=== PATIENT | female | born 1965 | race Caucasian/White ===

== ENCOUNTER 2020-08-19 08:40 | Emergency (ER) | payer OTHER, SELFPAY ==
--- NOTE | ~2020-08-19 | US_ITS ---
EXAMINATION: US abdomen limited DATE: 08/19/2020 10:34 INDICATION: Right upper quadrant abdominal pain. TECHNIQUE: Multiple grayscale and Doppler ultrasound images of the abdomen were obtained. COMPARISON: CT abdomen and pelvis 07/08/2010 FINDINGS: The visualized portions of the head and body of the pancreas are normal. There is diffuse h epatic steatosis. No liver surface nodularity. There is normal flow in main portal vein. The gallblad shawn is normal in size. No gallstones or gallbladder wall thickening. There was no sonographic Rogers sign. The common duct is normal and measures 3 mm. IMPRESSION: 1. Diffuse hepatic steatosis. Reviewed, dictated and finalized at location A. [facility] [employer]
[2020-08-19 08:45] VITALS: BP 169/90; PULSE 82; RESP 14; O2SAT 96
[2020-08-19 08:58] LABS: Basophils Absolute Auto 0.1 K/mm3 (0.0-0.1); Basophils Percent Auto 0.6 % (0.2-1.2); Eosinophils Absolute Auto 0.1 K/mm3 (0-0.3); Eosinophils Percent Auto 0.8 % (0-4.4); Hemoglobin 14.5 g/dL (12.0-15.0); Immature Granulocyte Absolute 0.04 K/mm3 (0.00-0.031); Immature Granulocyte Percent A 0.4 % (0-0.5); Lymphocytes Absolute Auto 2.09 K/mm3 (0.9-3.2); Mean Corpuscular HGB Conc 34.5 g/dl (32-36); Mean Corpuscular Hemoglobin 30.1 pg (26-34); Mean Corpuscular Volume 87.1 fl (80-100); Mean Platelet Volume 9.8 fl (7.4-10.4); Monocytes Absolute Auto 0.9 K/mm3 (0.1-0.6); Monocytes Percent Auto 8.3 % (2.6-8.5); Neutrophils Absolute Auto 7.8 K/mm3 (1.3-6.7); Neutrophils Percent Auto 70.9 % (45.5-73.1); Platelet Count Result 257 k/mm3 (150-375); Red Blood Count 4.82 M/mm3 (4.2-5.4); Red Cell Distribution Width 13.1 % (11.5-14.5)
[2020-08-19 08:59] LABS: Add Urine Microscopic? YES; Appearance Urine Cloudy (Clear); Bacteria Urine Trace /hpf; Bilirubin Urine Negative (Negative); Blood Urine Negative (Negative); Color Urine Yellow (Yellow); Glucose Urine UA Negative (Negative); Ketones Urine Negative (Negative); Leukocyte Esterase Ur Negative LEU/UL (Negative); Mucus Urine Rare /lpf; Nitrate Urine Negative (Negative); Protein Urine Negative (Negative); RBC Urine 0-2 /hpf (0-2); Specific Grav Ur 1.012 (1.001-1.035); Squamous Epithelial Cell Urine Many /hpf (Few); Urobilinogen Urine Negative mg/dL (<2.0); WBC Urine 0-3 /hpf
[2020-08-19 09:10] LABS: Alanine Aminotransferase 69 U/L (4-35); Albumin Level 4.7 g/dL (3.5-5.1); Alkaline Phosphatase 65 U/L (38-126); Anion Gap 8 mmol/L (8-16); Aspartate Amino Transferase 45 U/L (14-36); Bilirubin,Total 0.7 mg/dL (0.2-1.3); Blood Urea Nitrogen 8 mg/dL (7-17); Calcium 10.2 mg/dL (8.4-10.2); Carbon Dioxide 33 mmol/L (22-30); Chloride 96 mmol/L (98-107); Estimated CRCL calculation 96 ml/min; Estimated Glomerular Filt Rate > 60; Glucose 146 mg/dL (65-105); Lipase 93 U/L (23-300); Potassium 3.5 mmol/L (3.4-5.0); Sodium 137 mmol/L (137-145)
--- NOTE | 2020-08-19 11:46 | ED.ABDPAIN ---
HPI - Abdominal Pain General Chief Complaint: Abdominal Pain Stated Complaint: Right Flank Pain Time Seen by Provider: 08/19/20 08:45 Source: patient Mode of arrival: ambulatory Limitations: no limitations History of Present Illness HPI narrative: 54-year-old with a history of hypertension, diabetes here with complaints of right upper quadrant pain since last night. Patient also states that she vomited this morning. Patient also mentions that she has been having recurrent upper abdominal pain for past 1 week and is scheduled for CT scan next week however the pain was intense so she decided to come to the ER. She denies any fever or chills. Denies any constipation or diarrhea. No previous history of gallstones or gallbladder problems. MD elicited complaint: abdominal pain Pertinent past history: none Onset (ago): day(s) (1) Location: RUQ Severity: moderate Quality: aching Radiation: RUQ Migration to: no migration Exacerbating factors: nothing Relieving factors: nothing Associated symptoms: denies other symptoms Related Data Patient : No Allergies Allergy/AdvReac Type Severity Reaction Status Date / Time lisinopril Allergy Swelling Verified 08/19/20 08:49 of Lip/Tongue/Throat Review of Systems Review of Systems: All systems reviewed & are unremarkable except as noted in HPI and below Constitutional: Constitutional: Reports no additional constitutional complaints Eyes: Eyes: Reports no additional eye complaints ENT: Reports system reviewed and no additional complaints, except as documented Cardiovascular: Cardiovascular: Reports no additional cardiovascular complaints Respiratory: Respiratory: Reports no additional respiratory complaints Gastrointestinal: Gastrointestinal: Reports as per HPI Genitourinary: Genitourinary: Reports no additional female genitourinary complaints Musculoskeletal: Musculoskeletal: Reports no additional musculoskeletal complaints Neurologic: Reports system reviewed and no additional complaints, except as documented Exam Narrative: Exam Narrative: GENERAL: Well-appearing, well-nourished, and in no acute distress. HEAD: Normocephalic, atraumatic. EYES: PERRLA and EOMI. NECK: Supple. CHEST: Clear to auscultation. No respiratory distress. HEART: Regular rate and rhythm. No murmur heard. Normal peripheral pulses. ABDOMEN: Soft, mild tenderness in the RUQ , nondistended, normal active bowel sounds.No CVA tenderness EXTREMITIES: Normal range of motion. No edema. SKIN: Warm, dry, no rash. NEURO: No focal deficits. Alert and oriented x3. PSYCH: Normal mood and affect. Course Course Emergency Course: Patient had no significant pain or nausea vomiting at this point I discussed labs and ultrasound findings. I had recommended her to take Zofran as needed for nausea fat-free diet. Also recommended her to follow-up with her primary doctor regarding her fatty liver. Vital Signs Vital signs: Vital Signs Pulse Rate 82 08/19/20 08:45 Respiratory Rate 14 08/19/20 08:45 Blood Pressure 169/90 H 08/19/20 08:45 Pulse Oximetry 96 08/19/20 08:45 Pulse Rate 82 08/19/20 08:45 Respiratory Rate 14 08/19/20 08:45 Blood Pressure 169/90 H 08/19/20 08:45 Pulse Oximetry 96 08/19/20 08:45 MDM - Abdominal Pain MDM Narrative Medical decision making narrative: Given history of right upper quadrant pain and nausea below CBC comp panel and right upper quadrant ultrasound. Patient declined any pain medication at this time. Lab Data Result diagrams: 08/19/20 08:52 08/19/20 08:52 Labs: Lab Results 08/19/20 08/19/20 08/19/20 Range/Units 08:50 08:52 08:52 WBC 11.0 H (4.5-10.0) K/mm3 RBC 4.82 (4.2-5.4) M/mm3 Hgb 14.5 (12.0-15.0) g/dL Hct 42.0 (37.0-47.0) % MCV 87.1 (80-100) fl MCH 30.1 (26-34) pg MCHC 34.5 (32-36) g/dl RDW 13.1 (11.5-14.5) % Plt Count 257 (150-375) k/mm3 MPV 9.8
[2020-08-19 11:58] VITALS: BP 158/88; PULSE 70; RESP 20; TEMP 36.4; O2SAT 99
== END 2020-08-19 12:00 | disposition home or self-care (01) ==
PROVIDERS: Emergency Provider Family Medicine
DX: R10.11 Right upper quadrant pain (principal); K76.0 Fatty (change of) liver, not elsewhere classified
CPT/HCPCS: 36415; 76705; 80053; 81001; 81025; 83690; 85025; 99284

== ENCOUNTER 2020-10-30 11:30 | Emergency (ER) | payer OTHER, SELFPAY ==
--- NOTE | ~2020-10-30 | XR_ITS ---
EXAMINATION: [id number] DATE: 10/30/2020 12:06 INDICATION: Right-sided rib pain post trauma 4 days prior with palpable pop TECHNIQUE: A frontal inspiratory view of the chest and 3 views of the right ribs were obtained. COMPARISON: None FINDINGS: No rib fractures identified. No pneumothorax. No focal infiltrates, pleural effusion or pulmonary khalida ma. Cardiomediastinal silhouette is normal. Plate and screw fixation for anterior spinal fusion at t he cervicothoracic junction. Small calcific density projecting over the soft tissues near the middle facet of the right greater tuberosity consistent with right infraspinatus calcific tendinitis. IMPRESSION: 1. No rib fracture or acute cardiopulmonary disease. Reviewed, dictated and finalized at location A.
[2020-10-30 11:33] VITALS: BP 174/89; PULSE 72; RESP 16; TEMP 36.2; O2SAT 96
--- NOTE | 2020-10-30 11:40 | PC.NURSE ---
Arrives ambulatory steady gait from triage, was cleaning jacuzzi last night, leaned forward and felt rib pop , points to R anterior chest under the breast, +pain on inspiration. No obvious deformities or bruising, mild tenderness on palpation. No resp distress
[2020-10-30] MEDS: KETOROLAC (*BKC) 60 MG/2 ML VIAL IM (12:15)
--- NOTE | 2020-10-30 12:26 | ED.CHESTPAIN ---
HPI - Chest Pain General Chief Complaint: Chest Pain Stated Complaint: right rib pop Time Seen by Provider: 10/30/20 11:55 Source: patient and RN notes reviewed Mode of arrival: ambulatory Limitations: no limitations History of Present Illness HPI narrative: This is a 54 year old female who presents for evaluation of right rib pain . She states on Friday she was cleaning out her jacuzzi and she felt a pop to right anterior lower ribs. This pop occurred at time she was reaching to clean the tub. She has not been taking anything for her pain. She has pain with movement and laying down. She denies fever, chills, sob. Related Data Allergies Allergy/AdvReac Type Severity Reaction Status Date / Time lisinopril Allergy Swelling Verified 10/30/20 11:43 of Lip/Tongue/Throat Review of Systems Review of Systems: All systems reviewed & are unremarkable except as noted in HPI and below Constitutional: Constitutional: Denies chills, Denies fever(s) and Denies weakness Respiratory: Respiratory: Denies cough and Denies dyspnea Gastrointestinal: Gastrointestinal: Denies abdominal pain, Denies nausea and Denies vomiting PMFSH Past Medical History Medical History (Updated 10/30/20 @ 13:50 by Cassy Becerra MD) Diabetes mellitus Hyperlipidemia Hypertension Surgical History Surgical History (Updated 10/30/20 @ 13:46 by Cassy Becerra MD) H/O oophorectomy Hx of appendectomy Social History Social History (Updated 10/30/20 @ 13:46 by Cassy Becerra MD) Smoking status: Former smoker Exam Const: General: no acute distress and alert Orientation/consciousness: patient oriented x3 Eyes: EOM: EOMs intact bilaterally Chest: Chest palpation & inspection: tenderness rib (right anterior rib, 8,9th rib) Resp: Effort & Inspection: normal respiratory effort and no retractions Auscultation: clear to auscultation bilaterally Cardio: Rate: regular rate Rhythm: regular rhythm Heart sounds: no murmurs GI: GI Palp: Yes Soft to palpation, No Tenderness to palpation present (GI) and No Guarding due to palpation present (GI) Auscultation: normal bowel sounds Skin: General skin exam: normal color Rashes: no rashes Neuro: General: patient oriented x3, moves all extremities and CN's II-XI intact bilaterally Psych: Mental Status: mental status grossly normal Affect: normal affect Course Reevaluation(s) Reevaluation #1: She states her pain is much better after toradol medication. I discussed xray did not show displaced rib fracture. I discussed that she could still have fracture but the treatment would be same. She states she understands. Date: 10/30/20 Time: 13:48 Vital Signs Vital signs: Vital Signs Temperature 97.2 F L 10/30/20 11:33 Pulse Rate 72 10/30/20 11:33 Respiratory Rate 16 10/30/20 11:33 Blood Pressure 174/89 H 10/30/20 11:33 Pulse Oximetry 96 10/30/20 11:33 Temperature 97.2 F L 10/30/20 11:33 Pulse Rate 67 10/30/20 13:18 Respiratory Rate 17 10/30/20 13:18 Blood Pressure 136/86 10/30/20 13:18 Pulse Oximetry 95 10/30/20 13:18 MDM - Chest Pain Imaging Data Radiologist's impression: ITS Impressions Ribs w/Chest X-Ray 10/30/20 12:15 IMPRESSION: 1. No rib fracture or acute cardiopulmonary disease. Discharge Plan Discharge Clinical Impression: Rib pain on right side Patient Disposition: Home, Self-Care Condition: Stable Instructions: Antibiotic Form, Rib Fracture (ED), Rib Contusion (ED) Additional Instructions: Today you were evaluated for rib pain. You may a rib fracture and treatment is the same. PAin management is the treatment. Return if you develop fever, dizziness, weakness, shortness of breath. Prescriptions: New naproxen [Naprosyn] 500 mg tablet 500 mg PO BID PRN (Reason: pain) Qty: 20 RF: 0 hydrocodone-acetaminophen 5-325 mg tablet 1 tablet PO Q6H PRN (Reason: pain) Qty: 7 RF: 0
[2020-10-30 13:18] VITALS: BP 136/86; PULSE 67; RESP 17; O2SAT 95
== END 2020-10-30 14:15 | disposition home or self-care (01) ==
PROVIDERS: Emergency Provider General Practice
DX: R07.81 Pleurodynia (principal); E11.9 Type 2 diabetes mellitus without complications; E78.5 Hyperlipidemia, unspecified; I10 Essential (primary) hypertension; Z87.891 Personal history of nicotine dependence
CPT/HCPCS: 71101; 96372; 99283; J1885

== ENCOUNTER 2022-04-06 21:41 | Emergency (ER) | payer OTHER, SELFPAY ==
--- NOTE | ~2022-04-06 | CT_ITS ---
EXAMINATION: CT brain wo con DATE: 04/06/2022 23:24 INDICATION: Head injury. Status post fall. Posterior bleeding. TECHNIQUE: Computed tomography (CT) of the head was performed without intravenous contrast. The dose- length product was 605.33 mGy-cm. Automated exposure control and iterative reconstruction technique w ere employed. COMPARISON: None FINDINGS: There is a chronic left lacunar infarction of the caudate nucleus. Normal brain parenchymal volume. No acute intracranial hemorrhage, infarction, mass or mass effect. No ventriculomegaly or mi dline shift. Basilar cisterns are patent. There is mild mucosal thickening of the ethmoid air cells. No depressed skull fractures. IMPRESSION: 1. No acute intracranial abnormality. 2: Chronic left lacunar infarction. Reviewed, dictated and finalized at location A.
--- NOTE | ~2022-04-06 | CT_ITS ---
EXAMINATION: CT cervical spine wo con DATE: 04/06/2022 23:24 INDICATION: Neck pain TECHNIQUE: Computed tomography (CT) of the cervical spine was performed without intravenous contrast. The dose-length product was 362 mGy-cm. Automated exposure control and iterative reconstruction tech Pascal Met[employer]que were employed. COMPARISON: None FINDINGS: There is reversal of cervical lordosis. There is anterior cervical fusion at C6-7. There is advanced degenerative disc disease and spondylosis at C3-4 through C7-T1. There is degenerative ante rolisthesis at C2-3. No acute fracture, subluxation or dislocation. Odontoid process is normal. Lung apices are normal. Craniovertebral junction is normal. IMPRESSION: 1. No acute fracture. 2: Moderate-severe cervical spondylosis. Reviewed, dictated and finalized at location A.
[2022-04-06 21:42] VITALS: BP 149/94; PULSE 72; RESP 16; TEMP 36.6; O2SAT 100
--- NOTE | 2022-04-06 23:30 | ED.GENADULT ---
HPI - General Adult General Chief complaint: Head Injury Stated complaint: fall, head injury Time Seen by Provider: 04/06/22 21:52 History of Present Illness HPI narrative: Patient 56-year-old female who presents the emergency department with chief complaint of head injury. Patient reports she was at home fell backwards struck her head and has a small laceration on the back of her head. Patient reports takes an aspirin every day and also reports that she has been drinking does not really remember if she passed out whenever she hit the ground. The patient reports he is up-to-date on her tetanus status Related Data Allergies Allergy/AdvReac Type Severity Reaction Status Date / Time lisinopril Allergy Swelling Verified 04/06/22 21:44 of Lip/Tongue/Throat Review of Systems Review of Systems: A 10 system review of systems was completed on the patient and is negative except for what is stated in the HPI. Nursing and ancillary documentation was reviewed. [facility] Past Medical History Medical History Diabetes mellitus Hyperlipidemia Hypertension Surgical History Surgical History H/O oophorectomy Hx of appendectomy Social History Social History Smoking status: Former smoker Exam Narrative: GENERAL: Well-appearing, well-nourished, and in no acute distress. HEAD: Normocephalic, small laceration in the occipital region of the scalp. EYES: PERRLA and EOMI. ENT: Nares clear, no rhinorrhea or epistaxis. Mucous membranes moist. NECK: Supple. CHEST: Clear to auscultation. No respiratory distress. HEART: Regular rate and rhythm. No murmur heard. Normal peripheral pulses. ABDOMEN: Soft, nontender, nondistended, normal active bowel sounds. EXTREMITIES: Normal range of motion. No edema. SKIN: Warm, dry, no rash. NEURO: No focal deficits. Alert and oriented x3. PSYCH: Normal mood and affect. Course Vital Signs Vital signs: Vital Signs Temperature 36.6 C 04/06/22 21:42 Pulse Rate 72 04/06/22 21:42 Respiratory Rate 16 04/06/22 21:42 Blood Pressure 149/94 H 04/06/22 21:42 Pulse Oximetry 100 04/06/22 21:42 Temperature 36.6 C 04/06/22 21:42 Pulse Rate 72 04/06/22 21:42 Respiratory Rate 16 04/06/22 21:42 Blood Pressure 149/94 H 04/06/22 21:42 Pulse Oximetry 100 04/06/22 21:42 Procedures Laceration Laceration 1: Date: 04/06/22 Time: 23:55 Site: scalp Size (cm): 1.5 Description: linear Depth: simple, single layer Local Anesthetic: none Pre-repair: wound explored, irrigated and irrigated extensively ====== Skin Level ====== Skin layer closed with: beth Number of sutures: 1 ====== Subcutaneous Layer ====== ====== Muscle Layer ====== ====== Tendon Layer ====== Medical Decision Making Vital Signs Vital Signs: Vital Signs Temperature 36.6 C 04/06/22 21:42 Pulse Rate 72 04/06/22 21:42 Respiratory Rate 16 04/06/22 21:42 Blood Pressure 149/94 H 04/06/22 21:42 Pulse Oximetry 100 04/06/22 21:42 Temperature 36.6 C 04/06/22 21:42 Pulse Rate 72 04/06/22 21:42 Respiratory Rate 16 04/06/22 21:42 Blood Pressure 149/94 H 04/06/22 21:42 Pulse Oximetry 100 04/06/22 21:42 Discharge Plan Discharge Clinical Impression: Closed head injury, Laceration of scalp Patient Disposition: Home, Self-Care Condition: Stable Instructions: Antibiotic Form, Head Injury (ED), Staple Care (ED), Laceration (ED) Additional Instructions: You have 1 staple in your scalp that should be removed in 7 to 10 days Prescriptions: No Action ondansetron HCl [Zofran] 4 mg tablet 4 mg PO Q8H PRN (Reason: nausea and vomiting) Qty: 14 0RF dicyclomine 10 mg capsule 10 mg
== END 2022-04-07 00:15 | disposition home or self-care (01) ==
PROVIDERS: Emergency Provider Emergency Medicine
DX: S01.01XA Laceration without foreign body of scalp, initial encounter (principal); E11.9 Type 2 diabetes mellitus without complications; E78.5 Hyperlipidemia, unspecified; I10 Essential (primary) hypertension; Z87.891 Personal history of nicotine dependence
CPT/HCPCS: 12001; 70450; 72125; 99284

== ENCOUNTER 2025-01-10 21:21 | Emergency (ER) | payer OTHER, SELFPAY ==
--- NOTE | ~2025-01-10 | XR_ITS ---
HISTORY: fall COMPARISON: None TECHNIQUE: 2 views of the left hip along with an AP view of the pelvis FINDINGS: No acute fracture or dislocation is identified. Superior lateral sclerosis of the bilateral femoral acetabular joint spaces are present (left greater than right) consistent with osteoarthritis. Multiple phleboliths within the pelvis. Normal mineralization. IMPRESSION: Degenerative disease without acute fracture or dislocation Reviewed, dictated and finalized at location A.
--- NOTE | ~2025-01-10 | XR_ITS ---
HISTORY: fall COMPARISON: None TECHNIQUE: 3 views of the left ribs were performed along with a PA and lateral view of the chest FINDINGS: The cardiomediastinal silhouette is unremarkable. The lungs are clear. Fixation hardware is identified within the lower cervical spine. No acute displaced fracture is appreciated. Bone mineralization is age-appropriate. IMPRESSION: No acute displaced fracture. The lungs are clear Reviewed, dictated and finalized at location A.
--- NOTE | ~2025-01-10 | CT_ITS ---
History: Fall PROCEDURE: CT head without contrast. COMPARISON: 04/06/2022 TECHNIQUE: Axial imaging of the head performed from the skull base to the vertex without IV contrast. Sagittal a nd coronal reformations obtained. DLP: 605 mGy-cm FINDINGS: The ventricles are normal in size, shape and position. There is no mass, mass effect or midline shift. There is no abnormal extra-axial fluid collection or intracranial hemorrhage. Visualized paranasal sinuses are clear. The mastoid air cells are well aerated. No acute displaced fractures within the overlying cranium. Impression: No acute intracranial hemorrhage or suspicious mass effect. Reviewed, dictated and finalized at location A. Impression: No acute intracranial hemorrhage or suspicious mass effect.
--- OUTSIDE RECORDS SUMMARY | 2025-01-10 21:25 | XMS_ITS | Clinical Summary ---
Author Organization [facility] Address [address] [place] [address] Care Team Providers Care Photo Mask Processor Name Role Phone [address] Primary Care Prov ider Source Comments [facility],non-owned Affiliates and Associated Physician Practices is amultiple site organization consisting of ambulatory clinics and hospital sitesin [place], [place], [place]. This disclosure is being madepursuant to the Care Everywhere program and may not contain all information available regarding this patient. Last updated 18.[facility] Allergies Active Allergy Reactions Criticality Noted Date Comments Lisinopril Swelling 08/06/2016 Medications * Be aware that medications may not be up to date on this document. Alwaysverify current medications with the patient. No known medications Social History Tobacco Use Types Packs/Day Years Used Date Smoking Tobacco: Never Assessed Comments No Sex and Gender Information Value Date Recorded Sex Assigned at Not on file Legal Sex Female 12:01 PM [facility] Gender Identity Not on file Sexual Orientation Not on file Last Filed Vital Signs Vital Sign Reading Time Taken Comments Blood Pressure 114/72 08/06/2016 2:01 PM [facility] Pulse - - Temperature - - Respiratory Rate - - Oxygen Saturation - - Inhaled Oxygen Concentration - - Weight 84.1 kg (185 lb 6.5 oz) 08/06/2016 2:01 P M [facility] Height 169 cm (5' 6.54) 08/06/2016 2:01 PM [facility] Body Mass Index 29.45 08/06/2016 2:01 PM [facility] Plan of Treatment Health Maintenance Due Date Last Done Comments COLOGUARD (AGES 45-75) - COL ON CA SCREENING 1964 COLON MONITORING 1964 COLONOSCOPY - COLON CA SCREENING 1964 CT COLONOGRAPHY - COLON CA SCREENING 1964 Colorectal Cancer Screening 1964 FIT - COLON CA SCREENING 1964 FLEX SIG - COLON CA SCREENING 1964 LIPID TESTING 1964 MAMMOGRAM 1964 HIV SCREENING 12/30/1979 HEPATITIS C SCREENING 12/25/1982 DTAP/TDAP/TD VACCINES (1 - Tdap) 12/30/1983 PNEUMOCOCCAL VACCINE 50+ (1 of 1 - PCV) 2014 ZOSTER VACCINE (1 of 2) 2014 COVID-19 VACCINE (1 - 2023-2 5 season) 2024 DEPRESSION SCREENING 06/09/2024 INFLUENZA VACCINE (#1) 2025 Respiratory Syncytial Virus (RSV) Vaccine Pt: or over 60 yrs (1 - 1-dose 75+ series) 12/30/2039 HEPATITIS B VACCINE Aged Out No longe r eligible based on patient's age to complete this topic HIB VACCINE Aged Out No longer eligi ble based on patient's age to complete this topic HPV VACCINE Aged Out No longer eligi ble based on patient's age to complete this topic MENINGOCOCCAL (Group B) VACC INE SHARED DECISION-MAKING Aged Out No longer eligibl e based on patient's age to complete this topic MENINGOCOCCAL GROUPS A/C/Y/W VACCINE Aged Out No longer eligible b ased on patient's age to complete this topic Insurance Care Teams Photo Mask Processor Relationship Specialty Start Date End Date Clinicpc, [facility] [address] [facility], [place] [address] PCP - General Family Medicine 08/06/16
--- OUTSIDE RECORDS SUMMARY | 2025-01-10 21:26 | XMS_ITS | Continuity of Care Document ---
Author Organization [facility] Address [address] [place] [address] Phone Care Team Providers Care Ultrasonic Solderer Name Role Phone Jeremie Olivia PT Unavailable Unavailable Procedures Procedure Date Progress Note Therapeutic Activities Neuromuscular Re-Ed Therapeutic Exercise Manual Therapy Therapeutic Activities Neuromuscular Re-Ed Manual Therapy Therapeutic Exercise Therapeutic Activities Neuromuscular Re-Ed Therapeutic Exercise Manual Therapy Therapeutic Activities Neuromuscular Re-Ed Therapeutic Exercise Manual Therapy Therapeutic Activities Therapeutic Exercise Neuromuscular Re-Ed Manual Therapy Therapeutic Activities Neuromuscular Re-Ed Therapeutic Exercise Manual Therapy Therapeutic Activities Neuromuscular Re-Ed Manual Therapy Therapeutic Exercise Therapeutic Activities Therapeutic Exercise Neuromuscular Re-Ed Manual Therapy PT Evaluation Moderate Complexity Therapeutic Activities Neuromuscular Re-Ed Therapeutic Exercise Hot or Cold Pack Progress Note Therapeutic Exercise Neuromuscular Re-Ed Manual Therapy Therapeutic Exercise Neuromuscular Re-Ed Manual Therapy Therapeutic Exercise Neuromuscular Re-Ed Manual Therapy Therapeutic Exercise Neuromuscular Re-Ed Manual Therapy Therapeutic Exercise Neuromuscular Re-Ed Manual Therapy Therapeutic Exercise Neuromuscular Re-Ed Manual Therapy Therapeutic Exercise Neuromuscular Re-Ed Manual Therapy Hot or Cold Pack Therapeutic Exercise Neuromuscular Re-Ed Manual Therapy Hot or Cold Pack PT Evaluation Low Complexity Therapeutic Exercise Manual Therapy PT RE-EVALUATION THERAPEUTIC EXERCISES MANUAL THERAPY MECHANICAL TRACTION THERAPEUTIC EXERCISES MANUAL THERAPY MECHANICAL TRACTION THERAPEUTIC EXERCISES MANUAL THERAPY MECHANICAL TRACTION THERAPEUTIC EXERCISES MANUAL THERAPY MECHANICAL TRACTION THERAPEUTIC EXERCISES NEUROMUSCULAR RE-ED MANUAL THERAPY HOT/COLD PACK MECHANICAL TRACTION ELECTRIC STIMULATION UNA THERAPEUTIC EXERCISES NEUROMUSCULAR RE-ED MANUAL THERAPY HOT/COLD PACK MECHANICAL TRACTION ELECTRIC STIMULATION UNATT THERAPEUTIC EXERCISES MANUAL THERAPY HOT/COLD PACK MECHANICAL TRACTION ELECTRIC STIMULATION UNA PT EVALUATION MANUAL THERAPY Advance Directives Directive Yes / No Effective Date File Name No Information Encounters Encounter Description Practice Location Reason(s) For Visit Diagnoses Date Provider Providers Copied on Encounter [facility], [address] [facility] [place], [place], [place], [id number], tel:[phone] [place] No Information Gorska Jeremie. [facility] [place], [address], . tel:[phone] [facility], [address], [place], [place], [id number], tel:[phone] [place] No Information Gorska Jeremie. [facility] [place], [address], . tel:[phone] Referring Provider: [address], [place], [address]. tel:[phone] [facility], [address], [place], [address], tel:[phone] [place] No Information Gorska Jeremie. [facility] [place], [address], . tel:[phone] Referring Provider: [address], [place], [address]. tel:[phone] [facility], [address], [place], [address], tel:[phone] [place] No Information Gorska Jeremie. [facility] [place], [address], . tel:[phone] Referring Provider: [address], [place], [address]. tel:[phone] [facility], [address], [place], [address], tel:[phone] [place] No Information Gorska Jeremie. [address] [place], [address], [place]. tel:[phone] Referring Provider: [address] [place] [address], [place], [address]. tel:[phone] [facility], [address], [place], [place], [address], [place] tel:[phone] [place] No Information Gorska Jeremie. [facility] [place], [address], [place]. tel:[phone] Referring Provider: [address] [address], [place], [address]. tel:[phone] [facility], [address], [place], [address], [place] tel:[phone] [place] No Information Celestino Cosme. . Referring Provider: Marg[address] [address], [place], [address]. tel:[phone] [facility], [address], [place], [address], [place] tel:[phone] [place] No Information Tomas Hoyt . Referring Provider: [address], [place], [address]. tel:[phone] [facility], [address], [place], [address], [place] tel:[phone] [place] No Information Gorcornela Jeremie. [facility] [place], [address], [place]. tel:[phone] Referring Provider: [address], [place], [address]. tel:[phone] [facility], [address], [place], [address], [place] tel:[phone] [place] No Information Ne Chao. [address] [place], [address], [place]. tel:[phone] Referring Provider: Sunny Pantoja, [address] [place] [address], [place], [address]. tel:[phone] [facility], [address], [place], [address], [place] tel:[phone] [place] Lateral epicondylitis, left elbowPain in left elbow Glenwood Yenny. . Referring Provider: Mychal Muñoz, [address] [place] [address] [address], [place], [address]. tel:[phone] [facility], [address], [id number], [place] tel:[phone] [place] Lateral epicondylitis, left elbowPain in left elbow [place] Yenny. . Referring Provider: Mychal Muñoz, [address] [place] [address] [address], [place], [address]. tel:[phone] [facility], [address] [facility] [address], [place], [address], [place] tel:[phone] [place] Lateral epicondylitis, left elbowPain in left elbow Celestino Cosme. . Referring Provider: Mychal Muñoz, [address] [facility] [address], [place], [address]. tel:[phone] [facility], [address] [facility] [address], [id number], [place] tel:[phone] [place] Lateral epicondylitis, left elbowPain in left elbow Gary Yenny. . Referring Provider: Mychal Muñoz, [address] [address] [address], [place], [address]. tel:[phone] [facility], [address], [place], [address], [place] tel:[phone] [place] Lateral epicondylitis, left elbowPain in left elbow [place] Yenny. . Referring Provider: Mychal Muñoz, [address] [place] [address] [address], [place], [address]. tel:[phone] [facility], [address], [place], [address], [place] tel:[phone] [place] Lateral epicondylitis, left elbowPain in left elbow [place] Yenny. . Referring Provider: Mychal Muñoz, [address] [place] [address] [address], [place], [address]. tel:[phone] [facility], [address], [id number], tel:[phone] [place] No Information Gary Yenny. . Referring Provider: Mychal Muñoz, [address] [place] [address] [address], [place], [address]. tel:[phone] [facility], [address], [place], [place], [address], tel:[phone] [place] No Information Gary Yenny. . Referring Provider: Mychal Muñoz, [address] [place] [address] 22 [address], [place], [address]. tel:[phone] [facility], [address], [place], [address], [place] tel:[phone] [place] Lateral epicondylitis, left elbowPain in left elbow Gary Yenny. . Referring Provider: Mychal Muñoz, [address] [place] [address] [address], [place], [address]. tel:[phone] [facility], [address], [place], [address], tel:[phone] [place] No Information Moose Bunn. [facility] [place], [address], . tel:[phone] Referring Provider: Ishan Rodriges, [address] [address], [place], [address]. tel:[phone] [facility], [address], [place], [address], tel:[phone] [place] No Information Moose Bunn. [facility] [place], [address], . tel:[phone] Referring Provider: Ishan Rodriges, [address] [place] [address], [place], [address]. tel:[phone] [facility], [address] [place] [address], [id number], tel:[phone] [place] No Information Moose Bunn. [facility] [place], [address], . tel:[phone] Referring Provider: Ishan Rodriges, [address] [address], [place], [address]. tel:[phone] [facility], [address], [place], [address], tel:[phone] [place] No Information Moose Bunn. [facility] [place], [address], . tel:[phone] Referring Provider: Ishan Rodriges, [address] [address], [place], [address]. tel:[phone] [facility], [address], [place], [address], tel:[phone] [place] No Information Moose Bunn. [facility] [place], [facility], . tel:[phone] Referring Provider: Ishan Rodriges, [address], [facility]. tel:[phone] [facility], [address] [place] [address], [id number], tel:[phone] [place] No Information Moose Bunn. [address] [place], [place], [facility], . tel:[phone] Referring Provider: Ishan Rodriges, [address], [facility]. tel:[phone] [facility], [address] [place] [address], [id number], tel:[phone] [place] No Information Jairon Villanueva. . Referring Provider: Ishan Rodriges, [address], [facility]. tel:[phone] [facility] [address] [place] [address], [id number], tel:[phone] [place] Cervical StrainSpinal stenosis in cervical region Moose Bunn. [facility] [place], [facility], . tel:[phone] Referring Provider: Ishan Rodriges, [address], [facility]. tel:[phone] Family History Family Member Type Diagnosis Age At Onset No Information Payers Payer name Insurance type Covered libertarian ID Authorwen betancourt(s) [facility] [id number] Social History Type Description Quantity Date Captured Comments Sex Female Smoking Status No Information Chief Complaint And Reason For Visit No Information Reason For Referral Reason For Referral No Information History Of Present Illness Encounter Date Complaint History Of Prese nt Illness No Information Functional Status Date Functional Assessmen t No Information Instructions Date Instruction Additional Infor mation No Information Assessments Type Assessment Date No Information Patient Care Teams Name Effective Dates (start - stop) Status Members No Information
--- OUTSIDE RECORDS SUMMARY | 2025-01-10 21:26 | XMS_ITS | Encounter Summary ---
Author Organization [facility] Address [address] [place] [address] Care Team Providers Care Cissp Name Role Phone Jones Villagomez MD Primary Care Provider [phone] Encounter Details Date Type Department Care Team (Late st Contact Info) Description 03/08/2020 Prep for Procedure [facility] Pre-Admission Testing [address] [place], [place] [id number] Robin Valderrama MD [address] [place], [place] [address] Social History Tobacco Use Types Packs/Day Years Used Date Smoking Tobacco: Former Smokeless Tobacco: Never Comments:quit 2011 Alcohol Use Standard Drinks/Week Comments Yes 0 (1 standard drink = 0.6 oz pur e alcohol) on occassion PHQ-2 Answer Date Recorded PHQ-2 Score 0 2019 Comments No Sex and Gender Information Value Date Recorded Sex Assigned at Not on file Legal Sex Female 7:14 PM CDT Gender Identity Female 06/29/2024 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 No / Unsure 03/01/2020 2:11 PM CDT documented as of this encounter Plan of Treatment Not on file documented as of this encounter Results * PRE-SURGICAL/PRE-PROCEDURE CORONAVIRUS (COVID 19) (03/14/2020 8:38 AM CDT) CORONAVIRUS SARS COV 2 PCR (RESP) NOT DETECTED NOT DETECTED 03/16/2020 9:50 AM CDT [facility] Comment: A Not Detected (negative) test result for this test means that SARS- CoV-2 RNA was not present in the specimen above the limit of detection. A negative result does not rule out the possibility of COVID-19 and should not be used as the sole basis for treatment or patient management decisions. If COVID-19 is still suspected, based on exposure history together with other clinical findings, re-testing should be considered in consultation with public health authorities. Laboratory test results should always be considered in the context of clinical observations and epidemiological data in making a final diagnosis and patient management decisions. Please review the Fact Sheets and FDA authorized labeling available for health care providers and patients using the following websites: https://www.[place].[employer]/home/Covid-19/HCP/[facility]/fact- sheet.html https://www.[place].[employer]/home/Covid-19/Patients/ [facility]/fact-sheet.html This test has been authorized by the FDA under an Emergency Use Authorization (EUA) for use by authorized laboratories. Due to the current public health emergency, [facility] is receiving a high volume of samples from a wide variety of swabs and media for COVID-19 testing. In order to serve patients during this public health crisis, samples from appropriate clinical sources are being tested. Negative test results derived from specimens received in non-commercially manufactured viral collection and transport media, or in media and sample collection kits not yet authorized by FDA for COVID-19 testing should be cautiously evaluated and the patient potentially subjected to extra precautions such as additional clinical monitoring, including collection of an additional specimen. Methodology: Nucleic Acid Amplification Test (NAAT) includes RT-PCR or TMA Additional information about COVID-19 can be found at the [facility] website: www.[employer]/Covid19. Test performed at [facility] [address] [place] [address] Director: TIARA BARBOSA DO,MPH FIRST TEST YES 03/14/2020 11:24 AM CDT [facility] EMPLOYED IN HEALTHCARE NO 03/14/2020 11:24 AM CDT [facility] SYMPTOMATIC DEFINED BY CDC NO 03/14/2020 11:24 AM CDT [facility] DATE OF SYMPTOM ONSET UNKNOWN 03/14/2020 12:32 PM CDT [facility] HOSPITALIZATION STATUS NO 03/14/2020 11:24 AM CDT [facility] PATIENT IN ICU NO 03/14/2020 11:24 AM CDT [facility] RESIDENT OF [facility] NO 03/14/2020 11:24 AM CDT [facility] NOT 03/14/2020 11:24 AM CDT [facility] PATIENT'S RACE WHITE OR 03/14/2020 11:24 AM CDT [facility] ETHNICITY NONHISPANIC 03/14/2020 11:24 AM CDT [facility] SOURCE (QST) NASOPHARYNGEAL SWAB 03/14/2020 11:24 AM CDT [facility] NASOPHARYNGEAL SWAB / Unknown 03/14/2020 8:38 AM CDT us Robin Valderrama MD MICROBIOLOGY - GENERAL ORDERABL ES Final Result [facility] [address] [place] [address], [facility] [address] [place] [address], documented in this encounter Visit Diagnoses Diagnosis Preop examination- Primary Preoperative examination, unspecified documented in this encounter Additional Health Concerns Infection Onset Date Last Indicated Resolved Time COVID-19 Rule Out 03/14/2020 03/14/2020 03/16/2020 9:51 AM CDT documented as of this encounter Care Teams Cissp Relationship Specialty Start Date End Date Jones Villagomez MD [address] [facility] [address] [place] [address] PCP - General FAMILY PRACTICE 04/14/19 documented as of this encounter
--- OUTSIDE RECORDS SUMMARY | 2025-01-10 21:26 | XMS_ITS | Clinical Summary ---
Author Organization [facility] Address [address] [place] [address] Care Team Providers Care Parking Line Painter Name Role Phone Jones Villagomez MD Primary Care Provider [phone] Allergies Active Allergy Reactions Criticality Noted Date Comments Lisinopril Swelling 04/14/2019 Lips and facial swelling Medications propranolol LA 80 MG 24 hr capsule Take 60 mg by mouth 2 (two) times a day. Active hydrochlorothia zide 25 MG tablet Take 1 tablet (25 mg total) by mouth every morning. Active citalopram 20 MG tablet Take 1 tablet (20 mg total) by mouth daily. Active metFORMIN 1000 MG tablet Take 1 tablet (1,000 mg total) by mouth 2 (two) times daily with meals. Active fluticasone propionate 50 MCG/ACT nasal spray 1 spray by Each Nostril route daily. Active cetirizine 10 MG tablet Take 1 tablet (10 mg total) by mouth daily. Active pantoprazole EC 40 MG tablet Take 1 tablet (40 mg total) by mouth daily. Active fish oil 1000 MG Cap capsule 09/15/2018 Acti ve vitamin D3, cholecalciferol , 1000 UNIT Tab tablet 1 tablet (25 mcg total) nightly. 11/30/2019 Active losartan (COZAAR) 50 MG tablet 09/29/2023 Active atorvastatin (LIPITOR) 80 MG tablet 09/30/2023 Active Active Problems No known active problems Immunizations Immunization Administration Dates Next Due [employer] ([employer]) COVID-19 AD26 VACCINE 0.5 ML IM SUSP 09/17/2020 Family History Medical History Relation Comments Diabetes Father Cancer Mother Hypertension Mother Diabetes Sister Hypertension Sister Relation Status Comments Daughter Alive Father Mother ovarian and delicia st Sister Social History Tobacco Use Types Packs/Day Years Used Date Smoking Tobacco: Former Cigarettes 1.5 10 1 06/09/2001 - 04/09/2012 Passive Smoke Exposure: Past Smokeless Tobacco: Never Tobacco Cessation:Counseling Given: No Comments:Quit 2011 Alcohol Use Standard Drinks/Week Comments Yes 3.3 (1 standard drin k = 0.6 oz pure alcohol) on occassion, couple glasses a week PHQ-2 Answer Date Recorded Patient Health Questionnaire-2 Score 0 06/30/2024 Comments No Sex and Gender Information Value Date Recorded Sex Assigned at Not on file Legal Sex Female 7:14 PM CDT Gender Identity Female 06/29/2024 7:44 AM CLERICAL OFFICE Sexual Orientation Not on file Last Filed Vital Signs Vital Sign Reading Time Taken Comments Blood Pressure 134/85 06/30/2024 9:01 AM CLERICAL OFFICE Pulse 72 06/30/2024 9:01 AM CLERICAL OFFICE Temperature 36.9 C (98.4 F) 06/30/2024 9:01 AM CLERICAL OFFICE Respiratory Rate 18 05/05/2023 8:01 AM CLERICAL OFFICE Oxygen Saturation 97% 10/20/2023 3:32 PM CDT Inhaled Oxygen Concentration - - Weight 78.8 kg (173 lb 12.8 oz) 06/30/2024 9:01 AM CLERICAL OFFICE Height 167.6 cm (5' 6) 07/09/2023 3:16 PM CLERICAL OFFICE Body Mass Index 28.05 07/09/2023 3:16 PM CLERICAL OFFICE Plan of Treatment Health Maintenance Due Date Last Done Comments Annual Physical 12/30/1967 Hepatitis C 1982 Cervical Cancer Screening Pa p with HPV Testing (Age 30 to 64) Every 5 Years 1994 Mammogram Screening 2004 Cervical Cancer Screening Pa p Smear (Age 30 to 64) Every 3 Years 01/10/2011 01/11/2008 Cervical Cancer Screening wi th HPV 01/10/2011 Pneumococcal Vaccine: 50+ Years (2 of 2 - PCV) 03/08/2016 03/08/2015 DTaP, Tdap and Td Vaccines ( 2 - Td or Tdap) 06/12/2022 06/12/2012, 11/17/2005, 11/27/1995 COVID-19 Vaccine (2 - 2023-2 5 season) 2024 09/17/2020 Colorectal Cancer Screening Colonoscopy (10 Years) 04/16/2029 04/16/2019, 04/16/2019 RSV Immunization or 60+ Years (1 - 1-dose 75+ series) 12/30/2039 Zoster Vaccines Completed 08/21/2020, 05/18/2020 PHQ-2 (Physician [place]) Completed 06/30/2024 Meningococcal B Vaccine Aged Out No l onger eligible based on patient's age to complete this topic Meningococcal Vaccine Aged Out No mariana singh eligible based on patient's age to complete this topic RSV Immunizations Under 20 Months Aged Out No longer eligible b ased on patient's age to complete this topic Medical Devices Implanted Type Area Nail Polish Brush Machine Feeder Device Identifier Shelf Expiration Date Model / Serial / Lot 4 Hole Locking Distal Fibula Plate, Right Implanted:Qty: 1 on 03/28/2023 by Addy Vargas MD at [facility] Plate Right: Ankle [employer] [id number] / / [id number] 2.7mm Locking Screw Implanted:Qty: 1 on 03/28/2023 by Addy Vargas MD at [facility] Screw Right: Ankle [employer] AR-8827CL- 12 / / 2.7mm Locking Screw Implanted:Qty: 1 on 03/28/2023 by Addy Vargas MD at [facility] Screw Right: Ankle [employer] [id number]-10 / / Screw Bone 3.5mm 14mm Low Profile - [id number] Implanted:Qty: 1 on 03/28/2023 by Addy Vargas MD at [facility] Screw Right: Ankle [employer] [id number]-8835-14 / / Screw Bone 3.5mm 16mm Low Profile - [id number] Implanted:Qty: 1 on 03/28/2023 by Addy Vargas MD at [facility] Screw Right: Ankle [employer] [id number]-8835-16 / / Screw Arthrex Cortical 3.5 X 18 Mm - [id number] Implanted:Qty: 1 on 03/28/2023 by Addy Vargas MD at [facility] Screw Right: Ankle [employer] [id number] AR-8835-18 / / 4mm Cannulated Screw, Long Thread Implanted:Qty: 1 on 03/28/2023 by Addy Vargas MD at [facility] Screw Right: Ankle [employer] [id number] AR-8840CL- 40 / / 2.7mm Locking Screw Implanted:Qty: 1 on 03/28/2023 by Addy Vargas MD at [facility] Right: Ankle [employer] AR-8827CL- 14 / / Procedures Procedure Name Priority Date/Time Associated Diagnosis Comments COLONOSCOPY Routine 04/16/2019 8:00 AM CLERICAL OFFICE from Last 3 Months or Most Recently Relevant to Health Maintenance Insurance [facility] [place] [id number] [facility] Care Teams Parking Line Painter Relationship Specialty Start Date End Date Jones Villagomez MD [address] [facility] [address] [place] [address] PCP - General FAMILY PRACTICE 04/14/19
--- OUTSIDE RECORDS SUMMARY | 2025-01-10 21:27 | XMS_ITS | Continuity of Care Document ---
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 It does not include entries that were removed or entered in error. Problem Status Onset Date Problem Type Date of Resolution Comments Source Skin lesion Active 025 Diagnosis 6130C-A f-C-375 [facility] Type 2 diabetes mellitus without complication Active 016 Condition 6130C-A f-C-375 [facility] Type 2 diabetes mellitus without complications Active 016 Condition DoD Abnormal uterine bleeding Active Condition 6130C-A f-C-375 [facility] Acquired right hallux valgus Active Condition 6130C-A f-C-375 [facility] Allergic rhinitis Active Condition 6130 C-A f-C-375 [facility] Anxiety disorder1 Active Condition Ou tside Source Comment: No SI/HI. Pt. notes great improvement in symptoms on current med./dose. 6130C-A f-C-375 [facility] Bacterial vaginosis Active Condition 61 30C-A f-C-375 [facility] Benign essential hypertension Active Condition 6130C-A f-C-375 [facility] Carpal tunnel syndrome2 Active Condition Outside Source Comment: Somewhat inconsistent exam. Patient to wear splints at all times - even sleeping. Remove splints to shower and BID ROM exercises. Patient also given letter for 4 weeks of profile and ergonomic assessment of her working environment. She is to follow-up in the next few weeks for annual physical. If she still complains of this then likely needs NCS (Neurology consult) before to assess PNS before orthopedic surgery referral. 6130C-A f-C-375 [facility] Cigarette smoker3 Active Condition Ou tside Source Comment: Discussed with pt need to quit smoking. She wants to quit. Doesn 't want to take any medication, has already weaned herself down to 1/2 ppd. Is going on TDYT for 1 month, plans on quitting during that time.\r\nPt to f/u in 1 month, will discuss how it is goi 6130C-A f-C-375 [facility] Combined systolic and diastolic dysfunction Active Condition 6130C-A f-C-375 [facility] Cyst of left ovary Active Condition 613 0C-A -C-375 [facility] Cystitis Active Condition 6130C-A -C-375 [facility]- [facility] Diabetes mellitus Active Condition 6130 C-A -C-375 [facility] Disorder of menstruation Active Condition 6130C-A -C-375 [facility] Dysmenorrhea Active Condition 6130C-A -C-375 [facility] Esophageal reflux finding Active Condition 6130C-A f-C-375 [facility] Esophagitis Active Condition 6130C-A -C-375 [facility] Essential hypertension4 Active Condition Outside Source Comment: Will monitor home BP for the next month-3 and will bring in cuff at next visit. 6130C-A -C-375 [facility] External hemorrhoids Active Condition 6130C-A f-C-375 [facility]- [facility] Fatigue Active Condition 6130C-A -C-375 [facility] Folliculitis Active Condition 6130C-A f-C-375 [facility] Hyperlipidemia5 Active Condition Outs rohini Source Comment: Pt not interested in starting medications yet, and would like to try TLC. Informed that she will most-likely need medications d/t family history, but will try aggressive TLC for 3 months. Given an exercise rx for 30min walking daily 5-6 day/week. Also counseled on diet and will go to nutrition. Pt is to eat fish 2x/wk and to decrease carbs and fat. 6130C-A f-C-375 [facility] Lateral epicondylitis Active Condition 6130C-A f-C-375 [facility] Metabolic syndrome X Active Condition 6130C-A f-C-375 [facility] Migraine Active Condition 6130C-A f-C-375 [facility] Nicotine dependence6 Active Condition Outside Source Comment: \ndiscussed cessation options, failed wellbutrin, \nStressed importance of tobacco cessation\Michael pike in [place], referred to [facility] 6130C-A -C-375 [facility] Perianal abscess7 Active Condition Ou tside Source Comment: pt has skin irritation due to tape, wound with good granulation tissue, no drainage. Deferred repeat packing today and will leave open to give skin time to heal from tape. Fu tomorrow to see if repeat packing needed (quite possibly will not need).\r\nseen 6130C-A f-C-375 [facility] Sinus headache Active Condition 6130C-A -C-375 [facility] Somatic dysfunction of thoracic region8 Active Condition Outside Source Comment: pain dec from 10 to 010 30C-A -C-375 [facility] Somatic dysfunction of upper limb9 Active Condition Outside [facility] e Comment: Lesions with only very minimal improvement with counterstrain and stills technique. \r\nDr Richie came in, saw pt and provided some relief with deep needle and electrical stim (see her note for more details).\r\nPt is to f/u in accupuncture clinic for further tx. 6130C-A f-C-375 [facility] Temporomandibular zdfeb-avjl-mxclilth ion lntmpqmi92 Active Condition Outside [facility] e Comment: Improving. Patient to see dentist next week. Given improvement of symptoms, likely in resolution. 6130C-A f-C-375 [facility] Tobacco user11 Active Condition Outsi de Source Comment: Patient reporting only 1/2 PPD. Patient want Chantex but doesn 't want to pay for it. Patient was referred to [facility]. 6130C-A f-C-375 [facility] LATERAL EPICONDYLITIS (TENNIS ELBOW) LEFT Active Condition DoD MENORRHAGIA PERIMENOPAUSAL Active Condition DoD HEMORRHOIDS EXTERNAL Active Condition DoD sinus pain Active Condition DoD menses abnormal Active Condition DoD FATIGUE Active Condition DoD STYE (HORDEOLUM EXTERNUM) Inactive Condition DoD ESSENTIAL HYPERTENSION BENIGN Active Condition DoD DIABETES MELLITUS UNDER CONTROL Active Condition DoD ESOPHAGITIS CHRONIC REFLUX Active Condition DoD Preventive Medicine New Patient Evaluation Adult 40-64 Inactive Condition DoD ROUTINE GYNECOLOGICAL EXAM Inactive Condition DoD Other Physical Therapy Active Condition DoD BREAST LUMP OR MASS LEFT Inactive Condition DoD UPPER RESPIRATORY INFECTION ACUTE Inactive Condition DoD foot pain (soft tissue) Active Condition DoD ANGIOEDEMA Inactive Condition DoD ALLERGIC REACTION Inactive Condition DoD joint pain, localized in the elbow Inactive Condition DoD Administrative Evaluation Services Inactive Condition DoD BACK STRAIN LEFT Inactive Condition DoD OVARIAN CYST LEFT Active Condition DoD URINARY TRACT INFECTION Active Condition DoD visit for: single system exam gynecological Inactive Condition DoD Test Negative Inactive Condition DoD DYSFUNCTIONAL UTERINE BLEEDING Active Condition DoD CONDITIONS INFLUENCING HEALTH STATUS Active Condition DoD MIGRAINE HEADACHE Active Condition DoD GLUCOSE INTOLERANCE Active Condition Do D OVARIAN CYST Active Condition DoD CYSTITIS ACUTE HEMORRHAGIC Inactive Condition DoD DYSMETABOLIC SYNDROME X Active Condition DoD HYPERGLYCEMIA Active Condition DoD ACQUIRED DEFORMITY OF TOE - HALLUX VALGUS RIGHT Active Condition DoD Laboratory Studies Inactive Condition Do D GASTROENTERITIS Active Condition - Pt with sx of viral gastroentertis.- Discussed sx treatment with Tylenol, Phenergan, and Immodium.- Discussed need for good PO intake.- Pt given rx for Phenergan 12.5mg 1-2 tabs po q4-6 hrs prn nausea, #30, RF0- Pt to f/u in sx not improved over next several days or sooner for worsening sx or signs of dehydration or inability to tolerate PO fluid intake.- Case discussed with Dr. Stauffer. [facility] Intervention And Counseling On Cessation Of Tobacco Use Active Condition Patient was inf ormed of the dangers of smoking (COPD, cancer (lungs, bladder, throat, mouth) and the effect on her exercise tolerance. She was encouraged to quit as soon as possible. We also discussed her alcohol use and its potential effect on her trying to lose weight. [facility] NORMAL ROUTINE HISTORY AND PHYSICAL ADULT (18-65) Inactive Condition Patient with no rmal examination. Patient not due for mammogram, breast exam and pelvic examination. Does not wish to have it performed because it is under a year since her last exam (December 13). She will reschedule in late December 2007. In the interim, she reported that she would try an lose weight - she refuse a nutritional medicine consult (as she has read all the books) and will look into weight watchers. DoD TEMPOROMANDIBULAR JOINT-PAIN DYSFUNCTION SYNDROME Active Condition Improving. Anne Marie ent to see dentist next week. Given improvement of symptoms, likely in resolution. DoD SINUSITIS Inactive Condition bactrim as pt gets GI issues with amox. Cont zyrtec. ok to use afrin for 3 d. BP up today, pt will repeat at home and follow up DoD BACTERIAL VAGINOSIS Active Condition Do D NICOTINE DEPENDENCE Active Condition discussed cessation options, failed wellbutrin, Stressed importance of tobacco cessationInterested in [place], referred to [facility] DoD visit for: screening exam malignant neoplasm breast Active Condition DoD Patient Counseling: Active Condition Patient informed that I could not provide her an excuse to not perform in the PT test at this time as there is no indication that she should be excused. Patient understood this. I reviewed her lab work and discussed with her the need to lose weight and control her diet (caloric intake). She refused a nutritional medicine consult and reported that she will get into shape at the gym that is located at the [employer] [facility] she works at. Patient was told that we will recheck her lipid and chemistry at her next visit in December for her physical to see if her exercise routine is doing the trick. The patient was in agreement with this plan. DoD NONALLOPATHIC LESIONS THORACIC Active Condition pain dec fr om 4/10 to 0/10 DoD NONALLOPATHIC LESIONS UPPER EXTREMITIES Active Condition Lesions with on ly very minimal improvement with counterstrain and stills technique. Dr Stovall came in, saw pt and provided some relief with deep needle and electrical stim (see her note for more details).Pt is to f/u in accupuncture clinic for further tx. DoD NICOTINE DEPENDENCE - CONTINUOUS Active Condition Will try Wellbu sue for smoking cessation. Pt counseled regarding use of this medicine (directions, importance of quit date), as well as possible interactions with pt's Celexa. Pt to f/u in 1-2 months or sooner prn. Pt voiced understanding and agreemen DoD TRAPEZOID MUSCLE STRAIN Inactive Condition Time did not al low for OMT today - will refer to OMT clinic for further eval/tx. Pt advised to continue regular gentle stretching of neck and upper back; ibuprofen prn. DoD HYPERTENSION (SYSTEMIC) Active Condition DoD visit for: issue repeat prescription for medication Inactive Condition DoD SINUSITIS ACUTE Inactive Condition Acut e on chronic sinusitis. Will treat with Levaquin and refer to ENT per pt request for further eval/tx. Increased rest and fluids recommended. Pt to follow-up with [facility] prn. DoD visit for: administrative purpose Inactive Condition meds refill for [place] [employer] [facility] CHRONIC DIARRHEA OF UNKNOWN ORIGIN Inactive Condition Continue f/u with Dr. Layne. Question of whether infectious causes evaluated at this time. Pt. to f/u after eval with Dr. Layne completed. Pt. on PPI through Dr. Layne. DoD ANXIETY DISORDER NOS Active Condition No SI/HI. Pt. n otes great improvement in symptoms on current med./dose. DoD smoking cigarettes Active Condition D iscussed with pt need to quit smoking. She wants to quit. Doesn't want to take any medication, has already weaned herself down to 1/2 ppd. Is going on TDYT for 1 month, plans on quitting during that time.Pt to f/u in 1 month, will discuss how it is goi DoD ALLERGIC RHINITIS Active Condition DoD abdominal pain in the left upper belly (LUQ) Inactive Condition DoD abdominal pain in the right lower belly (RLQ) Inactive Condition DoD abdominal pain Active Condition 39 y/ o female with symptoms of IBS also had two abdominal surgeries; would like to have c-scope done to r/o IBD. pt started on Bentyl 11/26. DoD visit for: laboratory Inactive Condition DoD HYPERLIPIDEMIA Active Condition Pt no t interested in starting medications yet, and would like to try TLC. Informed that she will most-likely need medications d/t family history, but will try aggressive TLC for 3 months. Given an exercise rx for 30min walking daily 5-6 day/week. Also counseled on diet and will go to nutrition. Pt is to eat fish 2x/wk and to decrease carbs and fat. DoD reported family history of heart disease Active Condition DoD irregular length of menstrual periods Active Condition f/u after 3 cycles of provera DoD DYSMENORRHEA Active Condition DoD visit for: screening exam for malignant neoplasm cervix Inactive Condition DoD ROUTINE GYNECOLOGICAL EXAM WITH CERVICAL PAP SMEAR Inactive Condition Normal CBE, giv en sign FH of breast cancer, discussed need for close surviellenceNormal pelvic, will send results, if neg, f/u in 1yr DoD visit for: issue repeat prescription Inactive Condition DoD Blood Pressure Isolated Elevated Inactive Condition repeat nl DoD MENORRHAGIA Active Condition DoD METRORRHAGIA Active Condition U/S santosh ws no fiborids, no endometrial thickening, so is a functional bleed since having ovary removed. Because pt is a smoker and over 35, risk of clotting with estrogen is too high.Will give progesterone for days 1-12 of month, then d/c for rest of mon DoD CARPAL TUNNEL SYNDROME Active Condition Somewhat inconsistent exam. Patient to wear splints at all times - even sleeping. Remove splints to shower and BID ROM exercises. Patient also given letter for 4 weeks of profile and ergonomic assessment of her working environment. She is to follow-up in the next few weeks for annual physical. If she still complains of this then likely needs NCS (Neurology consult) before to assess PNS before orthopedic surgery referral. DoD ESOPHAGEAL REFLUX Active Condition DoD Combined Systolic And Diastolic Elevation Active Condition DoD IMPAIRED FASTING GLUCOSE Inactive Condition Will repeat lab vs in 3 months and diet as above. DoD tobacco use Active Condition Patient reporting only 1/2 PPD. Patient want Chantex but doesn't want to pay for it. Patient was referred to [facility]. DoD FOLLICULITIS Active Condition DoD Dressing Change Inactive Condition DoD PERIANAL ABSCESS Active Condition pt has skin irritation due to tape, wound with good granulation tissue, no drainage. Deferred repeat packing today and will leave open to give skin time to heal from tape. Fu tomorrow to see if repeat packing needed (quite possibly will not need).seen DoD SKIN ABSCESS Active Condition DoD ESSENTIAL HYPERTENSION Active Condition Will monitor [facility] BP for the next month-3 and will bring in cuff at next visit. DoD Medications Combined list of outpatient medications from Department of Defense and Veterans Affairs facilities.Medications provided include 1) outpatient medications from the last 15 months, and 2) patient-reported medications. Medication Details Route Status Patient Instructions Prescription Expires Prescription Number Last Dispense Date Ordering Provider Order Date Order Qty Source AFLURIA QUAD 2020-21 (3YR UP) (influenza virus vaccine quadrivalen t 2020-21 (36 mos up)/PF), 60MCG/ AFLURIA QUAD 2020-21 (3YR UP) (influen za virus vaccine quadriva lent 2020-21 (36 mos up)/PF), 60MCG/ Start Date: 04/06/20 Stop Date: 02/26/23 Status: Keenan drake Repeat number: 1 Discont inued 02/26/20232022 No Facilit y Access amLODIPine 5 mg oral tablet 1 tab(s), Oral, Daily, # 90 tab(s), 3 total refill(s ), Lindsey david, Pharmacy : [facility] Oral (given by mouth) Discont inued 07/18/2023 3 2023 90.0 6130C-A f-C-375 Th [facility] amLODIPine 5 mg oral tablet amLODIPi ne 5 mg oral tablet Start Date: 04/03/21 Stop Date: 02/26/23 Status: Disconti vidal Repeat number: 1 Discont inued 02/26/20232022 No Facilit y Access amLODIPine 5 mg tablet See Instruct ions, # 90 EA, 1 total refill(s ), Acute Discont inued 02/26/2023 3 2022 90.0 Ambulat ory Pharmac y aspirin 81 mg oral delayed release tablet 1 tab(s), Oral, Daily, X 90 days, # 90 tab(s), 3 total refill(s ), Acute, Pharmacy : [facility] Oral (given by mouth) Discont inued 05/27/2023 3 2022 90.0 6130C-A f-C-375 [facility] aspirin 81 mg oral delayed release tablet aspirin 81 mg oral delayed release tablet Start Date: 08/07/20 Stop Date: 02/26/23 Status: Disconti vidal Repeat number: 1 Discont inued 02/26/20232022 No Facilit y Access aspirin 81 mg oral delayed release tablet 1 tab(s), Oral, Daily, # 90 tab(s), 2 total refill(s ), [facility], Pharmacy : [facility] Oral (given by mouth) Discont inued 05/28/2024 4 2023 90.0 6130CA f-C-375 Th [facility] aspirin EC 81 mg tablet See Instruct ions, # 90 EA, 1 total refill(s ), Acute Discont inued 02/26/2023 3 2022 90.0 Ambulat ory Pharmac y atorvastati n 40 mg oral tablet 1 tab(s), Oral, Daily, X 90 days, # 90 tab(s), 3 total refill(s ), Acute, Pharmacy : [facility] Oral (given by mouth) Discont inued 05/27/2023 3 2022 90.0 6130C-A f-C-375 Th [facility] atorvastati n 40 mg oral tablet atorvast atin 40 mg oral tablet Start Date: 08/07/20 Stop Date: 02/26/23 Status: Keenan drake Repeat number: 1 Discont inued 02/26/20232022 No Facilit y Access atorvastati n 40 mg oral tablet 1 tab(s), Oral, Daily, for choleste rol, # 90 tab(s), 3 total refill(s ), Maintena tne, Pharmacy : [facility] Oral (given by mouth) Discont inued 09/30/2023 3 2023 90.0 6130C-A f-C-375 Th [facility] atorvastati n 40 mg tablet See Instruct ions, # 90 EA, 1 total refill(s ), Acute Discont inued 02/26/2023 3 2022 90.0 Ambulat ory Pharmac y atorvastati n 80 mg oral tablet 1 tab(s), Oral, Daily, for choleste rol, # 90 tab(s), 3 total refill(s ), Maintena tne, Pharmacy : [facility] Oral (given by mouth) Discont inued 08/16/2023 4 2023 90.0 [id number] [facility] [facility] celeXA (BRAND) 20 MG ORALTAB May cause drowsine ss.Take or use exactly as directed .Obtain advice for OTCs. 02/22/2024 [id number] 3 [address] [place] [address] ([facility]) CETIRIZINE (U/D) 10 MG ORAL TAB May cause drowsine ss.Obtai n advice for OTCs. 02/22/2024 [id number] 3 [address] [place] [address] ([facility]) cetirizine 10 mg oral tablet 1 tab(s), Oral, Daily, X 90 days, # 90 tab(s), 3 total refill(s ), Acute, 01/16/24 5:21:10 PM CDT, Pharmacy : [facility] Oral (given by mouth) Discont inued 01/16/2024 4 2023 90.0 6130C-A -C-375 Th [facility] cetirizine 10 mg oral tablet 1 tab(s), Oral, Daily, X 90 days, # 90 tab(s), 3 total refill(s ), Acute, 01/10/25 5:21:00 PM CDT, Pharmacy : [facility] Oral (given by mouth) Complet ed 01/10/2025 5 2024 90.0 6130C-A -C-375 Th [facility] cetirizine 10 mg oral tablet cetirizi ne 10 mg oral tablet Start Date: 04/03/21 Stop Date: 02/26/23 Status: Disconti nued Repeat number: 1 Discont inued 02/26/20232022 No Facilit y Access cetirizine 10 mg tablet See Instruct ions, # 90 EA, 1 total refill(s ), Acute Discont inued 02/26/2023 3 2022 90.0 Ambulat ory Pharmac y cholecalcif susan 25 mcg (1000 intl units) oral tablet 90 tab(s), 0 Refill(s ), 0 total refill(s ), Soft Stop Ordered 2023 6130C-A -C-375 Th [facility] cholecalcif susan 25 mcg (1000 intl units) oral tablet TAKE ONE TABLET BY MOUTH EVERY DAY, # 90 EA, 3 total refill(s ), Acute Discont inued 02/26/2023 2 2022 90.0 Ambulat ory Pharmac y cholecalcif susan 25 mcg (1000 intl units) oral tablet cholecal ciferol 25 mcg (1000 intl units) oral tablet Start Date: 04/03/21 Stop Date: 02/26/23 Status: Disconti nued Repeat number: 1 Discont inued 02/26/20232022 No Facilit y Access citalopram 20 mg oral tablet 1 tab(s), Oral, Daily, # 90 tab(s), 3 total refill(s ), [facility], Pharmacy : [facility] Oral (given by mouth) Discont inued 01/16/2024 4 2023 90.0 6130C-A f-C-375 Th [facility] citalopram 20 mg oral tablet 1.5 tab(s), Oral, Daily, Total of 30mg once daily., # 135 tab(s), 3 total refill(s ), [facility], Pharmacy : [facility] Oral (given by mouth) Ordered 5 2023 135.0 6130C-A f-C-375 Th [facility] citalopram 20 mg tablet See dose instruct ions in comments , # 90 EA, 1 total refill(s ), Acute Discont inued 02/26/2023 3 2022 90.0 Ambulat ory Pharmac y clindamycin 1% topical gel clindamy gigi 1% topical gel Start Date: 01/29/20 Stop Date: 02/26/23 Status: Disconti nustephani Repeat number: 1 Discont inued 02/26/20232022 No Facilit y Access cyclobenzap rine 5 mg oral tablet cycloben zaprine 5 mg oral tablet Start Date: 10/31/20 Stop Date: 02/26/23 Status: Disconti nustephani Repeat number: 1 Discont inued 02/26/20232022 No Facilit y Access diclofenac 1% topical gel USE DOSING CARD TO APPLY 2 TO 4 GRAMS TO AFFECTED AREAS FOUR TIMES A DAY DIRECTED , # 100 g, 1 total refill(s ), Acute Discont inued 02/26/2023 3 2022 100.0 Ambulat ory Pharmac y dicyclomine 10 mg oral capsule dicyclom ine 10 mg oral capsule Start Date: 08/20/20 Stop Date: 02/26/23 Status: Disconti vidal Repeat number: 1 Discont inued 02/26/20232022 No Facilit y Access Flonase 50 mcg/inh nasal spray 100 mcg, Nostril- Both, Daily, # 16 g, 5 total refill(s ), Maintena nce, Pharmacy : [facility] Nostri l-Both (into the nose) Discont inued 09/13/2023 4 2023 16.0 6130C-A f-C-375 Th [facility] Flonase Allergy Relief 50 mcg/inh nasal spray 2 spray(s) , Nostril- Both, Daily, # 3 EA, 3 total refill(s ), Maintena nce, Pharmacy : [facility] Nostri l-Both (into the nose) Discont inued 05/28/2024 4 2023 3.0 6130C-A f-C-375 Th [facility] Flonase Allergy Relief 50 mcg/inh nasal spray 2 spray(s) , Nostril- Both, Daily, # 3 EA, 3 total refill(s ), Maintena nce, Pharmacy : [facility] Nostri l-Both (into the nose) Ordered 5 2023 3.0 6130C-A f-C-375 Th [facility] fluticasone 50 mcg/inh nasal spray 100 mcg, Nostril- Both, Daily, # 16 g, 11 total refill(s ), Maintena nce, Pharmacy : [facility] Nostri l-Both (into the nose) Cancele d 09/30/20232023 16.0 6130C-A f-C-375 Th [facility] fluticasone 50 mcg/inh nasal spray 50 mcg, Nostril- Both, Daily, # 16 g, 3 total refill(s ), Maintena nce, Pharmacy : [facility] Nostri l-Both (into the nose) Discont inued 05/27/2023 3 2022 16.0 6130C-A f-C-375 Th [facility] fluticasone 50 mcg/inh nasal spray fluticas one 50 mcg/inh nasal spray Start Date: 11/07/20 Stop Date: 02/26/23 Status: Disconti nued Repeat number: 1 Discont inued 02/26/20232022 No Facilit y Access fluticasone 50 mcg/inh nasal spray [16g] See dose instruct ions in comments , # 48 g, 1 total refill(s ), Acute Complet ed 01/14/2023 3 2022 48.0 Ambulat ory Pharmac y Hydrochloro thiazide (Oretic) Tablet 25 mg Oral Take orange juice or banana.T [place]es[place] with food/mil k.Avoid exposure to sun.Take or use exactly as directed . 05/26/2024 [id number] 3 2023 90 [employer] [place] ([facility]) hydroCHLORO thiazide 25 mg oral tablet 1 tab(s), Oral, Daily, X 90 days, # 90 tab(s), 3 total refill(s ), Acute, Pharmacy : [facility] Oral (given by mouth) Discont inued 05/27/2023 3 2022 90.0 6130C-A f-C-375 Th [facility] hydroCHLORO thiazide 25 mg oral tablet 1 tab(s), Oral, Daily, for blood pressure , # 90 tab(s), 3 total refill(s ), [facility] [facility], Pharmacy : [facility] Oral (given by mouth) Ordered 5 2023 90.0 6130C-A f-C-375 Th [facility] hydroCHLORO thiazide 25 mg oral tablet 1 tab(s), Oral, Daily, for blood pressure , # 90 tab(s), 3 total refill(s ), [facility], Pharmacy : [facility] Oral (given by mouth) Discont inued 05/28/2024 4 2023 90.0 6130C-A f-C-375 Th [facility]- [facility] hydroCHLORO thiazide 25 mg tablet See Instruct ions, # 90 EA, 2 total refill(s ), Acute Discont inued 02/26/2023 3 2022 90.0 Ambulat ory Pharmac y HYDROCODONE -ACETAMINOP HEN (HYDROCODON E/ACETAMINO PHEN), 5MG-325MG, TABLET, ORAL, MALLINCKROD T PH, 50 HYDROCOD ONE-ACET AMINOPHE N (HYDROCO DONE/OPAL TAMINOPH EN), 5MG-325M G, TABLET, ORAL, MALLINCK RODT PH, 50 Start Date: 10/31/20 Stop Date: 02/26/23 Status: Disconti vidal Repeat number: 1 Discont inued 02/26/20232022 No Facilit y Access Lipitor 80 mg oral tablet 1 tab(s), Oral, Daily, for choleste rol, # 90 tab(s), 3 total refill(s ), [facility], Pharmacy : [facility] Oral (given by mouth) Discont inued 05/28/2024 4 2023 90.0 6130C-A f-C-375 Th [facility] Lipitor 80 mg oral tablet 1 tab(s), Oral, Daily, for choleste rol, # 90 tab(s), 3 total refill(s ), [facility], Pharmacy : [facility] Oral (given by mouth) Ordered 5 2023 90.0 6130C-A f-C-375 Th [facility] lisinopril Oral, Daily, 0 total refill(s ), [facility] Oral (given by mouth) Discont inued 01/16/20242023 0055C-3 [facility] losartan 50 mg oral tablet 1 tab(s), Oral, Daily, for blood pressure , # 90 tab(s), 3 total refill(s ), [facility], Pharmacy : [facility] Oral (given by mouth) Ordered 5 2023 90.0 6130C-A f-C-375 Th [facility]- [facility] losartan 50 mg oral tablet 1 tab(s), Oral, Daily, for blood pressure , # 90 tab(s), 3 total refill(s ), [facility] Oral (given by mouth) Discont inued 05/28/2024 4 2023 90.0 6130C-A f-C-375 Th [facility]- [facility] metFORMIN 1000 mg oral tablet 1 tab(s), Oral, BID, for diabetes , # 180 tab(s), 3 total refill(s ), [facility] due for DM follow up in March 2023, Pharmacy : [facility] Oral (given by mouth) Discont inued 05/27/2023 3 2022 180.0 6130C-A -C-375 [facility] metFORMIN 1000 mg oral tablet 1 tab(s), Oral, BID, for diabetes , # 180 tab(s), 1 total refill(s ), [facility] due for DM follow up in March 2023, Pharmacy : [facility] Oral (given by mouth) Discont inued 02/26/2023 3 2022 180.0 6130C-A -C-375 Th [facility] metFORMIN 1000 mg oral tablet 1 tab(s), Oral, BID, for diabetes , # 180 tab(s), 3 total refill(s ), Maintena nce, Pharmacy : [facility] Oral (given by mouth) Ordered 5 2023 180.0 61C-A -C-375 Th [facility] metFORMIN 1000 mg oral tablet 1 tab(s), Oral, BID, for diabetes , # 180 tab(s), 3 total refill(s ), Maintena nce, Pharmacy : [facility] Oral (given by mouth) Discont inued 05/28/2024 4 2023 180.0 6130C-A -C-375 Th [facility] Metformin Hydrochlori de Tablet Extended Release 1,000 mg Oral Do not drink alcohol. Take with food/mil k.Take or use exactly as directed .Obtain advice for OTCs.Mary Beth ck with your doctor before becoming . 05/26/2024 [id number] 3 2023 180 [facility] [place] ([facility]) naproxen 500 mg oral tablet naproxen 500 mg oral tablet Start Date: 10/31/20 Stop Date: 02/26/23 Status: Disconti vidal Repeat number: 1 Discont inued 02/26/20232022 No Facilit y Access ondansetron 4 mg oral tablet ondanset asha 4 mg oral tablet Start Date: 08/20/20 Stop Date: 02/26/23 Status: Radhai vidal Repeat number: 1 Discont inued 02/26/20232022 No Facilit y Access pantoprazol e 20 mg oral delayed release tablet 1 tab(s), Oral, Daily, # 90 tab(s), 3 total refill(s ), [facility], Pharmacy : [facility] Oral (given by mouth) Discont inued 01/16/2024 4 2023 90.0 6130C-A f-C-375 Th [facility] pantoprazol e 20 mg oral delayed release tablet 1 tab(s), Oral, Daily, # 90 tab(s), 3 total refill(s ), [facility], Pharmacy : [facility] Oral (given by mouth) Ordered 01/10/2025 5 2023 90.0 6130C-A f-C-375 Th [facility] pantoprazol e 20 mg oral delayed release tablet pantopra zole 20 mg oral delayed release tablet Start Date: 04/03/21 Stop Date: 02/26/23 Status: Keenan drake Repeat number: 1 Discont inued 02/26/20232022 No Facilit y Access pantoprazol e EC 20 mg tablet See Instruct ions, # 90 EA, 1 total refill(s ), Acute Discont inued 02/26/2023 3 2022 90.0 Ambulat ory Pharmac y PROPRANOLOL 80 MG ORAL TAB Be careful if taking OTCs.Tim e or use exactly as directed .May cause drowsine ss/dizzi ness. 02/22/2024 [id number] 3 2023 180 [employer] ([facility]) propranolol 80 mg oral tablet 1 tab(s), Oral, BID, X 90 days, # 180 tab(s), 3 total refill(s ), Acute, Pharmacy : [facility] Oral (given by mouth) Discont inued 01/16/2024 4 2023 180.0 6130C-A f-C-375 Th [facility] propranolol 80 mg oral tablet 1 tab(s), Oral, BID, X 90 days, # 180 tab(s), 3 total refill(s ), Acute, Pharmacy : [facility] Oral (given by mouth) Complet ed 01/10/2025 4 2024 180.0 6130C-A f-C-375 Th [facility] propranolol 80 mg oral tablet proprano lol 80 mg oral tablet Start Date: 01/30/21 Stop Date: 02/26/23 Status: Disconti nustephani Repeat number: 1 Discont inued 02/26/20232022 No Facilit y Access propranoloL 80 mg tablet See Instruct ions, # 180 EA, 1 total refill(s ), Acute Discont inued 02/26/2023 3 2022 180.0 Ambulat ory Pharmac y Allergies, Adverse Reactions, Alerts Combined list of allergies from Department of Defense and Veterans Affairs facilities. It does not include entries that were removed or entered in error. Substance Category Reaction Severity Reaction type Status Date Reported Comments Source LISINOPRIL Drug allergy (disorder) Swelling of oral cavity structure active 4 [facility] lisinopril Propensity to adverse reactions to substance Swelling of oral cavity structure Active 4 Unknown Organizati on Immunizations Combined list of available immunizations from the Department of Defense and Veterans Affairs facilities. 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 Status Comments Source influenza, injectable, quadrivalent- pf 2020 [id number] [employer] complet ed influenza , injectabl e, quadrival ent-pf 03/29/21 Given Ambulat ory Pharmac y influenza, injectable, quadrivalent- pf 2020 zzLef t Arm [id number] 150 Gl[employer]oSmithKli ne complet ed influenza , injectabl e, quadrival ent-pf 03/29/21 Given Ambulat ory Pharmac y Influenza, injectable, quadrivalent, preservative free 1 2020 Unknown, Provider [id number] [facility] ([facility]) complet ed Influenza , injectabl e, quadrival ent, preservat dipti free DoD SARS-CoV-2 (COVID-19) Ad26 vaccine, rec 2020 complet ed SARS-CoV- 2 (COVID-19 ) Ad26 vaccine, rec 09/17/20 Given Ambulat ory Pharmac y SARS-CoV-2 (COVID-19) Ad26 vaccine, rec 2020 complet ed SARS-CoV- 2 (COVID-19 ) Ad26 vaccine, rec 09/17/20 Given Ambulat ory Pharmac y SARS-COV-2 (COVID-19) vaccine, vector non-replicati ng, recombinant spike protein-Ad26, preservative free, 0.5 mL 1 2020 Unknown, Provider 212 [employer] (LAYO) complet ed SARS-COV- 2 (COVID-19 ) vaccine, vector non-repli cating, recombina nt spike protein-A d26, preservat dipti free, 0.5 mL DoD zoster vaccine, inactivated 2020 zzLef t Arm [id number] GlaxoSmithKli ne complet ed zoster vaccine, inactivat ed 08/21/20 Given Ambulat ory Pharmac y zoster vaccine recombinant 1 2020 Unknown, Provider [id number] [facility] ([facility]) complet ed zoster vaccine recombina nt DoD zoster vaccine, inactivated 2019 [id number] 187 [employer] complet ed zoster vaccine, inactivat ed 05/18/20 Given Ambulat ory Pharmac y zoster vaccine, inactivated 2019 zzRig ht Arm [id number] 187 Gl[employer]oSmithK[employer] ne complet ed zoster vaccine, inactivat ed 05/18/20 Given Ambulat ory Pharmac y zoster vaccine recombinant 1 2019 Unknown, Provider [id number] 187 [facility] ([facility]) complet ed zoster vaccine recombina nt DoD influenza virus vaccine, unspecified 2019 [id number] 88 [employer] complet ed influenza virus vaccine, unspecifi ed 03/31/20 Given Ambulat ory Pharmac y influenza virus vaccine, unspecified 2019 [id number] 88 [employer] complet ed influenza virus vaccine, unspecifi ed 03/31/20 Given Ambulat ory Pharmac y influenza, injectable, quadrivalent- pf 2019 DORINA 150 complet ed Result Comment: Route: Unknown Manufactu rer: OT (SEQ) 6130C-A f-C-375 Th [facility] influenza, injectable, quadrivalent, preservative free 2019 ALUL, () Not Given influenza , injectabl e, quadrival ent, preservat dipti free DoD influenza virus vaccine, unspecified formulation 1 2019 Unknown, Provider [id number] 88 [employer] (SEQ) complet ed influenza virus vaccine, unspecifi ed formulati on DoD influenza, injectable, quadrivalent- pf 2018 [id number] 150 [employer] complet ed influenza , injectabl e, quadrival ent-pf 04/11/19 Given Ambulat ory Pharmac y influenza, injectable, quadrivalent- pf 2018 zzLef t Arm [id number] 150 [employer] complet ed influenza , injectabl e, quadrival ent-pf 04/11/19 Given Ambulat ory Pharmac y Influenza, injectable, quadrivalent, preservative free 22 2018 Unknown, Provider [id number] 518 150 [employer] (SEQ) complet ed Influenza , injectabl e, quadrival ent, preservat dipti free DoD influenza, injectable, quadrivalent 2017 [id number] 158 Gl[employer]oSmithK[employer] ne complet ed influenza , injectabl e, quadrival ent 04/12/18 Given Ambulat ory Pharmac y influenza, injectable, quadrivalent 2017 zzLef t Arm [id number] 158 GlaxoSmithK[employer] ne complet ed influenza , injectabl e, quadrival ent 04/12/18 Given Ambulat ory Pharmac y influenza, injectable, quadrivalent, contains preservative 1 2017 Unknown, Provider [id number] 158 [employer] (SKB) complet ed influenza , injectabl e, quadrival ent, contains preservat dipti DoD Influenza, inj, MDCK, quadrivalent- pf 2016 [id number] 171 [employer] complet ed Influenza , inj, MDCK, quadrival ent-pf 04/13/17 Given Ambulat ory Pharmac y Influenza, inj, MDCK, quadrivalent- pf 2016 zzRig ht Arm [id number] 171 [employer] complet ed Influenza , inj, MDCK, quadrival ent-pf 04/13/17 Given Ambulat ory Pharmac y Influenza, injectable, Madin Lizzette Canine Kidney, preservative free, quadrivalent 20 2016 Unknown, Provider [id number] 171 [employer] (SEQ) complet ed Influenza , injectabl e, Madin [employer] Canine Kidney, preservat dipti free, quadrival ent DoD influenza, injectable, quadrivalent- pf 2015 [id number] 150 [employer] comple t ed influenza , injectabl e, quadrival ent-pf 03/09/16 Given Ambulat ory Pharmac y influenza, injectable, quadrivalent- pf 2015 zzLef t Arm [id number] 150 [employer] complet ed influenza , injectabl e, quadrival ent-pf 03/09/16 Given Ambulat ory Pharmac y Influenza, injectable, quadrivalent, preservative free 19 2015 Unknown, Provider [id number] 150 (IDB) complet ed Influenza , injectabl e, quadrival ent, preservat dipti free DoD influenza, seasonal, injectable-pf 2014 [id number] 140 [employer] complet ed influenza , seasonal, injectabl e-pf 03/08/15 Given Ambulat ory Pharmac y pneumococcal polysaccharid e, 23 valent 2014 [id number] 33 Merck & Company Inc complet ed pneumococ bev polysacch aride, 23 valent 03/08/15 Given Ambulat ory Pharmac y influenza, seasonal, injectable-pf 2014 zzLef t Arm [id number] 140 [employer] complet ed influenza , seasonal, injectabl e-pf 03/08/15 Given Ambulat ory Pharmac y pneumococcal polysaccharid e, 23 valent 2014 zzLef t Arm [id number] 33 Merck & Company Inc complet ed pneumococ bev polysacch aride, 23 valent 03/08/15 Given Ambulat ory Pharmac y pneumococcal polysaccharid e vaccine, 23 valent 1 2014 Unknown, Provider [id number] Merck (MSD) complet ed pneumococ bev polysacch aride vaccine, 23 valent DoD Influenza, seasonal, injectable, preservative free 18 2014 Unknown, Provider [id number] [facility] [employer] (CSL) complet ed Influenza , seasonal, injectabl e, preservat dipti free DoD hepatitis B adult vaccine 2014 [id number] 43 GlaxoSmithKli ne complet ed hepatitis B adult vaccine 06/19/14 Given Ambulat ory Pharmac y hepatitis B adult vaccine 2014 zMeghann t Arm [id number] 43 GlaxoSmithKli ne complet ed hepatitis B adult vaccine 06/19/14 Given Ambulat ory Pharmac y hepatitis B vaccine, adult dosage 3 2014 Unknown, Provider [id number] 43 [employer] (SKB) complet ed hepatitis B vaccine, adult dosage DoD influenza, live, intranasal,qu adrivalent 2013 [id number] 149 Medimmune Inc comple t ed influenza , live, intranasa l,quadriv alent 04/09/14 Given Ambulat ory Pharmac y influenza, live, intranasal,qu adrivalent 2013 [id number] 149 [employer] Inc comple t ed influenza , live, intranasa l,quadriv alent 04/09/14 Given Ambulat ory Pharmac y influenza, live, intranasal, quadrivalent 17 2013 Unknown, Provider [id number] 149 MedImmune, Inc. (MED) complet ed influenza , live, intranasa l, quadrival ent DoD hepatitis B adult vaccine 2013 [id number] 43 Merck & Company Inc complet ed hepatitis B adult vaccine 01/08/14 Given Ambulat ory Pharmac y hepatitis B adult vaccine 2013 Meliza castaneda Arm [id number] 43 Merck & Company Inc complet ed hepatitis B adult vaccine 01/08/14 Given Ambulat ory Pharmac y hepatitis B vaccine, adult dosage 2 2013 Unknown, Provider [id number] 43 Merck (MSD) complet ed hepatitis B vaccine, adult dosage DoD hepatitis B adult vaccine 2013 [id number] 43 GlaxoSmithKli ne complet ed hepatitis B adult vaccine 10/09/13 Given Ambulat ory Pharmac y hepatitis B adult vaccine 2013 Michael t Arm [id number] 43 GlaxoSmithKli ne complet ed hepatitis B adult vaccine 10/09/13 Given Ambulat ory Pharmac y hepatitis B vaccine, adult dosage 1 2013 Unknown, Provider [id number] [place] ([facility]) complet ed hepatitis B vaccine, adult dosage DoD influenza, live, intranasal,qu adrivalent 2012 [id number] 149 Medimmune Inc comple t ed influenza , live, intranasa l,quadriv alent 04/09/13 Given Ambulat ory Pharmac y influenza, live, intranasal,qu adrivalent 2012 [id number] 149 Med[employer] Inc comple t ed influenza , live, intranasa l,quadriv alent 04/09/13 Given Ambulat ory Pharmac y influenza, live, intranasal, quadrivalent 16 2012 Unknown, Provider [id number] 149 [employer] (MED) complet ed influenza , live, intranasa l, quadrival ent DoD tetanus, diphtheria, acellular pertu is 2012 [id number] 115 GlaxoSmithKli ne complet ed tetanus, diphtheri a, acellular pertussis 06/12/12 Given Ambulat ory Pharmac y tetanus, diphtheria, acellular pertu is 2012 zzLef t Arm [id number] 115 [facility] complet ed tetanus, diphtheri a, acellular pertussis 06/12/12 Given Ambulat ory Pharmac y tetanus toxoid, reduced diphtheria toxoid, and acellular pertu is vaccine, adsorbed 1 2012 Unknown, Provider [id number] 115 [facility] ([facility]) complet ed tetanus toxoid, reduced diphtheri a toxoid, and acellular pertussis vaccine, adsorbed DoD influenza, seasonal, injectable 2011 [id number] 141 Novartis Pharmaceutica ls complet ed influenza , seasonal, injectabl e 05/24/12 Given Ambulat ory Pharmac y influenza, seasonal, injectable 2011 [id number] 141 Nov[employer]is Pharm[employer] ls complet ed influenza , seasonal, injectabl e 05/24/12 Given Ambulat ory Pharmac y Influenza, seasonal, injectable 1 2011 Unknown, Provider [id number] 141 Novartis Pharmaceutica l Michelle. (NOV) complet ed Influenza , seasonal, injectabl e DoD influenza virus vaccine, live 2010 [id number] 111 Medimmune Inc comple t ed influenza virus vaccine, live 03/10/11 Given Ambulat ory Pharmac y influenza virus vaccine, live, attenuated, for intranasal use 14 2010 Unknown, Provider [id number] 111 MedImmune, Inc. (MED) complet ed influenza virus vaccine, live, attenuate d, for intranasa l use DoD influenza virus vaccine, live 2009 [id number] 111 Med[employer] Inc comple t ed influenza virus vaccine, live 04/14/10 Given Ambulat ory Pharmac y influenza virus vaccine, live 2009 [id number] 111 [employer] Inc comple t ed influenza virus vaccine, live 04/14/10 Given Ambulat ory Pharmac y influenza virus vaccine, live, attenuated, for intranasal use 1 2009 Unknown, Provider [id number] 111 MedImmune, Inc. (MED) complet ed influenza virus vaccine, live, attenuate d, for intranasa l use DoD Novel influenza-H1N 1-09, injectable 2009 [id number] 1 127 Novartis Pharmaceutica ls complet ed Novel influenza -U4A0-10, injectabl e 07/16/09 Given Ambulat ory Pharmac y Novel influenza-H1N 1-09, injectable 2009 zzLef t Arm [id number] 1 127 Novartis Pharmaceut[employer] ls complet ed Novel influenza -Q0W5-50, injectabl e 07/16/09 Given Ambulat ory Pharmac y Novel influenza-H1N 1-09, injectable 1 2009 Unknown, Provider [id number] 1 127 Novartis Pharmaceutica l Michelle. (NOV) complet ed Novel influenza -X1H4-54, injectabl e DoD influenza virus vaccine, live 2008 [id number] 111 Medimmune Inc complet ed influenza virus vaccine, live 04/17/09 Given Ambulat ory Pharmac y influenza virus vaccine, live 2008 [id number] 111 Med[employer] Inc complet ed influenza virus vaccine, live 04/17/09 Given Ambulat ory Pharmac y influenza virus vaccine, live, attenuated, for intranasal use 1 2008 Unknown, Provider [id number] 111 MedImmune, Inc. (MED) complet ed influenza virus vaccine, live, attenuate d, for intranasa l use DoD typhoid Vi capsular polysaccharid e vac 2008 [id number] 101 sanofi pasteur complet ed typhoid Vi capsular polysacch aride vac 07/17/08 Given Ambulat ory Pharmac y typhoid Vi capsular polysaccharid e vac 2008 [id number] 101 sanofi pasteur complet ed typhoid Vi capsular polysacch aride vac 07/17/08 Given Ambulat ory Pharmac y typhoid Vi capsular polysaccharid e vaccine 1 2008 [id number] 101 Sanofi Pasteur ([facility]) complet ed typhoid Vi capsular polysacch aride vaccine DoD influenza virus vaccine, live 2007 [id number] 111 [employer] [facility] t ed influenza virus vaccine, live 03/06/08 Given Ambulat ory Pharmac y influenza virus vaccine, live 2007 [id number] 111 [employer] [facility] [employer] [facility] t ed influenza virus vaccine, live 03/06/08 Given Ambulat ory Pharmac y influenza virus vaccine, live, attenuated, for intranasal use 1 2007 [id number] 111 [employer] ([facility]) complet ed influenza virus vaccine, live, attenuate d, for intranasa l use DoD influenza virus vaccine, live 2006 [id number] 111 [employer] [facility] t ed influenza virus vaccine, live 04/12/07 Given Ambulat ory Pharmac y influenza virus vaccine, live 2006 [id number] 111 [employer] [facility] t ed influenza virus vaccine, live 04/12/07 Given Ambulat ory Pharmac y influenza virus vaccine, live, attenuated, for intranasal use 1 2006 [id number] 111 [employer] ([facility]) complet ed influenza virus vaccine, live, attenuate d, for intranasa l use DoD typhoid vaccine, inactivated 2006 B6910-0 101 sanofi pasteur complet ed typhoid vaccine, inactivat ed 07/12/06 Given Ambulat ory Pharmac y typhoid vaccine, inactivated 2006 E9173-3 101 sanofi pasteur complet ed typhoid vaccine, inactivat ed 07/12/06 Given Ambulat ory Pharmac y typhoid vaccine, parenteral, other than acetone-kille d, dried 1 2006 W3043-0 41 Sanofi Pasteur ([facility]) complet ed typhoid vaccine, parentera l, other than acetone-k illed, dried DoD influenza virus vaccine,split 2005 [id number] 15 sanofi pasteur complet ed influenza virus vaccine,s plit 06/04/06 Given Ambulat ory Pharmac y influenza virus vaccine,split 2005 [id number] 15 sanofi pasteur complet ed influenza virus vaccine,s plit 06/04/06 Given Ambulat ory Pharmac y influenza virus vaccine, split virus (incl. purified surface antigen)-reti red CODE 1 2005 [id number] 15 Sanofi Pasteur ([facility]) complet ed influenza virus vaccine, split virus (incl. purified surface antigen)- retired CODE DoD varicella virus vaccine 0 2005 21 () Not Given varicella virus vaccine DoD tetanus-dipht h toxoids (Td) adult/adol 2005 [id number] 09 sanofi pasteur complet ed tetanus-d iphth toxoids (Td) adult/ado l 11/17/05 Given Ambulat ory Pharmac y tetanus-dipht h toxoids (Td) adult/adol 2005 [id number] 09 sanofi pasteur complet ed tetanus-d iphth toxoids (Td) adult/ado l 11/17/05 Given Ambulat ory Pharmac y tetanus and diphtheria toxoids, adsorbed, preservative free, for adult use (2 Lf of tetanus toxoid and 2 Lf of diphtheria toxoid) 1 2005 [id number] 09 Sanofi Pasteur (PMC) complet ed tetanus and diphtheri a toxoids, adsorbed, preservat dipti free, for adult use (2 Lf of tetanus toxoid and 2 Lf of diphtheri a toxoid) DoD influenza virus vaccine,split 2004 [id number] 15 sanofi pasteur complet ed influenza virus vaccine,s plit 04/27/05 Given Ambulat ory Pharmac y influenza virus vaccine,split 2004 [id number] 15 sanofi pasteur complet ed influenza virus vaccine,s plit 04/27/05 Given Ambulat ory Pharmac y influenza virus vaccine, split virus (incl. purified surface antigen)-reti red CODE 1 2004 [id number] 15 Sanofi Pasteur ([facility]MC) complet ed influenza virus vaccine, split virus (incl. purified surface antigen)- retired CODE DoD typhoid vaccine, inactivated 2004 [id number] 101 sanofi pasteur complet ed typhoid vaccine, inactivat ed 08/04/04 Given Ambulat ory Pharmac y typhoid vaccine, inactivated 2004 [id number] 101 sanofi pasteur complet ed typhoid vaccine, inactivat ed 08/04/04 Given Ambulat ory Pharmac y typhoid vaccine, parenteral, other than acetone-kille d, dried 0 2004 [id number] 41 Sanofi Pasteur (PMC) complet ed typhoid vaccine, parentera l, other than acetone-k illed, dried DoD influenza virus vaccine, live 2004 [id number] 111 [employer] comple t ed influenza virus vaccine, live 06/16/04 Given Ambulat ory Pharmac y influenza virus vaccine, live 2004 [id number] 111 [employer] comple t ed influenza virus vaccine, live 06/16/04 Given Ambulat ory Pharmac y influenza virus vaccine, live, attenuated, for intranasal use 0 2004 [id number] 111 [employer]. (MED) complet ed influenza virus vaccine, live, attenuate d, for intranasa l use DoD influenza virus vaccine, whole virus 2002 [id number] 16 Novartis Pharmaceutica ls complet ed influenza virus vaccine, whole virus 04/02/03 Given Ambulat ory Pharmac y influenza virus vaccine, whole virus 2002 [id number] 16 Novartis Pharmaceut[employer] ls complet ed influenza virus vaccine, whole virus 04/02/03 Given Ambulat ory Pharmac y influenza virus vaccine, whole virus 0 2002 [id number] 16 [employer] (PWJ) complet ed influenza virus vaccine, whole virus DoD typhoid vaccine, inactivated 2002 [id number] 101 sanofi pasteur complet ed typhoid vaccine, inactivat ed 07/10/02 Given Ambulat ory Pharmac y typhoid vaccine, inactivated 2002 [id number] 101 sanofi pasteur complet ed typhoid vaccine, inactivat ed 07/10/02 Given Ambulat ory Pharmac y typhoid vaccine, parenteral, other than acetone-kille d, dried 0 2002 [id number] 41 Sanofi Pasteur (PMC) complet ed typhoid vaccine, parentera l, other than acetone-k illed, dried DoD tuberculin purified protein derivative 2001 [id number] 96 sanofi pasteur complet ed tuberculi n purified protein derivativ e 05/22/02 Given Ambulat ory Pharmac y tuberculin purified protein derivative 2001 zzLef t Arm [id number] 96 sanofi pasteur complet ed Patient Tolerance : Negative Ambulat ory Pharmac y tuberculin skin test; purified protein derivative solution, intradermal 1 2001 Unknown, Provider [id number] 96 San[employer]i Pasteur (PMC) complet ed tuberculi n skin test; purified protein derivativ e solution, intraderm al DoD influenza virus vaccine, whole virus 2001 [id number] 16 sanofi pasteur complet ed influenza virus vaccine, whole virus 03/26/02 Given Ambulat ory Pharmac y influenza virus vaccine, whole virus 2001 [id number] 16 sanofi pasteur complet ed influenza virus vaccine, whole virus 03/26/02 Given Ambulat ory Pharmac y influenza virus vaccine, whole virus 0 2001 [id number] 16 [employer] Paste[employer] (PMC) complet ed influenza virus vaccine, whole virus DoD influenza virus vaccine, whole virus 2000 [id number] 16 sanofi pasteur complet ed influenza virus vaccine, whole virus 05/12/01 Given Ambulat ory Pharmac y influenza virus vaccine, whole virus 2000 [id number] 16 sanofi pasteur complet ed influenza virus vaccine, whole virus 05/12/01 Given Ambulat ory Pharmac y influenza virus vaccine, whole virus 0 2000 [id number] 16 [employer] Pasteur (PMC) complet ed influenza virus vaccine, whole virus DoD tuberculin purified protein derivative 2000 [id number] 96 sanofi pasteur complet ed tuberculi n purified protein derivativ e 04/11/01 Given Ambulat ory Pharmac y tuberculin purified protein derivative 2000 zzLef t Arm [id number] 96 sanofi pasteur complet ed Patient Tolerance : Negative Ambulat ory Pharmac y tuberculin skin test; purified protein derivative solution, intradermal 1 2000 Unknown, Provider [id number] 96 Sanofi Pasteur ([facility]MC) complet ed tuberculi n skin test; purified protein derivativ e solution, intraderm al DoD tuberculin purified protein derivative 1999 [id number] 96 [facility] complet ed tuberculi n purified protein derivativ e 05/08/00 Given Ambulat ory Pharmac y influenza virus vaccine, whole virus 1999 [id number] 16 AMVONET complet ed influenza virus vaccine, whole virus 05/08/00 Given Ambulat ory Pharmac y tuberculin purified protein derivative 1999 zzLef t Arm [id number] 96 [facility] complet ed Patient Tolerance : Negative Ambulat ory Pharmac y influenza virus vaccine, whole virus 1999 [id number] 16 [facility] complet ed influenza virus vaccine, whole virus 05/08/00 Given Ambulat ory Pharmac y influenza virus vaccine, whole virus 0 1999 [id number] [facility] virus vaccine, whole virus DoD tuberculin skin test; purified protein derivative solution, intradermal 1 1999 Unknown, Provider [id number] 96 [facility] ([facility]) complet ed tuberculi n skin test; purified protein derivativ e solution, intraderm al DoD typhoid, parenteral, AKD 1999 [id number] 53 [facility] complet ed typhoid, parentera l, AKD 07/21/99 Given Ambulat ory Pharmac y influenza virus vaccine, whole virus 1999 [id number] 16 [facility] complet ed influenza virus vaccine, whole virus 07/21/99 Given Ambulat ory Pharmac y typhoid, parenteral, AKD 1999 [id number] 53 [facility] complet ed typhoid, parentera l, AKD 07/21/99 Given Ambulat ory Pharmac y influenza virus vaccine, whole virus 1999 [id number] 16 [facility] complet ed influenza virus vaccine, whole virus 07/21/99 Given Ambulat ory Pharmac y influenza virus vaccine, whole virus 0 1999 [id number] 16 [facility] ([facility]) complet ed influenza virus vaccine, whole virus DoD typhoid vaccine, parenteral, acetone-kille d, dried ([place]. ) 3 1999 [id number] [facility] typhoid vaccine, parentera l, acetone-k illed, dried ([place] ) DoD influenza virus vaccine, whole virus 1997 16 complet ed influenza virus vaccine, whole virus 03/25/98 Given Ambulat ory Pharmac y influenza virus vaccine, whole virus 1997 16 complet ed influenza virus vaccine, whole virus 03/25/98 Given Ambulat ory Pharmac y influenza virus vaccine, whole virus 0 1997 16 () complet ed influenza virus vaccine, whole virus DoD tuberculin purified protein derivative 1996 CON 96 [facility] complet ed tuberculi n purified protein derivativ e 05/14/97 Given Ambulat ory Pharmac y hepatitis A adult vaccine 1996 52 complet ed hepatitis A adult vaccine 08/21/96 Given Ambulat ory Pharmac y hepatitis A adult vaccine 1996 52 complet ed hepatitis A adult vaccine 08/21/96 Given Ambulat ory Pharmac y hepatitis A vaccine, adult dosage 2 1996 52 () complet ed hepatitis A vaccine, adult dosage DoD tetanus-dipht h toxoids (Td) adult/adol 1995 09 complet ed tetanus-d iphth toxoids (Td) adult/ado l 11/27/95 Given Ambulat ory Pharmac y tetanus-dipht h toxoids (Td) adult/adol 1995 09 complet ed tetanus-d iphth toxoids (Td) adult/ado l 11/27/95 Given Ambulat ory Pharmac y tetanus and diphtheria toxoids, adsorbed, preservative free, for adult use (2 Lf of tetanus toxoid and 2 Lf of diphtheria toxoid) 0 1995 09 () complet ed tetanus and diphtheri a toxoids, adsorbed, preservat dipti free, for adult use (2 Lf of tetanus toxoid and 2 Lf of diphtheri a toxoid) DoD yellow fever vaccine 1995 37 complet ed yellow fever vaccine 07/19/95 Given Ambulat ory Pharmac y typhoid, parenteral, AKD 1995 53 complet ed typhoid, parentera l, AKD 07/19/95 Given Ambulat ory Pharmac y typhoid, parenteral, AKD 1995 53 complet ed typhoid, parentera l, AKD 07/19/95 Given Ambulat ory Pharmac y yellow fever vaccine 1995 37 complet ed yellow fever vaccine 07/19/95 Given Ambulat ory Pharmac y yellow fever vaccine 0 1995 37 () complet ed yellow fever vaccine DoD typhoid vaccine, parenteral, acetone-kille d, dried ([place]. ) 1 1995 53 () complet ed typhoid vaccine, parentera l, acetone-k illed, dried ([place]. ) DoD poliovirus vaccine, live, oral 1986 02 complet ed polioviru s vaccine, live, oral 05/08/87 Given Ambulat ory Pharmac y poliovirus vaccine, live, oral 1986 02 complet ed polioviru s vaccine, live, oral 05/08/87 Given Ambulat ory Pharmac y trivalent poliovirus vaccine, live, oral 0 1986 02 () complet ed trivalent polioviru s vaccine, live, oral DoD measles virus vaccine 1969 05 complet ed measles virus vaccine 07/11/69 Given Ambulat ory Pharmac y measles/mumps /rubella virus vaccine 1969 03 complet ed measles/m umps/rube lla virus vaccine 07/11/69 Given Ambulat ory Pharmac y measles/mumps /rubella virus vaccine 1969 03 complet ed measles/m umps/rube lla virus vaccine 07/11/69 Given Ambulat ory Pharmac y measles virus vaccine 1969 05 complet ed measles virus vaccine 07/11/69 Given Ambulat ory Pharmac y measles, mumps and rubella virus vaccine 0 1969 03 () complet ed measles, mumps and rubella virus vaccine DoD measles virus vaccine 0 1969 05 () complet ed measles virus vaccine DoD Results Combined list of recent chemistry, hematology and other laboratory results from [employer] and [facility], ranging from 15 months to all on record, depending upon the facility. Order Name Results Value Reference Range Date Interpretation Specimen Comments Source AP Specimen s AP Surgical Pathology Patient: Elizabeth Mcdonnell Specimen #: [id number] Patholog ist: Lilly Rowe MD, [facility], [facility], Accessio n: 5 [facility] DEPARTME NT OF PATHOLOG Y [address] [facility] [address] [facility] 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 Comments The findings in this biopsy are non-diag nostic of a dermal based lesion. If clinical concern persists , rebiopsy or excision biopsy should be pursued. Elect ronicall y Signed formerly [facility]/07/05 Lilly Rowe MD, [place], [employer], Microsco pic Descript ion Multiple addition al levels were reviewed . Clinical Diagnosi s and History 58y/o F nonmelon otic 2mm x1mm non erythema tous painful skin lesion Pre-Oper ative Diagnosi s Dermatof ibroma v hyperker atotic skin Post-Ope rative Diagnosi s Dermatof ibroma Gross Descript ion Received in formalin labeled with the correct patient' s name and secondar y identifi ers designat ed left lateral ankle skin lesion is a shave measurin g 0.6 x 0.5 x 0.1 cm bisected cassette A1, a shave 0.5 x 0.4 x 0.1 cm bisected cassette A2 and a shave 0.3 x 0.2 x 0.1 cm intact cassette A3. ET 3. Blocks submitte d in 10% neutral- buffered formalin for paraffin -embedde d sections . Cold ischemic time : N/A. Total fixation time: N/A. [facility] CPT Codes: A; 74784 06/24 [id number] Medgrp[facility]Sc wilma Chemistr y Hemoglobin A1c 6.1 % 4.0 - 5.6 06/24 H Interpretiv e Data: Normal: 4.0 - 5.6% Increased Risk: 5.7 - 6.4% Diabetic Range: 6.5% For patients without diabetes, the normal range for the hemoglobin A1c test is between 4% and 5.6%. Hemoglobin A1c levels between 5.7% and 6.4% indicate increased risk of diabetes, and levels of 6.5% or higher indicate diabetes. Because studies have repeatedly shown that out-of-cont rol diabetes results in complicatio ns from the disease, the goal for people with diabetes is a hemoglobin A1c less than 7%. The higher the hemoglobin A1c, the higher the risks of developing complicatio ns related to diabetes. If confirmatio n is needed, consider recalling the patient and ordering Hemoglobin Electrophor esis. [facility] wil[facility] Chemistr y eAvg Glucose 128 mg/dL 06/24 [facility] Hematolo gy Lymphocyte % Auto 23.0 % 20.0 - 40.0 02/04 N [facility] Hematolo gy Eos Absolute 0.1 x10^3/mc L 0.0 - 0.7103 02/04 N [facility] Hematolo gy Baso Absolute 0.0 x10^3/mc L 0.0 - 0.1103 02/04 N [facility] Hematolo gy Basophil % Auto 0.4 % 0.0 - 2.5 02/04 N [facility] Hematolo gy Eosinophil % Auto 2 % 0 - 5 02/04 N [facility] Hematolo gy Neutrophil % Auto 62.4 % 46.0 - 77.0 02/04 N [facility] Hematolo gy Monocyte % Auto 12 % 1 - 12 02/04 N [facility] Hematolo gy Neutro Absolute 3.1 x10^3/mc L 2.0 - 7.0103 02/04 N [facility] Hematolo gy Lymph Absolute 1.1 x10^3/mc L 1.2 - 4.0103 02/04 L [facility] Hematolo gy [place] Absolute 0.6 x10^3/mc L 0.2 - 0.8103 02/04 N [facility] Hematolo gy RBC 4.2 x10^6/mc L 3.6 - 5.0106 02/04 N [facility] Hematolo gy RDW 12.8 % 11.0 - 14.9 02/04 N [facility] Hematolo gy Platelets 242.0 x10^3/mc L 150.0 - 450.0103 02/04 N [facility] Hematolo gy MCH 31 pg 28 - 33 02/04 N [facility] Hematolo gy Hematocrit 39 % 34 - 46 02/04 N [facility] Hematolo gy Hemoglobin 13.1 g/dL 11.0 - 15.0 02/04 N [facility] Hematolo gy WBC 4.9 x10^3/mc L 4.0 - 11.0103 02/04 N [facility] Hematolo gy Differenti al? Auto (02/05/24 1:49 PM) 02/04 N [facility] Hematolo gy MCHC 33.9 g/dL 33.0 - 36.5 02/04 N [facility] Hematolo gy MPV 9.4 fL 7.4 - 10.4 02/04 N [facility] Hematolo gy MCV 92 fL 80 - 97 02/04 N [facility] wil[facility] Chemistr y Triglyceri queta 150 mg/dL 7 - 149 02/04 H Interpretiv e Data: AGES 0-9: Desirable: < 75 mg/dL Borderline High: 75-99 mg/dL High: >/= 100 mg/dL AGES 10-19: Desirable: < 90 mg/dL Borderline High: 90-129 mg/dL High: >/= 130 mg/dL ADULTS: Desirable: < 150 mg/dL Borderline High: 150-199 mg/dL High: >/= 240 mg/dL Very High: >/= 500 mg/dL [facility] wil[facility] Chemistr y HDL Cholestero l 57 mg/dL 40 - 59 02/04 N Interpretiv e Data: HDL (HIGH DENSITY LIPOPROTEIN ): ADULTS: Low: < 40 mg/dL High: >/= 60 mg/dL AGES 0 -19: Low: < 40 mg/dL Borderline Low: 40 - 45 mg/dL Acceptable: > 45 mg/dL [facility] Chemistr y LDL 80 mg/dL 100 - 130 02/04 L Interpretiv e Data: AGES 0-19: Desirable: < 110 mg/dL Borderline High: 110-129 mg/dL High: >/= 130 mg/dL ADULTS: Desirable: <100 mg/dL Near/above optimal: 100-130 mg/dL Borderline High: 131-159 mg/dL High: 160-189 mg/dL Very High: 190 mg/dL [facility] wil[facility] Chemistr y LDL/HDL 1 02/04 [facility] Chemistr y Chol/HDL 3 mg/dL 02/04 [facility] Chemistr y Cholestero l Total 161 mg/dL 02/04 N Interpretiv e Data: According to the [place] [employer] : AGES 0-19: Desirable: < 170 mg/dL Borderline High: 170-199 mg/dL High Blood Cholesterol : >/= 200 mg/dL ADULTS: Desirable < 200 mg/dL Borderline High: 200-239 mg/dL High Blood Cholesterol : >/= 240 mg/dL MEDGRP-Sc wilma AP Specimen s AP 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 [address] Cytology Gynecolo gic Report Patient: Elizabeth Mcdonnell Specimen #: [id number] [facility] ID:: [id number] [place] [facility] #: [id number] Taken: 12/16/2023 15:56 /Age: 7 5 (Age: 57) Received : 4 11:02 Physicia n(s:): NICHOL TIMMONS Reported : 4 Specimen (s) Received Taken Rec Thin Prep - Cervical w/o reflex HPV 12/16/2023 15:56 4 11:02 Final Diagnosi s Thin Prep - Cervical w/o reflex HPV: Satisfac tory for evaluati on; no endocerv ical componen t present. Negative for intraepi thelial lesion or malignan cy. Shift in vaginal bora consiste nt with bacteria l vaginosi s. This Pap test was evaluate d with the assistan ce of the Thin Prep Imaging System. Elect ronicall y Signed by SAMSON RANDLE * Clinical Diagnosi s and History routine screen Prior History Signed Out Specimen # Interpre tation 05/24/20 20 [id number] Negative for Intraepi thlial Lesion or Malignan cy 12/19/19 17 [id number] NEGATIVE 03/18/20 12 [id number] NEGATIVE 09/21/19 11 [id number] NEGATIVE 03/09/20 09 [id number] NEGATIVE CPT Codes: A; 53281 The Pap test is a screenin g test for precurso rs of squamous cell carcinom a with an irreduci ble false negative rate of around 5%. It is not designed to detect glandula r lesions. A negative test does not ensure that no disease is present. 12/15 [id number]-[id number] th [facility] wilma AP Specimen s HPV Genotype 16 Negative 15 (12/16/23 3:56 PM) 12/15 N Interpretiv e Data: HPV GENOTYPE 16 Negative: NEGATIVE for HPV DNA genotype 16 DNA. HPV GENOTYPE 16 Positive: POSITIVE for HPV genotype 16 DNA. The robles HPV Test is a qualitative in vitro test for the detection Human Papillomavi alex in clinician-c ollected cervical and vaginal specimens. It detects the following high-risk HPV types 16, 18, 31, 33, 35, 39, 45, 51, 52, 56, 58, 66, and 68. Note: The modificatio n to specimen source of vaginal was developed and its performance characteris tics determined by [facility], Molecular Diagnostics [facility]. Vaginal source has not been cleared or approved by the U. S. Food and Drug Administrat ion. This modified vaginal specimen HPV test is for clinical purposes. This laboratory is certified under the Clinical Laboratory Improvement Amendments of 1988 (CLIA-88) as qualified to perform high complexity clinical laboratory testing. Clinician collected PreservCyt ThinPrep vaginal specimen are an approved additional specimen source, based on an internal laboratory validation. Limitations : A negative result does NOT preclude the presence of HPV infection because results depend on adequate specimen collection, absence of inhibitors and sufficient DNA to be detected. Correlation with cytologic findings is recommended as applicable. Questions about process or methodology contact Molecular Department at or [phone]. Unknown Organizat ion AP Specimen s HPV Genotype 18 Negative 13 (12/16/23 3:56 PM) 12/15 N Interpretiv e Data: HPV GENOTYPE 18 Negative: NEGATIVE for HPV genotype 18 DNA. HPV GENOTYPE 18 Positive: POSITIVE for HPV genotype 18 DNA. The robles HPV Test is a qualitative in vitro test for the detection Human Papillomavi alex in clinician-c ollected cervical and vaginal specimens. It detects the following high-risk HPV types 16, 18, 31, 33, 35, 39, 45, 51, 52, 56, 58, 66, and 68. Note: The modificatio n to specimen source of vaginal was developed and its performance characteris tics determined by [facility], [facility]. Vaginal source has not been cleared or approved by the U. S. Food and Drug Administrat [facility] This modified vaginal specimen HPV test is for clinical purposes. This laboratory is certified under the Clinical Laboratory Improvement Amendments of 1988 (CLIA-88) as qualified to perform high complexity clinical laboratory testing. Clinician collected PreservCyt ThinPrep vaginal specimen are an approved additional specimen source, based on an internal laboratory validation. Limitations : A negative result does NOT preclude the presence of HPV infection because results depend on adequate specimen collection, absence of inhibitors and sufficient DNA to be detected. Correlation with cytologic findings is recommended as applicable. Questions about process or methodology contact Molecular Department at or [phone]. Unknown Organizat ion AP Specimen s HPV Typing High Risk Negative 14 (12/16/23 3:56 PM) 12/15 N Interpretiv e Data: HPV Typing High Risk Negative: NEGATIVE for concurrentl y detecting the rest of the 12 high risk types HPV DNA (31,33,35,3 9,45,51,52, 56,58,59,66 and 68) without differentia tion. HPV Typing High Risk Positive: POSITIVE for concurrentl y detecting the rest of the 12 high risk types HPV DNA (31,33,35,3 9,45,51,52, 56,58,59,66 and 68) without differentia tion. The robles HPV Test is a qualitative in vitro test for the detection Human Papillomavi alex in clinician-c ollected cervical and vaginal specimens. It detects the following high-risk HPV types 16, 18, 31, 33, 35, 39, 45, 51, 52, 56, 58, 66, and 68. Note: The modificatio n to specimen source of vaginal was developed and its performance characteris tics determined by [facility], Molecular Diagnostics Lab. Vaginal source has not been cleared or approved by the U. S. Food and Drug Administrat [employer] [employer] This modified vaginal specimen HPV test is for clinical purposes. This laboratory is certified under the Clinical Laboratory Improvement Amendments of 1988 (CLIA-88) as qualified to perform high complexity clinical laboratory testing. Clinician collected PreservCyt ThinPrep vaginal specimen are an approved additional specimen source, based on an internal laboratory validation. Limitations : A negative result does NOT preclude the presence of HPV infection because results depend on adequate specimen collection, absence of inhibitors and sufficient DNA to be detected. Correlation with cytologic findings is recommended as applicable. Questions about process or methodology contact Molecular Department at [phone]. Unknown Organizat ion Hematolo gy Differenti al? Auto (08/29/23 8:38 AM) 08/28 N [id number] [facility] Hematolo gy MCH 30 pg 28 - 33 08/28 N [id number] [facility] Hematolo gy MCV 88 fL 80 - 97 08/28 N [id number] [facility] Hematolo gy MCHC 34.0 g/dL 33.0 - 36.5 08/28 N [id number] [facility] Hematolo gy MPV 9.6 fL 7.4 - 10.4 08/28 N [id number] [facility] Hematolo gy Platelets 220.0 x10^3/mc L 150.0 - 450.0103 08/28 N [facility] Hematolo gy RBC 4.4 x10^6/mc L 3.6 - 5.0106 08/28 N [facility] Hematolo gy Hematocrit 38 % 34 - 46 08/28 N [facility] Hematolo gy RDW 13.3 % 11.0 - 14.9 08/28 N [facility] Hematolo gy WBC 3.7 x10^3/mc L 4.0 - 11.0103 08/28 L [facility] Hematolo gy Hemoglobin 13.1 g/dL 11.0 - 15.0 08/28 N [facility]Sc wilma Chemistr y Vitamin D 25 OH 33.5 ng/mL 30.0 - 100.0 08/28 N Interpretiv e Data: Classificat ion of Vitamin D Status: Deficient: <20 ng/mL Insufficien t: 20-29 ng/mL Sufficient: 30-100 ng/mL Possible Toxicity: >100 ng/mL This assay is for the quantitativ e determinati on of total 25 (OH) vitamin D. It is intended as an aid in the determinati on of vitamin D sufficiency . Results should always be interpreted in conjunction with the patient's medical history, clinical presentatio n, and other findings. Testing performed by [email or web address] ce. [id number] FSAM EPILAB Chemistr y ALT 40 U/L 5 - 55 08/28 N [facility] wil[facility] Chemistr y AST 28 U/L 5 - 34 08/28 N [facility] wil[facility] Chemistr y Bilirubin Direct 0.2 mg/dL 0.1 - 0.5 08/28 N [facility] wilma Chemistr y Bilirubin Total 0.7 mg/dL 0.2 - 1.2 08/28 N [facility] wilma Chemistr y Protein Total 7.0 g/dL 6.4 - 8.3 08/28 N [facility]Sc wilma Chemistr y Albumin 4.00 g/dL 3.50 - 5.20 08/28 N [facility]Sc wilma Chemistr y Alk Phos 65 U/L 40 - 150 08/28 N [facility] Hematolo gy Monocyte % Auto 12 % 1 - 12 08/28 N [facility] Hematolo gy Neutrophil % Auto 45.5 % 46.0 - 77.0 08/28 L [facility] Hematolo gy Baso Absolute 0.0 x10^3/mc L 0.0 - 0.1103 08/28 N [facility] Hematolo gy Neutro Absolute 1.7 x10^3/mc L 2.0 - 7.0103 08/28 L [facility] Hematolo gy Basophil % Auto 0.3 % 0.0 - 2.5 08/28 N [facility] Hematolo gy Eos Absolute 0.2 x10^3/mc L 0.0 - 0.7103 08/28 N [facility] wil[facility] Hematolo gy Eosinophil % Auto 4 % 0 - 5 08/28 N [facility] Hematolo gy Lymph Absolute 1.4 x10^3/mc L 1.2 - 4.0103 08/28 N [facility]Sc wilma Hematolo gy [place] Absolute 0.4 x10^3/mc L 0.2 - 0.8103 08/28 N [facility] wilma Hematolo gy Lymphocyte % Auto 38.3 % 20.0 - 40.0 08/28 N [facility]Sc wilma Chemistr y eGFR CKD EPI 100 mL/min/1 .73_m2 07/18 Interpretiv e Data: Estimated Glomerular Filtration Rate (eGFR) calculated using the 2020 Chronic Kidney Disease-Epi demiology (CKD-EPI) Collaborati on creatinine equation; units of measure are mL/min/1.73 m2. Results are only valid for adults (>=18 years) whose serum creatinine is in steady state. eGFR calculation s are not valid for patients with acute kidney injury and for patients on dialysis. Creatinine- based estimates of kidney function may also be inaccurate in patients with reduced creatinine generation due to decreased muscle mass (e.g., malnutritio n, severe hypoalbumin emia, sarcopenia, chronic neuromuscul ar disease, amputations , severe heart failure or liver disease) and in patients with increased creatinine generation due to increased muscle mass (e.g., muscle builders, anabolic steroids) or increased dietary intake. CKD is diagnosed based on abnormaliti es of kidney structure or function, present for >3 months, with implication s for health and disease. CKD is classified and staged based on cause, eGFR and albuminuria (quantified as urine albumin to creatinine ratio). An eGFR >60 mL/min/1.73 m2 in the absence of increased urine albumin excretion or structural abnormaliti es does not CKD. eGFR provides only an estimate of measured GFR within +/- 30% for most patients. As mentioned, nutritional status and muscle mass, among many factors, may lead to inaccuracy in the estimate. Consider ordering the creatinine- cystatin C panel if better accuracy is needed for clinical decision-ervin chavez. eGFR (mL/min/1.7 3 m2) CKD stage Interpretat ion Normal 60-89 Mild decrease 45-59 Mild to moderate decrease 30-44 Moderate to severe decrease 15-29 Severe decrease <15 Kidney failure [facility] Chemistr y Ur Creat 84 mg/dL 07/18 [facility] wil[facility] Chemistr y Ur Microalb/U r Creat Ratio 23 mg/gCr 07/18 N [facility]Sc wilma Chemistr y Ur Microalbum in 19 mg/L 07/18 N Interpretiv e Data: To minimize intra-indiv idual variation, analysis of three random urine samples collected over the course of a week has also been recommended . [facility]Sc wil[facility] Chemistr y Cholestero l Total 193 mg/dL 07/18 N Interpretiv e Data: According to the [place] [employer] : AGES 0-19: Desirable: < 170 mg/dL Borderline High: 170-199 mg/dL High Blood Cholesterol : >/= 200 mg/dL ADULTS: Desirable < 200 mg/dL Borderline High: 200-239 mg/dL High Blood Cholesterol : >/= 240 mg/dL [facility]Sc wilma Chemistr y Triglyceri queta 123 mg/dL 7 - 149 07/18 N Interpretiv e Data: AGES 0-9: Desirable: < 75 mg/dL Borderline High: 75-99 mg/dL High: >/= 100 mg/dL AGES 10-19: Desirable: < 90 mg/dL Borderline High: 90-129 mg/dL High: >/= 130 mg/dL ADULTS: Desirable: < 150 mg/dL Borderline High: 150-199 mg/dL High: >/= 240 mg/dL Very High: >/= 500 mg/dL [facility] LDL/HDL 2 07/18 [facility] LDL 100 mg/dL 100 - 130 07/18 N Interpretiv e Data: AGES 0-19: Desirable: < 110 mg/dL Borderline High: 110-129 mg/dL High: >/= 130 mg/dL ADULTS: Desirable: <100 mg/dL Near/above optimal: 100-130 mg/dL Borderline High: 131-159 mg/dL High: 160-189 mg/dL Very High: 190 mg/dL [facility] HDL Cholestero l 66 mg/dL 40 - 59 07/18 H Interpretiv e Data: HDL (HIGH DENSITY LIPOPROTEIN ): ADULTS: Low: < 40 mg/dL High: >/= 60 mg/dL AGES 0 -19: Low: < 40 mg/dL Borderline Low: 40 - 45 mg/dL Acceptable: > 45 mg/dL [facility] Chol/HDL 3 mg/dL 07/18 [facility] Sodium 141 mmol/L 136 - 145 07/18 N [facility] y Potassium Lvl 3.6 mmol/L 3.5 - 5.1 07/18 N [facility] Glucose Lvl 126 mg/dL 74 - 99 07/18 H [facility] CO2 28 mmol/L 22 - 29 07/18 N [facility] y Chloride 98 mmol/L 98 - 107 07/18 N [facility] Chem[facility] y Calcium 10.5 mg/dL 8.4 - 10.2 07/18 H [facility] y BUN/Creat Ratio 13 mg/dL 12 - 20 07/18 N [facility] Chem[facility] y Creatinine Level 0.70 mg/dL 0.57 - 1.11 07/18 N [facility] AGAP 15.00 0.00 - 15.00 07/18 N [facility] y BUN 9 mg/dL 7 - 20 07/18 N [facility] y Hemoglobin A1c 6.3 % 4.0 - 5.6 07/18 H Interpretiv e Data: Normal: 4.0 - 5.6% Increased Risk: 5.7 - 6.4% Diabetic Range: 6.5% For patients without diabetes, the normal range for the hemoglobin A1c test is between 4% and 5.6%. Hemoglobin A1c levels between 5.7% and 6.4% indicate increased risk of diabetes, and levels of 6.5% or higher indicate diabetes. Because studies have repeatedly shown that out-of-cont rol diabetes results in complicatio ns from the disease, the goal for people with diabetes is a hemoglobin A1c less than 7%. The higher the hemoglobin A1c, the higher the risks of developing complicatio ns related to diabetes. If confirmatio n is needed, consider recalling the patient and ordering Hemoglobin Electrophor esis. [facility] y eAvg Glucose 134 mg/dL 07/18 [facility] Vital Signs Combined list of inpatient and outpatient Vital Signs from Department of Defense and Veterans Affairs, ranging from 12 months to all on record, depending upon the facility. Vital Sign Value Date Comments Source Blood Pressure Manual Automatic 06/24/2024 19:52:00 9428R-Xh-U-375Th [facility] BP Site Left arm 06/24/2024 19:52:00 6130C -Af-C-375Th [facility] Mean Arterial Pressure, Calc 101 mm[Hg] 06/24/2024 19:52:00 5104J-Fl-J-3 75Th [facility] Peripheral Pulse Rate 77 bpm 06/24/2024 19:52:00 7377C-En-V-375Th [facility] Respiratory Rate 14 br/min 06/24/2024 19:52:00 0405O-Fy-Q-375Th [facility] Systolic Blood Pressure 140 mm[Hg] 06/24/2024 19:52:00 9553U-Zj-G-375Th [facility] Diastolic Blood Pressure 81 mm[Hg] 06/24/2024 19:52:00 5106K-Ty-B-375Th [facility] Systolic Blood Pressure 131 mm[Hg] 05/28/2024 21:22:00 0611P-Nc-P-375Th [facility] Diastolic Blood Pressure 82 mm[Hg] 05/28/2024 21:22:00 8391K-Vw-B-375Th [facility] Mean Arterial Pressure, Calc 98 mm[Hg] 05/28/2024 21:22:00 8473L-Sy-W-3 75Th [facility] Blood Pressure Manual Automatic 05/28/2024 21:22:00 8638D-Fn-A-375Th [facility] Peripheral Pulse Rate 84 bpm 05/28/2024 21:22:00 9309U-Ni-K-375Th [facility] Peripheral Pulse Rate 83 bpm 01/16/2024 20:34:00 4869Y-Hi-Z-375Th [facility] Systolic Blood Pressure 135 mm[Hg] 01/16/2024 20:34:00 2318M-Kk-F-375Th [facility] Diastolic Blood Pressure 79 mm[Hg] 01/16/2024 20:34:00 2213P-Rl-I-375Th [facility] Mean Arterial Pressure, Calc 98 mm[Hg] 01/16/2024 20:34:00 3039E-Eh-Z-3 75Th [facility] Respiratory Rate 16 br/min 01/16/2024 20:34:00 2639W-Zo-U-375Th [facility] BP Site Left arm 01/16/2024 20:34:00 6130C -Af-C-375Th [facility] Blood Pressure Manual Automatic 01/16/2024 20:34:00 6650Y-Wr-W-375Th [facility] Mean Arterial Pressure, Calc 90 mm[Hg] 12/16/2023 19:09:00 0055C-375th [facility] Systolic Blood Pressure 113 mm[Hg] 12/16/2023 19:09:00 0055C-375th [facility] Diastolic Blood Pressure 78 mm[Hg] 12/16/2023 19:09:00 0055C-375th [facility] Systolic Blood Pressure 132 mm[Hg] 07/18/2023 15:41:00 2460Q-Td-D-375Th [facility] Diastolic Blood Pressure 85 mm[Hg] 07/18/2023 15:41:00 2591T-Jt-C-375Th [facility] Blood Pressure Manual Automatic 07/18/2023 15:41:00 5449Z-Qs-T-375Th [facility] BP Site Left arm 07/18/2023 15:41:00 6130C -Af-C-375Th [facility] Temperature Oral 37.0 Betsy 07/18/2023 15:41:00 7730A-Gl-K-375Th [facility] Mean Arterial Pressure, Calc 101 mm[Hg] 07/18/2023 15:41:00 4419R-Rs-J-3 75Th [facility] Respiratory Rate 14 br/min 07/18/2023 15:41:00 5246P-Jw-N-375Th [facility] Peripheral Pulse Rate 78 bpm 07/18/2023 15:41:00 6244S-Kk-E-375Th [facility] Respiratory Rate 16 br/min 02/26/2023 14:07:00 0066R-Mj-R-375Th [facility] Blood Pressure Manual Automatic 02/26/2023 14:07:00 6816O-Gi-K-375Th [facility] BP Site Left arm 02/26/2023 14:07:00 6130C -Af-C-375Th [facility] Systolic Blood Pressure 124 mm[Hg] 02/26/2023 14:07:00 7275T-Af-U-375Th [facility] Diastolic Blood Pressure 78 mm[Hg] 02/26/2023 14:07:00 9415D-Gx-H-375Th [facility] Mean Arterial Pressure, Calc 93 mm[Hg] 02/26/2023 14:07:00 3166D-Wl-B-3 75Th [facility] Peripheral Pulse Rate 79 bpm 02/26/2023 14:07:00 3642Q-Gu-L-375Th [facility] Blood Pressure Manual Automatic 07/31/2023 14:08:00 5919T-Wk-V-375Th [facility] Systolic Blood Pressure 113 mm[Hg] 07/31/2023 14:08:00 4242D-Jf-C-375Th [facility] Diastolic Blood Pressure 72 mm[Hg] 07/31/2023 14:08:00 9024A-Js-Q-375Th [facility] Mean Arterial Pressure, Calc 86 mm[Hg] 07/31/2023 14:08:00 3176K-Iv-E-3 75Th [facility] Peripheral Pulse Rate 81 bpm 07/31/2023 14:08:00 8787T-Np-D-375Th [facility] Respiratory Rate 16 br/min 07/31/2023 14:08:00 1529Q-Ue-V-375Th [facility] BP Site Left arm 07/31/2023 14:08:00 6130C -Af-C-375Th [facility] Systolic Blood Pressure 99 mm[Hg] 12/16/2023 19:00:00 0055C-375th [facility] Diastolic Blood Pressure 67 mm[Hg] 12/16/2023 19:00:00 0055C-375th [facility] Blood Pressure Manual Automatic 12/16/2023 19:00:00 0055C-375th [facility] Temperature Oral 36.9 Betsy 12/16/2023 19:00:00 0055C-375th [facility] BP Site Right arm 12/16/2023 19:00:00 0055C -375th [facility] Respiratory Rate 14 br/min 12/16/2023 19:00:00 0055C-375th [facility] Mean Arterial Pressure, Calc 78 mm[Hg] 12/16/2023 19:00:00 0055C-375th [facility] Peripheral Pulse Rate 77 bpm 12/16/2023 19:00:00 0055C-375th [facility] Encounters Combined list of: 1) Encounters from Department of Veterans Affairs facilities going backup to the last 18 months, not all VA inpatient encounters are included; 2) Encounters from the Department of Defense facilities going backup to 280 months. Location Location Details Encounter Type Encounter Number Reason For Visit Attending Provider ADM Date DC Date Status Disposition Source [address] [place] [address] [place] [facility]Sco tt [facility] FAMRES Tm Blue) OUTPATIENT [id number] Cough/c ongesti on GOODEMOTE, ZAIRE L 09/26 Released w/o Limitations [address] [place] [address] [place] [facility]S [place] [facility] Tm Blue) [address] [place] [address] [place] [facility]Sco tt [facility] FAMRES Tm Blue) OUTPATIENT [id number] f/u bp meds WENDIE FOREMAN 12/03 Released w/o Limitations [address] [place] [address] [place] [facility]S cott [facility] Tm Blue) [address] [place] [address] [place] [facility]Sco tt [facility] FAMRES Tm Blue) OUTPATIENT [id number] Welts on buttock area JOSE TERRELL 12/11 Released w/o Limitations [address] [place] [address] [place] [facility]S cott [facility] Tm Blue) [address] [place] [address] [place] [facility]Sco tt [facility] FAMRES Tm Blue) OUTPATIENT [id number] TOBIAS Baeza 12/12 Released w/o Limitations [address] [place] [address] [place] [facility]S cott [facility] Tm Blue) [address] [place] [address] [place] [facility]Sco tt [facility] FAMRES Tm Blue) OUTPATIENT [id number] SARAH Alejandra 12/13 Released w/o Limitations [address] [place] [address] [place] [facility]S cott [facility] Tm Blue) [address] [place] [address] [employer] ([facility])(Sco tt [facility] FAMRES Tm Blue) OUTPATIENT [id number] BANG MOON 12/14 Released w/o Limitations [address] [place] [address] [employer] ([facility])(S cott [facility] FAM[facility] Tm Blue) [address] [place] [address] [employer] ([facility])(Sco tt [facility] FAMRES Tm Blue) OUTPATIENT [id number] WALLACE Whitehead 12/17 Released w/o Limitations [address] [place] [address] [employer] ([facility])(S cott [facility] FAM[facility] Tm Blue) [address] [place] [address] [employer] ([facility])(Sco tt [facility] FAMRES Tm Blue) OUTPATIENT [id number] LINCOLN Dubon 12/19 Released w/o Limitations [address] [place] [address] [employer] ([facility])(S cott [facility] FAM[facility] Tm Blue) [address] [place] [address] [employer] ([facility])(Sco tt [facility] FAMRES Tm Blue) OUTPATIENT [id number] JOSLYN Segal 12/20 Released w/o Limitations [address] [place] [address] [employer] ([facility])(S cott [facility] FAM[facility] Tm Blue) [address] [place] [address] [employer] ([facility])(Sco tt [facility] FAMRES Tm Blue[facility] OUTPATIENT [id number] pt wants b/p cked out she had increas e in [facility] GALILEO STAUFFER 01/15 Released w/o Limitations [address] [place] [address] [employer] ([facility])([facility] FAMRES Tm Blue) [address] [place] [address] [employer] [facility])([facility] fabiano Practice Non-GME FHI2) TELE CONSULT [id number] Rx renewal LIBERTAD CORBIN 02/[address] [place] [address] [employer] [facility])(F amily Practic e Non-GME FHI2) [address] [place] [address] [employer] ([facility])([facility] fabiano Practice Non-GME FHI2) OUTPATIENT [id number] STOMACH CRAMPS PLUS 2WEEKS MIKE PALMA 03/21 Released w/o Limitations [address] [place] [address] [employer] ([facility])(F amily Practic e Non-GME FHI2) [address] [place] [address] [employer] ([facility])(Fam fabiano Practice Non-GME FHI2) TELE CONSULT [id number] Rx Renewed Rabepra zole 20MG Complet shaheen Zion CORBIN LIBERTAD L 05/[address] [place] [address])(F amily Practic e Non-GME FHI2) [address] [place] [address])([facility] Non-GME FHI2) OUTPATIENT [id number] evaluat ion for carpal tunnel MIKE PALMA 05/27 Released w/o Limitations [address] [place] [address])(F amily Practic e Non-GME FHI2) [address] [place] [address])(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) OUTPATIENT [id number] Menorrh agia DENISE VALENTINE R 07/03 Released w/o Limitations [address] [place] [address])(G ynecolo gy) [address] [place] [address])([facility] Practice Non-GME FHI2) TELE CONSULT [id number] 1227-me d refill- LIBERTAD Calvo 07/[address] [place] [address])(F amily Practic e Non-GME FHI2) [address] [place] [address])(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) OUTPATIENT [id number] annual pap DENISE VALENTINE 08/07 Released w/o Limitations [address] [place] [address])(G ynecolo gy) [address] [place] [address])([facility] Practice Non-GME FHI2) TELE CONSULT [id number] 1020-me d refill- not JOSE Kirkland 08/[address] [place] [address])(F amily Practic e Non-GME FHI2) [address] [place] [address])([facility] Practice Non-GME FHI2) OUTPATIENT [id number] HTN MAYELIN Gates L 08/20 Released w/o Limitations [address] [place], [place] [address]B [facility])(F amily Practic e Non-GME FHI2) [address] [place], [place] [address]B [facility])(Sco tt [facility] Fam Res Tm Green) OUTPATIENT [id number] stomach issues CRUZITO MALCOLM 09/26 Released w/o Limitations [address] [place] [address] [place] ([facility])(S cott [facility] Fam Res Tm Green) [address] [place] [address] [place] ([facility])(Sco tt [facility] Fam Res Tm Green) OUTPATIENT [id number] F/U Stomach problem s YUN CERON 11/28 Released w/o Limitations [address] [place] [address] [place] ([facility])(S cott [facility] Fam Res Tm Green) [address] [place] [address] [place] ([facility])(Sco tt [facility] Fam Res Tm Green) TELE CONSULT [id number] Refill LARRY MAJANO 12/[address] [place] [address] [place] ([facility])(S cott [facility] Fam Res Tm Green) [address] [place] [address] [place] ([facility])([employer] troentero log[employer] Sharing) OUTPATIENT [id number] abdomin al pain PIETER SILVERIO 12/18 Released w/o Limitations [address] [place] [address] [place] ([facility])(G astroen terolog y Resourc e Sharing ) [address] [place] [address] [place])(Sco tt [facility] Fam Res Tm Green) TELE CONSULT [id number] Refill LARRY MAJANO 12/[address] [place] [address] [place] ([facility])(S cott [facility] Fam Res Tm Green) [address] [place] [address] [place] ([facility])([facility]co tt [facility] Fam Res Tm Green) TELE CONSULT [id number] Refills CROW GONZALEZ 03/[address] [place] [address] [place] ([facility])(S cott [facility] Fam Res Tm Green) [address] [place] [address] [place] ([facility])(Sco tt [facility] Fam Res Tm Green) OUTPATIENT [id number] sinus CRUZITO MALCOLM 04/08 Released w/o Limitations [address] [place] [address] [place] ([facility])(S cott [facility] Fam Res Tm Green) [address] [place] [address] [place] ([facility])(Sco tt [facility] FAMRES Tm Blue) OUTPATIENT [id number] post deploy, needs new med refill WALLACE GONZALEZ 05/22 Released w/o Limitations [address] [place] [address] [place] ([facility])(S cott [facility] FAMRES Tm Blue) [address] [place] [address] [place] ([facility])(Sco tt [facility] Fam Res Tm Green) OUTPATIENT [id number] R/O SINUS INFECTI ON FEDERICO GOETZ 07/25 Released w/o Limitations [address] [place] [address] [place] ([facility])(S cott [facility] Fam Res Tm Green) [address] [place] [address] [place] MCKEONB ([facility])([facility]co tt [facility] Fam Res Tm Green) OUTPATIENT [id number] fol blood pressur e FEDERICO GOETZ 09/22 Released w/o Limitations [address] [place] [address] [place]KEON[place] ([facility])(S cott [facility] Fam Res Tm Green) [address] [place] [address] [place] [facility]KEON[facility] ([facility])(Fam fabiano Practice Procedure s) OUTPATIENT [id number] TRAPEZO ID MUSCLE STRAIN- Initial OMT CRUZITO MALCOLM 10/16 Released w/o Limitations [address] [place] [address] [place] ([facility])(F amily Practic e Procedu res) [address] [place] [address] [place]KEON[place] ([facility])(Sco tt [facility] Fam Res Tm Green) TELE CONSULT [id number] pt questio n TOBIAS STOVALL 11/[address] [place] [address] [place] ([facility])(S cott [facility] Fam Res Tm Green) [address] [place] [address] [place]KEON[place] ([facility])(Fam fabiano Practice Procedure s) OUTPATIENT [id number] NONALLO PATHIC LESIONS UPPER EXTREMI TIES TOBIAS STOVALL 11/20 Released w/o Limitations [address] [place] [address] [place] ([facility])(F amily Practic e Procedu res) [address] [place] [address] [place] ([facility])(Sco tt [facility] Fam Res Tm Green) TELE CONSULT [id number] med refill FEDERICO GOETZ 11/[address] [place] [address] [place] ([facility])(S cott [facility] Fam Res Tm Green) [address] [place] [address] [employer] ([facility])(Sco tt [facility] Fam Res Tm Green) OUTPATIENT [id number] well woman exam LARRY MAJANO 12/17 Released w/o Limitations [address] [place] [address] [employer] ([facility])(S cott [facility] Fam Res Tm Green) [address] [place] [address] [employer] ([facility])(Sco tt [facility] Fam Res Tm Green) TELE CONSULT [id number] pap results LINCOLN FORD 01/[address] [place] [address] [place] ([facility])(S cott OF Fam Res Tm Green) [address] [place] [address] [place] LINDAChristel ([facility])(Sco tt [facility] Fam Res Tm Green) TELE CONSULT [id number] BRANDEN Brush 01/[address] [place] [address] [place] LINDAChristel ([facility])(S cott OF Fam Res Tm Green) [address] [place] [address] [place] ([facility])(Fam fabiano Practice Procedure s) OUTPATIENT [id number] Acup f/u TOBIAS STOVALL 01/28 Released w/o Limitations [address] [place] [address] [place] LINDAChristel ([facility])(F amily Practic e Procedu res) [address] [place] [address] [place] LINDAChristel ([facility])(Sco tt [facility] Fam Res Tm Green) OUTPATIENT [id number] fol labs lipid etc MIKE VALENCIA 02/16 Released w/o Limitations [address] [place] [address] [place] LINDAChristel ([facility])(S cott [facility] Fam Res Tm Green) [address] [place] [address] [place] [facility] fabiano Practice Procedure s) OUTPATIENT [id number] Acup f/u-lef t shoulde r TOBIAS Boyer 02/18 Released w/o Limitations [address] [place] [address] [place] LINDAChristel ([facility])(F amily Practic e Procedu res) [address] [place] [address] [place] ([facility])(Sco tt [facility] Fam Res Tm Green) TELE CONSULT [id number] [facility] MIKE Ramirez 06/[address] [place] [address] [place] ([facility])(S cott [facility] Fam Res Tm Green) [address] [place] [address] [place] ([facility])(Sco tt [facility] Fam Res Tm Green) OUTPATIENT [id number] Eval for Sinus Problem MIKE VALENCIA 06/15 Released w/o Limitations [address] [place] [address] [place] ([facility])(S cott [facility] [place] [place] [address] [place] [address] [place])(Sco tt [facility] [place]) TELE CONSULT [phone] [facility] MIKE Ramirez 07/[address] [place] [address] [place]S cott OF [facility] [place] [place] [address] [place] [address] [place])(Sco tt [facility] [place]) OUTPATIENT [id number] [address] [place] [address] FOR [employer] AND [employer] SARAH SALAZAR 08/23 Released w/o Limitations [address] [place] [address] [place] [facility] [place] [place]) [address] [place] [address] [place])(Sco tt [facility] [place]) OUTPATIENT [id number] [phone] Annual physica l w/labwo rk SARAH SALAZAR 09/27 Released w/o Limitations [address] [place] [address] [place]S cott [facility] [place] [place] [address] [place] [address] [place])(Sco tt [facility] [place]) OUTPATIENT [id number] [phone] fever 99.4, diarrhe a, vomitin g, stomach /back cramps TIMOTHY BEJARANO 11/04 Released w/o Limitations [address] [place] [address] [place])(S cott [facility] [place] [place] [address] [place] [address] [place])(Sco tt [facility] [place]) TELE CONSULT [id number] Med Refill MIKE VALENCIA 11/[address] [place] [address] [place] [facility]S cott [facility] Fam Res Tm [place]) [address] [place] [address] [place] ([facility])(Sco tt [facility] Fam Res [employer]m [place]) OUTPATIENT [id number] [phone] WOMENS ODALYS S W/PAP SRAVANI DOWNEY 01/10 Released w/o Limitations [address] [place] [address] [place] ([facility])(S cott [facility] Fam Res [place]m [place]) [address] [place] [address] [place] ([facility])(Sco tt [facility] Fam Res [place]m [place]) OUTPATIENT [id number] [phone] SINUS INFECTI ON EDY VARGAS Consuelo 02/17 Released w/o Limitations [address] [place] [address] [place] ([facility])(S cott [facility] Fam Res [place]m [place]) [address] [place] [address] [place] [facility]Sco tt [facility] Fam Res Tm [place]) TELE CONSULT [id number] Medicat ion [facility]ill - [facility] RAYMOND Topete 05/[address] [place] [address] [place] ([facility]S cott [facility] Fam Res [place]m [place]) [address] [place] [address] [place] ([facility])(Sco tt [facility] Fam Res [place] [place]) OUTPATIENT [id number] [phone] follow up carpal tunnel blood work RAYMOND FLORES 06/06 Released w/o Limitations [address] [place] [address] [place] ([facility])(S cott [facility] Fam Res [place]m [place]) [address] [place] [address] [place] ([facility])(Sco tt [facility] FAMRES Tm Blue) TELE CONSULT [id number] med keriill RAYMOND FLORES 08/[address] [place] [address] [place] [facility]S cott [facility] FAMRES Tm Blue) [address] [place] [address] [place] [facility])(Sco tt [facility] Fam Res [place] [place]) OUTPATIENT [id number] jaw pain/pe rsonal issue TIMOTHY BEJARANO 09/27 Released w/o Limitations [address] [place] [address] [place] ([facility])(S cott [facility] Fam Res [place]) [address] [place] [address] [place] [facility])(Sco tt [facility] Fam Res Tm [place]) TELE CONSULT [id number] TIMOTHY Perez 10/[address] [place] [address] [place] ([facility])(S cott [facility] Fam Res [employer] [place]) [address] [place] [address] [place] [facility])(Sco tt [facility] Fam Res Tm [place]) TELE CONSULT [id number] TIMOTHY Perez 10/[address] [place] [address] [place] [facility])(S cott [facility] Fam Res [place]m [place]) [address] [place] [address] [place] [facility])(Sco tt [facility] Fam Res Tm [place]) TELE CONSULT [id number] Lab results SARAH SALAZAR 11/[address] [place] [address] [place] [facility])(S cott [facility] Fam Res [place]m [place]) [address] [place] [address] [employer] [facility])([facility]co tt [facility] Fam Res [place]m [place]) OUTPATIENT [id number] follow up on labs [phone] SRAVANI DOWNEY 11/15 Released w/o Limitations [address] [place] [address] [employer] ([facility]S cott [facility] Fam Res [place]) [address] [place] [address] [employer] [facility])(Sco tt [facility] FAMRES Tm Blue) TELE CONSULT [id number] medicat ion concern RAYMOND FLORES 11/[address] [place] [address] [employer] [facility])(S cott OF FAMRES Tm Blue) [address] [place] [address] [place] [facility])(Sco tt [facility] FAMRES Tm Blue) TELE CONSULT [id number] labs results SRAVANI DOWNEY Saniya 12/[address] [place] [address] [place] [facility])(S cott OF FAM[employer] Tm Blue) [address] [place] [address] [place] [facility])(Sco tt [facility] FAMRES Tm Blue) TELE CONSULT [id number] med refill RAYMOND FLORES 01/[address] [place] [address] [place] [facility])(S cott OF FAMRES Tm Blue) [address] [place] [address] [place] [facility])(Sco tt [facility] Fam Res [place]m [place]) OUTPATIENT [id number] MAURO MCFARLAND 03/06 Released w/o Limitations [address] [place] [address] [place] [facility])(S cott OF Fam Res [employer]m [place]) [address] [place] [address] [place] [facility])(Sco tt [facility] Fam Res Tm [place]) TELE CONSULT [id number] referra RAYMOND Singer 04/[address] [place] [address] [place] [facility])(S cott OF Fam Res [employer]m [place]) [address] [place] [address] [place] [facility])(Sco tt [facility] FAMRES Tm Blue) TELE CONSULT [id number] Medicat ion refill - PCM CAR Padilla 06/[address] [place] [address] [place] [facility])(S cott [facility] FAMRES Tm Blue) [address] [place] [address] [place] [facility])(Sco tt [facility] Fam Res [place]m [place]) OUTPATIENT [id number] PROBLEM S WITH CYCLE [phone] RAYMOND FLORES 06/19 Released w/o Limitations [address] [place] [address] [place] [facility])(S cott OF Fam [employer] [place]) [address] [place] [address] [place] [facility])(Sco tt [facility] Fam Res Tm [place]) TELE CONSULT [id number] med refRAYMOND Henry 07/[address] [place] [address] [place] [facility])(S cott OF Fam Res [place]m [place]) [address] [place] [address] [employer] [facility])(Sco tt [facility] FAMRES Tm Blue) TELE CONSULT [id number] US results RAYMOND FLORES 07/[address] [place] [address] [place] [facility])(S cott OF FAMRES Tm Blue) [facility] [place] ([facility])(Sco tt [facility] Fam Res Tm [place]) TELE CONSULT [id number] referal inquiry ROBBY LIGHT 07/25 [facility] [place] ([facility])(S cott OF Fam [employer] [place]) [facility] [place] ([facility])(Sco tt [facility] Fam Res Tm [place]) TELE CONSULT [id number] medicat ion update RAYMOND FLORES 07/27 [facility] [place] ([facility])(S cott OF Fam [employer] [place]) [facility] [place] ([facility])(Sco tt [facility] Fam Res [place]m [place]) TELE CONSULT [id number] med refill RAYMOND FLORES 08/08 [facility] [place] ([facility])(S cott OF Fam [employer] [place]) [facility] [place] [facility]Sco tt [facility] Fam Res [place]m [place]) OUTPATIENT [id number] per provide r..emb RAYMOND FLORES 08/22 Released w/o Limitations [facility] [place] ([facility])(S cott [facility] Fam Res [place] [place]) [facility] [place] [facility])(Sco tt [facility] Fam Res [place]m [place]) TELE CONSULT [id number] med change RAYMOND FLORES 08/24 [facility] [place] ([facility])(S cott OF Fam [employer] [place] [place]) [facility] [place] ([facility])(Sco tt [facility] Fam Res [place]m [place]) TELE CONSULT [id number] med refill RAYMOND FLORES 09/18 [facility] [place] ([facility]S cott OF Fam [employer] [place] [place]) [facility] [place] [facility])(Sco tt [facility] Fam Res [place]m [place]) TELE CONSULT [id number] med refRAYMOND Henry 10/24 [facility] [place] [facility])(S cott [facility] Fam Res [facility]m [facility]) [facility] [place] [facility])(Sco tt [facility] Fam Res [place]m [place]) OUTPATIENT [id number] f/u blood pressur e [phone] RAYMOND FLORES 11/24 Released w/o Limitations [facility] [place] ([facility]S cott OF Fam [employer] [place] ([facility])(Sco tt [facility] Fam Res [place]m [place]) TELE CONSULT [id number] Flu T-Con - RAYMOND Crump 12/19 [facility] [place] ([facility]S cott OF Fam [employer] [place] [place]) [facility] [place] ([facility])(Sco tt OF Fam Res [place]m [place]) TELE CONSULT [id number] f/u labs / michelle cad/tnp RAYMOND FLORES 01/[address] [place] [address] [place] ([facility])(S cott OF Fam Res [employer] [place] [place] ([facility])(Sco tt [facility] FAMRES Tm Blue) OUTPATIENT [id number] lab results (walk in) RAYMOND FLORES 01/26 Released w/o Limitations [facility] [place]am [place] ([facility])(S cott OF FAMRES Tm Blue[facility] [place]am [place] ([facility])(Sco tt [facility] Fam Res [place]m [place]) TELE CONSULT [id number] referra RAYMOND Singer 03/01 [facility] [place]am [place] ([facility])(S cott OF Fam Res [employer] [place] [place]am [place] ([facility])(Sco tt [facility] Fam Res Tm [place]) TELE CONSULT [id number] med RAYMOND Pepe 03/15 [facility] [place] ([facility])(S cott OF Fam Res [employer]m [place]) [facility] [place] ([facility])(Sco tt [facility] FAMRES Tm Blue) TELE CONSULT [id number] med refRAYMOND Henry 04/24 [facility] [place] [facility])(S cott [facility] FAMRES Tm Blue[facility] [place] [facility])(Sco tt [facility] Fam Res Tm [place]) TELE CONSULT [id number] T con for F/U appt Dr Flores phone [phone] or [phone] ROBBY LIGHT 05/16 Referred for Appointment [facility] [place] ([facility])(S cott OF Fam Res [place] [place]) [facility] [place]am [place] ([facility])(Sco tt [facility] Fam Res Tm [place]) OUTPATIENT [id number] F/U ultra sound [phone] RAYMOND FLORES 07/04 Released w/o Limitations [address] [place] [address] [place] ([facility])(S cott [facility] Fam Res [place]m Green) [address] [place] [address] [place] ([facility])(Sco tt [facility] Fam Res Tm [place]) TELE CONSULT [id number] med refill CORONA DAMIAN Antunez 07/[address] [place] [address] [place] ([facility])(S cott [facility] Fam Res [place]m [place]) [address] [place] [address] [place] [facility])(Emre e Managemen t) OUTPATIENT [id number] [facility]-Hosp ital Admissi on Notific ation WEEKSEZEQUIEL 07/19 Released w/o Limitations [address] [place] [address] [place] ([facility])(C ase Managem ent) [address] [place] [address] [place] ([facility])(Sco tt [facility] FAMRES Tm Blue) TELE CONSULT [id number] med refill - PCM: DAMIAN Roca 07/[address] [place] [address] [place] ([facility])(S cott [facility] Tm Blue) [address] [place] [address] [place] ([facility])(Milanese 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) OUTPATIENT [id number] DENISE VALENTINE 08/03 Released w/o Limitations [address] [place] [address] [place] ([facility])(G ynecolo gy) [address] [place] [address] [place] ([facility])(Sco tt [facility] FAMRES Tm Blue) TELE CONSULT [id number] med refills RAYMOND FLORES 08/[address] [place] [address] [place] ([facility])(S cott [facility] Tm Blue) [address] [place] [address] [place] ([facility])(Milanese 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) TELE CONSULT [id number] results DENISE VALENTINE 08/[address] [place] [address] [place] ([facility])(G ynecolo gy) [address] [place] [address] [place] ([facility])(Sco tt [facility] Fam Res Tm Green) TELE CONSULT [id number] Questio ns on diet/Ko nold/tl t RAYMOND FLORES 09/[address] [place] [address] [place] ([facility])(S cott [facility] Fam Res [place]m [place]) [address] [place] [address] [place] ([facility])(Milanese 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) OUTPATIENT [id number] EMB-r/s from [facility]- [phone], st@ [phone]. DENISE VALENTINE 09/13 Released w/o Limitations [facility] Bam [place] [facility])(G ynecolo gy) [address] [place] [address] [place] [facility])(Sco tt [facility] Fam Res Tm Green) TELE CONSULT [id number] Update referra varun Urena Marsvandana - [phone] [id number] - [facility] RAYMOND FLORES 09/[address] [place] [address] [place] [facility])(S cott [facility] Fam Res Tm Green) [address] [place] [address] [place] [facility])(Milanese [employer]itting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) TELE CONSULT [id number] results DENISE VALENTINE 09/[address] [place] [address] [place] [facility])(G ynecolo gy) [address] [place] [address] [place] [facility])(Sco tt [facility] Fam Res Tm Green) TELE CONSULT [id number] F/U resched pat Flores cad ISAIAH Cannon 10/[address] [place] [address] Bam [facility])(S cott [facility] Fam Res Tm Green) [address] [place] [address] [place] [facility])(Milanese 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) OUTPATIENT [id number] Well woman exam DENISE VALENTINE 10/02 Released w/o Limitations [address] [place] [address] [place] [facility])(G ynecolo gy) [address] [place] [address] [place] [facility])(Sco tt [facility] Fam Res Tm Green) OUTPATIENT [id number] f/u carpal tunnel and eval for profile RAYMOND FLORES 10/12 Released w/o Limitations [address] [place] [address] [place] [facility])(S cott [facility] Fam Res Tm Green) [address] [place] [address] [place] [facility])(Milanese [employer]itting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) TELE CONSULT [id number] results DENISE VALENTINE 10/[address] [place] [address] [place] [facility])(G ynecolo gy) [address] [place] [address] [employer] [facility])(Sco tt [facility] Fam Res Tm Green) TELE CONSULT [id number] U.C. f/u - Chloe - [phone] [address] [place] [address] DAMIAN CORONA 12/[address] [place] [address] [employer] [facility])(S cott [facility] Fam Res Tm Green) [address] [place] [address] [place] ([facility])(Sco tt [facility] FAMRES Tm Blue) TELE CONSULT [id number] DAMIAN Partida 12/[address] [place] [address] [place] [facility])(S cott [facility] FAMRES Tm Blue) [address] [place] [address] [place] [facility])(Sco tt [facility] Fam Res Tm Green) TELE CONSULT [id number] rx refill 3 [facility] - CAD [facility] ISAIAH ROWE 01/[address] [place] [address] [place] [facility])(S cott [facility] Fam Res Tm Green) [address] [place] [address] [place]am [place] [facility])(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) TELE CONSULT [id number] when to DENISE Aaron 01/[address] [place] [address] [place] [facility])(O b/Milanese Knitting Machine Operator) [address] [place] [address] [place] [facility])(Milanese Knitting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) TELE CONSULT [id number] Discuss u/s results FREDDY ASIF 02/[address] [place] [address] [place] [facility])(G ynecolo gy) [address] [place] [address] Bam [place] [facility])([facility] Pharm [facility]) OUTPATIENT [id number] smoking cessati on BETTIE MOISE S 03/04 Released w/o Limitations [address] [place] [address] [place] [facility]I [facility]) [address] [place] [address] [place]am [place] [facility])(Sco tt [facility] FAMRES Tm Blue) TELE CONSULT [id number] FYI: labs re-orde DAMIAN Engle 03/[address] [place] [address] [place] [facility])(S [facility] FAMRES Tm Blue) [address] [place] [address] [place] [facility])([facility] Pharm [facility]) OUTPATIENT [id number] Smoking Cessati on BETTIE MOISE S 03/27 Released w/o Limitations [address] [place] [address] [place]) [address] [place] [address] B[place] [facility])(Sco tt [facility] Fam Res Tm Green) OUTPATIENT [id number] f/u blood work... [id number] DAMIAN CORONA 04/05 Released w/o Limitations [address] [place] [address] Bam [facility] Fam Res Tm Green) [address] [place] [address] [place] ([facility])(Sco tt [facility] Fam Res Tm Green) TELE CONSULT [id number] Meds refills /Corona/ fxs DAMIAN CORONA 04/[address] [place] [address] [place] ([facility])([facility] Fam Res Tm Green) [address] [place] [address] [place] ([facility])([facility] Pharm D Clinic) OUTPATIENT [id number] Smoking Cessati on BETTIE MOISE S 04/25 Released w/o Limitations [address] [place] [address] [place] [facility])([facility]) [address] [place] [address] [place] [facility])([facility] Pharm [facility] OUTPATIENT [id number] Smoking cessati on BETTIE MOISE S 05/23 Released w/o Limitations [address] [place] [address] [place] ([facility])([facility]) [address] [place] [address] [place] [facility]Sco tt [facility] Fam Res Tm Green) TELE CONSULT [id number] med renewal /Corona/ [phone] 9/mnm DAMIAN CORONA 05/[address] [place] [address] [place] ([facility])([facility] Fam Res Tm [facility]) [address] [place] [address] [place] [facility])(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) TELE CONSULT [id number] Needs ultraso und order reorder YOSHI Gonzalez Varun 06/[address] [place] [address] [place] ([facility])(G ynecolo gy) [address] [place] [address] [place] ([facility])(Sco tt [facility] Fam Res Tm Green) OUTPATIENT [id number] sinus infecti on [id number] DAMIAN CORONA 06/14 Released w/o Limitations [address] [place] [address] Group [place] ([facility])([facility]) [address] [place] [address] [place] ([facility])([facility]) OUTPATIENT [id number] Smoking Cessati on BETTIE MOISE S 06/17 Released w/o Limitations [address] [place] [address] [place] ([facility])([facility]) [address] [place] [address] [place] [facility])(Sco tt [facility] Fam Res [employer]m [place]) TELE CONSULT [id number] Notes Entered by: DEREJE RAY 16 Jul 2011 1428 ------- ------- ------- - DAMIAN CORONA 07/[address] [place] [address] Bam [facility])(S cott [facility] Fam Res Tm Green) [address] [place] [address] Bam [facility])(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) TELE CONSULT [id number] Notes Entered by: FREDDY LOCKWOOD 30 Jul 2011 1746 ------- ------- ------- ------- -- Discuss u/s results YOSHI KEENE 07/[address] [place] [address] Bam [facility])(Claudia gustafson gy) [address] [place] [address] Abm [facility])(Sco tt [facility] Fam Res Tm Green) TELE CONSULT [id number] Notes Entered by: NIGEL MENDOZA 22 Aug 2011 0820 ------- ------- ------- ------- -- Med elizabeth /chloe/ [phone] till 1630/mn DAMIAN Gomez 08/[address] [place] [address] Bam [facility])(S cott [facility] Fam Res Tm Green) [address] [place] [address] Bam [facility])(Sco tt [facility] Fam Res Tm Green) OUTPATIENT [id number] face swollen [id number] AMADOU PEDERSON 09/02 Released w/o Limitations [address] [place] [address] Bam [facility])(S cott [facility] Fam Res Tm Green) [address] [place] [address] Bam [facility])(Sco tt [facility] Fam Res Tm Green) TELE CONSULT [id number] Notes Entered by: ZANE CRAWFORD 06 Sep 2011 0719 ------- ------- ------- ------- -- Blood pressur e Issue-G ibbs/22 [id number]/ AMADOU Burgess 09/[address] [place] [address] Bam [facility]S cott [facility] Fam Res Tm Green) [address] [place] [address] Bam [facility])(All ergy Resource Sharing) OUTPATIENT [id number] ALLERGI C REACTIO RAYMOND LEON 09/09 Released w/o Limitations [address] [place] [address] [place] ([facility])(A llergy [facility] e Sharing ) [address] [place] [address] [place] [facility])(Sco tt [facility] Fam Res Tm Green) TELE CONSULT [id number] Notes Entered by: DEREJE RAY 13 Sep 2011 1308 ------- ------- ------- ------- -- Blood pressur e - Corona - [phone] - CROW Goode 09/12 Referred for Appointment [address] [place] [address] Group [place] [facility])(S cott [facility] Fam Res [facility]m Green) [address] [place] [address] [place] [facility])(Sco tt [facility] Fam Res Tm Green) TELE CONSULT [id number] Notes Entered by: LACY DUTTA 01 Oct 2011 0900 ------- ------- ------- ------- -- BERLIN TOMLINSON 09/[address] [place] [address] [place] [facility])([facility]) [address] [place] [address] [place] [facility])(All ergy) TELE CONSULT [id number] Notes Entered by: Saniya MORTON 02 Oct 2011 1126 ------- ------- ------- ------- -- Lab results RAYMOND MORTON 10/[address] [place] [address] [place] ([facility])(A llergy) [address] [place] [address] Bam [facility])(Sco tt [facility] Fam Res Tm Green) OUTPATIENT [id number] f/u for blood pressur e meds [id number] DAMIAN CORONA 10/16 Released w/o Limitations [address] [place] [address] [place] [facility])(S cott [facility] Fam Res [facility]m Green) [address] [place] [address] [place] [facility])(Sco tt [facility] Fam Res Tm Green) TELE CONSULT [id number] Notes Entered by: PREMA ARELLANO 07 Nov 2011 0803 ------- ------- ------- ------- -- Med refill - Chloe - [phone] /[facility] [phone] - [facility] DAMIAN CORONA 11/[address] [place] [address] Bam [facility])(S cott OF Fam Res [employer]m [employer]) [address] [place] [address])(Sco tt [facility] Fam Res Tm Green) TELE CONSULT [id number] Notes Entered by: LACY DUTTA 12 Nov 2011 1003 ------- ------- ------- ------- -- Med refill CROW Benjamin 11/11 Referred for Appointment [address] [place] [address] Bam [facility])(S cott [facility] Fam Res [employer]m [place]) [address] [place] [address])(Sco tt [facility] Fam Res Tm Green) TELE CONSULT [id number] Notes Entered by: ZANE CRAWFORD 26 Nov 2011 1036 ------- ------- ------- ------- -- Medicat ion issue-Claudia cobianbs// DAMIAN Cabrera 11/[address] [place] [address])(S cott [facility] Fam Res Tm Green) [address] [place] [address])(Sco tt [facility] FAMRES Tm Blue) TELE CONSULT [id number] Notes Entered by: Consuelo DOTSON 02 Dec 2011 0803 ------- ------- ------- ------- -- Med refill Chloe/consuelo ad/cls [phone] DAMIAN CORONA 12/[address] [place] [address] Bam [facility])(S cott [facility] FAMRES Tm Blue) [address] [place] [address] Bam [facility])(Sco tt [facility] Fam Res Tm Green) TELE CONSULT [id number] Med Refill- Chloe/ /ANDERSON Dash 12/[address] [place] [address])(S cott [facility] Fam Res Tm Green) [address] [place] [address])(Sco tt [facility] Fam Res Tm Green) OUTPATIENT [id number] stuffy/ runny nose, headach e, cough [phone] 0 IRINA WHITNEY 01/07 Released w/o Limitations [address] [place] [address] Bam LINDAChristel ([facility])(S cott [facility] Fam Res Tm Green) [address] [place] [address] Bam LINDAChristel ([facility])([facility]co tt [facility] Fam Res Tm Green) TELE CONSULT [id number] Notes Entered by: Hortensia DOTSON 04 Feb 2012 08 ------- ------- ------- ------- -- Med refill HCTZ 25mg daily metform in 500mg twice daily Norvasc 5 mg daily DAMIAN CORONA 02/[address] [place] [address] [place] [facility])(S cott [facility] Fam Res Tm Green) [address] [place] [address] Bam LINDAChristel [facility])(Sco tt [facility] Fam Res Tm Green) OUTPATIENT [id number] Pain and lumps in breast area [phone] NENA NDIAYE 02/13 Released w/o Limitations [address] [place] [address] Bam LINDAChristel [facility])(S cott [facility] Fam Res Tm Green) [address] [place] [address] Bam LINDAChristel [facility])(Phy sical Therapy) OUTPATIENT [id number] bunione YECENIA Santiago 02/27 Released w/o Limitations [address] [place] [address] Bam LINDAChristel ([facility])(P hysical Therapy ) [address] [place] [address] Bam LINDAChristel [facility])(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) OUTPATIENT [id number] Well Woman Exam W#[phone] SATISH SCHNEIDER 03/10 Released w/o Limitations [address] [place] [address] Bam LINDAB ([facility])(G ynecolo gy) [address] [place] [address] Bam LINDAB [facility])([facility]co tt [facility] Fam Res Tm Green) OUTPATIENT [id number] F/U Cholest susan, Labs and Med Review W#[phone] ERIN PAUL 03/17 Released w/o Limitations [address] [place] [address] Bam LINDAB [facility])(S cott [facility] Fam Res Tm Green) [address] [place] [address] Bam LINDAB [facility])([facility]co tt [facility] Fam Res Tm Green) TELE CONSULT [id number] Notes Entered by: PREMA ARELLANO 05 May [id number] ------- ------- ------- ------- -- Med refill - Chloe - [phone] ANA YEBOAH 05/[address] [place] [address] [place] [facility])(S cott [facility] Fam Res Tm Green) [address] [place] [address] [place] [facility])(Sco tt [facility] Fam Res Tm Green) OUTPATIENT [id number] f/u LUTHER CEBALLOS Abigail 08/06 Released w/o Limitations [address] [place] [address] [place] [facility])(S cott [facility] Fam Res Tm Green) [address] [place] [address] [place] [facility])([facility]co tt [facility] Fam Res Tm Green) TELE CONSULT [id number] Notes Entered by: Consuelo DOTSON 10 Nov 2012 0712 ------- ------- ------- ------- -- 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 l/Chloe /[phone] til 4:30 ANA YEBOAH 11/[address] [place] [address] [place] [facility])(S cott [facility] Fam Res Tm Green) [address] [place] [address] Bam [facility])(Sco tt [facility] Fam Res Tm Green) OUTPATIENT [id number] issues w/ menses [phone] IRINA WHITNEY 11/12 Released w/o Limitations [address] [place] [address] [place] [facility])(S cott [facility] Fam Res Tm Green) [address] [place] [address] [place] [facility])([facility]co tt [facility] Fam Res Tm Green) TELE CONSULT [id number] Notes Entered by: NIGEL MENDOZA 23 Nov 2012 1000 ------- ------- ------- ------- -- Ref renewal -appt [phone] till 1530 ANA YEBOAH 11/[address] [place] [address] [place] [facility])(S cott [facility] Fam Res Tm Green) [address] [place] [address] [place] [facility])([facility]co tt [facility] Fam Res Tm Green) TELE CONSULT [id number] Notes Entered by: Hortensia DOTSON 27 Nov 2012 0921 ------- ------- ------- ------- -- Med refill [facility] ANDERSON DUFFY 11/[address] [place] [address] [place] [facility])(S cott [facility] Fam Res Tm Green) [address] [place] [address] [place] [facility])(Sco tt [facility] Fam Res Tm Green) TELE CONSULT [id number] Notes Entered by: PREMA ARELLANO 16 Dec 2012 1155 ------- ------- ------- ------- -- Lab request - [facility] [id number] ES GUZMAN 12/[address] [place] [address] [place] [facility])(S cott [facility] Fam Res Tm Green) [address] [place] [address] [place] [facility])(Sco tt [facility] Fam Res Tm Green) TELE CONSULT [id number] Notes Entered by: MARGIE LANZA RET 25 Dec 2012 1421 ------- ------- ------- ------- -- US results IRINA WHITNEY 12/[address] [place] [address] [place] [facility])(S cott [facility] Fam Res Tm Green) [address] [place] [address] [place]am [place] [facility])(Sco tt [facility] FAMRES Tm Blue) TELE CONSULT [id number] Notes Entered by: CARLEE CEBALLOS 15 Jan 2013 1745 ------- ------- ------- ------- -- Lab review LUTHER CEBALLOS 01/[address] [place] [address] Bam [facility])(S cott [facility] FAMRES Tm Blue) [address] [place] [address] Bam [facility])(Sco tt [facility] Fam Res Tm Green) OUTPATIENT [id number] f/u for labwork [phone] LUTHER CEBALLOS 01/22 Released w/o Limitations [address] [place] [address] Bam [facility])(S cott [facility] Fam Res Tm Green) [address] [place] [address] Bam [facility])(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) OUTPATIENT [id number] well woman exam [phone] PALLAVI PEDERSON 03/05 Released w/o Limitations [address] [place] [address] Bam [facility])(Claudia gonzalez) [address] [place] [address] [place]am [facility])(Sco tt [facility] Fam Res Tm Green) TELE CONSULT [id number] Notes Entered by: LACY DUTTA 17 May 2013 1341 ------- ------- ------- ------- -- Med refill Corona ANA YEBOAH 05/[address] [place] [address] Bam LINDAChristel [facility])(S cott [facility] Fam Res Tm Green) [address] [place] [address] Bam LINDAChristel [facility])(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) TELE CONSULT [id number] Notes Entered by: LACY DUTTA 17 May 2013 1345 ------- ------- ------- ------- -- Med renewal 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 [id number] MELLISSA JOYCE 05/[address] [place] [address] Bam LINDAChristel ([facility])(G ynecolo gy) [address] [place] [address] Bam LINDAChristel [facility])(S[facility] tt [facility] Tm Blue) TELE CONSULT [id number] Notes Entered by: CARLEE CEBALLOS 26 May 2013 1824 ------- ------- ------- ------- -- labs LUTHER CEBALLOS 05/[address] [place] [address] Bam LINDAChristel [facility] FAMRES Tm Blue) [address] [place] [address] Bam LINDAChristel [facility])(Sco tt [facility] Fam Res Tm Red) TELE CONSULT [id number] Notes Entered by: ALEXANDER ROMERO 18 Aug 2013 0840 ------- ------- ------- ------- -- Med refill/ corona/Thony 18.530. [phone] DAMIAN CORONA 08/[address] [place] [address] Bam LINDAChristel [facility])(S cott [facility] Fam Res Tm Red) [address] [place] [address] Bam LINDAChristel [facility])(Sco tt [facility] Fam Res Tm Red) TELE CONSULT [id number] Notes Entered by: ALEXANDER ROMERO 02 Sep 2013 0851 ------- ------- ------- ------- -- Sx/mens trual cycle concern /corona/ * OBINNAANAHY BLEDSOEA G 09/[address] [place] [address])([facility] Fam Res Tm Red) [address] [place] [address])([facility] Fam Res Tm Red) OUTPATIENT [id number] irregul ar/heav y menses WHITNEYIRINA HEREDIA Hortensia 09/03 Released w/o Limitations [address] [place] [address] Bam [facility])([facility] Fam Res Tm Red) [address] [place] [address])([facility] Fam Res Tm Red) TELE CONSULT [id number] Notes Entered by: Consuelo DOTSON 04 Oct 2013 1559 ------- ------- ------- ------- -- Med refill/ Corona/ [phone] SENSINTAFF ANDERSON DUFFY 10/[address] [place] [address])([facility] Fam Res Tm Red) [address] [place] [address])([facility] Fam Res Tm Red) TELE CONSULT [id number] Notes Entered by: FATMATA PALMER 17 Dec 2013 1046 ------- ------- ------- ------- -- Med refill - zyrtec d 12hr ASIM PALMER 12/[address] [place] [address])([facility] Fam Res Tm Red) [address] [place] [address])([facility] F[facility]m Red) TELE CONSULT [id number] Notes Entered by: ARMIN BYRNE 08 Feb 2014 1140 ------- ------- ------- ------- -- RX Refill/ Corona/ 30.9518 DAMIAN CORONA 02/[address] [place] [address])([facility] Fam Res Tm Red) [address] [place] [address])([facility] Fam Res Tm Red) TELE CONSULT [id number] Notes Entered by: NIGEL MENDOZA 16 Feb 2014 0903 ------- ------- ------- ------- -- Med renewal /Chloe/ DAMIAN CORONA 02/[address] [place] [address] Bam B ([facility])(S cott [facility] Fam Res Tm Red) [address] [place] [address] Bam B [facility])(Sco tt [facility] Fam Res Tm Red) OUTPATIENT [id number] f/u for labs [id number] DAMIAN CORONA 03/02 Released w/o Limitations [address] [place] [address] [employer] ([facility])(S cott [facility] Fam Res Tm Red) [address] [place] [address] Bam B [facility])(Sco tt [facility] FAMRES Tm Blue) TELE CONSULT [id number] Notes Entered by: LARRY MELVIN 08 Mar 2014 0846 ------- ------- ------- ------- -- Network Results - SURGERY - 09/27/13 DAMIAN CORONA 03/[address] [place] [address] Bam B [facility])(S cott [facility] FAMRES Tm Blue) [address] [place], [place] [address]B [facility])(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) OUTPATIENT [id number] well woman exam JOSE MARSHALL 03/24 Released w/o Limitations [address] [place] [address] [employer] ([facility])(G ynecolo gy) [address] [place] [address] Bam B [facility])(Sco tt [facility] Fam Res Tm Red) TELE CONSULT [id number] Notes Entered by: Hortensia DOTSON 31 Mar 2014 0722 ------- ------- ------- ------- -- Med refill Chloe DAMIAN CORONA 03/[address] [place] [address] [employer] [facility]S cott [facility] Fam Res Tm Red) [address] [place] [address] [employer] [facility])(Sco tt [facility] Fam Res Tm Red) TELE CONSULT [id number] Notes Entered by: MARIUSZ KEYS 26 May 2014 0751 ------- ------- ------- ------- -- Medicat ion refill/ Chloe/6 [phone] DAMIAN CORONA 05/[address] [place] [address] Bam [facility])([facility] Fam Res Tm Red) [address] [place] [address] Bam [facility])([facility] Fam Res Tm Red) TELE CONSULT [id number] Notes Entered by: Zahira AGUIRRE 26 May 2014 1204 ------- ------- ------- ------- -- Med renewal DAMIAN Richardson 05/[address] [place] [address] Bam [facility])([facility] Fam Res Tm Red) [address] [place] [address] Bam LINDAB [facility])([facility] Fam Res Tm Red) TELE CONSULT [id number] Notes Entered by: Zahira AGUIRRE 20 Jun 2014 1154 ------- ------- ------- ------- -- Med renewal DAMIAN CORONA 06/[address] [place] [address] Bam MCKEONChristel [facility] Fam Res Tm Red) [address] [place] [address] Bam LINDAB [facility])([facility] Fam Res Tm Red) TELE CONSULT [id number] Notes Entered by: DEREJE RAY 22 Jun 2014 0903 ------- ------- ------- ------- -- Sx: Sore throat, cough, congest ion - Chloe - [phone] ANA YEBOAH 06/[address] [place] [address] Bam [facility]KEONB [facility] Res Tm Red) [address] [place] [address] [employer] [facility]) OUTPATIENT [id number] sore throat/ stuffy head/co ugh/con gestion /headac BRADEN Thomas 06/22 Released w/o Limitations [address] [place] [address] [employer] [facility]m Gold) [address] [place] [address] [employer] [facility]) TELE CONSULT [id number] Notes Entered by: ALEXANDER ROMERO 10 Aug 2014 1209 ------- ------- ------- ------- -- Med refill/ chloe/6 [phone] DAMIAN CORONA 08/10 [facility] [employer] ([facility] [place] Fam Res Tm Red) [address] [place] [address] [employer] ([facility])(Sco tt [facility] Fam Res Tm Red) OUTPATIENT [id number] f/u on labs - [phone] DAMIAN CORONA 09/13 Released w/o Limitations [address] [place] [address] [employer] ([facility])(S [facility] Fam Res Tm Red) [address] [place] [address] [employer] ([facility])(Sco tt [facility] Fam Res Tm Red) TELE CONSULT [id number] Notes Entered by: MARIUSZ KEYS 21 Sep 2014 1023 ------- ------- ------- ------- -- Ultraso und referra l update/ Chloe/ [phone] DAMIAN CORONA 09/[address] [place] [address] Group [employer] ([facility] Fam Res Tm Red) [address] [place] [address] Group Bam [place] [facility]Sco tt OF Fam Res Tm Green) TELE CONSULT [id number] Notes Entered by: RICHY SANCHEZ 21 Sep 2014 1554 ------- ------- ------- ------- -- Network results Optomet ry 5 DAMIAN CORONA 09/[address] [place] [address] Group [employer] ([facility])(S cott [facility] Fam Res Tm Green) [address] [place] [address] Group [employer] ([facility])(Sco tt BF Fam Res Tm Red) OUTPATIENT [id number] pain in both wrists DAMIAN CORONA 11/11 Released w/o Limitations [address] [place] [address] Group [employer] ([facility])(S cott [facility] Fam Res Tm Red) [address] [place] [address] [employer] ([facility])(Sco [facility] Fam Res Tm Red) TELE CONSULT [id number] Notes Entered by: Zahira AGUIRRE 02 Jan 2015 0805 ------- ------- ------- ------- -- Medicat ion renewal DAMIAN CORONA 01/[address] [place] [address] Bam [facility])(S [facility] Fam Res Tm Red) [address] [place] [address])(Sco tt [facility] Fam Res Tm Red) TELE CONSULT [id number] Notes Entered by: Zahira AGUIRRE 20 Jan 2015 1546 ------- ------- ------- ------- -- Medicat ion Renewal DAMIAN CORONA 01/[address] [place] [address] Bam [facility])([facility] Fam Res Tm Red) [address] [place] [address])(Sco tt [facility] FAMRES Tm Blue) TELE CONSULT [id number] Notes Entered by: Varun CORONA 15 Feb 2015 1006 ------- ------- ------- ------- -- C DAIMAN Astorga 02/[address] [place] [address])([facility] FAMRES Tm Blue) [address] [place] [address])(Sco tt [facility] Fam Res Tm Red) OUTPATIENT [id number] Abdomin al pain x 2 weeks [id number] DAMIAN CORONA 03/07 Released w/o Limitations [address] [place] [address] Bam [facility])(S [facility] Fam Res Tm Red) [address] [place] [address] Bam [facility])(Sco tt [facility] FAMRES Tm Blue) TELE CONSULT [id number] Notes Entered by: CLARICE GUTIERREZ 07 Mar 2015 0940 ------- ------- ------- ------- -- Medicat ion Renewal DAMIAN CORONA 03/[address] [place] [address] Bam [facility])(S [facility] FAMRES Tm Blue) [address] [place] [address])(Sco tt [facility] Fam Res Tm Red) TELE CONSULT [id number] Notes Entered by: IVELISSE KINSEY 13 Mar 2015 1013 ------- ------- ------- ------- -- Lab Request /Chloe/ [phone] OBINNA ANA G 03/[address] [place] [address] Bam B [facility] Fam Res Tm Red) [address] [place] [address])(Sco tt [facility] Fam Res Tm Red) TELE CONSULT [id number] Notes Entered by: Consuelo DOTSON 30 Mar 2015 0935 ------- ------- ------- ------- -- Med renewal /Chloe/ [phone] RUBY MARSHALL 03/[address] [place] [address] Bam B [facility])(S [facility] Fam Res Tm Red) [address] [place] [address])(Sco tt [facility] FAMRES Tm Blue) TELE CONSULT [id number] Notes Entered by: Varun CORONA 04 Apr 2015 1158 ------- ------- ------- ------- -- gi DAMIAN CORONA 04/[address] [place] [address] Bam [facility])(S [facility] FAMRES Tm Blue) [address] [place] [address])(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) OUTPATIENT [id number] Annual WWE [id number] JOSE VALENZUELA 04/07 Released w/o Limitations [address] [place] [address] Bam [facility])(G yrobbycolo gy) [address] [place] [address] Bam B [facility])(Min or Procedure Clinic) OUTPATIENT [id number] 3RD FLOOR SAFB PRER OP SCREENI NG PRIOR TO COLONOS COPY YESY GREEN 04/11 Released w/o Limitations [address] [place] [address] Bam B [facility])(M inor Procedu re Clinic) [address] [place] [address] Bam [facility])(Sco tt [facility] Fam Res Tm Red) TELE CONSULT [id number] Notes Entered by: CLARICE GUTIERREZ 09 May 2015 0747 ------- ------- ------- ------- -- Medicat ion refills CHLOE DAMIAN Antunez 05/[address] [place] [address] Group Bam MO [facility])(S [facility] Fam Res Tm Red) [address] [place] [address] Bam MO [facility])(Sco tt [facility] Fam Res Tm Green) TELE CONSULT [id number] Notes Entered by: JEANIE BERNARD 28 Jun 2015 1544 ------- ------- ------- ------- -- Medicat ion renewal ANA YEBOAH 06/[address] [place] [address] [facility]S cott [facility] Fam Res Tm Green) [address] [place] [address] Bam [facility])(Sco tt [facility] Fam Res Tm Green) TELE CONSULT [id number] Notes Entered by: JEANIE BERNARD 04 Jul 2015 0934 ------- ------- ------- ------- -- Medicat ion renewal DAMIAN CORONA 07/[address] [place] [address] Bam [facility])(S cott [facility] Fam Res Tm Green) [address] [place] [address] Bam [facility])(Sco tt [facility] Fam Res Tm Red) TELE CONSULT [id number] Notes Entered by: Consuelo DOTSON 14 Jul 2015 1328 ------- ------- ------- ------- -- Med renewal /Chloe/ [phone] ANA YEBOAH 07/[address] [place] [address] Bam [place] [facility] Fam Res Tm Red) [address] [place] [address] Bam [facility])(Sco tt [facility] Fam Res Tm Green) TELE CONSULT [id number] Notes Entered by: JEANIE BERNARD 03 Aug 2015 1622 ------- ------- ------- ------- -- Medicat ion renewal ANA YEBOAH 08/[address] [place] [address] Bam [facility]S cott [facility] Fam Res Tm Green) [address] [place] [address] [facility]am [facility])(Sco tt [facility] Fam Res Tm Red) TELE CONSULT [id number] Notes Entered by: Consuelo DOTSON 25 Aug 2015 0933 ------- ------- ------- ------- -- Sx left foot pain/Gi bbs/[phone] ANA YEBOAH 08/[address] [place] [address] [employer] ([facility] Fam Res Tm Red) [address] [place] [address] Bam [place] [facility])([facility]co tt [facility] Fam Res Tm Red) OUTPATIENT [id number] left foot pain x5 days [phone] DAMIAN CORONA 08/24 Released w/o Limitations [address] [place] [address] [employer] ([facility])(S cott [facility] Fam Res Tm Red) [address] [place] [address] Bam [place] ([facility])(Sco tt [facility] Fam Res Tm Green) TELE CONSULT [id number] Notes Entered by: JEANIE BERNARD 31 Aug 2015 0722 ------- ------- ------- ------- -- Medicat ion renewal DAMIAN CORONA 08/[address] [place] [address] [employer] ([facility])(S cott [facility] Fam Res Tm Green) [address] [place] [address] Bam [place] ([facility])(Sco tt [facility] Fam Res Tm Green) TELE CONSULT [id number] Notes Entered by: RICHY SANCHEZ 13 Sep 2015 1527 ------- ------- ------- ------- -- Network Results - Optomet ry 6 DAMIAN CORONA 09/[address] [place] [address] [employer] ([facility])(S cott [facility] Fam Res Tm Green) [address] [place] [address] [employer]am [employer] ([facility])(Sco tt [facility] FAMRES Tm Blue) TELE CONSULT [id number] Notes Entered by: Varun CORONA 19 Sep 2015 0744 ------- ------- ------- ------- -- Ankle pain DAMIAN CORONA 09/[address] [place] [address] [place]am [place] ([facility])(S cott [facility] FAMRES Tm Blue) [address] [place] [address] Bam MCKEONChristel [facility])([facility]co tt [facility] FAMRES Tm Blue) TELE CONSULT [id number] Notes Entered by: Varun CORONA 08 Oct 2015 1310 ------- ------- ------- ------- -- Phys therapy DAMIAN CORONA 10/[address] [place] [address] Bam Christel [facility])(S cott [facility] FAMRES Tm Blue) [address] [place] [address])(Med ication Refill Clinic) TELE CONSULT [id number] Notes Entered by: Zahira ROJAS 16 Oct 2015 0744 ------- ------- ------- ------- -- Med renewal , 2 pills left / Chloe / LA ARANGO 10/[address] [place] [address])(M edicati on Refill Clinic) [address] [place] [address])(Sco tt [facility] Fam Res Tm Green) TELE CONSULT [id number] Notes Entered by: RICHY SANCHEZ 17 Nov 2015 1340 ------- ------- ------- ------- -- Network results Physica l Therapy 6 DAMIAN ESPOSITO 11/[address] [place] [address] Bam LINDAChristel [facility])(S cott [facility] Fam Res Tm Green) [address] [place] [address] Bam [facility])(Sco tt [facility] Fam Res Tm Red) OUTPATIENT [id number] f/u for labs [id number] HUA ZENG 12/06 Released w/o Limitations [address] [place] [address] Bam [facility])(S cott [facility] Fam Res Tm Red) [address] [place] [address] Bam [facility])(Sco tt [facility] Fam Res Tm Red) TELE CONSULT [id number] Notes Entered by: SHARON VALENZUELA 14 Dec 2015 0751 ------- ------- ------- ------- -- Meds Not at Pharmac y - Appt 07 December / Status of Referra araseli /Chloe/ [phone] - sgj ZENGHUA 12/13 [facility] Bam [facility])(S [facility] Fam Res Tm Red) [address] [place] [address] Bam [facility])(Sco tt [facility] Fam Res Tm Red) TELE CONSULT [id number] Notes Entered by: CARLEE CHAVEZ 18 Jan 2016 0746 ------- ------- ------- ------- -- [facility]- Med Refill EM GARCIA 01/[address] [place] [address] Bam [facility])([facility] Fam Res Tm Red) [address] [place] [address] Bam [facility])(Sco tt [facility] Fam Res Tm Red) TELE CONSULT [id number] Notes Entered by: YADIEL BAE 30 Jan 2016 1443 ------- ------- ------- ------- -- Network Results -PODIAT ANDREAS 01/26/16 EM BUENO 01/[address] [place] [address] Bam [facility])([facility] Fam Res Tm Red) [address] [place] [address])(Sco tt [facility] Fam Res Tm Red) TELE CONSULT [id number] Notes Entered by: RODDY RUSSO 06 Mar 2016 1130 ------- ------- ------- ------- -- Med refill request ANA Paris 03/[address] [place] [address] Bam [facility])([facility] Fam Res Tm Red) [address] [place] [address] Bam [facility])(Sco tt [facility] Fam Res Tm Red) TELE CONSULT [id number] Notes Entered by: RODDY RUSSO 21 Mar 2016 1423 ------- ------- ------- ------- -- Med refill EM GARCIA 03/[address] [place] [address] Bam [facility])([facility] Fam Res Tm Red) [address] [place] [address])(Sco tt [facility] Fam Res Tm Green) TELE CONSULT [id number] Notes Entered by: JEANIE BERNARD 03 Apr 2016 0838 ------- ------- ------- ------- -- Medicat ion renewal ANA YEBOAH 04/[address] [place] [address])(S [facility] Fam Res Tm Green) [address] [place] [address])(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) OUTPATIENT [id number] annual wwe REBA LEON 04/11 Released w/o Limitations [address] [place] [address] Bam B [facility])(G ynecolo gy) [address] [place] [address] Bam B [facility])(Sco tt [facility] Fam Res Tm Red) TELE CONSULT [id number] Notes Entered by: RODDY RUSSO 30 Apr 2016 1306 ------- ------- ------- ------- -- Med refill EM GARCIA 04/[address] [place] [address])([facility] Fam Res Tm Red) [address] [place] [address])(Sco tt [facility] Fam Res Tm Red) OUTPATIENT [id number] Sinus Headach e x 2 days [phone] 8 ASIM PALMER 05/08 Released w/o Limitations [address] [place], [place] [address]B [facility])([facility] Fam Res Tm Red) [address] [place] [address])(Med ication Refill Clinic) TELE CONSULT [id number] Notes Entered by: DEREJE RAY 17 May 2016 1452 ------- ------- ------- ------- -- Rx renewal - Pricilla - - [facility] GARRICK SILVA 05/[address] [place] [address])(Tulio campos on Refill Clinic) [address] [place], [place] [address]B [facility])(Sco tt [facility] Fam Res Tm Red) TELE CONSULT [id number] Notes Entered by: Christel HAIDER 13 Jun 2016 1406 ------- ------- ------- ------- -- RX renewal (Pricilla) BALTAREGGIE MANTILLA Claudia 06/13 Other Not Elsewhere Classified [address] [place] [address] Bam [facility])(S [facility] Fam Res Tm Red) [address] [place] [address] Bam [facility])(Sco tt [facility] Fam Res Tm Red) TELE CONSULT [id number] Notes Entered by: DOMINICK YOON 19 Jun 2016 0813 ------- ------- ------- ------- -- Medicat ion refill for GlycoLa x EM GARCIA 06/[address] [place] [address])(S [facility] Fam Res Tm Red) [address] [place] [address])(Sco tt [facility] Fam Res Tm Red) TELE CONSULT [id number] Notes Entered by: DOMINICK YOON 01 Jul 2016 1558 ------- ------- ------- ------- -- Medicat ion refill EM GARCIA 07/[address] [place] [address] Bam [facility])(S [facility] Fam Res Tm Red) [address] [place] [address] Bam [facility])(Vto tt Disease Managemen t) TELE CONSULT [id number] Notes Entered by: REBECA AYERS 03 Jul 2016 1328 ------- ------- ------- ------- -- PCM MAYELIN Lee 07/[address] [place] [address] Bam [facility])(S eddie Disease Managem ent) [address] [place] [address])(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) TELE CONSULT [id number] Notes Entered by: SKYLAR FAJARDO 04 Jul 2016 1253 ------- ------- ------- ------- -- result REBA LEON 07/[address] [place] [address] Bam [facility])(Claudia gonzalez) [address] [place] [address] Bam [facility])(Sco tt [facility] Fam Res Tm Red) OUTPATIENT [id number] f/u: DM/lab review/ med refill [phone] EM GARCIA 07/12 Released w/o Limitations [address] [place] [address] Bam MO [facility])(S cott [facility] Fam Res Tm Red) [address] [place] [address] Bam [facility])(Sco tt [facility] Fam Res Tm Red) TELE CONSULT [id number] Notes Entered by: Lakhwinder GARCIA 22 Jul 2016 1109 ------- ------- ------- ------- -- XRAY results ANA YEBOAH 07/[address] [place] [address] Bam Christel [facility])(S [facility] Fam Res Tm Red) [address] [place] [address] Bam [facility])(Sco tt [facility] FAMRES Tm Blue) TELE CONSULT [id number] Notes Entered by: Coco MERLOS 07 Aug 2016 1412 ------- ------- ------- ------- -- Network Results MEDICAL GENETIC S 08/06/19 17 DB EM GARCIA 08/[address] [place] [address] Bam [facility])(S [facility] FAMRES Tm Blue) [address] [place] [address] Bam [facility])([facility] Fam Res Tm Green) TELE CONSULT [id number] Notes Entered by: JEANIE BERNARD 13 Aug 2016 0955 ------- ------- ------- ------- -- BRADEN Reyna 08/[address] [place] [address] Group Bam [facility])(S [facility] Fam Res Tm Green) [address] [place] [address] Bam Christel [facility])([facility] Fam Res Tm Red) OUTPATIENT [id number] f/u shoulde r x-rays / EM GARCIA 08/16 Released w/o Limitations [address] [place] [address] Bam LINDAChristel [facility])(S [facility] Fam Res Tm Red) [address] [place] [address] Bam [facility])(Sco tt [facility] Fam Res Tm Red) TELE CONSULT [id number] Notes Entered by: RODDY RUSSO 29 Aug 2016 1058 ------- ------- ------- ------- -- Lab results ANA YEBOAH 08/[address] [place] [address])(S [facility] Fam Res Tm Red) [address] [place] [address])(Sco tt [facility] Fam Res Tm Red) TELE CONSULT [id number] Notes Entered by: RODDY RUSSO 29 Aug 2016 1113 ------- ------- ------- ------- -- Medicat ion refill YESY GREEN 08/[address] [place] [address])([facility] Fam Res Tm Red) [address] [place] [address])(Sco tt [facility] FAMRES Tm Blue) TELE CONSULT [id number] Notes Entered by: oCco MERLOS 02 Sep 2016 0959 ------- ------- ------- ------- -- Network Results - Optomet ry 08/28/16 DB EM GARCIA 09/[address] [place] [address])([facility] FAMRES Tm Blue) [address] [place] [address])(Sco tt [facility] FAMRES Tm Blue) TELE CONSULT [id number] Notes Entered by: MIKE ALATORRE 02 Sep 2016 1421 ------- ------- ------- ------- -- Network results Physica l Therapy 017 RUBY GRANT 09/[address] [place] [address])([facility] FAMRES Tm Blue) [address] [place] [address])(Sco tt [facility] Fam Res Tm Green) TELE CONSULT [id number] Notes Entered by: JEANIE BERNARD 04 Sep 2016 1414 ------- ------- ------- ------- -- Med Renewal EM GARCIA 09/[address] [place] [address] Bam [place] [facility])(S cott [facility] Fam Res Tm Green) [address] [place] [address] Bam [place] [facility])(Sco tt [facility] Fam Res Tm Red) TELE CONSULT [id number] Notes Entered by: RODDY RUSSO 10 Sep 2016 1242 ------- ------- ------- ------- -- Med ANA Steel 09/[address] [place] [address] Bam [place])(S cott [facility] Fam Res Tm Red) [address] [place] [address] Bam [facility])(Sco tt [facility] Fam Res Tm Red) OUTPATIENT [id number] right foot EM GARCIA 09/26 Released w/o Limitations [address] [place] [address] Bam [place] [facility])(S cott [facility] Fam Res Tm Red) [address] [place] [address] Bam [facility])(Sco tt [facility] Fam Res Tm Green) TELE CONSULT [id number] Notes Entered by: JEANIE BERNARD 02 Oct 2016 0847 ------- ------- ------- ------- -- EM Winters 10/[address] [place] [address] Bam [facility])(S [facility] Fam Res Tm Green) [address] [place] [address] Bam [place] [facility])(Sco tt [facility] FAMRES Tm Blue) TELE CONSULT [id number] Notes Entered by: MIKE ALATORRE 08 Oct 2016 1244 ------- ------- ------- ------- -- Network results Physica l Therapy 017 EM GALLARDO 10/[address] [place] [address] Bam [facility])(S [facility] FAMRES Tm Blue) [address] [place] [address] Bam [facility])(Sco tt [facility] Fam Res Tm Red) OUTPATIENT [id number] EKG prior surgery [facility] ed on 27 November [id number] ASIM PALMER 10/16 Released w/o Limitations [address] [place] [address] Bam [facility])(S cott [facility] Fam Res Tm Red) [address] [place] [address] Bam [facility])(Vto tt [facility] FAMRES Tm Blue) TELE CONSULT [id number] Notes Entered by: Lakhwinder GARCIA 21 Oct 2016 1317 ------- ------- ------- ------- -- Results ANA YEBOAH 10/[address] [place] [address])([facility] FAMRES Tm Blue) [address] [place] [address])(Vto tt [facility] Fam Res Tm Red) TELE CONSULT [id number] Notes Entered by: MARIO OWUSU 22 Oct 2016 1208 ------- ------- ------- ------- -- Rad results /Pricilla/ /c ANA Hanson 10/[address] [place] [address])([facility] Fam Res Tm Red) [address] [place] [address])([facility] FAMRES Tm Blue) TELE CONSULT [id number] Notes Entered by: MARK COLUNGA 22 Nov 2016 1323 ------- ------- ------- ------- -- Network Results - Pierre gonzalez 7 EM CRUZ 11/[address] [place] [address])([facility] FAMRES Tm Blue) [address] [place] [address])([employer]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) OUTPATIENT [id number] post antonio romeo g RAYMOND WANG 12/11 Released w/o Limitations [address] [place] [address])(G sj gy) [address] [place] [address])(Milanese 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) TELE CONSULT [id number] Notes Entered by: CALIN RICHARDSON LT 20 Dec 2016 1202 ------- ------- ------- ------- -- Pap result ANNETTA SANTANA T 12/[address] [place] [address])(G ynecolo gy) [address] [place] [address])(Milanese 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) TELE CONSULT [id number] Notes Entered by: KEARA WANG 27 Dec 2016 1549 ------- ------- ------- ------- -- Test results RAYMOND WANG 12/[address] [place] [address])(G ynecolo gy) [address] [place] [address])(Sco tt [facility] Fam Res Tm Green) TELE CONSULT [id number] Notes Entered by: SHAN SANDHU 31 Dec 2016 0740 ------- ------- ------- ------- -- ANA López 12/[address] [place] [address])(S cott [facility] Fam Res Tm Green) [address] [place] [address])(Sco tt [facility] Fam Res Tm Green) TELE CONSULT [id number] Notes Entered by: ASHLEY BISHOP 08 Jan 2017 0758 ------- ------- ------- ------- -- Rx renewal EM GARCIA 01/[address] [place] [address])(S cott [facility] Fam Res [employer]m [place]) [address] [place] [address])(Sco tt [facility] Fam Res Tm Green) TELE CONSULT [id number] Notes Entered by: IVELISSE KINSEY 08 Jan 2017 0926 ------- ------- ------- ------- -- Danica Jara (appt Jan)/Kortney romero/[phone] DONITA WINN 01/[address] [place] [address])(S cott [facility] Fam Res [employer]m [place]) [address] [place] [address])(Sco tt [facility] Fam Res Tm [employer]) TELE CONSULT [id number] Notes Entered by: SIMONE ALONSO 21 Jan 2017 0844 ------- ------- ------- ------- -- ANA Boyle 01/[address] [place] [address] B[facility])(S cott [facility] Fam Res Tm Green) [address] [place] [address])(Sco tt [facility] Fam Res Tm Green) OUTPATIENT [id number] f/u: DM/lab review/ med refill EM GARCIA 01/24 Released w/o Limitations [address] [place] [address] Bam [facility])(S cott [facility] Fam Res Tm Green) [address] [place] [address] Bam [facility])(Sco tt [facility] Fam Res Tm Green) TELE CONSULT [id number] Notes Entered by: SHAN SANDHU 28 Jan 2017 0937 ------- ------- ------- ------- -- ANA López 01/[address] [place] [address] B[facility])(S cott [facility] Fam Res Tm [place]) [address] [place] [address])(Sco tt [facility] Fam Res Tm [employer]) TELE CONSULT [id number] Notes Entered by: JOSE LEYVA RD, RA 25 Feb 2017 0846 ------- ------- ------- ------- -- Micare- Med refGARRICK Aguilar 02/[address] [place] [address] Bam [facility])(S cott [facility] Fam Res Tm Green) [address] [place] [address] Bam [facility])(Sco tt [facility] Fam Res Tm Green) OUTPATIENT [id number] right eye redness / ABAD RAMIREZ 02/28 Released w/o Limitations [address] [place] [address] Bam [facility])(S cott [facility] Fam Res Tm [place]) [address] [place] [address] Bam [facility])([facility]co tt [facility] Fam Res Tm Green) TELE CONSULT [id number] Notes Entered by: ASHLEY BISHOP 12 Mar 2017 0741 ------- ------- ------- ------- -- Referra EM Luna 03/[address] [place] [address])(S cott OF Fam Res Tm Green) [address] [place] [address])(Sco tt OF Fam Res [employer]) TELE CONSULT [id number] Notes Entered by: ASHLEY BISHOP 26 Mar 2017 1125 ------- ------- ------- ------- -- Referra l ANA Monahan 03/[address] [place] [address])(S cott OF Fam Res Tm [place]) [address] [place] [address])(Sco tt OF Fam Res Tm Green) TELE CONSULT [id number] Notes Entered by: ASHLEY BISHOP 01 Apr 2017 0737 ------- ------- ------- ------- -- Rx refANA Choudhary 04/[address] [place] [address] B[facility])(S cott OF Fam Res [employer] [place]) [address] [place] [address])(Sco tt OF Fam Res Tm Green) OUTPATIENT [id number] f/u per Dr Garcia: EM Augustine 04/01 Released w/o Limitations [address] [place] [address])(S cott [facility] Fam Res Tm Green) [address] [place] [address])(Sco tt [facility] FAMRES Tm Blue) TELE CONSULT [id number] Notes Entered by: RODDY RUSSO 26 May 2017 1643 ------- ------- ------- ------- -- Med refANA Choudhary 05/[address] [place] [address])(S cott OF FAMRES Tm Blue) [address] [place] [address])(Sco tt OF Fam Res Tm Green) TELE CONSULT [id number] Notes Entered by: SHAN SANDHU 10 Jun 2017 1621 ------- ------- ------- ------- -- REGGIE Galaviz 06/10 Other Not Elsewhere Classified [facility])(S cott [facility] Fam Res Tm Green) [address] [place] [address] Bam [facility])(Sco tt [facility] Fam Res Tm Green) TELE CONSULT [id number] Notes Entered by: SHAN SANDHU 22 Jul 2017 1640 ------- ------- ------- ------- -- ANA López 07/[address] [place] [address])([facility] Fam Res Tm Green) [address] [place] [address])(Sco tt [facility] Fam Res Tm Green) TELE CONSULT [id number] Notes Entered by: DEAN SAEZ D 05 Aug 2017 0839 ------- ------- ------- ------- -- Rx Renewal /Pricilla/ CRISTHIAN RODRIGUEZ 08/05 Referred for Appointment [address] [place] [address])([facility] Transifex Res Tm Green) [address] [place] [address])(Med ication Refill Clinic) TELE CONSULT [id number] Notes Entered by: IVELISSE KINSEY 26 Aug 2017 0942 ------- ------- ------- ------- -- Med renewal /Pricilla/ EM GARCIA 08/[address] [place] [address] Bam [facility])(Tulio campos on Refill [facility]) [address] [place] [address] B[facility])([facility] Electronique Blue) TELE CONSULT [id number] Notes Entered by: ASHLEY SARAVIA 26 Aug 2017 1345 ------- ------- ------- ------- -- Network Results - Dermato logy 08/19/17 EM GARCIA 08/[address] [place] [address] Group [place] ([facility]S cott [facility] FAMRES Tm Blue) [address] [place] [address] Group [facility]am [facility] ([facility])(Sco tt [facility] Fam Res Tm Green) OUTPATIENT [id number] f/u [phone] EM GARCIA 09/15 Released w/o Limitations [address] [place] [address] Bam [facility])(S cott [facility] Fam Res Tm Green) [address] [place] [address] [facility])(Sco tt [facility] Fam Res Tm Green) OUTPATIENT [id number] EKG for surgery , will bring order ZULEMA ZAMBRANO 11/04 Released w/o Limitations [address] [place] [address] Group Bam [facility])(S [facility] Fam Res Tm Green) [address] [place] [address] Bam [facility])(Old clinic) OUTPATIENT [id number] Notes Entered by: ALICE MCCLENDON 08 Nov 2017 0834 ------- ------- ------- ------- -- PT RODDY LIVE 11/08 Released w/o Limitations [address] [place] [address] Group [place]am [place] [facility])(O ldclini c) [address] [place] [address] Bam [place] [facility])(Sco tt [facility] Fam Res Tm Green) TELE CONSULT [id number] Notes Entered by: SHARON VALENZUELA 16 Dec 2017 0903 ------- ------- ------- ------- -- Med Renewal / Pricilal / - ANA Leyva 12/16 Referred for Appointment [address] [place] [address] Group [facility]am [facility])(S cott [facility] Fam Res Tm Green) [address] [place] [address] Bam [facility])(Sco tt [facility] Fam Res Tm Green) TELE CONSULT [id number] Notes Entered by: IVELISSE KINSEY 05 Jan 2018 0951 ------- ------- ------- ------- -- Med Renewal /Pricilla/ MELINDA MORENO 01/[address] [place] [address] [facility]am [place] [facility])(S cott [facility] Fam Res Tm Green) [address] [place] [address] Bam [place] [facility])(Old clinic) OUTPATIENT [id number] PHAQ MINDY Puckett 01/10 Released w/o Limitations [address] [place] [address] [place] ([facility])(O ldclini c) [address] [place] [address] Bam [place] [facility])(Sco tt [facility] Fam Res Tm Green) TELE CONSULT [id number] Notes Entered by: SHARON VALENZUELA 23 Jan 2018 0905 ------- ------- ------- ------- -- Med Renewal / Pricilla / - sgCROW Barry 01/[address] [place] [address] Bam [place] [facility])(S cott [facility] Fam Res Tm Green) [address] [place] [address] [facility]am [place] [facility])(Sco tt [facility] Fam Res Tm Green) TELE CONSULT [id number] Notes Entered by: MARIO OWUSU 10 Feb 2018 1013 ------- ------- ------- ------- -- Med Renewal /Pricilal/ /c KATHLEEN Garber 02/[address] [place] [address] [facility] [facility])(S cott [facility] Fam Res Tm Green) [address] [place] [address] Bam [place] [facility])(Sco tt [facility] Fam Res Tm Green) OUTPATIENT [id number] A1C f/u / MELECIO HARP 03/10 Released w/o Limitations [address] [place] [address] Bam [place] [facility])(S cott [facility] Fam Res Tm Green) [address] [place] [address] [facility] [facility])(Sco tt [facility] Fam Res Tm Green) OUTPATIENT [id number] cough, nasal drainag e, sore throat GERTRUDIS MICHELLE 04/24 Released w/o Limitations [address] [place] [address] Bam [place] [facility])(S cott [facility] Fam Res Tm Green) [address] [place] [address] [facility] [facility])(Sco tt [facility] Fam Res Tm Green) TELE CONSULT [id number] Notes Entered by: SHARON VALENZUELA 29 Apr 2018 0946 ------- ------- ------- ------- -- Med Renewal / Pricilla / - sgj ANA YEBOAH 04/29 Referred for Appointment [address] [place] [address] Bam [place] [facility])(S cott [facility] Res Tm Green) [address] [place] [address] Bam [facility])(Sco tt [facility] Res Green) TELE CONSULT [id number] Notes Entered by: SHARON VALENZUELA 18 May 2018 0920 ------- ------- ------- ------- -- Referra l [facility] / Pricilla / - sgj ANA YEBOAH 05/18 Referred for Appointment [address] [place] [address] Bam [facility])(S cott [facility] Res Tm Green) [address] [place] [address] Bam [facility])(Sco tt [facility] Res Tm Green) OUTPATIENT [id number] R Upper Eyelid and corner red, flaky, swollen ,itchy ABAD RAMIREZ 05/20 Released w/o Limitations [address] [place] [address] Bam [place] [facility])(S cott [facility] Fam Res Tm Green) [address] [place] [address] Bam [place] [facility])(Sco tt [facility] Res Green) TELE CONSULT [id number] Notes Entered by: PREMA ARELLANO 04 Aug 2018 0905 ------- ------- ------- ------- -- Med Refill - Pricilla - [phone] KATHLEEN Denise 08/[address] [place] [address] [facility]S [facility] Res Tm Green) [address] [place] [address] Bam B [facility])(Milanese 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) OUTPATIENT [id number] DENISE VALENTINE 09/11 Released w/o Limitations [address] [place] [address] Bam [facility])(Claudia gonzalez) [address] [place] [address] Bam [facility])(Sco tt [facility] Fam Res Tm Green) TELE CONSULT [id number] Notes Entered by: MARIO OWUSU 14 Sep 2018 1233 ------- ------- ------- ------- -- Med Renewal s/Pricilla // clm ANA YEBOAH 09/14 Referred for Appointment [address] [place] [address])(S cott [facility] Res Tm Green) [address] [place] [address] Bam [facility])(Sco tt [facility] Res Green) TELE CONSULT [id number] Notes Entered by: SHARON VALENZUELA 07 Dec 2018 0902 ------- ------- ------- ------- -- Med Renewal / Pricilla / [phone] - [facility] RICARDO MCKEON 12/[address] [place] [address])(S cott [facility] Res Tm Green) [address] [place] [address])(Sco tt [facility] Res Green) OUTPATIENT [id number] 3 HTN f/u/ref ill on meds EM GARCIA 12/28 Released w/o Limitations [address] [place] [address])(S cott [facility] Fam Res Tm Green) [address] [place] [address])(Sco tt [facility] Res Green) TELE CONSULT [id number] Notes Entered by: SHARON VALENZUELA 31 Dec 2018 1114 ------- ------- ------- ------- -- Questio ns on Med Dose Increas e / Possibl y Written Wrong /Pricilla/ [phone] ANA Balderrama 12/31 Referred for Appointment [address] [place] [address])(S cott [facility] Fam Res Tm Green) [address] [place] [address])(Sco tt [facility] Res Green) TELE CONSULT [id number] Notes Entered by: NIGEL MENDOZA 04 Jan 2019 1023 ------- ------- ------- ------- -- Med elizabeth /pricilla/ ANA Preciado 01/04 Medication Refill Forwarded [address] [place] [address])(S [facility] Fam Res Tm Green) [address] [place] [address])(126 th [facility]) OUTPATIENT [id number] Notes Entered by: SHAHANA PRASAD II 09 Jan 2019 0841 ------- ------- ------- ------- -- MINDY GTZ 01/09 Released w/o Limitations [address] [place] [address])(1 [facility]) [address] [place] [address])(Sco tt [facility] Res Tm Green) TELE CONSULT [id number] Notes Entered by: SHARON VALENZUELA 13 Jan 2019 1348 ------- ------- ------- ------- -- Referra varun Wesley / Pricilla / - sgj ANA YEBOAH 01/13 Immediate Referral [address] [place] [address])(S [facility] Fam Res Tm Green) [address] [place] [address])(Sco tt [facility] Fam Res Tm Green) TELE CONSULT [id number] Notes Entered by: HEATHER GAITAN 16 Feb 2019 0929 ------- ------- ------- ------- -- Colonos copy Resched pat/ Pricilla/ - RICARDO Wise 02/[address] [place] [address])(S [facility] Fam Res Tm Green) [address] [place] [address])(Sco tt [facility] Fam Res Tm Green) TELE CONSULT [id number] Notes Entered by: BELINDA CUEVAS 08 Mar 2019 1037 ------- ------- ------- ------- -- med refill/ pricilla/[phone] eld ANA YEBOAH 03/[address] [place] [address] Bam [facility])(S cott OF Fam Res Tm Green) [address] [place] [address] Bam [facility])(Sco tt OF Fam Res Tm Green) TELE CONSULT [id number] Notes Entered by: YADIEL BAE 26 Mar 2019 1214 ------- ------- ------- ------- -- Network Results OPTOMET RY 03/09/19 SDG EM GARCIA 03/[address] [place] [address] Bam [facility])(S cott [facility] Fam Res Tm Green) [address] [place] [address] Bam [facility])(Sco tt [facility] Fam Res Tm Green) OUTPATIENT [id number] f/u: EM VELAZQUEZ 03/30 Released w/o Limitations [address] [place] [address] [facility]S cott OF Fam Res Tm Green) [address] [place] [address] Bam [place] [facility])(Sco tt [facility] Fam Res Tm Green) TELE CONSULT [id number] Notes Entered by: SHARON VALENZUELA 06 Apr 2019 1022 ------- ------- ------- ------- -- Med Renewal / Pricilla / - sgj ANA YEBOAH 04/06 Medication Refill Forwarded [address] [place] [address] [facility])(S cott OF Fam Res Tm Green) [address] [place] [address] Bam [place] [facility])(Sco tt [facility] Fam Res Tm Green) TELE CONSULT [id number] Notes Entered by: MICA WALDRON 12 Apr 2019 0901 ------- ------- ------- ------- -- Medicat ion refill /Pricilla/ EM GARCIA 04/[address] [place] [address] Bam [facility])(S cott [facility] Fam Res Tm Green) [address] [place] [address] Bam [facility])(Sco tt [facility] Res Tm Green) TELE CONSULT [id number] Notes Entered by: DESMOND PADGETT 15 Apr 2019 0859 ------- ------- ------- ------- -- Network results Physica l Therapy 019 EM COE 04/[address] [place] [address] Bam [facility])(S cott [facility] Res Tm Green) [address] [place] [address])(Sco tt [facility] Res Tm Green) TELE CONSULT [id number] Notes Entered by: ELLY IVERSON 16 Apr 2019 1418 ------- ------- ------- ------- -- Colonos copy results HELGA IVERSON 04/[address] [place] [address] Bam Christel [facility])(S [facility] Res Green) [address] [place] [address])( Primary Care Clinic) TELE CONSULT [id number] Notes Entered by: TORIN RUANO 14 Jun 2019 1154 ------- ------- ------- ------- -- Update JONATHAN RUANO 06/14 Other Not Elsewhere Classified [address] [place] [address] Bam Christel [facility])(07 04 Primary Care Clinic) [address] [place] [address] Bam [facility])(Sco tt [facility] Res Green) OUTPATIENT [id number] 1 R- arm rash, pt refused acute appt, request ed Friday appt,[phone] GERTRUDIS MICHELLE 06/18 Released w/o Limitations [address] [place] [address])(S [facility] Res Tm Green) [address] [place] [address])(126 Primary Care [facility]) OUTPATIENT [id number] FITNESS REVIEW HELGA ROBLES 06/19 Released with Work/Duty Limitations [address] [place] [address] Bam [facility])(07 04 Primary Care [facility]) [address] [place] [address])(Sco tt [facility] Fam Res Tm Green) TELE CONSULT [id number] Notes En[address]: ST MICHELLE ALBERTS 25 Jun 2019 0823 ------- ------- ------- ------- -- Network results Shivaa l Therapy (DISCHA RGE) 020 EM MONTEZ 06/[address] [place] [address] Bam [place] [facility])(S cott [facility] Fam Res Tm Green) [address] [place] [address] Bam Christel [facility])(Sco tt [facility] Fam Res Tm Green) TELE CONSULT [id number] Notes Entered by: MICA WALDRON 12 Jul 2019 0906 ------- ------- ------- ------- -- Medicat ion Refill /Pricilla/ ANA YEBOAH 07/12 Medication Refill Forwarded [address] [place] [address] Bam Christel [facility])(S cott [facility] Fam Res Tm Green) [address] [place] [address] Bam Christel [facility])(Sco tt [facility] Fam Res Tm Green) TELE CONSULT [id number] Notes Entered by: BELINDA CUEVAS 17 Aug 2019 0850 ------- ------- ------- ------- -- special ist f/u appt/kortney romero/[phone] ANA Newman 08/16 Referred for Appointment [address] [place] [address] [facility]am [place] [facility])(S cott [facility] Fam Res Tm Green) [address] [place] [address] Bam [place] [facility])([facility]co tt [facility] Fam Res Tm Green) TELE CONSULT [id number] Notes Entered by: Lakhwinder GARCIA 26 Aug 2019 1109 ------- ------- ------- ------- -- Medicat ions EM GARCIA 08/[address] [place] [address] [facility] [facility])(S cott [facility] Fam Res Tm Green) [address] [place] [address] Bam [facility])(Sco tt [facility] Fam Res Tm Green) TELE CONSULT [id number] Notes Entered by: MARGIE PATTEN RET 30 Aug 2019 0928 ------- ------- ------- ------- -- RX Renewal /Pricilla/ *p EM Chua 08/[address] [place] [address] Bam LINDAChristel [facility])(S cott [facility] Fam Res Tm Green) [address] [place] [address] Bam [facility])(Sco tt [facility] Fam Res Tm Green) TELE CONSULT [id number] Notes Entered by: MICA WALDRON 02 Sep 2019 1436 ------- ------- ------- ------- -- Phone call Request / Pricilla/ ANA YEBOAH 09/01 Released to Self Care [address] [place] [address] [facility] [facility])(S cott [facility] Fam Res Tm Green) [address] [place] [address] Bam Christel [facility])([facility]co tt [facility] Fam Res Tm Green) TELE CONSULT [id number] Notes Entered by: BELINDA CUEVAS 30 Nov 2019 0920 ------- ------- ------- ------- -- med refills /pricilla/ [phone] ANA Newman 11/29 Referred for Appointment [address] [place] [address] Bam LINDAChristel [facility] [facility]) [address] [place] [address] Bam Christel [facility]Sco tt [facility] FAMRES Tm Blue) OUTPATIENT [id number] Garcia: f/u DM/med refill NYASIA GOLDSTEIN 12/02 Released w/o Limitations [address] [place] [address] Bam [place] [facility])(S cott [facility] FAMRES Tm Blue) [address] [place] [address] Bam [place] [facility])(Sco tt [facility] Fam Res Tm Green) OUTPATIENT [id number] 1 body rash,[phone] in person SIRIA MARIA 01/05 Released w/o Limitations [address] [place] [address] Bam [place] [facility]) [address] [place] [address] Bam [place] [facility]) TELE CONSULT [id number] Notes Entered by: RODDY LIVE 08 Jan 2020 1529 ------- ------- ------- ------- -- PHAQ Review RODDY LIVE 01/[address] [place] [address] Bam [place] [facility]07 [facility]) [address] [place] [address] Bam [facility])([address] [place] [address]) TELE CONSULT [id number] Notes Entered by: RODDY LIVE 09 Jan 2020 0711 ------- ------- ------- ------- -- PHAQ Review RODDY LIVE 01/[address] [place] [address] Bam [facility])(07 04[facility]) [address] [place] [address] Bam [facility])(Sco tt [facility] Res Green) TELE CONSULT [id number] Notes Entered by: BELINDA CUEVAS 27 Jan 2020 0927 ------- ------- ------- ------- -- SX-rash on arm and inner thighs (sympto ms still persist )/schel by/[phone] ANA Beltre 01/26 Referred for Appointment [address] [place] [address] Bam [place] [facility] Res [facility]m [facility]) [address] [place] [address] Bam [place] [facility])(Sco tt [facility] Res Green) OUTPATIENT [id number] IN PERSON: theresa arm and inner thighs not better FRANCINE VENCES 01/26 Released w/o Limitations [address] [place] [address] Bam [place] [facility]S [facility]) [address] [place] [address] Bam [place] [facility])(Sco tt [facility] Res Green) TELE CONSULT [id number] Notes Entered by: MICA WALDRON 04 Feb 2020 1218 ------- ------- ------- ------- -- SX/ Body Rash/ Schelby / FRANCINE VENCES Dionte 02/03 Referred for Appointment [address] [place] [address] Bam [facility])(S [facility]) [address] [place] [address] Bam [facility])(Sco tt [facility] Green) TELE CONSULT [id number] 2 Notes Entered by: HEATHER GAITAN 15 Feb 2020 1031 ------- ------- ------- ------- -- Med Renewal Request / Izzy / - REGGIE Crowley 02/14 Medication Refill Forwarded [address] [place] [address] Bam [facility])([facility]) [address] [place] [address])(Sco tt [facility] Green) TELE CONSULT [id number] Notes Entered by: SHARON VALENZUELA 18 Feb 2020 0814 ------- ------- ------- ------- -- Med Not Ordered - T-Con of Feb / Izzy / - sgSALINA Palencia 02/17 Medication Refill Forwarded [address] [place] [address] Bam [facility])([facility]) [address] [place] [address] Bam [facility])([facility] th [facility]) OUTPATIENT [id number] Follow up MINDY SHIN 02/17 Released w/o Limitations [address] [place] [address] Bam [facility])(1 [facility]) [address] [place] [address] Bam [facility])(126 [facility]) TELE CONSULT [id number] 2 Notes Entered by: TORIN RUANO 09 Mar 2020 1850 ------- ------- ------- ------- -- JONATHAN HURD 03/09 Other Not Elsewhere Classified [address] [place] [address] Bam [facility])(1 [facility]) [address] [place] [address] Bam [facility])(Sco tt [facility] F[facility] Res Tm Green) TELE CONSULT [id number] 7 Notes Entered by: MEY CORREIA 15 Mar 2020 1530 ------- ------- ------- ------- -- Rx Renewal /Schelchristel y/ ANA YEBOAH 03/15 Released to Self Care [address] [place] [address] Bam [facility])([facility] Res [facility]m [facility]) [address] [place] [address] Bam [facility])(Sco tt [facility] Res Green) TELE CONSULT [id number] 7 Notes Entered by: HEATHER GAITAN 24 Mar 2020 1218 ------- ------- ------- ------- -- STAT 154 0-Optom etry Referra l Renewal Req/ Izzy / - SALINA Vu 03/24 Released to Self Care [address] [place] [address] Bam [facility])([facility] Transifex Res Tm Green) [address] [place] [address] Bam [facility])(Sco tt [facility] Res Tm Green) TELE CONSULT [id number] 1 Notes Entered by: BELINDA CUEVAS 12 May 2020 1119 ------- ------- ------- ------- -- referra l request /chelsea [phone] REGGIE Acevedo 05/12 Other Not Elsewhere Classified [address] [place] [address] Group Bam [facility])([facility]) [address] [place] [address] Bam [facility])(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) OUTPATIENT [id number] [facility] [id number] XIOMY JARA 05/17 Released w/o Limitations [address] [place] [address] Bam [facility])(Claudia gonzalez) [address] [place] [address] Bam B [facility])(Sco tt [facility] Res Tm Green) TELE CONSULT [id number] 7 Notes Entered by: NUSRAT QIU 18 May 2020 1316 ------- ------- ------- ------- -- Pt due for DM follow up ALFREDEMERYALISSA 05/18 Referred for Appointment [address] [place] [address])(S [facility]) [address] [place] [address])(Sco tt [facility] Green) TELE CONSULT [id number] 6 Notes Entered by: MICA WALDRON 19 May 2020 0855 ------- ------- ------- ------- -- SX Multi/ Fever/ Phone call Request / Izzy / YULIYA ELIAZAR Tulio 05/19 Other Not Elsewhere Classified [address] [place] [address])(S [facility] [place]) [address] [place] [address])(Carrion demic Virus) OUTPATIENT [id number] COVID testing , has sNYASIA Chen 05/22 Released w/o Limitations [address] [place] [address])(P andemic Virus) [address] [place] [address])(Sco tt [facility] Green) OUTPATIENT [id number] 1 Virtual Appt - medicat ions / lab results - [id number] SIRIA MARIA 05/22 Released w/o Limitations [address] [place] [address])(S [facility]m [place]) [address] [place] [address])(Carrion demic Virus) TELE CONSULT [id number] Notes Entered by: ETHAN ROSADO 25 May 2020 1714 ------- ------- ------- ------- -- COVID Test Results JONATHAN GUTIERREZ 05/25 Released to Self Care [address] [place] [address])(P andemic Virus) [address] [place] [address])(Sco tt [facility] Green) OUTPATIENT [id number] 7 Virtual -3 + med renewal s-618.5 [phone] FRANCINE VENCES 06/28 Released w/o Limitations [address] [place] [address])(S cott [facility] Fam Res Tm Green) [address] [place] [address] Bam [place] [facility])(Sco tt [facility] Fam Res Tm Green) TELE CONSULT [id number] 2 Notes Entered by: MICA WALDRON 03 Aug 2020 0734 ------- ------- ------- ------- -- RX Refill/ Izzy / [phone] ANA YEBOAH 08/03 Referred for Appointment [address] [place] [address] Bam [place] [facility])(S cott [facility] Fam Res Tm Green) [address] [place] [address] Bam [facility])(Sco tt [facility] Fam Res Tm Green) OUTPATIENT [id number] 9 IN PERSON: f/u HTN, lab reviwe, med refill [phone] NUSRAT QIU 08/04 Released w/o Limitations [address] [place] [address] Bam [place] [facility]) [address] [place] [address] Bam [place] [facility]) OUTPATIENT [id number] Notes Entered by: Hortensia BARRERA 21 Aug 2020 1025 ------- ------- ------- ------- -- potenti LINCOLN Keenan 08/21 Released w/o Limitations [address] [place] [address] Bam [place] ([facility]1 [facility]) [address] [place] [address] Bam CHEPE [facility])(Sco tt [facility] FAMRES Tm Blue) TELE CONSULT [id number] Notes Entered by: NUSRAT QIU 22 Aug 2020 0734 ------- ------- ------- ------- -- Imaging results NUSRAT QIU 08/[address] [place] [address] Bam [place] [facility])(S cott [facility] FAMRES Tm Blue) [address] [place] [address] Bam LINDAChristel [facility])(Sco tt [facility] Fam Res Tm Green) TELE CONSULT [id number] 5 Notes Entered by: IVELISSE KINSEY 28 Aug 2020 1235 ------- ------- ------- ------- -- Rad Beth Discrep aruna/Anthony chandra/6 [phone] NUSRAT QIU 08/[address] [place] [address] Bam [facility])(S cott [facility] Transifex Res Tm Green) [address] [place] [address] Bam [facility])(Sco tt [facility] Green) TELE CONSULT [id number] 6 Notes Entered by: NUSRAT QIU 18 Sep 2020 1113 ------- ------- ------- ------- -- MRI Follow up NUSRAT QIU 09/[address] [place] [address] Bam [facility])([facility] Transifex Res [employer] Green) [address] [place] [address] Bam [facility])(Vto tt [facility] Green) TELE CONSULT [id number] 7 Notes Entered by: BELINDA CUEVAS 02 Oct 2020 1325 ------- ------- ------- ------- -- med refill/ izzy /[phone] ALISSA Montana 10/02 Medication Refill Forwarded [address] [place] [address] Bam [facility])([facility] [employer] Green) [address] [place] [address] Bam [facility])([facility]) OUTPATIENT [id number] Notes Entered by: Hortensia BARRERA 02 Oct 2020 1331 ------- ------- ------- ------- -- LINCOLN Johnson 10/02 Released w/o Limitations [address] [place] [address] Bam [facility])(1 th [facility]) [address] [place] [address])(126 [facility]) OUTPATIENT [id number] 7 Notes Entered by: Hortensia BARRERA 04 Oct 2020 1005 ------- ------- ------- ------- -- left LINCOLN VALDES 10/04 Released w/o Limitations [address] [place] [address] Bam [place] ([facility])(1 26[facility]) [address] [place] [address] Bam [facility])(Sco tt [facility] Fam Res Tm Green) TELE CONSULT [id number] 7 Notes Entered by: Gilbert MOORE 30 Oct 2020 142 ------- ------- ------- ------- -- Network results Optomet ry 021, 021 HELGA KILLIAN 10/[address] [place] [address] Bam [place] [facility]S cott OF Fam Res Tm Green) [address] [place] [address] Bam [facility])(Sco tt [facility] Fam Res Tm Green) TELE CONSULT [id number] 7 Notes Entered by: MARGIE PATTEN RET 13 Nov 2020 0903 ------- ------- ------- ------- -- RX Elizabeth /Chelsea y/ *ELIAZAR Morris 11/13 Referred for Appointment [address] [place] [address] Bam [place] [facility])(S cott OF Fam Res Tm Green) [address] [place] [address] Bam [facility])(Sco tt [facility] Fam Res Tm Green) TELE CONSULT [id number] 0 Notes Entered by: Gilbert MOORE 05 Dec 2020 0852 ------- ------- ------- ------- -- Network results Physica l Therapy 021 HELGA STROUD 12/[address] [place] [address] Bam [place] [facility]S cott [facility] Fam Res Tm Green) [address] [place] [address] Bam MCKEONB [facility])(Sco tt [facility] Fam Res Tm Green) OUTPATIENT [id number] F2F - F/U Medicat ion NUSRAT QIU 12/15 Released w/o Limitations [address] [place] [address] Bam [facility])(S cott OF Fam Res Tm Green) [address] [place] [address] Bam [facility])(Sco tt [facility] FAMRES Tm Blue) TELE CONSULT [id number] 5 Notes Entered by: NUSRAT QIU 18 Dec 2020 1000 ------- ------- ------- ------- -- Need to obtain colonos copy results from NUSRAT Joseph 12/[address] [place] [address] Bam [place] [facility])(S cott OF FAMRES Tm Blue) [address] [place] [address] Bam Christel [facility])(Sco tt [facility] Fam Res Tm Green) TELE CONSULT [id number] 0 Notes Entered by: DEREJE RAY 29 Jan 2021 0904 ------- ------- ------- ------- -- Rx renewal - Izzy - - [facility] ANA YEBOAH 01/29 Medication Refill Forwarded [address] [place] [address] Bam [place] [facility])(S cott [facility] Fam Res Tm Green) [address] [place] [address] Bam [facility])(Sco tt [facility] Fam Res Tm Green) TELE CONSULT [id number] 9 Notes Entered by: MAGRIE PATTEN RET 20 Mar 2021 1524 ------- ------- ------- ------- -- Appt 4 Nov Optomet andreas bourne/618. 530.951 8*prc ANA YEBOAH 03/20 Immediate Referral [address] [place] [address] Bam [place] [facility])(S cott [facility] Fam Res Tm Green) [address] [place] [address] Bam MO [facility])(Sco tt [facility] FAMRES Tm Blue) TELE CONSULT [id number] 8 Notes Entered by: SALINA NÚÑEZ 29 Mar 2021 1423 ------- ------- ------- ------- -- Lab orders / SALINA Mckeon 03/29 Released to Self Care [address] [place] [address] Bam MO [facility])(S cott [facility] FAMRES Tm Blue) [address] [place] [address] Bam [facility])(Sco tt [facility] FAMRES Tm Blue) TELE CONSULT [id number] 9 Notes Entered by: NUSRAT QIU 02 Apr 2021 0906 ------- ------- ------- ------- -- lab follow up NUSRAT QIU 04/[address] [place] [address] Bam MO [facility])(S cott [facility] FAMRES Tm Blue) [address] [place] [address] Bam MO [facility])(Sco tt OF Fam Res Tm Green) OUTPATIENT [id number] 5 F2F - F/U indiges tion - medicat ion not working [phone] NUSRAT QIU 04/02 Released w/o Limitations [address] [place] [address] Bam MO [facility])(S cott OF Fam Res Tm Green) [address] [place] [address] Bam [facility])(Sco tt [facility] Fam Res Tm Green) TELE CONSULT [id number] 5 Notes Entered by: NUSRAT QIU 06 Apr 2021 1347 ------- ------- ------- ------- -- radiolo gy follow up NUSRAT QIU 04/[address] [place] [address] Bam [place] [facility])(S cott OF Fam Res Tm Green) [address] [place] [address] Bam [place] [facility])(Sco tt OF Fam Res Tm Green) TELE CONSULT [id number] Notes Entered by: DESMOND PADGETT 07 Jun 2021 1224 ------- ------- ------- ------- -- Network results Optomet ry 021- 021 HELGA DUMONT 06/[address] [place] [address] Bam MO [facility])(S cott [facility] Fam Res Tm Green) [address] [place] [address] Bam MO [facility])(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) OUTPATIENT [id number] Annual exam [phone] XIOMY JARA 07/17 Released w/o Limitations [address] [place] [address] Bam [place] ([facility])(G ynecolo gy) [address] [place] [address] Bam [place] ([facility])(Sco tt OF FAMRES Tm Blue) TELE CONSULT [id number] 0 Notes Entered by: HEATHER GAITAN A 16 Aug 2021 1310 ------- ------- ------- ------- -- Med Renewal Request / Izzy / NUSRAT QIU 08/[address] [place] [address] Bam [place] [facility])(S cott [facility] FAMRES Tm Blue) [address] [place] [address] Bam B [facility])(Sco tt [facility] Fam Res Tm Green) OUTPATIENT [id number] F2F Rash On Abdomen , Bilater al Arms, ASHKAN COPELAND 10/02 Released w/o Limitations [address] [place] [address] Bam MO [facility])(S cott [facility] Fam Res Tm Green) [address] [place] [address] Bam LINDAB [facility])(Sco tt [facility] Fam Res Tm Green) OUTPATIENT [id number] HC - F/U Skin Issues [phone] GONSALO AGUILAR 11/22 Released w/o Limitations [address] [place] [address] Bam LINDAB [facility])(S cott [facility] Fam Res Tm Green) [address] [place] [address] Bam LINDAB [facility])(Sco tt [facility] Fam Res Tm Green) TELE CONSULT [id number] 6 Notes Entered by: Tulio DOWNS 21 Dec 2021 1438 ------- ------- ------- ------- -- A1C Lab Order Lipid Panel/S dejan/ [phone] ANA YEBOAH 12/21 Released to Self Care [address] [place] [address] Bam [facility])(S cott [facility] Fam Res Tm Green) [address] [place] [address] Bam [facility])(Sco tt [facility] FAMRES Tm Blue) TELE CONSULT [id number] 7 Notes Entered by: NUSRAT QIU 02 Jan 2022 0833 ------- ------- ------- ------- -- Labs ordered , please schedul e pt for annual well MARVIN JAEGER 01/02 Other Not Elsewhere Classified [address] [place] [address] Bam [place] [facility])(S cott [facility] FAMRES Tm Blue) [address] [place] [address] Bam MO [facility])([facility]co tt [facility] Fam Res Tm Green) TELE CONSULT [id number] Notes Entered by: HEATHER GAITAN 14 Jan 2022 1212 ------- ------- ------- ------- -- Med Bridge Request / Izzy / NUSRAT QIU 01/[address] [place] [address] Bam MO [facility])(S cott [facility] Fam Res Tm Green) [address] [place] [address] Bam LINDAB [facility])(Sco tt [facility] FAMRES Tm Blue) OUTPATIENT [id number] Annual Well/La b review RAFAT RODRIGUEZ 03/12 Released w/o Limitations [address] [place] [address] Bam CHEPE ([facility])(S cott [facility] FAMRES Tm Blue) [address] [place] [address] Bam MO [facility])(Sco tt [facility] FAMRES Tm Blue) OUTPATIENT [id number] Notes Entered by: Julian GREENE 12 Apr 2022 1313 ------- ------- ------- ------- -- WALK IN/ STAPLE REMOVAL RAYMOND RODRIGUEZ 04/12 Released w/o Limitations [address] [place] [address] Bam MCKE[facility] ([facility])(S cott [facility] FAMRES Tm Blue) [address] [place] [address] [facility]am [facility])(Sco tt [facility] Fam Res Tm Green) TELE CONSULT [id number] Notes Entered by: FELICITA THAO 08 May 2022 1506 ------- ------- ------- ------- -- Referra varun Jara /Chelsea [place]/ ANA YEBOAH 05/08 Released to Self Care [address] [place] [address] Bam LINDAB ([facility])(S cott [facility] Fam Res Tm Green) [address] [place] [address] Bam LINDAB [facility])(Sco tt [facility] Fam Res Tm Green) TELE CONSULT [id number] 5 Notes Entered by: Gilbert MOORE 11 Jun 2022 1353 ------- ------- ------- ------- -- Network results Dermato logy 022 YEISON CASTROA Dionte 06/11 Released to Self Care [address] [place] [address] Bam [facility])(S cott [facility] Fam Res Tm Green) [address] [place] [address] Bam [facility])(Sco tt [facility] Fam Res Tm Green) OUTPATIENT [id number] F2F - indiges tion [phone] JASPER LAWS 07/23 Released w/o Limitations [address] [place] [address] Bam [facility])(S cott [facility] Fam Res Tm Green) [address] [place] [address])(Sco tt [facility] Fam Res Tm Green) OUTPATIENT [id number] 7 F2F - Possibl e [place] [employer] - FABIANA CRUZ 08/30 Released w/o Limitations [address] [place] [address] Bam [facility])(S cott [facility] Fam Res Tm Green) [address] [place] [address] Bam [facility])(Sco tt [facility] FAMRES Tm Blue) TELE CONSULT [id number] 5 Notes Entered by: NUSRAT QIU 10 Sep 2022 1145 ------- ------- ------- ------- -- mammogr am follow up NUSRAT QIU 09/[address] [place] [address] Bam [facility])(S cott [facility] [facility] Tm Blue) [address] [place] [address])(Sco tt [facility] Fam Res Tm Green) TELE CONSULT [id number] 1 Notes Entered by: TOBIAS FUNES 17 Sep 2022 1251 ------- ------- ------- ------- -- Network results Gastroe nterolo gy 023 HLW JASPER LAWS 09/17 Released to Self Care [address] [place] [address] [facility] [facility])(S cott [facility] Fam Res Tm Green) [address] [place] [address] [employer] ([facility])(Sco tt [facility] Fam Res Tm Green) TELE CONSULT [id number] Notes Entered by: YADIEL LOBO 17 Oct 2022 1008 ------- ------- ------- ------- -- Medicat ion Inquiry / Izzy / ANA YEBOAH 10/17 Released to Self Care [address] [place] [address] [place] ([facility])(S cott [facility] Res Tm Green) 0055A-375 th MEDGRP-Sc wilma Outpatient [id number] DARREL N 06/24 Discharge Disposition: Home or Self Care 5A-3 75th MEDGRP- Bam 6130C-Af- C-375Th Medgrp-Sc wilma Between Visit [id number] 07/02 Discharge Disposition: Home or Self Care 6130C-A f-C-375 Th Medgrp- Bam 6130C-Af- C-375Th Medgrp-Sc wilma Between Visit [id number] Disorde r of the skin and subcuta neous tissue, unspeci fied 07/09 Discharge Disposition: Home or Self Care 6130C-A f-C-375 Th Medgrp- Bam 0055A-375 th MEDGRP-Sc wilma Outpatient [id number] DAVONUJA N 12/01 Discharge Disposition: Home or Self Care 5A-3 75th MEDGRP- [place] 6130C-Af- C-375Th Medgrp-Sc wilma Between Visit [id number] 12/14 Discharge Disposition: Home or Self Care 6130C-A f-C-375 Th Medgrp- Bam Procedures Combined list of: 1) Procedures from Department of Veterans Affairs facilities going back up to thelast 18 months, not all VA non-surgical procedures are included; 2) All procedures from the Department of Defense facilities. Procedure Procedure Type Code Date Perfomer Comments Sourc e Endometrial sampling (biopsy) with or without endocervical sampling (biopsy), without cervical dilation, any method (separate procedure) Endometrial sampling (biopsy) with or without endocervical sampling (biopsy), without cervical dilation, any method (separate procedure) [id number] 6130C-A f -C-375Th Medgrp-S cott Incision and drainage of absce (eg, carbuncle, suppurative hidradenitis, cutaneous or subcutaneous absce , cyst, furuncle, or paronychia); simple or single Incision and drainage of abscess (eg, carbuncle, suppurative hidradenitis, cutaneous or subcutaneous abscess, cyst, furuncle, or paronychia); simple or single 60350 6130C-Af -C-375Th Medgrp-S cott Other Other (qualifier value) [id number] right ankle surgery 0055C-37 5th MEDGRP-S cott Med Management By Pharmacist Initial 15 Min Estab Patient Med Management By Pharmacist Initial 15 Min Estab Patient [id number] BETTIE MOISE Medication Management By Pharmacist Each Additional 15 Min Medication Management By Pharmacist Each Additional 15 Min [id number] [id number] SUMA BETTIE S [facility] Med Management By Pharmacist Initial 15 Min Estab Patient Med Management By Pharmacist Initial 15 Min Estab Patient [id number] BETTIE MOISE [facility] Non-Physician Phone Call To Patient/Provider Brief (5-10min) Non-Physician Phone Call To Patient/Provider Brief (5-10min) [id number] 011 DAMIAN CORONA [facility] Medication Management By Pharmacist Each Additional 15 Min Medication Management By Pharmacist Each Additional 15 Min [id number] BETTIE MOISE [facility] Med Management By Pharmacist Initial 15 Min Estab Patient Med Management By Pharmacist Initial 15 Min Estab Patient [id number] BETTIE MOISE [facility] Non-Physician Phone Call To Patient/Provider Brief (5-10min) Non-Physician Phone Call To Patient/Provider Brief (5-10min) [id number] 011 MIKE MEDEL [facility] Smoking ce ation cla es, non-physician provider, per se ion 011 BETTIE MOISE [facility] Medication Management By Pharmacist Each Additional 15 Min Medication Management By Pharmacist Each Additional 15 Min [id number] 011 BETTIE MOISE Med Management By Pharmacist Initial 15 Min New Patient Med Management By Pharmacist Initial 15 Min New Patient [id number] BETTIE MOISE Non-Physician Phone Call To Patient/Provider Brief (5-10min) Non-Physician Phone Call To Patient/Provider Brief (5-10min) 55179 011 DAMIAN CORONA [facility] Non-Physician Phone Call To Patient/Provider Brief (5-10min) Non-Physician Phone Call To Patient/Provider Brief (5-10min) [id number] 011 DAMIAN CORONA [facility] Intervention And Counseling On Ce ation Of Tobacco Use Intervention And Counseling On Cessation Of Tobacco Use 4000F 011 RAYMOND FLORES [facility] Non-Physician Phone Call To Patient/Provider Brief (5-10min) Non-Physician Phone Call To Patient/Provider Brief (5-10min) 57634 011 ISAIAH ROWE [facility] Non-Physician Phone Call To Patient/Provider Brief (5-10min) Non-Physician Phone Call To Patient/Provider Brief (5-10min) [id number] 011 ROBBY LIGHT Endometrial Biopsy By Suction Endometrial Biopsy By Suction [id number] 011 EDNISE VALENTINE [facility] Screening papanicolaou smear; obtaining, preparing and conveyance of cervical or vaginal smear to laboratory 011 DENISE VALENTINE Urine HCG, Test Urine HCG, Test 28715 011 DENISE VALENTINE [facility] Intervention And Counseling On Ce ation Of Tobacco Use Intervention And Counseling On Cessation Of Tobacco Use 4000 011 RAYMOND FLORES [facility] Non-Physician Phone Call To Patient/Provider Brief (5-10min) Non-Physician Phone Call To Patient/Provider Brief (5-10min) 48869 010 ROBBY LIGHT [facility] Non-Physician Phone Call To Patient/Provider Brief (5-10min) Non-Physician Phone Call To Patient/Provider Brief (5-10min) 33742 010 ROBBY LIGHT [facility] Non-Physician Phone Call To Patient/Provider Brief (5-10min) Non-Physician Phone Call To Patient/Provider Brief (5-10min) 22074 010 RAYMOND FLORES [facility] Non-Physician Phone Call To Patient/Provider Brief (5-10min) Non-Physician Phone Call To Patient/Provider Brief (5-10min) 40187 010 ROBBY LIGHT Non-Physician Phone Call To Patient/Provider Brief (5-10min) Non-Physician Phone Call To Patient/Provider Brief (5-10min) 07547 009 ROBBY LIGHT Cervical Pap Smear Cervical Pap Smear 14244 09/08 008 SRAVANI DOWNEY Acupunct One Or More Hector W/ Stimulation Initial 15 Min Acupunct One Or More Hector W/ Stimulation Initial 15 Min 60712 007 TOBIAS STOVALL piezo x 2 to area DoD Acupunct One Or More Hector W/O Stimulation Initial 15 Min Acupunct One Or More Hector W/O Stimulation Initial 15 Min 20573 007 TOBIAS STOVALL w/ e-stim for yumiko chain at 80 hz [facility] Acupunct One Or More Hector W/ Stimulation Initial 15 Min Acupunct One Or More Hector W/ Stimulation Initial 15 Min 98890 007 TOBIAS STOVALL Acupunct One Or More Hector W/O Stimulation Initial 15 Min Acupunct One Or More Hector W/O Stimulation Initial 15 Min 30623 007 TOBIAS STOVALL Osteopathic Manip Treatment (OMT) 1-2 Body Regions Involved Osteopathic Manip Treatment (OMT) 1-2 Body Regions Involved 28726 007 TOBIAS STOVALL Screening papanicolaou smear; obtaining, preparing and conveyance of cervical or vaginal smear to laboratory 007 LARRY MAJANO Acupunct One Or More Hector W/ Stimulation Initial 15 Min Acupunct One Or More Hector W/ Stimulation Initial 15 Min 46936 007 TOBIAS STOVALL Acupunct One Or More Hector W/O Stimulation Initial 15 Min Acupunct One Or More Hector W/O Stimulation Initial 15 Min 29280 007 TOBIAS STOVALL Osteopathic Manip Treatment (OMT) 1-2 Body Regions Involved Osteopathic Manip Treatment (OMT) 1-2 Body Regions Involved 07170 007 TOBIAS STOVALL Osteopathic Manip Treatment (OMT) 1-2 Body Regions Involved Osteopathic Manip Treatment (OMT) 1-2 Body Regions Involved 89258 007 FEDERICO GOETZ [facility] Intervention And Counseling On Ce ation Of Tobacco Use Intervention And Counseling On Cessation Of Tobacco Use 4000F 006 CRUZITO MALCOLM [facility] Screening papanicolaou smear; obtaining, preparing and conveyance of cervical or vaginal smear to laboratory 006 DENISE VALENTINE [facility] Splint, prefabricated, wrist or ankle 005 MIKE PALMA [facility] Simple Closure Of Wound Dehiscence With Packing Simple Closure Of Wound Dehiscence With Packing 62964 005 WALLACE GONZALEZ [facility] Incision And Drainage Of Skin Absce Incision And Drainage Of Skin Abscess 54464 005 TOBIAS STOVALL [facility] Incision And Drainage Of Skin Absce Incision And Drainage Of Skin Abscess 36929 005 JOSE TERRELL [facility] Disease management program, follow-up/harjinder e ment 018 MELECOI HARP [facility] Disease management program, follow-up/harjinder e ment 018 MAYELIN AYERS [facility] Non-Physician Phone Call To Patient/Provider Brief (5-10min) Non-Physician Phone Call To Patient/Provider Brief (5-10min) 14768 018 MELINDA MORENO [facility] Non-Physician Phone Call To Patient/Provider Brief (5-10min) Non-Physician Phone Call To Patient/Provider Brief (5-10min) 08497 018 ANA YEBOAH [facility] Electrocardiogram Electrocardiogram 97966 11/05 018 ZULEMA ALLISON [facility] Disease management program, follow-up/harjinder e ment 018 EM GARCIA [facility] Non-Physician Phone Call To Patient/Provider Brief (5-10min) Non-Physician Phone Call To Patient/Provider Brief (5-10min) 36696 018 ANA YEBOAH [facility] Internet Med Svc Qual Nonphys Healthcare Prof Estab Patient Internet Med Svc Qual Nonphys Healthcare Prof Estab Patient [id number] 018 CRISTHIAN RODRIGUEZ [facility] Non-Physician Phone Call To Patient/Provider Brief (5-10min) Non-Physician Phone Call To Patient/Provider Brief (5-10min) 31561 017 ANA YEBOAH Non-Physician Phone Call To Patient/Provider Brief (5-10min) Non-Physician Phone Call To Patient/Provider Brief (5-10min) 01542 017 ANA YEBOAH Non-Physician Phone Call To Patient/Provider Brief (5-10min) Non-Physician Phone Call To Patient/Provider Brief (5-10min) 05722 017 ANA YEBOAH Non-Physician Phone Call To Patient/Provider Brief (5-10min) Non-Physician Phone Call To Patient/Provider Brief (5-10min) 28324 017 EM GARCIA Disease management program, follow-up/harjinder e ment 017 EM GARCIA Non-Physician Phone Call To Patient/Provider Brief (5-10min) Non-Physician Phone Call To Patient/Provider Brief (5-10min) 09195 017 ANA YEBOAH Non-Physician Phone Call To Patient/Provider Brief (5-10min) Non-Physician Phone Call To Patient/Provider Brief (5-10min) [id number] 017 DONITA WINN [facility] Non-Physician Phone Call To Patient/Provider Brief (5-10min) Non-Physician Phone Call To Patient/Provider Brief (5-10min) 84726 017 ANA YEBOAH Non-Physician Phone Call To Patient/Provider Brief (5-10min) Non-Physician Phone Call To Patient/Provider Brief (5-10min) 03435 017 ANA YEBOAH Screening papanicolaou smear; obtaining, preparing and conveyance of cervical or vaginal smear to laboratory 017 RAYMOND WANG [facility] Non-Physician Phone Call To Patient/Provider Brief (5-10min) Non-Physician Phone Call To Patient/Provider Brief (5-10min) 18849 017 ANA YEBOAH Disease management program, follow-up/harjinder e ment 017 EM GARCIA [facility] Non-Physician Phone Call To Patient/Provider Brief (5-10min) Non-Physician Phone Call To Patient/Provider Brief (5-10min) 39215 017 ANA YEBOAH Non-Physician Phone Call To Patient/Provider Brief (5-10min) Non-Physician Phone Call To Patient/Provider Brief (5-10min) 58848 017 ANA YEBOAH Disease management program, follow-up/harjinder e ment 017 EM GARCIA [facility] Telephone calls by a registered nurse to a disease management program member for monitoring purposes; per month 017 MAYELIN AYERS [facility] Non-Physician Phone Call To Patient/Provider Brief (5-10min) Non-Physician Phone Call To Patient/Provider Brief (5-10min) 50135 017 MAYELIN AYERS Non-Physician Phone Call To Patient/Provider Brief (5-10min) Non-Physician Phone Call To Patient/Provider Brief (5-10min) 42167 017 ANA YEBOAH Non-Physician Phone Call To Patient/Provider Brief (5-10min) Non-Physician Phone Call To Patient/Provider Brief (5-10min) 47954 017 ANA YEBOAH [facility] Internet Med Svc Qual Nonphys Healthcare Prof Estab Patient Internet Med Svc Qual Nonphys Healthcare Prof Estab Patient [phone] REGGIE GIFOFRD [facility] Non-Physician Phone Call To Patient/Provider Brief (5-10min) Non-Physician Phone Call To Patient/Provider Brief (5-10min) 81322 016 ANA YEBOAH [facility] Non-Physician Phone Call To Patient/Provider Brief (5-10min) Non-Physician Phone Call To Patient/Provider Brief (5-10min) [id number] 016 ANA YEBOAH [facility] Non-Physician Phone Call To Patient/Provider Brief (5-10min) Non-Physician Phone Call To Patient/Provider Brief (5-10min) [id number] 016 ANA YEBOAH [facility] Non-Physician Phone Call To Patient/Provider Brief (5-10min) Non-Physician Phone Call To Patient/Provider Brief (5-10min) [id number] 016 ANA YEBOAH [facility] Disease management program, follow-up/harjinder e ment 016 HUA ZENG [facility] Non-Physician Phone Call To Patient/Provider Brief (5-10min) Non-Physician Phone Call To Patient/Provider Brief (5-10min) 22810 016 RUBY MARSHALL [facility] Disease management program, follow-up/harjinder e ment 016 DAMIAN CORONA [facility] Non-Physician Phone Call To Patient/Provider Brief (5-10min) Non-Physician Phone Call To Patient/Provider Brief (5-10min) 57456 016 ANA YEBOAH [facility] Disease management program, follow-up/harjinder e ment 016 MAYELIN AYERS [facility] Non-Physician Phone Call To Patient/Provider Brief (5-10min) Non-Physician Phone Call To Patient/Provider Brief (5-10min) 23285 016 ANA YEBOAH [facility] Non-Physician Phone Call To Patient/Provider Brief (5-10min) Non-Physician Phone Call To Patient/Provider Brief (5-10min) 11241 016 ANA YEBOAH [facility] Non-Physician Phone Call To Patient/Provider Brief (5-10min) Non-Physician Phone Call To Patient/Provider Brief (5-10min) 55925 016 ANA YEBOAH [facility] Non-Physician Phone Call To Patient/Provider Brief (5-10min) Non-Physician Phone Call To Patient/Provider Brief (5-10min) 43049 016 DAMIAN CORONA [facility] Non-Physician Phone Call To Patient/Provider Brief (5-10min) Non-Physician Phone Call To Patient/Provider Brief (5-10min) 36211 015 DAMIAN CORONA [facility] Non-Physician Phone Call To Patient/Provider Brief (5-10min) Non-Physician Phone Call To Patient/Provider Brief (5-10min) 30409 015 ANA YEBOAH [facility] Non-Physician Phone Call To Patient/Provider Brief (5-10min) Non-Physician Phone Call To Patient/Provider Brief (5-10min) 29746 015 ANA YEBOAH Non-Physician Phone Call To Patient/Provider Brief (5-10min) Non-Physician Phone Call To Patient/Provider Brief (5-10min) 57915 015 DAMIAN CORONA [facility] Disease management program, follow-up/harjinder e ment 015 DAMIAN CORONA [facility] Non-Physician Phone Call To Patient/Provider Brief (5-10min) Non-Physician Phone Call To Patient/Provider Brief (5-10min) 26849 015 ANA YEBOAH Non-Physician Phone Call To Patient/Provider Brief (5-10min) Non-Physician Phone Call To Patient/Provider Brief (5-10min) 56147 015 ANA YEBOAH [facility] Disease management program, follow-up/harjinder e ment 015 DAMIAN CORONA [facility] Non-Physician Phone Call To Patient/Provider Brief (5-10min) Non-Physician Phone Call To Patient/Provider Brief (5-10min) 02181 015 DAMIAN CORONA [facility] Disease management program, follow-up/harjinder e ment 015 DAMIAN CORONA [facility] Non-Physician Phone Call To Patient/Provider Brief (5-10min) Non-Physician Phone Call To Patient/Provider Brief (5-10min) 41741 015 DAMIAN CORONA [facility] Non-Physician Phone Call To Patient/Provider Brief (5-10min) Non-Physician Phone Call To Patient/Provider Brief (5-10min) 74280 015 ANA YEBOAH Non-Physician Phone Call To Patient/Provider Brief (5-10min) Non-Physician Phone Call To Patient/Provider Brief (5-10min) 19018 015 ANA YEBOAH Non-Physician Phone Call To Patient/Provider Brief (5-10min) Non-Physician Phone Call To Patient/Provider Brief (5-10min) 22338 014 DAMIAN CORONA [facility] Non-Physician Phone Call To Patient/Provider Brief (5-10min) Non-Physician Phone Call To Patient/Provider Brief (5-10min) 81489 014 ANA YEBOAH [facility] Cervical or vaginal cancer screening; pelvic and clinical breast examination 014 JOSE MARSHALL [facility] Non-Physician Phone Call To Patient/Provider Brief (5-10min) Non-Physician Phone Call To Patient/Provider Brief (5-10min) 56032 014 ANA YEBOAH [facility] Non-Physician Phone Call To Patient/Provider Brief (5-10min) Non-Physician Phone Call To Patient/Provider Brief (5-10min) 49370 014 ANA YEBOAH [facility] Non-Physician Phone Call To Patient/Provider Brief (5-10min) Non-Physician Phone Call To Patient/Provider Brief (5-10min) 56310 014 ANA YEBOAH [facility] Non-Physician Phone Call To Patient/Provider Brief (5-10min) Non-Physician Phone Call To Patient/Provider Brief (5-10min) 69286 014 ANA YEBOAH [facility] Non-Physician Phone Call To Patient/Provider Brief (5-10min) Non-Physician Phone Call To Patient/Provider Brief (5-10min) 30674 014 ANA YEBOAH Cervical or vaginal cancer screening; pelvic and clinical breast examination 013 PALLAVI PEDERSON [facility] Non-Physician Phone Call To Patient/Provider Brief (5-10min) Non-Physician Phone Call To Patient/Provider Brief (5-10min) 15733 013 ANA YEBOAH [facility] Non-Physician Phone Call To Patient/Provider Brief (5-10min) Non-Physician Phone Call To Patient/Provider Brief (5-10min) 25412 013 ANA YEBOAH [facility] Non-Physician Phone Call To Patient/Provider Brief (5-10min) Non-Physician Phone Call To Patient/Provider Brief (5-10min) [id number] 12 DAMIAN CORONA [facility] Screening papanicolaou smear; obtaining, preparing and conveyance of cervical or vaginal smear to laboratory SATISH SCHNEIDER [facility] Physical Therapy Gait Training Physical Therapy Gait Training 83526 YECENIA LOPEZ [facility] Cane, includes canes of all materials, adjustable or fixed, with tip YECENIA LOPEZ [facility] Non-Physician Phone Call To Patient/Provider Brief (5-10min) Non-Physician Phone Call To Patient/Provider Brief (5-10min) 95117 DAMIAN CORONA [facility] Non-Physician Phone Call To Patient/Provider Brief (5-10min) Non-Physician Phone Call To Patient/Provider Brief (5-10min) 80533 DAMIAN CORONA [facility] Non-Physician Phone Call To Patient/Provider Brief (5-10min) Non-Physician Phone Call To Patient/Provider Brief (5-10min) 52365 DAMIAN CORONA [facility] Non-Physician Phone Call To Patient/Provider Brief (5-10min) Non-Physician Phone Call To Patient/Provider Brief (5-10min) 53792 DAMIAN CORONA [facility] Medication Management By Pharmacist Each Additional 15 Min Medication Management By Pharmacist Each Additional 15 Min [id number] BETTIE MOISE [facility] Med Management By Pharmacist Initial 15 Min Estab Patient Med Management By Pharmacist Initial 15 Min Estab Patient [id number] [phone] BETTIE MOISE [facility] Non-Physician Phone Call To Patient/Provider Brief (5-10min) Non-Physician Phone Call To Patient/Provider Brief (5-10min) 04124 011 FREDDY ASIF [facility] Non-Physician Phone Call To Patient/Provider Brief (5-10min) Non-Physician Phone Call To Patient/Provider Brief (5-10min) 12452 011 DAMIAN CORONA [facility] Medication Management By Pharmacist Each Additional 15 Min Medication Management By Pharmacist Each Additional 15 Min [phone] BETTIE MOISE [facility] Non-Physician Phone Call To Patient/Provider Brief (5-10min) Non-Physician Phone Call To Patient/Provider Brief (5-10min) 23605 ANA YEBOAH [facility] Screening papanicolaou smear; obtaining, preparing and conveyance of cervical or vaginal smear to laboratory XIOMY JARA DoD Waiver services; not otherwise specified (NOS) SIRIA MARIA [facility] Social History Combined list of available smoking, tobacco, and other social history from Department of Defense and Veterans Affairs facilities. Social History Type Response Date Comment Sourc e Sex Representation Female (finding) 04/09/2021 Unknown Organization Tobacco Cigarette use: Never-cigarette user. Other Tobacco use: Never-other tobacco user (not cigarettes). Ambulatory Pharmacy Sexual Orientation Ambula tory Pharmacy Gender identity Ambulator y Pharmacy This section is an empty social history section. DoD Assessment and Plan Combined list of future care activities from Department of Defense and Veterans Affairs facilities (e.g., assessment and plan notes, appointments, orders, and referrals). Additional future care activities may be listed in the Plan of Care section. Result Assessment and Plan Date Source Assessment and Plan Extracted from:Title : [facility] Shave Biopsy Author: SALINA CORRIGAN MD Date: 06/24/24 Skin lesion [age]y/o F with 1x2mm nonmelanotic slightly raised circumscribed skin l esion. See procedure note for further detail Plan: - Sent for Path - will call with results if remarkable. suspect dermatofibroma - f/u prn Ordered: AP Surgical Pathology Orders: Hemoglobin A1c Capt Nura (), FAVIAN, Internal Sales Engineer PGY-[address] [place] [address] Operations [facility] [place], [place] Addendum by POLLO NEVAREZ MD on June 24, 2024 16:06:52 SUGAR REFINERY SUPERVISOR This encounter was directly supervised. I was present during naranjo components of the procedure. I have reviewed the note and concur with the findings, assessment, and plan. Follow up as listed. All labs/imaging/consults to be followed by the ordering provider. //SIGNED// Lt Chad BERMEO, PACHECO, , SFS Adjunct Preceptor, [place] [facility] [phone] Extracted from:Title: [facility]- well adult/ R ankle Author: SALINA CORRIGAN MD Date: 05/28/24 1. W ell adult P reventative Medicine / HCM visit with no emergent concerns. ----- VACCINES: - Advised annual flu vaccine - Advised Tdap if age > 1 9 and not received Tdap; booster q10 yr; Tdap booster with each - Advised COVID-19 vaccine ----- - Cervical Cancer Screening: D UE - Breast C ancer Screening: UTD - L guy Cancer Screening: DUE [_] Age 50-80 a nd 20 pack-yr smoking hx p er USPSTF - C olon Cancer Screening: U TD ----- BONE DENSITY: N /A ----- METABOLIC: - L ipid screening: U TD - D M screening: DUE ----- DIET: -Mediterranean: Discussed that the Mediterranean diet consists of a diet high in fruits, vegetables, whole grains, etc. Mediterranean diet has been associated with decreased incidence of stroke and CVD. Handout was provided on the Mediterranean diet for patient to review at home. ----- SUBSTANCE USE: - T obacco use: D enies - Alcohol use: Denies - Illicit drug use: Denies ----- FOLLOW UP: - Annually Ordered: Hemoglobin A1c 2. A nkle pain P ost R ankle O RIF 03/31. Saw Ortho [facility]. New swelling, otherwise unremarkable PE - Refer to Ortho for follow up since referral Ordered: Referral Request 2.0 - [facility] Orders: fluticasone nasal(Flonase Allergy Relief 50 mcg/inh nasal spray), 2 spray(s), Nostril-Both, Daily, # 3 EA, 3 total refill(s), Maintenance, 2 spray(s) Nostril-Both Daily, Pharmacy: [facility] [Not filled] hydroCHLOROthiazide(hydroCHLOROt hiazide 25 mg oral tablet), 1 tab(s), Oral, Daily, for blood pressure, # 90 tab(s), 3 total refill(s), Maintenance, 1 tab(s) Oral Daily,Instr:for blood pressure, Pharmacy: [facility] [Federal Rx: #90 last filled 05/28/24] atorvastatin(Lipitor 80 mg oral tablet), 1 tab(s), Oral, Daily, for cholesterol, # 90 tab(s), 3 total refill(s), Maintenance, 1 tab(s) Oral Daily,Instr:for cholesterol, Pharmacy: [facility] [Not filled] losartan(losartan 50 mg oral tablet), 1 tab(s), Oral, Daily, for blood pressure, # 90 tab(s), 3 total refill(s), Maintenance, 1 tab(s) Oral Daily,Instr:for blood pressure, Pharmacy: [facility] [Federal Rx: #90 last filled 05/28/24] metFORMIN(metFORMIN 1000 mg oral tablet), 1 tab(s), Oral, BID, for diabetes, # 180 tab(s), 3 total refill(s), Maintenance, 1 tab(s) Oral BID,Instr:for diabetes, Pharmacy: [facility] [Federal Rx: #180 last filled 05/28/24] Refer to Ortho [facility] Sam. Capt Nura (), [facility] Internal Sales Engineer PGY-[address] [place] [address] Family Medicine Residency Clinic [place], [place] Addendum by BRENNAN VILLALOBOS MD on May 31, 2024 13:26:53 SUGAR REFINERY SUPERVISOR I was present and available in the family medicine clinic to discuss the patient's care during the time of the appointment. I agree with the resident's assessment and plan as documented. Brennan Villalobos MD, Faculty, [facility], [facility], Attending Physician Extracted from:Title: FM - Hamstring tendinopathy Author: RAYMOND PAT DO Date: 01/16/24 1. S train of hamstring tendon Physical exam consistent with tendinopathy of the proximal right hamstring at the ischial tuberosity - Refer for physical therapy. Ordered: Referral Request 2.0 - [facility]D 2. A nxiety Patient going through divorce and is from . Requesting increase in Citalopram. Will increase to 30mg and recommend follow-up in 6 weeks. Pt is already seeing a counselor. Total Depression Screen Score: 4 (01/16/24) HARVEY-7 GAD7 Nervousness: Several days GAD7 Unable to Control Worry: Several days GAD7 Worrying Too Much: Several days GAD7 Trouble Relaxing: Not at all GAD7 Restlessness: Nearly every day GAD7 Irritable: Not at all GAD7 Fear: Not at all GAD7 Problem Severity: Not at all GAD7 Score: 6 Score 3. G ERD - Gastro-esophageal reflux disease refilled panoprazole 4. S easonal allergy refilled zyrtec Orders: cetirizine(cetirizine 10 mg oral tablet), 1 tab(s), Oral, Daily, X 90 days, # 90 tab(s), 3 total refill(s), Acute, 01/10/2025, 1 tab(s) Oral Daily,x90 days, Pharmacy: [facility] [Not filled] citalopram(citalopram 20 mg oral tablet), 1.5 tab(s), Oral, Daily, Total of 30mg once daily., # 135 tab(s), 3 total refill(s), Maintenance, 1.5 tab(s) Oral Daily,Instr:Total of 30mg once daily., Pharmacy: [facility] [Not filled] pantoprazole(pantoprazole 20 mg oral delayed release tablet), 1 tab(s), Oral, Daily, # 90 tab(s), 3 total refill(s), Maintenance, 1 tab(s) Oral Daily,x90 days, Pharmacy: [facility] [Not filled] propranolol(propranolol 80 mg oral tablet), 1 tab(s), Oral, BID, X 90 days, # 180 tab(s), 3 total refill(s), Acute, 1 tab(s) Oral BID,x90 days, Pharmacy: [facility] [Not filled] Capt Hao Arevalo), [place], Internal Sales Engineer, PGY-2 [employer], [facility] Addendum by SKIP NOLASCO MD on January 19, 2024 10:37:25 CDT On the day of encounter, I was available for discussion with the resident physician. Case was discussed with me in the Teach Room. I agree with the assessment and plan of care as documented above with any exceptions/additions noted below if necessary. All labs/rads/consults to be followed by the ordering provider. DO Bear Dudley [employer], Family Medicine Physician Extracted from:Title: Office Clinic Note Author: NICHOL TIMMONS MD Date: 12/16/23 1. G ynecologic examination normal -cervical cancer screening: performed today; pt. w/ h/o cryotherapy in 1980s, denies abnormal pap smears since that time -mammogram up to date: 10/2023, BIRADS 1 -colonoscopy up to date: 09/2023, recommendation for 10 year follow up -DEXA scan: 08/2023 w/ osteopenia; discussed Ca and Vit D supplementation and weight bearing exercise; followed by PCM, f/u scan recommended in 2 years Ordered: AP Cytology 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 HPV High Risk (16/18/Other) 2. F amily history of cancer -mother with ovarian cancer, cousin with breast cancer and positive gene testing (possibly BRCA2?); pt. has submitted DNA testing and is awaiting results; encouraged pt. to call with any abnormal results as may need risk reducing surgery 3. E xternal hemorrhoids -desires gen surg referral for excision Ordered: Referral Request 2.0 - DoD Extracted from:Title: FM-virt lab f/u Author: LINCOLN HERNÁNDEZ MD Date: 09/13/23 1. L eukopenia See relevant documentation t itled Results review dated 09 Aug 2023 f or tagged labs and further interpretation - Of note, patient endorses being on PPI and citalopram for more than 5 years so clinical impression less likely that leukopenia is being driven by medications (no refills requested at this visit) - Proceed with plans to obtain CBC which is timed to be drawn with active order for lipid panel in January 2024 - If leukopenia persists, then refer to hematology Ordered: CBC w/ Diff 2. GERD Chronic, controlled - Patient endorses already receiving EGD with Dr. Sanders within the recent p ast and was told she had gastritis - No EGD follow-up scheduled however patient e ndorses having c olonoscopy with Dr. Sanders on 13 Sep 2023 - Continue PPI and surveillance with GI specialist 3. Osteopenia - Continue plan per strength training and DEXA in 2025, patient verbalized understanding and agreeable with plan - she endorses standing up from her desk more during the work day. Director Data also advised patient on field trainer and/or home exercise program options. 4. Hepatic steatosis - Continue plan as per relevant documentation, patient verbalized understanding and endorses s he is pursuing Weight Watchers I spoke with patient over phone during this virtual appointment and spent 21 minutes reviewing chart and placing orders for this encounter. Capt Lincoln Hernández MD Resident, PGY-2 [facility], [facility] Family and Community Medicine Program [place], [place] Addendum by MERT BECERRA MD on September 15, 2023 11:25:23 CDT On the date of this encounter, I was immediately available to assist the resident in the care of this patient and have reviewed and agree with the residents findings and plan of care. Lt Col Mert Becerra MD Family Medicine Physician [facility] YANNI Martinez Extracted from:Title: FM-virt DEXA f/u Author: LINCOLN HERNÁNDEZ MD Date: 08/15/23 1. O steopenia Chronic, u ncontrolled - See relevant TCON for imaging report - No FRAX score on report - Approach with vitamin D o ptimization a nd strength training - Advised patient on plan i n addition to repeating bone scan in 2 years Ordered: Vitamin D 25 Hydroxy Level 2. F atty liver Chronic, uncontrolled - On atorvastatin 40 mg daily - Check LFTs and CBC for fib-4 stratification - If elevated LFTs and c irrhosis excluded via fib-4, follow-up w/ patient to obtain a bdominal ultrasound and advised on diet/lifestyle modification - Up-to-date on lipid panel screening, see relevant documentation, well controlled, continue atorvastatin 40 mg daily Ordered: CBC w/ Diff Hepatic Function Panel 3. A llergic rhinitis Chronic, controlled - Refill Flonase Ordered: fluticasone nasal(fluticasone 50 mcg/inh nasal spray), 100 mcg, Nostril-Both, Daily, # 16 g, 11 total refill(s), Maintenance, 100 mcg Nostril-Both Daily, Pharmacy: [facility] [Not filled] Note: Discontinued aspirin d ue to GI bleed risk as patient e ndorsing taking aspirin a s primary prevention without h istory of stroke or CO. Patient verbalized understanding and amenable to plan. I examined patient in-person / spoke with patient over phone and spent 30 minutes reviewing chart and placing orders for this encounter. Capt Lincoln Hernández MD Resident, PGY-2 [facility], [facility] Family and Community Medicine Program YANNI Martinez Addendum by TOBIAS FINE MD on September 05, 2023 17:18:35 CDT I was present and available in the family medicine clinic during the patient's appointment.? The case was discussed with me and I agree with the assessment and plan as documented. ? HLF Extracted from:Title: FM - BP and LE Edema Author: RANDALL DURAND DO Date: 07/31/23 1. E ssential hypertension Acute. Controlled. Medication: HCTZ 25mg, losartan 50mg. Goal <140/90 per JNC8 - LE edema has improved per patient while maintaining BP control - counseled patient on continued monitoring of lower extremity edema; if not resolved in the next couple of weeks; return to clinic for further evaluation of potential CKD or HF as potential etiologies - continue current BP regimen Return precautions provided Randall Durand DO Internal Sales Engineer PGY-3 [place] Addendum by HOME PARR MD on July 31, 2023 10:39:07 SUGAR REFINERY SUPERVISOR I certify that I was immediately available to review and discuss this patient. T he resident discussed the diagnosis and treatment plan for this patient with me [id number]. I agree with these written findings and plan. Capt Home Parr DO, CAM Sports/Family Medicine Faculty Physician [address] [place] [address], [facility] [place], [place] Extracted from:Title: Fam Med - HTN/LE Swelling Author: ASHKAN COPELAND MD Date: 07/18/23 1. H ypertension Chronic, well controlled. Patient is experiencing bilateral, symmetrical lower extremity swelling. Non pitting. Present for 2-3 months, suspect sequelae of amlodipine. Patient with lisinopril allergy (angioedema) low risk of cross reaction with losartan. Plan to stop amlodipine and start losartan for BP control. Follow up in 2 weeks. Orders: aspirin(aspirin 81 mg oral delayed release tablet), 1 tab(s), Oral, Daily, # 90 tab(s), 2 total refill(s), Maintenance, Pharmacy: [facility] [Federal Rx: #30 last filled 06/24/23] fluticasone nasal(Flonase 50 mcg/inh nasal spray), 100 mcg, Nostril-Both, Daily, # 16 g, 5 total refill(s), Maintenance, Pharmacy: [facility] [Federal Rx: #16 last filled 06/24/23] losartan(losartan 50 mg oral tablet), 1 tab(s), Oral, Daily, for blood pressure, # 90 tab(s), 3 total refill(s), Maintenance, 1 tab(s) Oral Daily,Instr:for blood pressure, Pharmacy: [facility] [Not filled] Referral Request 2.0 Referral Request 2.0 Ashkan Copeland MD PGY-3 [facility] [employer] Addendum by NUSRAT QIU MD on July 18, 2023 14:57:46 SUGAR REFINERY SUPERVISOR I certify that I was present for case discussion in the Family Medicine preceptor room at the time of this encounter. I have reviewed the note and agree with the findings, assessment, and plan except as I have documented below. Follow up as listed. All labs/imaging/consults to be followed by the ordering provider. Nusrat Qiu MD, [facility], [place], Staff Physician Extracted from:Title: FM-virt med refill Author: LINCOLN HERNÁNDEZ MD Date: 05/27/23 1. H TN - Hypertension Due for yearly labs - ordered Med reconciliation performed Refilled HCTZ Continue amlodipine and propanolol (explored propanolol - patient says on for HTN however when off propanolol her heart rate goes demond high) Encouraged in-person visit Ordered: Basic Metabolic Panel Microalbumin Panel, Urine 2. H LD - Hyperlipidemia Due for yearly labs - ordered Atorvastatin refilled Ordered: atorvastatin(atorvastatin 40 mg oral tablet), 1 tab(s), Oral, Daily, for cholesterol, # 90 tab(s), 3 total refill(s), Maintenance, 1 tab(s) Oral Daily,Instr:for cholesterol, Pharmacy: [facility] [Not filled] Lipid Panel 3. D iabetes mellitus Due for yearly labs - ordered Metformin refilled Ordered: metFORMIN(metFORMIN 1000 mg oral tablet), 1 tab(s), Oral, BID, for diabetes, # 180 tab(s), 3 total refill(s), Maintenance, 1 tab(s) Oral BID,Instr:for diabetes, Pharmacy: [facility] [Not filled] Hemoglobin A1c 4. S easonal allergic rhinitis Flonase refilled Ordered: fluticasone nasal(Flonase 50 mcg/inh nasal spray), 100 mcg, Nostril-Both, Daily, # 16 g, 5 total refill(s), Maintenance, 100 mcg Nostril-Both Daily, Pharmacy: [facility] [Not filled] 5. A nkle fracture Improving On aspirin for clot risk reduction per ortho (no Hx stroke or CO) Pt endorses ortho appt 28 May 2023 Recommend in-person visit when ankle boot off at upcoming orthopedist appt Consider DEXA scan discussion i f presents for annual physical Ordered: aspirin(aspirin 81 mg oral delayed release tablet), 1 tab(s), Oral, Daily, # 30 tab(s), 2 total refill(s), Maintenance, 1 tab(s) Oral Daily, Pharmacy: [facility] [Not filled] Orders: hydroCHLOROthiazide(hydroCHLOROt hiazide 25 mg oral tablet), 1 tab(s), Oral, Daily, for blood pressure, # 90 tab(s), 3 total refill(s), Maintenance, 1 tab(s) Oral Daily,Instr:for blood pressure, Pharmacy: [facility] [Not filled] CAPT LINCOLN HERNÁNDEZ MD [facility], [facility], PGY-2 Addendum by BRENNAN VILLALOBOS MD on May 29, 2023 07:22:08 SUGAR REFINERY SUPERVISOR I was present and available in the family medicine clinic to discuss the patient's care during the time of the appointment. I agree with the resident's assessment and plan as documented. Brennan Villalobos MD, Faculty, [facility], [facility], Attending Physician Extracted from:Title: FM R ankle fracture Author: SONNY VEGA MD Date: 03/25/23 1. C losed fracture of right ankle Encouraged RICE Sending to orthopedics. Will send note encouraging teleworking. Continue ibuprofen and hydrocodone for pain. Follow up after orthopedics. Orders: Referral Request 2.0 Sonny Vega MD Internal Sales Engineer, PGY-3 [place] Addendum by JASE RIVERA MD on March 25, 2023 11:08:37 CDT .att Extracted from:Title: FamMed - Annual, Med Refill, Skin Lesion (L Foot) Author: SETH BARTON DO Date: 02/26/23 1. E ncounter for general adult medical examination without abnormal findings Preventative Medicine / [facility] visit with no emergent concerns. ----- VACCINES: - Advised annual flu vaccine - Advised varicella vaccine (age > 1 3) and without evidence of immunity - Advised varicella zoster vaccine (age 50) - Advised pneumococcal vaccine (age 65 or 19-64 if have r isk factors: smoking, DM, immunocompromised) - Advised Tdap if age > 1 9 and not received Tdap; booster q10 yr; Tdap booster with each - Advised COVID-19 vaccine ----- - Cervical Cancer Screening: U TD [_] Given age 21-29, if results normal will repeat in 3 years; also screened with endocervical GC/CT [X] Given age 30-65, co-tested with high risk HPV typing; if results normal will repeat with co-testing HPV in 5 years >> NORMAL MAY 18, 2020 due in 5 yrs [_] Given age >65, or h/o hysterectomy, Pap not offered - Breast C ancer Screening: U TD [_] Age 40-49; initiate screening based on risk factors and shared decision making [X] Age 50-75; initiate screening and repeat q1-2 yrs per USPSTF >> recent mammogram 6 mo ago, patient has MRI recently, would like BRCA gene testing due to family history, referral [_] Age >75; DC screening unless life expectancy >10yrs then screening based on shared decision making - L guy Cancer Screening: N /A [_] Age 50-80 a nd 20 pack-yr smoking hx p er USPSTF - C olon Cancer Screening: D UE [X] Age > 4 5 per USPSTF >> SCHEDULED FOR APR ----- BONE DENSITY: N /A [_] Age < 65 with risk factors for osteoporosis (prior fracture, steroid use, tobacco/etoh?use, RA, liver disease) [_] Age > 6 5 ----- SEXUAL HEALTH: [_] GC/CT screen all sexually active females < 25 or >25 with risk factors (prior hx, new/multiple partners, etc.) [_] HIV (age 1 3-75; recommendation for one-time screening) [_] G iven high risk sexual behavior (multiple partners, h/o STI in past year), will screen for HIV, GC/CT, and syphilis - Discussed safe sexual practices [_] Hepatitis B (age > 1 8;recommendation for one-time s creening) [_] H epatitis C (age 1 8-79; recommendation for one-time s creening) ----- : N /A [_] If plans for , pt knows to take folic acid (400-800 mcg/day), avoid tob/EtOH/illicit drugs ----- METABOLIC: - L ipid screening: U TD [_] One time screening, non-fasting (age 17-21) [X] H igh risk (HTN, smoking, DM, FHx) but normal screen before age 21: initiate screening at age 25 (men) and 35 (women): repeat q5yrs if below treatment threshold [_] N ormal screen before age 21 and no risk factors: initiate screening age 35 (men) and 45 (women); repeat q5yrs if below treatment threshold [_] D C screening at age 65 if have had multiple screenings with acceptable measures - D M screening: U TD [_] ADA recommendation for annual screening in adults with BMI > 25 with one or more?risk factor for T2DM ( HTN, HLD, h/o CVD, h/o PCOS, FMHx) o r age 35-70 with BMI >25 ----- DIET: -Mediterranean: Discussed that the Mediterranean diet consists of a diet high in fruits, vegetables, whole grains, etc. Mediterranean diet has been associated with decreased incidence of stroke and CVD. Handout was provided on the Mediterranean diet for patient to review at home. ----- SUBSTANCE USE: - T obacco use: D enies - Alcohol use: Denies - Illicit drug use: Denies ----- OTHER: - Discussed wearing safety belts, helmets (if motorcycle rider), sunscreen, smoke detectors in home ----- FOLLOW UP: - Annually Ordered: Basic Metabolic Panel CBC w/ Diff Hemoglobin A1c Lipid Panel Microalbumin Panel, Urine 2. S kin lesion Flesh colored macule ~4mm, m ildly tender to palpation DDx: Verruca v ulgaris vs A ctinic keratosis vs dermatofibroma -cryotherapy performed in clinic today -pt to f/u in 4 wks if no resolution Orders: amLODIPine(amLODIPine 5 mg oral tablet), 1 tab(s), Oral, Daily, # 90 tab(s), 3 total refill(s), Maintenance, 1 tab(s) Oral Daily,x90 days, Pharmacy: [facility] [Not filled] aspirin(aspirin 81 mg oral delayed release tablet), 1 tab(s), Oral, Daily, X 90 days, # 90 tab(s), 3 total refill(s), Acute, 1 tab(s) Oral Daily,x90 days, Pharmacy: [facility] [Not filled] atorvastatin(atorvastatin 40 mg oral tablet), 1 tab(s), Oral, Daily, X 90 days, # 90 tab(s), 3 total refill(s), Acute, 1 tab(s) Oral Daily,x90 days, Pharmacy: [facility] [Not filled] cetirizine(cetirizine 10 mg oral tablet), 1 tab(s), Oral, Daily, X 90 days, # 90 tab(s), 3 total refill(s), Acute, 02/21/2024, 1 tab(s) Oral Daily,x90 days, Pharmacy: [facility] [Not filled] citalopram(citalopram 20 mg oral tablet), 1 tab(s), Oral, Daily, # 90 tab(s), 3 total refill(s), Maintenance, 1 tab(s) Oral Daily,x90 days, Pharmacy: [facility] [Not filled] fluticasone nasal(fluticasone 50 mcg/inh nasal spray), 50 mcg, Nostril-Both, Daily, # 16 g, 3 total refill(s), Maintenance, 50 mcg Nostril-Both Daily,x90 days, Pharmacy: [facility] [Not filled] hydroCHLOROthiazide(hydroCHLOROt hiazide 25 mg oral tablet), 1 tab(s), Oral, Daily, X 90 days, # 90 tab(s), 3 total refill(s), Acute, 1 tab(s) Oral Daily,x90 days, Pharmacy: [facility] [Not filled] metFORMIN(metFORMIN 1000 mg oral tablet), 1 tab(s), Oral, BID, for diabetes, # 180 tab(s), 3 total refill(s), Maintenance, Bridge medication pt due for DM follow up in March 2023, 1 tab(s) Oral BID,Instr:for diabetes, Pharmacy: [facility] [Not filled] pantoprazole(pantoprazole 20 mg oral delayed release tablet), 1 tab(s), Oral, Daily, # 90 tab(s), 3 total refill(s), Maintenance, 1 tab(s) Oral Daily,x90 days, Pharmacy: [facility] [Not filled] propranolol(propranolol 80 mg oral tablet), 1 tab(s), Oral, BID, X 90 days, # 180 tab(s), 3 total refill(s), Acute, 1 tab(s) Oral BID,x90 days, Pharmacy: [facility] [Not filled] SETH BARTON DO Internal Sales Engineer, PGY-3 [place] Addendum by JOSÉ MANUEL GAMBINO DO on February 26, 2023 16:00:25 CDT I certify that I was present for case discussion in the Family Medicine preceptor room at the time of this encounter. I have reviewed the note and agree with the findings, assessment, and plan except as I have documented below. Follow up as listed. All labs/imaging/consults to be followed by the ordering provider. Capt Francis, [facility], Staff Physician 01/11/2025 [id number] Assessment and Plan Extracted from:Title : [facility]- Shave Biopsy Author: SALINA CORRIGAN MD Date: 06/24/24 Skin lesion [age]y/o F with 1x2mm nonmelanotic slightly raised circumscribed skin l esion. See procedure note for further detail Plan: - Sent for Path - will call with results if remarkable. suspect dermatofibroma - f/u prn Ordered: AP Surgical Pathology Orders: Hemoglobin A1c Capt Nura (), [facility], Internal Sales Engineer PGY-2 [facility] [place], [place] Addendum by POLLO NEVAREZ MD on June 24, 2024 16:06:52 SUGAR REFINERY SUPERVISOR This encounter was directly supervised. I was present during naranjo components of the procedure. I have reviewed the note and concur with the findings, assessment, and plan. Follow up as listed. All labs/imaging/consults to be followed by the ordering provider. //SIGNED// POLLO NEVAREZ Lt [employer], [place], , SFS Adjunct Preceptor, [place] [facility] [phone] Extracted from:Title: [facility]- well adult/ R ankle Author: SALINA CORRIGAN MD Date: 05/28/24 1. W ell adult P reventative Medicine / HCM visit with no emergent concerns. ----- VACCINES: - Advised annual flu vaccine - Advised Tdap if age > 1 9 and not received Tdap; booster q10 yr; Tdap booster with each - Advised COVID-19 vaccine ----- - Cervical Cancer Screening: D UE - Breast C ancer Screening: UTD - L guy Cancer Screening: DUE [_] Age 50-80 a nd 20 pack-yr smoking hx p er USPSTF - C olon Cancer Screening: U TD ----- BONE DENSITY: N /A ----- METABOLIC: - L ipid screening: U TD - D M screening: DUE ----- DIET: -Mediterranean: Discussed that the Mediterranean diet consists of a diet high in fruits, vegetables, whole grains, etc. Mediterranean diet has been associated with decreased incidence of stroke and CVD. Handout was provided on the Mediterranean diet for patient to review at home. ----- SUBSTANCE USE: - T obacco use: D enies - Alcohol use: Denies - Illicit drug use: Denies ----- FOLLOW UP: - Annually Ordered: Hemoglobin A1c 2. A nkle pain P ost R ankle O RIF 03/31. Saw Ortho [facility]. New swelling, otherwise unremarkable PE - Refer to Ortho for follow up since referral Ordered: Referral Request 2.0 - [facility] Orders: fluticasone nasal(Flonase Allergy Relief 50 mcg/inh nasal spray), 2 spray(s), Nostril-Both, Daily, # 3 EA, 3 total refill(s), Maintenance, 2 spray(s) Nostril-Both Daily, Pharmacy: [facility] [Not filled] hydroCHLOROthiazide(hydroCHLOROt hiazide 25 mg oral tablet), 1 tab(s), Oral, Daily, for blood pressure, # 90 tab(s), 3 total refill(s), Maintenance, 1 tab(s) Oral Daily,Instr:for blood pressure, Pharmacy: [facility] [Federal Rx: #90 last filled 05/28/24] atorvastatin(Lipitor 80 mg oral tablet), 1 tab(s), Oral, Daily, for cholesterol, # 90 tab(s), 3 total refill(s), Maintenance, 1 tab(s) Oral Daily,Instr:for cholesterol, Pharmacy: [facility] [Not filled] losartan(losartan 50 mg oral tablet), 1 tab(s), Oral, Daily, for blood pressure, # 90 tab(s), 3 total refill(s), Maintenance, 1 tab(s) Oral Daily,Instr:for blood pressure, Pharmacy: [facility] [Federal Rx: #90 last filled 05/28/24] metFORMIN(metFORMIN 1000 mg oral tablet), 1 tab(s), Oral, BID, for diabetes, # 180 tab(s), 3 total refill(s), Maintenance, 1 tab(s) Oral BID,Instr:for diabetes, Pharmacy: [facility] [Federal Rx: #180 last filled 05/28/24] Refer to Kirby Vargas. Capt Nura (), [facility], Internal Sales Engineer PGY-[address] [place] [address] Family Medicine Residency Clinic [place], [place] Addendum by BRENNAN VILLALOBOS MD on May 31, 2024 13:26:53 SUGAR REFINERY SUPERVISOR I was present and available in the family medicine clinic to discuss the patient's care during the time of the appointment. I agree with the resident's assessment and plan as documented. Brennan Villalobos MD, Faculty, [facility], Attending Physician Extracted from:Title: FM - Hamstring tendinopathy Author: RAYMOND PAT DO Date: 01/16/24 1. S train of hamstring tendon Physical exam consistent with tendinopathy of the proximal right hamstring at the ischial tuberosity - Refer for physical therapy. Ordered: Referral Request 2.0 - [facility] 2. A nxiety Patient going through divorce and is from . Requesting increase in Citalopram. Will increase to 30mg and recommend follow-up in 6 weeks. Pt is already seeing a counselor. Total Depression Screen Score: 4 (01/16/24) HARVEY-7 GAD7 Nervousness: Several days GAD7 Unable to Control Worry: Several days GAD7 Worrying Too Much: Several days GAD7 Trouble Relaxing: Not at all GAD7 Restlessness: Nearly every day GAD7 Irritable: Not at all GAD7 Fear: Not at all GAD7 Problem Severity: Not at all GAD7 Score: 6 Score 3. G ERD - Gastro-esophageal reflux disease refilled panoprazole 4. S easonal allergy refilled zyrtec Orders: cetirizine(cetirizine 10 mg oral tablet), 1 tab(s), Oral, Daily, X 90 days, # 90 tab(s), 3 total refill(s), Acute, 01/10/2025, 1 tab(s) Oral Daily,x90 days, Pharmacy: [facility] [Not filled] citalopram(citalopram 20 mg oral tablet), 1.5 tab(s), Oral, Daily, Total of 30mg once daily., # 135 tab(s), 3 total refill(s), Maintenance, 1.5 tab(s) Oral Daily,Instr:Total of 30mg once daily., Pharmacy: [facility] [Not filled] pantoprazole(pantoprazole 20 mg oral delayed release tablet), 1 tab(s), Oral, Daily, # 90 tab(s), 3 total refill(s), Maintenance, 1 tab(s) Oral Daily,x90 days, Pharmacy: [facility] [Not filled] propranolol(propranolol 80 mg oral tablet), 1 tab(s), Oral, BID, X 90 days, # 180 tab(s), 3 total refill(s), Acute, 1 tab(s) Oral BID,x90 days, Pharmacy: [facility] [Not filled] Capt Irina (), FAVIAN, Internal Sales Engineer, PGY-2 [facility], [facility] Addendum by SKIP NOLASCO MD on January 19, 2024 10:37:25 CDT On the day of encounter, I was available for discussion with the resident physician. Case was discussed with me in the Teach Room. I agree with the assessment and plan of care as documented above with any exceptions/additions noted below if necessary. All labs/rads/consults to be followed by the ordering provider. DO Bear Dudley, [facility], Family Medicine Physician Extracted from:Title: Office Clinic Note Author: NICHOL TIMMONS MD Date: 12/16/23 1. G ynecologic examination normal -cervical cancer screening: performed today; pt. w/ h/o cryotherapy in 1980s, denies abnormal pap smears since that time -mammogram up to date: 10/2023, BIRADS 1 -colonoscopy up to date: 09/2023, recommendation for 10 year follow up -DEXA scan: 08/2023 w/ osteopenia; discussed Ca and Vit D supplementation and weight bearing exercise; followed by PCM, f/u scan recommended in 2 years Ordered: AP Cytology 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 HPV High Risk (16/18/Other) 2. F amily history of cancer -mother with ovarian cancer, cousin with breast cancer and positive gene testing (possibly BRCA2?); pt. has submitted DNA testing and is awaiting results; encouraged pt. to call with any abnormal results as may need risk reducing surgery 3. E xternal hemorrhoids -desires gen surg referral for excision Ordered: Referral Request 2.0 - [facility] Extracted from:Title: FM-virt lab f/u Author: LINCOLN HERNÁNDEZ MD Date: 09/13/23 1. L eukopenia See relevant documentation t itled Results review dated 09 Aug 2023 f or tagged labs and further interpretation - Of note, patient endorses being on PPI and citalopram for more than 5 years so clinical impression less likely that leukopenia is being driven by medications (no refills requested at this visit) - Proceed with plans to obtain CBC which is timed to be drawn with active order for lipid panel in January 2024 - If leukopenia persists, then refer to hematology Ordered: CBC w/ Diff 2. GERD Chronic, controlled - Patient endorses already receiving EGD with Dr. Sanders within the recent p ast and was told she had gastritis - No EGD follow-up scheduled however patient e ndorses having c olonoscopy with Dr. Sanders on 13 Sep 2023 - Continue PPI and surveillance with GI specialist 3. Osteopenia - Continue plan per strength training and DEXA in 2025, patient verbalized understanding and agreeable with plan - she endorses standing up from her desk more during the work day. Director Data also advised patient on field trainer and/or home exercise program options. 4. Hepatic steatosis - Continue plan as per relevant documentation, patient verbalized understanding and endorses s he is pursuing Weight Watchers I spoke with patient over phone during this virtual appointment and spent 21 minutes reviewing chart and placing orders for this encounter. Capt Lincoln Hernández MD Resident, PGY-2 [address], [facility] Family and Community Medicine Program [place] Addendum by MERT BECERRA MD on September 15, 2023 11:25:23 CDT On the date of this encounter, I was immediately available to assist the resident in the care of this patient and have reviewed and agree with the residents findings and plan of care. Lt Col Mert Becerra MD Family Medicine Physician [facility] YANNI Martinez Extracted from:Title: FM-virt DEXA f/u Author: LINCOLN HERNÁNDEZ MD Date: 08/15/23 1. O steopenia Chronic, u ncontrolled - See relevant TCON for imaging report - No FRAX score on report - Approach with vitamin D o ptimization a nd strength training - Advised patient on plan i n addition to repeating bone scan in 2 years Ordered: Vitamin D 25 Hydroxy Level 2. F atty liver Chronic, uncontrolled - On atorvastatin 40 mg daily - Check LFTs and CBC for fib-4 stratification - If elevated LFTs and c irrhosis excluded via fib-4, follow-up w/ patient to obtain a bdominal ultrasound and advised on diet/lifestyle modification - Up-to-date on lipid panel screening, see relevant documentation, well controlled, continue atorvastatin 40 mg daily Ordered: CBC w/ Diff Hepatic Function Panel 3. A llergic rhinitis Chronic, controlled - Refill Flonase Ordered: fluticasone nasal(fluticasone 50 mcg/inh nasal spray), 100 mcg, Nostril-Both, Daily, # 16 g, 11 total refill(s), Maintenance, 100 mcg Nostril-Both Daily, Pharmacy: [facility] [Not filled] Note: Discontinued aspirin d ue to GI bleed risk as patient e ndorsing taking aspirin a s primary prevention without h istory of stroke or CO. Patient verbalized understanding and amenable to plan. I examined patient in-person / spoke with patient over phone and spent 30 minutes reviewing chart and placing orders for this encounter. Capt Lincoln Hernández MD Resident, PGY-2 [address], [facility] Family and Counts Include [facility] Medicine Program [place] Addendum by TOBIAS FINE MD on September 05, 2023 17:18:35 CDT I was present and available in the family medicine clinic during the patient's appointment.? The case was discussed with me and I agree with the assessment and plan as documented. ? HLF Extracted from:Title: FM - BP and LE Edema Author: RANDALL DURAND DO Date: 07/31/23 1. E ssential hypertension Acute. Controlled. Medication: HCTZ 25mg, losartan 50mg. Goal <140/90 per JNC8 - LE edema has improved per patient while maintaining BP control - counseled patient on continued monitoring of lower extremity edema; if not resolved in the next couple of weeks; return to clinic for further evaluation of potential CKD or HF as potential etiologies - continue current BP regimen Return precautions provided Randall Durand DO Internal Sales Engineer PGY-3 [place] Addendum by HOME PARR MD on July 31, 2023 10:39:07 SUGAR REFINERY SUPERVISOR I certify that I was immediately available to review and discuss this patient. T he resident discussed the diagnosis and treatment plan for this patient with me [id number]. I agree with these written findings and plan. Capt Home Parr DO, [facility] Sports/Family Medicine Faculty Physician [address] [place] [address], [facility]/SGGF [facility] [place], [place] Extracted from:Title: Fam Med - HTN/LE Swelling Author: ASHKAN COPELAND MD Date: 07/18/23 1. H ypertension Chronic, well controlled. Patient is experiencing bilateral, symmetrical lower extremity swelling. Non pitting. Present for 2-3 months, suspect sequelae of amlodipine. Patient with lisinopril allergy (angioedema) low risk of cross reaction with losartan. Plan to stop amlodipine and start losartan for BP control. Follow up in 2 weeks. Orders: aspirin(aspirin 81 mg oral delayed release tablet), 1 tab(s), Oral, Daily, # 90 tab(s), 2 total refill(s), Maintenance, Pharmacy: [facility] [Federal Rx: #30 last filled 06/24/23] fluticasone nasal(Flonase 50 mcg/inh nasal spray), 100 mcg, Nostril-Both, Daily, # 16 g, 5 total refill(s), Maintenance, Pharmacy: [facility] [Federal Rx: #16 last filled 06/24/23] losartan(losartan 50 mg oral tablet), 1 tab(s), Oral, Daily, for blood pressure, # 90 tab(s), 3 total refill(s), Maintenance, 1 tab(s) Oral Daily,Instr:for blood pressure, Pharmacy: [facility] [Not filled] Referral Request 2.0 Referral Request 2.0 Ashkan Copeland MD PGY-3 [facility] [employer] Addendum by NUSRAT QIU MD on July 18, 2023 14:57:46 SUGAR REFINERY SUPERVISOR I certify that I was present for case discussion in the Family Medicine preceptor room at the time of this encounter. I have reviewed the note and agree with the findings, assessment, and plan except as I have documented below. Follow up as listed. All labs/imaging/consults to be followed by the ordering provider. Nusrat Qiu MD, [facility], [facility], Staff Physician Extracted from:Title: FM-virt med refill Author: LINCOLN HERNÁNDEZ MD Date: 05/27/23 1. H TN - Hypertension Due for yearly labs - ordered Med reconciliation performed Refilled HCTZ Continue amlodipine and propanolol (explored propanolol - patient says on for HTN however when off propanolol her heart rate goes demond high) Encouraged in-person visit Ordered: Basic Metabolic Panel Microalbumin Panel, Urine 2. H LD - Hyperlipidemia Due for yearly labs - ordered Atorvastatin refilled Ordered: atorvastatin(atorvastatin 40 mg oral tablet), 1 tab(s), Oral, Daily, for cholesterol, # 90 tab(s), 3 total refill(s), Maintenance, 1 tab(s) Oral Daily,Instr:for cholesterol, Pharmacy: [facility] [Not filled] Lipid Panel 3. D iabetes mellitus Due for yearly labs - ordered Metformin refilled Ordered: metFORMIN(metFORMIN 1000 mg oral tablet), 1 tab(s), Oral, BID, for diabetes, # 180 tab(s), 3 total refill(s), Maintenance, 1 tab(s) Oral BID,Instr:for diabetes, Pharmacy: [facility] [Not filled] Hemoglobin A1c 4. S easonal allergic rhinitis Flonase refilled Ordered: fluticasone nasal(Flonase 50 mcg/inh nasal spray), 100 mcg, Nostril-Both, Daily, # 16 g, 5 total refill(s), Maintenance, 100 mcg Nostril-Both Daily, Pharmacy: [facility] [Not filled] 5. A nkle fracture Improving On aspirin for clot risk reduction per ortho (no Hx stroke or CO) Pt endorses ortho appt 28 May 2023 Recommend in-person visit when ankle boot off at upcoming orthopedist appt Consider DEXA scan discussion i f presents for annual physical Ordered: aspirin(aspirin 81 mg oral delayed release tablet), 1 tab(s), Oral, Daily, # 30 tab(s), 2 total refill(s), Maintenance, 1 tab(s) Oral Daily, Pharmacy: [facility] [Not filled] Orders: hydroCHLOROthiazide(hydroCHLOROt hiazide 25 mg oral tablet), 1 tab(s), Oral, Daily, for blood pressure, # 90 tab(s), 3 total refill(s), Maintenance, 1 tab(s) Oral Daily,Instr:for blood pressure, Pharmacy: [facility] [Not filled] CAPT LINCOLN HERNÁNDEZ MD [facility], [address] [facility] FAMILY MEDICINE, PGY-2 Addendum by BRENNAN VILLALOBOS MD on May 29, 2023 07:22:08 SUGAR REFINERY SUPERVISOR I was present and available in the family medicine clinic to discuss the patient's care during the time of the appointment. I agree with the resident's assessment and plan as documented. Brennan Villalobos MD, Faculty, [facility], [facility], Attending Physician Extracted from:Title: FM R ankle fracture Author: SONNY VEGA MD Date: 03/25/23 1. C losed fracture of right ankle Encouraged RICE Sending to orthopedics. Will send note encouraging teleworking. Continue ibuprofen and hydrocodone for pain. Follow up after orthopedics. Orders: Referral Request 2.0 Sonny Vega MD Internal Sales Engineer, PGY-3 [place] Addendum by JASE RIVERA MD on March 25, 2023 11:08:37 CDT .att Extracted from:Title: FamMed - Annual, Med Refill, Skin Lesion (L Foot) Author: SETH BARTON DO Date: 02/26/23 1. E ncounter for general adult medical examination without abnormal findings Preventative Medicine / [facility] visit with no emergent concerns. ----- VACCINES: - Advised annual flu vaccine - Advised varicella vaccine (age > 1 3) and without evidence of immunity - Advised varicella zoster vaccine (age 50) - Advised pneumococcal vaccine (age 65 or 19-64 if have r isk factors: smoking, DM, immunocompromised) - Advised Tdap if age > 1 9 and not received Tdap; booster q10 yr; Tdap booster with each - Advised COVID-19 vaccine ----- - Cervical Cancer Screening: U TD [_] Given age 21-29, if results normal will repeat in 3 years; also screened with endocervical GC/CT [X] Given age 30-65, co-tested with high risk HPV typing; if results normal will repeat with co-testing HPV in 5 years >> NORMAL MAY 18, 2020 due in 5 yrs [_] Given age >65, or h/o hysterectomy, Pap not offered - Breast C ancer Screening: U TD [_] Age 40-49; initiate screening based on risk factors and shared decision making [X] Age 50-75; initiate screening and repeat q1-2 yrs per USPSTF >> recent mammogram 6 mo ago, patient has MRI recently, would like BRCA gene testing due to family history, referral [_] Age >75; DC screening unless life expectancy >10yrs then screening based on shared decision making - L guy Cancer Screening: N /A [_] Age 50-80 a nd 20 pack-yr smoking hx p er USPSTF - C olon Cancer Screening: D UE [X] Age > 4 5 per USPSTF >> SCHEDULED FOR NOV ----- BONE DENSITY: N /A [_] Age < 65 with risk factors for osteoporosis (prior fracture, steroid use, tobacco/etoh?use, RA, liver disease) [_] Age > 6 5 ----- SEXUAL HEALTH: [_] GC/CT screen all sexually active females < 25 or >25 with risk factors (prior hx, new/multiple partners, etc.) [_] HIV (age 1 3-75; recommendation for one-time screening) [_] G iven high risk sexual behavior (multiple partners, h/o STI in past year), will screen for HIV, GC/CT, and syphilis - Discussed safe sexual practices [_] Hepatitis B (age > 1 8;recommendation for one-time s creening) [_] H epatitis C (age 1 8-79; recommendation for one-time s creening) ----- : N /A [_] If plans for , pt knows to take folic acid (400-800 mcg/day), avoid tob/EtOH/illicit drugs ----- METABOLIC: - L ipid screening: U TD [_] One time screening, non-fasting (age 17-21) [X] H igh risk (HTN, smoking, DM, FHx) but normal screen before age 21: initiate screening at age 25 (men) and 35 (women): repeat q5yrs if below treatment threshold [_] N ormal screen before age 21 and no risk factors: initiate screening age 35 (men) and 45 (women); repeat q5yrs if below treatment threshold [_] D C screening at age 65 if have had multiple screenings with acceptable measures - D M screening: U TD [_] ADA recommendation for annual screening in adults with BMI > 25 with one or more?risk factor for T2DM ( HTN, HLD, h/o CVD, h/o PCOS, FMHx) o r age 35-70 with BMI >25 ----- DIET: -Mediterranean: Discussed that the Mediterranean diet consists of a diet high in fruits, vegetables, whole grains, etc. Mediterranean diet has been associated with decreased incidence of stroke and CVD. Handout was provided on the Mediterranean diet for patient to review at home. ----- SUBSTANCE USE: - T obacco use: D enies - Alcohol use: Denies - Illicit drug use: Denies ----- OTHER: - Discussed wearing safety belts, helmets (if motorcycle rider), sunscreen, smoke detectors in home ----- FOLLOW UP: - Annually Ordered: Basic Metabolic Panel CBC w/ Diff Hemoglobin A1c Lipid Panel Microalbumin Panel, Urine 2. S kin lesion Flesh colored macule ~4mm, m ildly tender to palpation DDx: Verruca v ulgaris vs A ctinic keratosis vs dermatofibroma -cryotherapy performed in clinic today -pt to f/u in 4 wks if no resolution Orders: amLODIPine(amLODIPine 5 mg oral tablet), 1 tab(s), Oral, Daily, # 90 tab(s), 3 total refill(s), Maintenance, 1 tab(s) Oral Daily,x90 days, Pharmacy: [facility] [Not filled] aspirin(aspirin 81 mg oral delayed release tablet), 1 tab(s), Oral, Daily, X 90 days, # 90 tab(s), 3 total refill(s), Acute, 1 tab(s) Oral Daily,x90 days, Pharmacy: [facility] [Not filled] atorvastatin(atorvastatin 40 mg oral tablet), 1 tab(s), Oral, Daily, X 90 days, # 90 tab(s), 3 total refill(s), Acute, 1 tab(s) Oral Daily,x90 days, Pharmacy: [facility] [Not filled] cetirizine(cetirizine 10 mg oral tablet), 1 tab(s), Oral, Daily, X 90 days, # 90 tab(s), 3 total refill(s), Acute, 02/21/2024, 1 tab(s) Oral Daily,x90 days, Pharmacy: [facility] [Not filled] citalopram(citalopram 20 mg oral tablet), 1 tab(s), Oral, Daily, # 90 tab(s), 3 total refill(s), Maintenance, 1 tab(s) Oral Daily,x90 days, Pharmacy: [facility] [Not filled] fluticasone nasal(fluticasone 50 mcg/inh nasal spray), 50 mcg, Nostril-Both, Daily, # 16 g, 3 total refill(s), Maintenance, 50 mcg Nostril-Both Daily,x90 days, Pharmacy: [facility] [Not filled] hydroCHLOROthiazide(hydroCHLOROt hiazide 25 mg oral tablet), 1 tab(s), Oral, Daily, X 90 days, # 90 tab(s), 3 total refill(s), Acute, 1 tab(s) Oral Daily,x90 days, Pharmacy: [facility] [Not filled] metFORMIN(metFORMIN 1000 mg oral tablet), 1 tab(s), Oral, BID, for diabetes, # 180 tab(s), 3 total refill(s), Maintenance, Bridge medication pt due for DM follow up in March 2023, 1 tab(s) Oral BID,Instr:for diabetes, Pharmacy: [facility] [Not filled] pantoprazole(pantoprazole 20 mg oral delayed release tablet), 1 tab(s), Oral, Daily, # 90 tab(s), 3 total refill(s), Maintenance, 1 tab(s) Oral Daily,x90 days, Pharmacy: [facility] [Not filled] propranolol(propranolol 80 mg oral tablet), 1 tab(s), Oral, BID, X 90 days, # 180 tab(s), 3 total refill(s), Acute, 1 tab(s) Oral BID,x90 days, Pharmacy: [facility] [Not filled] SETH BARTON DO Internal Sales Engineer, PGY-3 [employer] Addendum by JOSÉ MANUEL GAMBINO DO on February 26, 2023 16:00:25 CDT I certify that I was present for case discussion in the Family Medicine preceptor room at the time of this encounter. I have reviewed the note and agree with the findings, assessment, and plan except as I have documented below. Follow up as listed. All labs/imaging/consults to be followed by the ordering provider. Capt Francis, [facility], Staff Physician 01/11/2025 [id number] Functional Status Combined list of recent functional and cognitive assessments recorded at [employer] and [employer] (VA).VA Functional Pick[place] Measurement (FIM) Scale: 1 = Total Assistance (Subject = 0% +), 2 = Maximal Assistance (Subject = 25% +), 3 = Moderate Assistance (Subject = 50% +), 4 = Minimal Assistance (Subject = 75% +), 5 = Supervision, 6 = Modified Pickaway (Device), 7 = Complete Pickaway (Timely, Safely). Assessment Date/Time Source Assessment Type Assessment Skill Assessment Score Assessment Details No data available for this section
[2025-01-10 22:46] VITALS: BP 148/72; PULSE 82; RESP 16; TEMP 36.6; O2SAT 96
[2025-01-11 00:25] VITALS: BP 142/70; PULSE 78; RESP 14; TEMP 36.4; O2SAT 94
[2025-01-11 03:00] VITALS: BP 156/87; PULSE 79; RESP 16; O2SAT 95
--- NOTE | 2025-01-11 03:24 | ED.FALL ---
HPI - Fall General Chief Complaint: Fall Stated Complaint: fall/back pain Time Seen by Provider: 01/11/25 03:11 Source: patient Mode of arrival: ambulatory Limitations: no limitations History of Present Illness HPI Narrative: Patient presents after a fall. She is complaining left-sided back pain. Patient was trying to apply hydrogen peroxide to her toe/foot and had her foot up on the sink. It got stuck and she subsequently fell. Complaining of pain at hip and rib. Denies loss of consciousness, dizziness. She has not yet taken any medication for pain. She is complaining of a sore and achy back. Denies any shortness of breath. Not on anticoagulation. She is on 3 antihypertensive medications, hydrochlorothiazide, losartan, propranolol. Her PCP is Jasper Estrada, active duty [employer] but also works at [employer]. Related Data Home Medications ?Medication ?Instructions ?Recorded ?Confirmed ?Last Taken ?Type atorvastatin 80 mg tablet mg 01/10/25 Unknown History cetirizine 10 mg tablet mg 01/10/25 Unknown History citalopram 20 mg tablet mg 01/10/25 Unknown History hydrochlorothiazide 25 mg tablet mg 01/10/25 Unknown History losartan 50 mg tablet mg 01/10/25 Unknown History metformin 1,000 mg tablet mg 01/10/25 Unknown History pantoprazole 20 mg tablet,delayed mg PO 01/10/25 Unknown History release propranolol 80 mg tablet mg 01/10/25 Unknown History Allergies Allergy/AdvReac Type Severity Reaction Status Date / Time lisinopril Allergy Swelling Verified 01/10/25 22:45 of Lip/Tongue/Throat PMFSH Past Medical History Medical History Hyperlipidemia Diabetes mellitus Hypertension Surgical History Surgical History H/O oophorectomy Hx of appendectomy Social History Social History (Updated 01/11/25 @ 18:46 by Regina Amador MD) Smoking status: Former smoker Occupation/Education: occupation Additional occupation/education comments: Employed Exam Narrative: GENERAL: Well-appearing, well-nourished, and in no acute distress. HEAD: Normocephalic, atraumatic. EYES: Non injected, non icteric ENT: Nares clear, no rhinorrhea or epistaxis. Gross auditory acuity intact. NECK: Supple. No meningismus. CHEST: Speaking in full sentences. No respiratory distress. Non labored. HEART: Regular rate and rhythm. . ABDOMEN: Soft, nondistended. No rigidity or guarding. Not peritoneal. BACK: Mild tenderness to palpation along left lateral/posterior back but without overlying ecchymosis, subcutaneous emphysema, obvious bony deformity. EXTREMITIES: Normal range of motion. No lower extremity edema. SKIN: Warm, dry, no rash. No abrasions/lacerations/ecchymosis. NEURO: No focal deficits. Alert and oriented. Answering questions. Following commands. Normal speech without aphasia or dysarthria. PSYCH: Normal mood and affect. Course Vital Signs Vital signs: Vital Signs Temperature 97.9 F 01/10/25 22:46 Pulse Rate 82 01/10/25 22:46 Respiratory Rate 16 01/10/25 22:46 Blood Pressure 148/72 H 01/10/25 22:46 Pulse Oximetry 96 01/10/25 22:46 Oxygen Delivery Room Air 01/10/25 22:46 Temperature 97.5 F L 01/11/25 00:25 Pulse Rate 79 01/11/25 03:00 Respiratory Rate 16 01/11/25 03:00 Blood Pressure 156/87 H 01/11/25 03:00 Pulse Oximetry 95 01/11/25 03:00 Oxygen Delivery Room Air 01/10/25 22:46 MDM - Fall MDM Narrative Medical decision making narrative: Patient presents after an accidental fall. She had her foot above the sink it got stuck and she subsequently fell striking her body in the process. Complaining of pain at hip and left side/back. In the emergency department she is afebrile with vital signs that show mild hypertension. Patient given analgesic medication. Imaging negative for acute process. We discussed the importance of aggressive multimodal pain regimen strategy (prescriptions provided) to allow balance of both rest but maintaining staying active moving so as to reduce the chance of becoming more sore and achy. We also discussed the expected self-limiting time course and that some injuries can present in a delayed fashion and to follow-up with PCP verses return to the emergency department if not improving. She verifies understanding. She is requesting a work note and this is provided. Imaging Data Radiologist's impression: Impressions Head CT 01/10/25 23:28 Impression: No acute intracranial hemorrhage or suspicious mass effect. Hip/Pelvis X-Ray 01/10/25 23:35 IMPRESSION: Degenerative disease without acute fracture or dislocation Ribs w/Chest X-Ray 01/10/25 23:36 IMPRESSION: No acute displaced fracture. The lungs are clear Discharge Plan Discharge Clinical Impression: Degenerative joint disease (DJD) of hip, Fall Acute left-sided back pain Qualifiers: Back pain location: back pain in unspecified location Qualified Code(s): M54.9 - Dorsalgia, unspecified Patient Disposition: Home Condition: Stable Instructions: Antibiotic Form, Fall Prevention (ED), Hip Contusion (ED), Rib Contusion (ED) Additional Instructions: As we discussed, the goal is multimodal pain management to help you balance some rest with staying active and moving to prevent you from becoming more sore and achy. Acetaminophen/Tylenol (maximum 4000 mg per day) is safe to take with NSAIDs (ibuprofen/Motrin) for pain relief. There is also muscle relaxer and topical approach prescribed. Follow-up with primary care physician, especially if not improving in the next 5 days. Return to the emergency department with new or worsening symptoms. Patient Language: Azeri Prescriptions: New lidocaine 4 % adhesive patch,medicated 1 patch topical DAILY PRN (Reason: pain) Qty: 5 0RF ibuprofen 600 mg tablet 600 mg PO TID PRN (Reason: pain) Qty: 30 0RF acetaminophen 500 mg capsule 1,000 mg PO Q6H PRN (Reason: pain) Qty: 30 0RF methocarbamol 750 mg tablet 750 mg PO HS Qty: 7 0RF No Action atorvastatin 80 mg tablet cetirizine 10 mg tablet citalopram 20 mg tablet losartan 50 mg tablet propranolol 80 mg tablet pantoprazole 20 mg tablet,delayed release (DR/EC) PO metformin 1,000 mg tablet hydrochlorothiazide 25 mg tablet Follow-up/Referrals: [facility], [Primary Care Provider] - Stand Alone Forms: Work/School Release IP Time of Disposition: 03:35
--- OUTSIDE RECORDS SUMMARY | 2025-01-11 03:26 | XMS_ITS | Clinical Summary ---
Author Organization [facility] Address [address] [facility] [facility] [place] [address] Care Team Providers Care Underwriting Support Manager Name Role Phone [address] Primary Care Prov ider Source Comments [facility],non-owned Affiliates and Associated Physician Practices is amultiple site organization consisting of ambulatory clinics and hospital sitesin [place], [place], [place] and [place]. This disclosure is being madepursuant to the Care Everywhere program and may not contain all information available regarding this patient. Last updated 18.[facility] Allergies Active Allergy Reactions Criticality Noted Date [...] on file Legal Sex Female 12:01 PM CLINICAL ASSESSMENT MANAGER Gender Identity Not on file Sexual Orientation Not on file Last Filed Vital Signs Vital Sign Reading Time Taken Comments Blood Pressure 114/72 08/06/2016 2:01 PM CLINICAL ASSESSMENT MANAGER Pulse - - Temperature - - Respiratory Rate - - Oxygen Saturation - - Inhaled Oxygen Concentration - - Weight 84.1 kg (185 lb 6.5 oz) 08/06/2016 2:01 P M CLINICAL ASSESSMENT MANAGER Height 169 cm (5' 6.54) 08/06/2016 2:01 PM CLINICAL ASSESSMENT MANAGER Body Mass Index 29.45 08/06/2016 2:01 PM CLINICAL ASSESSMENT MANAGER Plan of Treatment Health Maintenance Due Date [...] patient's age to complete this topic [employer] Address: [id number] [place] [address] Care Teams Underwriting Support Manager Relationship Specialty Start Date End Date [facility] [address] [facility], [place] [address] PCP - General Family Medicine 08/06/16
--- OUTSIDE RECORDS SUMMARY | 2025-01-11 03:27 | XMS_ITS | Clinical Summary ---
Author Organization [facility] Address [facility] [place] [address] Care Team Providers Care Tongue And Groove Machine Operator Name Role Phone Jones Villagomez MD Primary Care Provider [phone] Allergies Active Allergy Reactions Criticality Noted Date [...] problems Immunizations Immunization Administration Dates Next Due [facility] ([employer]) COVID-19 AD26 VACCINE 0.5 ML IM SUSP [...] CDT Gender Identity Female 06/29/2024 7:44 AM BUSINESS BROKER Sexual Orientation Not on file Last Filed Vital Signs Vital Sign Reading Time Taken Comments Blood Pressure 134/85 06/30/2024 9:01 AM BUSINESS BROKER Pulse 72 06/30/2024 9:01 AM BUSINESS BROKER Temperature 36.9 C (98.4 F) 06/30/2024 9:01 AM BUSINESS BROKER Respiratory Rate 18 05/05/2023 8:01 AM BUSINESS BROKER Oxygen Saturation 97% 10/20/2023 3:32 PM CDT Inhaled Oxygen Concentration - - Weight 78.8 kg (173 lb 12.8 oz) 06/30/2024 9:01 AM BUSINESS BROKER Height 167.6 cm (5' 6) 07/09/2023 3:16 PM BUSINESS BROKER Body Mass Index 28.05 07/09/2023 3:16 PM BUSINESS BROKER Plan of Treatment Health Maintenance Due Date [...] Zoster Vaccines Completed 08/21/2020, 05/18/2020 PHQ-2 (Physician [place]) Completed 06/30/2024 Meningococcal B Vaccine Aged Out No l onger eligible based on patient's age to complete this topic Meningococcal Vaccine Aged Out No mariana singh eligible based on patient's age to complete this topic RSV Immunizations Under 20 Months Aged Out No longer eligible b ased on patient's age to complete this topic Medical Devices Implanted Type Area Diesel Technician Mechanic Device Identifier Shelf Expiration Date Model / Serial / Lot 4 Hole Locking Distal Fibula Plate, Right Implanted:Qty: 1 on 03/28/2023 by Addy Vargas MD at [facility] Plate Right: Ankle [employer] [id number] / / [id number] 2.7mm Locking Screw Implanted:Qty: 1 on 03/28/2023 by Addy Vargas MD at [facility] Screw Right: Ankle [employer] AR-8827CL- 12 / / 2.7mm Locking Screw Implanted:Qty: 1 on 03/28/2023 by Addy Vargas MD at [facility] Screw Right: Ankle [employer] 8827CL-10 / / Screw Bone 3.5mm 14mm Low Profile - [id number] Implanted:Qty: 1 on 03/28/2023 by Addy Vargas MD at [facility] Screw Right: Ankle [employer] [id number] AR-8835-14 / / Screw Bone 3.5mm 16mm Low Profile - [id number] Implanted:Qty: 1 on 03/28/2023 by Addy Vargas MD at [facility] Screw Right: Ankle [employer] [id number] AR-8835-16 / / Screw Arthrex Cortical 3.5 X 18 Mm - [id number] Implanted:Qty: 1 on 03/28/2023 by Addy Vargas MD at [facility] Screw Right: Ankle [employer] [id number] AR-8835-18 / / 4mm Cannulated Screw, Long Thread Implanted:Qty: 1 on 03/28/2023 by Addy Vargas MD at [facility] Screw Right: Ankle [employer] [id number] AR-8840CL- 40 / / 2.7mm Locking Screw Implanted:Qty: 1 on 03/28/2023 by Addy Vargas MD at [facility] Right: Ankle [employer] AR-8827CL- 14 / / Procedures Procedure Name Priority Date/Time Associated Diagnosis Comments COLONOSCOPY Routine 04/16/2019 8:00 AM BUSINESS BROKER from Last 3 Months or Most Recently Relevant to Health Maintenance Insurance [facility] [place] [id number] [facility] Care Teams Tongue And Groove Machine Operator Relationship Specialty Start Date End Date Jones Villagomez MD [address] [facility] [address] [place] [address] PCP - General FAMILY PRACTICE 04/14/19
--- OUTSIDE RECORDS SUMMARY | 2025-01-11 03:27 | XMS_ITS | Encounter Summary ---
Author Organization [facility] Address [address] [place] [address] Care Team Providers Care Security Door Installer Name Role Phone Jones Villagomez MD Primary Care Provider [phone] Encounter Details Date Type Department Care Team (Late st Contact Info) Description 03/08/2020 Prep for Procedure [facility] Pre-Admission Testing [address] [place], [place] [id number] Robin Valderrama MD [address] [place], [place] [id number] Social History Tobacco Use Types Packs/Day Years [...] CDT Gender Identity Female 06/29/2024 7:44 AM INSULATOR TESTER Sexual Orientation Not on file COVID-19 Exposure [...] DETECTED NOT DETECTED 03/16/2020 9:50 AM CDT [facility] Comment: A Not Detected (negative) test [...] providers and patients using the following websites: https://www.[employer].Cooleaf/home/Covid-19/HCP/[facility]/fact- sheet.html https://www.[employer]oleaf/home/Covid-19/Patients/ Quest[facility]D/fact-sheet.html This test has been authorized by the FDA under an Emergency Use Authorization (EUA) for use by authorized laboratories. Due to the current public health emergency, [facility] is receiving a high volume of samples [...] about COVID-19 can be found at the [facility] website: www.[employer].Cooleaf/Covid19. Test performed at [facility] [address] [place] [address] Director: TIARA BARBOSA DO,MPH FIRST TEST YES 03/14/2020 11:24 AM CDT [facility] EMPLOYED IN HEALTHCARE NO 03/14/2020 11:24 AM CDT [facility] SYMPTOMATIC DEFINED BY CDC NO 03/14/2020 11:24 AM CDT [facility] DATE OF SYMPTOM ONSET UNKNOWN 03/14/2020 12:32 PM CDT [facility] HOSPITALIZATION STATUS NO 03/14/2020 11:24 AM CDT [facility] PATIENT IN ICU NO 03/14/2020 11:24 AM CDT [facility] RESIDENT OF [facility] NO 03/14/2020 11:24 AM CDT [facility] NOT 03/14/2020 11:24 AM CDT [facility] PATIENT'S RACE WHITE OR 03/14/2020 11:24 AM CDT [facility] ETHNICITY NONHISPANIC 03/14/2020 11:24 AM CDT [facility] SOURCE (QST) NASOPHARYNGEAL SWAB 03/14/2020 11:24 AM CDT [facility] NASOPHARYNGEAL SWAB / Unknown 03/14/2020 8:38 AM CDT us Robin Valderrama MD MICROBIOLOGY - GENERAL ORDERABL ES Final Result [facility] [address] [place] [address], [facility] [address] [place] [address], documented in this encounter Visit Diagnoses Diagnosis Preop examination- Primary Preoperative examination, unspecified documented in this encounter Additional Health Concerns Infection Onset Date Last Indicated Resolved Time COVID-19 Rule Out 03/14/2020 03/14/2020 03/16/2020 9:51 AM CDT documented as of this encounter Care Teams Security Door Installer Relationship Specialty Start Date End Date Jones Villagomez MD [address] [facility] [address] [place] [address] PCP - General FAMILY PRACTICE 04/14/19 documented as of this encounter
--- OUTSIDE RECORDS SUMMARY | 2025-01-11 03:28 | XMS_ITS | Continuity of Care Document ---
Author Name [facility] Organization [facility] Care Team Providers Care Powder Worker Tnt Name Role Phone [facility] Unavailable Unavailable Problems Combined list of problems from Department of Defense and Veterans Affairs facilities. It does not include entries that were removed or entered in error. Problem Status Onset Date Problem Type Date of Resolution Comments Source Skin lesion Active 025 Diagnosis 6130C-A f-C-375 [facility] Type 2 diabetes mellitus without complications Active 016 Condition DoD Type 2 diabetes mellitus without complication Active 016 Condition 6130C-A f-C-375 [facility] LATERAL EPICONDYLITIS [...] fluid intake.- Case discussed with Dr. Stauffer. [facility] Intervention And Counseling On Cessation Of Tobacco Use Active Condition Patient was inf ormed of the dangers of smoking (COPD, cancer (lungs, bladder, throat, mouth) and the effect on her exercise tolerance. She was encouraged to quit as soon as possible. We also discussed her alcohol use and its potential effect on her trying to lose weight. [facility] NORMAL ROUTINE HISTORY AND PHYSICAL ADULT (18-65) [...] books) and will look into weight watchers. [facility] TEMPOROMANDIBULAR JOINT-PAIN DYSFUNCTION SYNDROME Active Condition Improving. [...] of tobacco cessationInterested in Chantix, referred to [facility] DoD visit for: screening exam malignant neoplasm breast Active Condition [facility] Patient Counseling: Active Condition Patient informed that [...] the gym that is located at the [employer] facility she works at. Patient was told [...] and fluids recommended. Pt to follow-up with [facility] prn. DoD visit for: administrative purpose Inactive Condition meds refill for carroll DoD CHRONIC DIARRHEA OF UNKNOWN ORIGIN Inactive Condition [...] pay for it. Patient was referred to [facility]. DoD FOLLICULITIS Active Condition DoD Dressing [...] DoD ESSENTIAL HYPERTENSION Active Condition Will monitor ho oh BP for the next month-3 and will bring in cuff at next visit. DoD Abnormal uterine bleeding Active Condition 6130C-A -C-[facility] Acquired right hallux valgus Active Condition 6130C-A -C375 [facility] Allergic rhinitis Active Condition 6130 C-A -C-375 [facility] Anxiety disorder1 Active Condition Ou tside Source Comment: No SI/HI. Pt. notes great improvement in symptoms on current med./dose. 6130C-A 375 [facility] Bacterial vaginosis Active Condition 61 30C-A C375 [facility] Benign essential hypertension Active Condition 6130C-A -C375 [facility] Carpal tunnel syndrome2 Active Condition [...] assess PNS before orthopedic surgery referral. 6130C-A -C [facility] Cigarette smoker3 Active Condition Ou tside Source Comment: Discussed with pt need to quit smoking. She wants to quit. Doesn 't want to take any medication, has already weaned herself down to 1/2 ppd. 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 6130C-A f-C-375 [facility] Cyst of left ovary Active Condition 613 0C-A -C-375 [facility] Cystitis Active Condition 6130C-A f-C-375 [facility]- [facility] Diabetes mellitus Active Condition 6130 C-A -C-375 [facility] Disorder of menstruation Active Condition 6130C-A -C-375 [facility] Dysmenorrhea Active Condition 6130C-A -C-375 [facility] Esophageal reflux finding Active Condition 6130C-A -C-375 [facility] Esophagitis Active Condition 6130C-A f-C-375 [facility] Essential hypertension4 Active Condition Outside Source Comment: Will monitor home BP for the next month-3 and will bring in cuff at next visit. 6130C-A -C-375 [facility] External hemorrhoids Active Condition 6130C-A -C-375 [facility] Fatigue Active Condition 6130C-A -C-375 [facility] Folliculitis Active Condition 6130C-A -C-375 [facility] Hyperlipidemia5 Active Condition Outs rohini Source [...] and to decrease carbs and fat. 6130C-A C-375 [facility] Lateral epicondylitis Active Condition 6130C-A -C-375 [facility] Metabolic syndrome X Active Condition 6130C-A -C-375 [facility] Migraine Active Condition 6130C-A -C-375 [facility] Nicotine dependence6 Active Condition Outside Source Comment: \ndiscussed cessation options, failed wellbutrin, \nStressed importance of tobacco cessation\Michael pike in Chantix, referred to [facility] 6130C-A -C-375 [facility] Perianal abscess7 Active Condition Ou tside Source Comment: pt has skin irritation due to tape, wound with good granulation tissue, no drainage. Deferred repeat packing today and will leave open to give skin time to heal from tape. Fu tomorrow to see if repeat packing needed (quite possibly will not need).\r\nseen 6130C-A -C-375 [facility] Sinus headache Active Condition 6130[facility]A f--[facility] Somatic dysfunction of thoracic region8 Active Condition Outside Source Comment: pain dec from 10 to [address] [place], [place] [id number] [facility] Somatic dysfunction of upper limb9 Active Condition Outside [facility] e Comment: Lesions with only very minimal improvement with counterstrain and stills technique. \r\nDr Richie came in, saw pt and provided some relief with deep needle and electrical stim (see her note for more details).\r\nPt is to f/u in accupuncture clinic for further tx. [facility]-A -C-375 [facility] Temporomandibular eyjoi-lgmj-qnpghynz ion qstodumh99 Active Condition Outside [facility] e Comment: Improving. Patient to see dentist next week. Given improvement of symptoms, likely in resolution. [address] [place] [address] [facility] Tobacco user11 Active Condition Outsi de Source Comment: Patient reporting only 1/2 PPD. Patient want Chantex but doesn 't want to pay for it. Patient was referred to [facility]. [facility]-A --375 [facility] Medications Combined list of outpatient medications from [...] 90 tab(s), 3 total refill(s ), [facility], Pharmacy : [facility] Oral (given by mouth) Discont inued 07/18/2023 3 2023 90.0 6130C-A f-C-375 [facility] amLODIPine 5 mg oral tablet amLODIPi ne [...] 3 total refill(s ), Acute, Pharmacy : [facility] Oral (given by mouth) Discont inued 05/27/2023 3 2022 90.0 6130C-A f-C-375 [facility] aspirin 81 mg oral delayed release tablet aspirin 81 mg oral delayed release tablet Start Date: 08/07/20 Stop Date: 02/26/23 Status: Disconti vidal Repeat number: 1 Discont inued 02/26/20232022 No Facilit y Access aspirin 81 mg oral delayed release tablet 1 tab(s), Oral, Daily, # 90 tab(s), 2 total refill(s ), [facility], Pharmacy : [facility] Oral (given by mouth) Discont inued 05/28/2024 4 2023 90.0 6130CA f-C-375 [facility] aspirin EC 81 mg tablet See Instruct ions, # 90 EA, 1 total refill(s ), Acute Discont inued 02/26/2023 3 2022 90.0 Ambulat ory Pharmac y atorvastati n 40 mg oral tablet 1 tab(s), Oral, Daily, X 90 days, # 90 tab(s), 3 total refill(s ), Acute, Pharmacy : [facility] Oral (given by mouth) Discont inued 05/27/2023 3 2022 90.0 6130C-A f-C-375 [facility] atorvastati n 40 mg oral tablet atorvast atin 40 mg oral tablet Start Date: 08/07/20 Stop Date: 02/26/23 Status: Keenan drake Repeat number: 1 Discont inued 02/26/20232022 No Facilit y Access atorvastati n 40 mg oral tablet 1 tab(s), Oral, Daily, for choleste rol, # 90 tab(s), 3 total refill(s ), Maintena nme, Pharmacy : [facility] Oral (given by mouth) Discont inued 09/30/2023 3 2023 90.0 6130C-A f-C-375 [facility] atorvastati n 40 mg tablet See Instruct ions, # 90 EA, 1 total refill(s ), Acute Discont inued 02/26/2023 3 2022 90.0 Ambulat ory Pharmac y atorvastati n 80 mg oral tablet 1 tab(s), Oral, Daily, for choleste rol, # 90 tab(s), 3 total refill(s ), Maintena nme, Pharmacy : [facility] Oral (given by mouth) Discont inued 08/16/2023 4 2023 90.0 0055A-3 [facility] [facility] celeXA (BRAND) 20 MG ORALTAB May cause drowsine ss.Take or use exactly as directed .Obtain advice for OTCs. 02/22/2024 [id number] 3 [address] [place] [address] ([facility] CETIRIZINE (U/D) 10 MG ORAL TAB May cause drowsine ss.Obtai n advice for OTCs. 02/22/2024 [id number] 3 [address] [place] [address] ([facility]) cetirizine 10 mg oral tablet 1 tab(s), Oral, Daily, X 90 days, # 90 tab(s), 3 total refill(s ), Acute, 01/16/24 5:21:10 PM CDT, Pharmacy : [facility] Oral (given by mouth) Discont inued 01/16/2024 4 2023 90.0 6130C-A -C-375 [facility] cetirizine 10 mg oral tablet 1 tab(s), Oral, Daily, X 90 days, # 90 tab(s), 3 total refill(s ), Acute, 01/10/25 5:21:00 PM CDT, Pharmacy : [facility] Oral (given by mouth) Complet ed 01/10/2025 5 2024 90.0 6130C-A -C-375 [facility] cetirizine 10 mg oral tablet cetirizi [...] Soft Stop Ordered 2023 6130C-A -C-375 [facility] cholecalcif susan 25 mcg (1000 intl [...] # 90 tab(s), 3 total refill(s ), [facility], Pharmacy : [facility] Oral (given by mouth) Discont inued 01/16/2024 4 2023 90.0 6130C-A f-C-375 [facility] citalopram 20 mg oral tablet 1.5 tab(s), Oral, Daily, Total of 30mg once daily., # 135 tab(s), 3 total refill(s ), [facility], Pharmacy : [facility] Oral (given by mouth) Ordered 5 2023 135.0 6130C-A f-C-375 [facility] citalopram 20 mg tablet See dose instruct [...] total refill(s ), Maintena nce, Pharmacy : [facility] Nostri l-Both (into the nose) Discont inued 09/13/2023 4 2023 16.0 6130C-A f-C-375 [facility] Flonase Allergy Relief 50 mcg/inh nasal spray 2 spray(s) , Nostril- Both, Daily, # 3 EA, 3 total refill(s ), Maintena nce, Pharmacy : [facility] Nostri l-Both (into the nose) Discont inued 05/28/2024 4 2023 3.0 6130C-A f-C-375 [facility] Flonase Allergy Relief 50 mcg/inh nasal spray 2 spray(s) , Nostril- Both, Daily, # 3 EA, 3 total refill(s ), Maintena nce, Pharmacy : [facility] Nostri l-Both (into the nose) Ordered 5 2023 3.0 6130C-A f-C-375 [facility] fluticasone 50 mcg/inh nasal spray 100 mcg, Nostril- Both, Daily, # 16 g, 11 total refill(s ), Maintena nce, Pharmacy : [facility] Nostri l-Both (into the nose) Cancele d 09/30/20232023 16.0 6130C-A f-C-375 [facility] fluticasone 50 mcg/inh nasal spray 50 mcg, Nostril- Both, Daily, # 16 g, 3 total refill(s ), Maintena nce, Pharmacy : [facility] Nostri l-Both (into the nose) Discont [...] or use exactly as directed . 05/26/2024 [id number] 3 2023 90 [employer] [place] ([facility]) hydroCHLORO thiazide 25 mg oral tablet 1 tab(s), Oral, Daily, X 90 days, # 90 tab(s), 3 total refill(s ), Acute, Pharmacy : [facility] Oral (given by mouth) Discont inued 05/27/2023 3 2022 90.0 6130C-A f-C-375 [facility] hydroCHLORO thiazide 25 mg oral tablet 1 tab(s), Oral, Daily, for blood pressure , # 90 tab(s), 3 total refill(s ), [facility], Pharmacy : [facility] Oral (given by mouth) Ordered 5 2023 90.0 6130C-A f-C-375 [facility] hydroCHLORO thiazide 25 mg oral tablet 1 tab(s), Oral, Daily, for blood pressure , # 90 tab(s), 3 total refill(s ), [facility], Pharmacy : [facility] Oral (given by mouth) Discont inued [...] # 90 tab(s), 3 total refill(s ), [facility], Pharmacy : [facility] Oral (given by mouth) Discont inued 05/28/2024 4 2023 90.0 6130C-A f-C-375 [facility] Lipitor 80 mg oral tablet 1 tab(s), Oral, Daily, for choleste rol, # 90 tab(s), 3 total refill(s ), [facility], Pharmacy : [facility] Oral (given by mouth) Ordered 5 2023 90.0 6130C-A f-C-375 [facility] lisinopril Oral, Daily, 0 total refill(s ), [facility] Oral (given by mouth) Discont inued 01/16/20242023 0055C-3 [facility] losartan 50 mg oral tablet 1 tab(s), Oral, Daily, for blood pressure , # 90 tab(s), 3 total refill(s ), [facility], Pharmacy : [facility] Oral (given by mouth) Ordered 5 2023 90.0 6130C-A f-C-375 [facility] losartan 50 mg oral tablet 1 tab(s), Oral, Daily, for blood pressure , # 90 tab(s), 3 total refill(s ), [facility] Oral (given by mouth) Discont inued 05/28/2024 4 2023 90.0 6130C-A f-C-375 [facility] metFORMIN 1000 mg oral tablet 1 tab(s), Oral, BID, for diabetes , # 180 tab(s), 3 total refill(s ), Maintena nce, [facility] due for DM follow up in March 2023, Pharmacy : [facility] Oral (given by mouth) Discont inued 05/27/2023 3 2022 180.0 6130C-A -C-375 [facility] metFORMIN 1000 mg oral tablet 1 tab(s), Oral, BID, for diabetes , # 180 tab(s), 1 total refill(s ), [facility] due for DM follow up in March 2023, Pharmacy : [facility] Oral (given by mouth) Discont inued 02/26/2023 3 2022 180.0 6130C-A -C-375 [facility] metFORMIN 1000 mg oral tablet 1 tab(s), Oral, BID, for diabetes , # 180 tab(s), 3 total refill(s ), Maintena nce, Pharmacy : [facility] Oral (given by mouth) Ordered 5 2023 180.0 61C-A -C-375 [facility] metFORMIN 1000 mg oral tablet 1 tab(s), Oral, BID, for diabetes , # 180 tab(s), 3 total refill(s ), Maintena nce, Pharmacy : [facility] Oral (given by mouth) Discont inued 05/28/2024 4 2023 180.0 6130C-A -C-375 [facility] Metformin Hydrochlori de Tablet Extended Release 1,000 mg Oral Do not drink alcohol. Take with food/mil k.Take or use exactly as directed .Obtain advice for OTCs.Mary Beth ck with your doctor before becoming . 05/26/2024 [id number] 3 2023 180 [facility] [place] naproxen 500 mg oral [...] # 90 tab(s), 3 total refill(s ), [facility], Pharmacy : [facility] Oral (given by mouth) Discont inued 01/16/2024 4 2023 90.0 6130C-A f-C-375 [facility] pantoprazol e 20 mg oral delayed release tablet 1 tab(s), Oral, Daily, # 90 tab(s), 3 total refill(s ), [facility], Pharmacy : [facility] Oral (given by mouth) Ordered 01/10/2025 5 2023 90.0 6130C-A f-C-375 [facility] pantoprazol e 20 mg oral delayed [...] directed .May cause drowsine ss/dizzi ness. 02/22/2024 [id number] 3 2023 180 [employer] ([facility]) propranolol 80 mg oral tablet 1 tab(s), Oral, BID, X 90 days, # 180 tab(s), 3 total refill(s ), Acute, Pharmacy : [facility] Oral (given by mouth) Discont inued 01/16/2024 4 2023 180.0 6130C-A f-C-375 [facility] propranolol 80 mg oral tablet 1 tab(s), Oral, BID, X 90 days, # 180 tab(s), 3 total refill(s ), Acute, Pharmacy : [facility] Oral (given by mouth) Complet ed [...] Swelling of oral cavity structure active 4 [facility] lisinopril Propensity to adverse reactions to substance Swelling of oral cavity structure Active 4 Unknown Organizati on Immunizations Combined list of available immunizations from the Department of Defense and Veterans Affairs facilities. Immunization Series Date Given Administered By Site Reaction Lot Number CVX Code Drug Power Supply Engineer Status Comments Source influenza, injectable, quadrivalent- pf 2020 [id number] GlaxoSmithKli ne complet ed influenza , injectabl e, quadrival ent-pf 03/29/21 Given Ambulat ory Pharmac y influenza, injectable, quadrivalent- pf 2020 zzLef t Arm [id number] 150 Gl[employer]oSmithK[employer] ne complet ed influenza , injectabl e, quadrival ent-pf 03/29/21 Given Ambulat ory Pharmac y Influenza, injectable, quadrivalent, preservative free 1 2020 Unknown, Provider [id number] [facility] ([facility]) complet ed Influenza , injectabl e, quadrival [...] recombinant 1 2020 Unknown, Provider [id number] [facility] ([facility]) complet ed zoster vaccine recombina nt DoD zoster vaccine, inactivated 2019 [id number] 187 [employer]SmithK[employer] ne complet ed zoster vaccine, inactivat ed 05/18/20 Given Ambulat ory Pharmac y zoster vaccine, inactivated 2019 zzRig ht Arm [id number] 187 Gl[employer]oSmithK[employer] ne complet ed zoster vaccine, inactivat ed 05/18/20 Given Ambulat ory Pharmac y zoster vaccine recombinant 1 2019 Unknown, Provider [id number] 187 [facility] ([facility]) complet ed zoster vaccine recombina nt DoD influenza virus vaccine, unspecified 2019 [id number] 88 [employer] complet ed influenza virus vaccine, unspecifi ed 03/31/20 Given Ambulat ory Pharmac y influenza virus vaccine, unspecified 2019 [id number] 88 [employer] complet ed influenza virus vaccine, unspecifi ed 03/31/20 Given Ambulat ory Pharmac y influenza, injectable, quadrivalent, preservative free 2019 ALUL, () Not Given influenza , injectabl e, quadrival ent, preservat dipti free DoD influenza virus vaccine, unspecified formulation 1 2019 Unknown, Provider [id number] 88 [employer] (SEQ) complet ed influenza virus vaccine, unspecifi ed formulati on DoD influenza, injectable, quadrivalent- pf 2019 DORINA CH 150 complet ed Result Comment: Route: Unknown Manufactu rer: OT (SEQ) 6130C-A f-C-375 [facility], injectable, quadrivalent- pf 2018 [id number] 150 [employer] complet ed influenza , injectabl e, quadrival ent-pf 04/11/19 Given Ambulat ory Pharmac y influenza, injectable, quadrivalent- pf 2018 zGeovannaef t Arm [id number] 150 [employer] complet ed influenza , injectabl e, quadrival ent-pf 04/11/19 Given Ambulat ory Pharmac y Influenza, injectable, quadrivalent, preservative free 22 2018 Unknown, Provider [id number] 150 [employer] (SEQ) complet ed Influenza [...] DoD Influenza, inj, MDCK, quadrivalent- pf 2016 [id number] [employer] complet ed Influenza , inj, MDCK, quadrival ent-pf 04/13/17 Given Ambulat ory Pharmac y Influenza, inj, MDCK, quadrivalent- pf 2016 zzRig ht Arm [id number] 171 [employer] complet ed Influenza , inj, MDCK, quadrival ent-pf 04/13/17 Given Ambulat ory Pharmac y Influenza, injectable, Madin Lizzette Canine Kidney, preservative free, quadrivalent 20 2016 Unknown, Provider [id number] 171 [employer] (SEQ) complet ed Influenza , injectabl e, [place] Canine Kidney, preservat dipti free, quadrival ent [...] dipti free DoD influenza, seasonal, injectable-pf 2014 [id number] CSL Behring complet ed influenza , seasonal, injectabl e-pf 03/08/15 Given Ambulat ory Pharmac y pneumococcal polysaccharid e, 23 valent 2014 [id number] 33 Merck & Company Inc complet ed pneumococ bev polysacch aride, 23 valent 03/08/15 Given Ambulat ory Pharmac y influenza, seasonal, injectable-pf 2014 zzLef t Arm [id number] 140 [employer]SL [employer]ring complet ed influenza , seasonal, injectabl e-pf 03/08/15 Given Ambulat ory Pharmac y pneumococcal polysaccharid e, 23 valent 2014 zzLef t Arm [id number] 33 Merck & Company Inc complet ed pneumococ bev polysacch aride, 23 valent 03/08/15 Given Ambulat ory Pharmac y pneumococcal polysaccharid e vaccine, 23 valent 1 2014 Unknown, Provider [id number] 33 Merck (MSD) complet ed pneumococ bev polysacch aride vaccine, 23 valent DoD Influenza, seasonal, injectable, preservative free 18 2014 Unknown, Provider [id number] 140 [facility] [employer] (CSL) complet ed Influenza , seasonal, injectabl e, preservat dipti free DoD hepatitis B adult vaccine 2014 [id number] 43 GlaxoSmithKli ne complet ed hepatitis B adult vaccine 06/19/14 Given Ambulat ory Pharmac y hepatitis B adult vaccine 2014 zMeghann t Arm [id number] 43 GlaxoSmithKli ne complet ed hepatitis B adult vaccine 06/19/14 Given Ambulat ory Pharmac y hepatitis B vaccine, adult dosage 3 2014 Unknown, Provider [id number] 43 SmithKline (SKB) complet ed hepatitis B vaccine, adult dosage DoD influenza, live, intranasal,qu adrivalent 2013 [id number] 149 Medimmune Inc comple t ed influenza , live, intranasa l,quadriv alent 04/09/14 Given Ambulat ory Pharmac y influenza, live, intranasal,qu adrivalent 2013 [id number] 149 [employer] Inc comple t ed influenza , live, intranasa l,quadriv alent 04/09/14 Given Ambulat ory Pharmac y influenza, live, intranasal, quadrivalent 17 2013 Unknown, Provider [id number] 149 MedImmune, Inc. (MED) complet ed influenza , live, intranasa l, quadrival ent DoD hepatitis B adult vaccine 2013 [id number] 43 Merck & Company Inc complet ed hepatitis B adult vaccine 01/08/14 Given Ambulat ory Pharmac y hepatitis B adult vaccine 2013 Meliza castaneda Arm [id number] 43 Merck & Company Inc complet ed hepatitis B adult vaccine 01/08/14 Given Ambulat ory Pharmac y hepatitis B vaccine, adult dosage 2 2013 Unknown, Provider [id number] 43 Merck (MSD) complet ed hepatitis B [...] dosage 1 2013 Unknown, Provider [id number] [place] ([facility]) complet ed hepatitis B vaccine, adult dosage DoD influenza, live, intranasal,qu adrivalent 2012 [id number] 149 Medimmune Inc comple t ed influenza , live, intranasa l,quadriv alent 04/09/13 Given Ambulat ory Pharmac y influenza, live, intranasal,qu adrivalent 2012 [id number] 149 Med[employer] Inc comple t ed influenza , live, intranasa l,quadriv alent 04/09/13 Given Ambulat ory Pharmac y influenza, live, intranasal, quadrivalent 16 2012 Unknown, Provider [id number] 149 [employer]. (MED) complet ed influenza , live, intranasa l, quadrival ent DoD tetanus, diphtheria, acellular pertu is 2012 [id number] 115 GlaxoSmithKli ne complet ed tetanus, diphtheri a, acellular pertussis 06/12/12 Given Ambulat ory Pharmac y tetanus, diphtheria, acellular pertu is 2012 zzLef t Arm [id number] [facility], diphtheri a, acellular pertussis 06/12/12 Given Ambulat ory Pharmac y tetanus toxoid, reduced diphtheria toxoid, and acellular pertu is vaccine, adsorbed 1 2012 Unknown, Provider [id number] 115 [facility] ([facility]) complet ed tetanus toxoid, reduced diphtheri a toxoid, and acellular pertussis vaccine, adsorbed DoD influenza, seasonal, injectable 2011 [id number] 141 Novartis Pharmaceutica ls complet ed influenza , seasonal, injectabl e 05/24/12 Given Ambulat ory Pharmac y influenza, seasonal, injectable 2011 [id number] 141 Nov[employer]is Pharm[employer] ls complet ed influenza , seasonal, injectabl e 05/24/12 Given Ambulat ory Pharmac y Influenza, seasonal, injectable 1 2011 Unknown, Provider [id number] 141 Novartis Pharmaceutica l Michelle. (NOV) complet ed Influenza , seasonal, injectabl e DoD influenza virus vaccine, live 2010 [id number] 111 Medimmune Inc comple t ed influenza virus vaccine, live 03/10/11 Given Ambulat ory Pharmac y influenza virus vaccine, live, attenuated, for intranasal use 14 2010 Unknown, Provider [id number] 111 MedImmune, Inc. (MED) complet ed influenza virus vaccine, live, attenuate d, for intranasa l use DoD influenza virus vaccine, live 2009 [id number] 111 Medimmune Inc comple t ed influenza virus vaccine, live 04/14/10 Given Ambulat ory Pharmac y influenza virus vaccine, live 2009 [id number] 111 [employer] Inc comple t ed influenza virus vaccine, live 04/14/10 Given Ambulat ory Pharmac y influenza virus vaccine, live, attenuated, for intranasal use 1 2009 Unknown, Provider [id number] 111 MedImmune, Inc. (MED) complet ed influenza virus vaccine, live, attenuate d, for intranasa l use DoD Novel influenza-H1N 1-09, injectable 2009 [id number] 1 127 Novartis Pharm[employer]ica ls complet ed Novel influenza -[id number], injectabl e 07/16/09 Given Ambulat ory Pharmac y Novel influenza-H1N 1-09, injectable 2009 zzLef t Arm [id number] 1 127 [employer]is [employer] complet ed Novel influenza -[id number], injectabl e 07/16/09 Given Ambulat ory Pharmac y Novel influenza-H1N 1-09, injectable 1 2009 Unknown, Provider [id number] 1 127 Novartis Pharmaceutica l Michelle. (NOV) complet ed Novel influenza -[id number], injectabl e DoD influenza virus vaccine, live 2008 [id number] 111 [employer] Inc complet ed influenza virus vaccine, live 04/17/09 Given Ambulat ory Pharmac y influenza virus vaccine, live 2008 [id number] 111 [employer] Inc complet ed influenza virus vaccine, live 04/17/09 Given Ambulat ory Pharmac y influenza virus vaccine, live, attenuated, for intranasal use 1 2008 Unknown, Provider [id number] P 111 MedImmune, Inc. (MED) complet ed [...] vaccine 1 2008 [id number] Sanofi Pasteur ([facility]) complet ed typhoid Vi capsular polysacch aride vaccine DoD influenza virus vaccine, live 2007 [id number] 111 [email or web address] [facility] t ed influenza virus vaccine, live 03/06/08 Given Ambulat ory Pharmac y influenza virus vaccine, live [id number] t ed influenza virus vaccine, live 03/06/08 Given Ambulat ory Pharmac y influenza virus vaccine, live, attenuated, for intranasal use 1 2007 [id number] 111 [employer] ([facility]) complet ed influenza virus vaccine, live, attenuate d, for intranasa l use DoD influenza virus vaccine, live 2006 [id number] 111 [employer] [place] t ed influenza virus vaccine, live 04/12/07 Given Ambulat ory Pharmac y influenza virus vaccine, live 2006 [id number] 111 [employer] [place] t ed influenza virus vaccine, live 04/12/07 Given Ambulat ory Pharmac y influenza virus vaccine, live, attenuated, for intranasal use 1 2006 [id number] 111 [employer] ([facility]) complet ed influenza virus vaccine, live, attenuate d, for intranasa l use DoD typhoid vaccine, inactivated 2006 [id number] 101 sanofi pasteur complet ed typhoid vaccine, inactivat ed 07/12/06 Given Ambulat ory Pharmac y typhoid vaccine, inactivated 2006 [id number] 101 sanofi pasteur complet ed typhoid vaccine, inactivat ed 07/12/06 Given Ambulat ory Pharmac y typhoid vaccine, parenteral, other than acetone-kille d, dried 1 2006 [id number] 41 Sanofi Pasteur ([facility]) complet ed typhoid vaccine, parentera l, other [...] DoD tetanus-dipht h toxoids (Td) adult/adol 2005 [id number] 09 sanofi pasteur complet ed tetanus-d iphth toxoids (Td) adult/ado l 11/17/05 Given Ambulat ory Pharmac y tetanus-dipht h toxoids (Td) adult/adol 2005 [id number] 09 sanofi pasteur complet ed tetanus-d iphth toxoids (Td) adult/ado l 11/17/05 Given Ambulat ory Pharmac y tetanus and diphtheria toxoids, adsorbed, preservative free, for adult use (2 Lf of tetanus toxoid and 2 Lf of diphtheria toxoid) 1 2005 [id number] 09 Sanofi Pasteur ([facility]) complet ed tetanus and diphtheri a toxoids, adsorbed, preservat dipti free, for adult use (2 Lf of tetanus toxoid and 2 Lf of diphtheri a toxoid) DoD influenza virus vaccine,split 2004 [id number] 15 sanofi pasteur complet ed influenza virus vaccine,s plit 04/27/05 Given Ambulat ory Pharmac y influenza virus vaccine,split 2004 [id number] 15 sanofi pasteur complet ed influenza virus vaccine,s plit 04/27/05 Given Ambulat ory Pharmac y influenza virus vaccine, split virus (incl. purified surface antigen)-reti red CODE 1 2004 [id number] 15 Sanofi Pasteur ([facility]) complet ed influenza [...] dried DoD influenza virus vaccine, live 2004 [id number] 111 [employer] comple t ed influenza virus vaccine, live 06/16/04 Given Ambulat ory Pharmac y influenza virus vaccine, live 2004 [id number] 111 [employer] comple t ed influenza virus vaccine, live 06/16/04 Given Ambulat ory Pharmac y influenza virus vaccine, live, attenuated, for intranasal use 0 2004 [id number] 111 [employer]. (MED) complet ed influenza virus vaccine, live, attenuate d, for intranasa l use DoD influenza virus vaccine, whole virus 2002 [id number] 16 Nov[employer]is Pharm[employer] ls complet ed influenza virus vaccine, whole virus 04/02/03 Given Ambulat ory Pharmac y influenza virus vaccine, whole virus 2002 [id number] 16 [employer]is Pharm[employer] ls complet ed influenza virus vaccine, whole virus 04/02/03 Given Ambulat ory Pharmac y influenza virus vaccine, whole virus 0 2002 [id number] 16 [employer] (PWJ) complet ed [...] dried DoD tuberculin purified protein derivative 2001 [id number] 96 sanofi pasteur complet ed tuberculi n purified protein derivativ e 05/22/02 Given Ambulat ory Pharmac y tuberculin purified protein derivative 2001 zzLef t Arm [id number] 96 sanofi pasteur complet ed Patient Tolerance : Negative Ambulat ory Pharmac y tuberculin skin test; purified protein derivative solution, intradermal 1 2001 Unknown, Provider [id number] 96 Sanofi Pasteur ([facility]) complet ed tuberculi n skin test; purified protein derivativ e solution, intraderm al DoD influenza virus vaccine, whole virus 2001 [id number] 16 sanofi pasteur complet ed influenza virus vaccine, whole virus 03/26/02 Given Ambulat ory Pharmac y influenza virus vaccine, whole virus 2001 [id number] 16 sanofi pasteur complet ed influenza virus vaccine, whole virus 03/26/02 Given Ambulat ory Pharmac y influenza virus vaccine, whole virus 0 2001 [id number] 16 Sanofi Pasteur ([facility]) complet ed influenza virus vaccine, whole virus DoD influenza virus vaccine, whole virus 2000 [id number] 16 sanofi pasteur complet ed influenza virus vaccine, whole virus 05/12/01 Given Ambulat ory Pharmac y influenza virus vaccine, whole virus 2000 [id number] 16 sanofi pasteur complet ed influenza virus vaccine, whole virus 05/12/01 Given Ambulat ory Pharmac y influenza virus vaccine, whole virus 0 2000 [id number] 16 Sanofi Pasteur ([facility]) complet ed influenza virus vaccine, whole virus DoD tuberculin purified protein derivative 2000 [id number] 96 sanofi pasteur complet ed tuberculi n purified protein derivativ e 04/11/01 Given Ambulat ory Pharmac y tuberculin purified protein derivative 2000 zzLef t Arm [id number] 96 sanofi pasteur complet ed Patient Tolerance : Negative Ambulat ory Pharmac y tuberculin skin test; purified protein derivative solution, intradermal 1 2000 Unknown, Provider [id number] 96 Sanofi Pasteur ([facility]) complet ed tuberculi n skin test; purified protein derivativ e solution, intraderm al DoD tuberculin purified protein derivative 1999 [id number] 96 [facility] complet ed tuberculi n purified protein derivativ e 05/08/00 Given Ambulat ory Pharmac y influenza virus vaccine, whole virus 1999 [id number] 16 [employer] complet ed influenza virus vaccine, whole virus 05/08/00 Given Ambulat ory Pharmac y tuberculin purified protein derivative 1999 zzLef t Arm [id number] 96 [facility] complet ed Patient Tolerance : Negative Ambulat ory Pharmac y influenza virus vaccine, whole virus 1999 [id number] 16 [facility] complet ed influenza virus vaccine, whole virus 05/08/00 Given Ambulat ory Pharmac y influenza virus vaccine, whole virus 0 1999 [id number] [facility] virus vaccine, whole virus DoD tuberculin skin test; purified protein derivative solution, intradermal 1 1999 Unknown, Provider [id number] 96 [facility] ([facility]) complet ed tuberculi n skin test; purified protein derivativ e solution, intraderm al DoD typhoid, parenteral, AKD 1999 [id number] 53 [facility] complet ed typhoid, parentera l, AKD 07/21/99 Given Ambulat ory Pharmac y influenza virus vaccine, whole virus 1999 [id number] 16 [facility] complet ed influenza virus vaccine, whole virus 07/21/99 Given Ambulat ory Pharmac y typhoid, parenteral, AKD 1999 [id number] 53 [facility] complet ed typhoid, parentera l, AKD 07/21/99 Given Ambulat ory Pharmac y influenza virus vaccine, whole virus 1999 [id number] 16 [facility] complet ed influenza virus vaccine, whole virus 07/21/99 Given Ambulat ory Pharmac y influenza virus vaccine, whole virus 0 1999 [id number] 16 [facility] ([facility]) complet ed influenza virus vaccine, whole virus DoD typhoid vaccine, parenteral, acetone-kille d, dried ([place] ) 3 1999 [id number] 53 [facility] complet ed typhoid vaccine, parentera l, [...] tuberculin purified protein derivative 1996 CON 96 [facility] complet ed tuberculi n purified protein derivativ [...] Surgical Pathology Patient: Elizabeth Mcdonnell Specimen #: [id number] Patholog ist: Lilly Rowe MD, [facility], [facility], Accessio n: 5 [facility] DEPARTME NT OF PATHOLOG Y [address] [facility] [address] [facility]-[address] [place] [address] Surgical Patholog y Report Patient: Elizabeth Mcdonnell Specimen #: [id number] DOD ID:: [id number] [place] #: [id number] Taken: 5 15:12 /Age: [age] [...] should be pursued. Elect ronicall y Signed [facility]/07/05 Lilly Rowe MD, Gautam, USAF, Microsco pic [...] time : N/A. Total fixation time: N/A. 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 [address] Cytology Gynecolo gic Report Patient: Elizabeth Mcdonnell Specimen #: [id number] [facility] ID:: [id number] [place] #: [id number] Taken: 12/16/2023 15:56 /Age: 7 5 (Age: 57) Received : 4 11:02 Physicia n(s:): NICHOL TIMMONS Reporte d: 4 Specimen (s) Received Taken Rec Thin [...] Out Specimen # Interpre tation 05/24/20 20 [id number] Negative for Intraepi thlial Lesion or Malignan cy 12/19/19 17 [id number] NEGATIVE 03/18/20 12 [id number] NEGATIVE 09/21/19 11 [id number] NEGATIVE 03/09/20 09 [id number] NEGATIVE CPT Codes: A; 67632 The Pap test is a screenin g [...] and its performance characteris tics determined by [facility], [facility]. Vaginal source has not [...] or methodology contact Molecular Department at or [phone]. Unknown Organizat ion AP Specimen s HPV [...] the [place]. S. Food and Drug Administrat [employer]. This modified vaginal specimen HPV test is [...] process or methodology contact Molecular Department at [phone] or [phone]. Unknown Organizat ion AP Specimen s HPV [...] and its performance characteris tics determined by [facility], [facility]. Vaginal source has not been cleared or approved by the U. S. Food and Drug Administrat [employer]. This modified vaginal specimen HPV test is [...] process or methodology contact Molecular Department at [phone] [phone]. Unknown Organizat ion Hematolo gy Differenti al? [...] n, and other findings. Testing performed by [employer] riMeograph ce. 5600A-USA FSAM EPILAB Chemistr y ALT [...] 7.0 g/dL 6.4 - 8.3 08/28 N 375 MEDGRP-Sc wilma Chemistr y Albumin 4.00 g/dL 3.50 - 5.20 08/28 N 375 MEDGRP-Sc wilma Chemistr y Alk Phos 65 [...] L 0.0 - 0.7103 08/28 N MEDGRP-Sc iwlma Hematolo gy Eosinophil % Auto 4 % 0 - 5 08/28 N MEDGRP-Sc wilma Hematolo gy Lymph Absolute 1.4 x10^3/mc L 1.2 - 4.0103 08/28 N MEDGRP-Sc wilma Hematolo gy Sanders Absolute 0.4 x10^3/mc L 0.2 - 0.8103 08/28 N 0055A MEDGRP-Sc wilma Hematolo gy Lymphocyte % Auto [...] 240 mg/dL Very High: >/= 500 mg/dL MEDGRP-Ca wilma Chemistr y LDL/HDL 2 07/18 MEDGRP-Ca wilma Chemistr y LDL 100 mg/dL 100 - 130 07/18 N Interpretiv e Data: AGES 0-19: Desirable: < 110 mg/dL Borderline High: 110-129 mg/dL High: >/= 130 mg/dL ADULTS: Desirable: <100 mg/dL Near/above optimal: 100-130 mg/dL Borderline High: 131-159 mg/dL High: 160-189 mg/dL Very High: 190 mg/dL [facility] Chemistr y HDL Cholestero l 66 [...] 141 mmol/L 136 - 145 07/18 N MEDGRP-Ca wilma Chemistr y Potassium Lvl 3.6 mmol/L [...] Source Blood Pressure Manual Automatic 06/24/2024 19:52:00 9311Q-Xi-Q-375Th Medgrp-Bam BP Site Left arm 06/24/2024 19:52:00 6130C -Af-C-375Th Medgrp-Bam Mean Arterial Pressure, Calc 101 mm[Hg] 06/24/2024 19:52:00 9274H-Hj-N-3 75Th Medgrp-Bam Peripheral Pulse Rate 77 bpm 06/24/2024 19:52:00 3122W-Qd-P-375Th Medgrp-Bam Respiratory Rate 14 br/min 06/24/2024 19:52:00 3873B-Pa-P-375Th Medgrp-Bam Systolic Blood Pressure 140 mm[Hg] 06/24/2024 19:52:00 9788O-Bk-A-375Th Medgrp-Bam Diastolic Blood Pressure 81 mm[Hg] 06/24/2024 19:52:00 8784S-Eh-E-375Th Medgrp-Bam Systolic Blood Pressure 131 mm[Hg] 05/28/2024 21:22:00 2015L-Ha-B-375Th Medgrp-Bam Diastolic Blood Pressure 82 mm[Hg] 05/28/2024 21:22:00 6496G-Gx-D-375Th Medgrp-Bam Mean Arterial Pressure, Calc 98 mm[Hg] 05/28/2024 21:22:00 1059V-Qb-U-3 75Th Medgrp-Bam Blood Pressure Manual Automatic 05/28/2024 21:22:00 5709T-Ll-J-375Th Medgrp-Bam Peripheral Pulse Rate 84 bpm 05/28/2024 21:22:00 2427S-Mt-A-375Th Medgrp-Bam Peripheral Pulse Rate 83 bpm 01/16/2024 20:34:00 5099U-Yt-S-375Th Medgrp-Bam Systolic Blood Pressure 135 mm[Hg] 01/16/2024 20:34:00 5885C-Qo-L-375Th Medgrp-Bam Diastolic Blood Pressure 79 mm[Hg] 01/16/2024 20:34:00 4573F-Xy-K-375Th Medgrp-Bam Mean Arterial Pressure, Calc 98 mm[Hg] 01/16/2024 20:34:00 5928U-Bj-C-3 75Th Medgrp-Bam Respiratory Rate 16 br/min 01/16/2024 20:34:00 9386C-Lo-S-375Th Medgrp-Bam BP Site Left arm 01/16/2024 20:34:00 6130C -Af-C-375Th Medgrp-Bam Blood Pressure Manual Automatic 01/16/2024 20:34:00 0636C-Uk-X-375Th Medgrp-Bam Mean Arterial Pressure, Calc 90 mm[Hg] 12/16/2023 19:09:00 0055C-375th MEDGRP-Bam Systolic Blood Pressure 113 mm[Hg] 12/16/2023 19:09:00 0055C-375th MEDGRP-Bam Diastolic Blood Pressure 78 mm[Hg] 12/16/2023 19:09:00 0055C-375th MEDGRP-Bam Systolic Blood Pressure 132 mm[Hg] 07/18/2023 15:41:00 2797P-Oe-K-375Th Medgrp-Bam Diastolic Blood Pressure 85 mm[Hg] 07/18/2023 15:41:00 8425M-Th-C-375Th Medgrp-Bam Blood Pressure Manual Automatic 07/18/2023 15:41:00 7304E-Xf-U-375Th Medgrp-Bam BP Site Left arm 07/18/2023 15:41:00 6130C -Af-C-375Th Medgrp-Bam Temperature Oral 37.0 Betsy 07/18/2023 15:41:00 2162M-Ke-T-375Th Medgrp-Bam Mean Arterial Pressure, Calc 101 mm[Hg] 07/18/2023 15:41:00 0095L-Nb-O-3 75Th Medgrp-Bam Respiratory Rate 14 br/min 07/18/2023 15:41:00 0238I-Ch-M-375Th Medgrp-Bam Peripheral Pulse Rate 78 bpm 07/18/2023 15:41:00 2685S-Xe-E-375Th Medgrp-Bam Respiratory Rate 16 br/min 02/26/2023 14:07:00 4529Q-Ak-B-375Th Medgrp-Bam Blood Pressure Manual Automatic 02/26/2023 14:07:00 6207A-Ov-E-375Th Medgrp-Bam BP Site Left arm 02/26/2023 14:07:00 6130C -Af-C-375Th Medgrp-Bam Systolic Blood Pressure 124 mm[Hg] 02/26/2023 14:07:00 0775U-Nl-U-375Th Medgrp-Bam Diastolic Blood Pressure 78 mm[Hg] 02/26/2023 14:07:00 7877E-Ac-R-375Th Medgrp-Bam Mean Arterial Pressure, Calc 93 mm[Hg] 02/26/2023 14:07:00 3962I-Sn-C-3 75Th Medgrp-Bam Peripheral Pulse Rate 79 bpm 02/26/2023 14:07:00 4660D-Zo-P-375Th Medgrp-Bam Blood Pressure Manual Automatic 07/31/2023 14:08:00 5730M-Tk-H-375Th Medgrp-Bam Systolic Blood Pressure 113 mm[Hg] 07/31/2023 14:08:00 8534G-Ae-Q-375Th Medgrp-Bam Diastolic Blood Pressure 72 mm[Hg] 07/31/2023 14:08:00 9956U-Ad-I-375Th Medgrp-Bam Mean Arterial Pressure, Calc 86 mm[Hg] 07/31/2023 14:08:00 4584K-Oz-K-3 75Th Medgrp-Bam Peripheral Pulse Rate 81 bpm 07/31/2023 14:08:00 8389F-Au-Z-375Th Medgrp-Bam Respiratory Rate 16 br/min 07/31/2023 14:08:00 2959X-Py-W-375Th Medgrp-Bam BP Site Left arm 07/31/2023 14:08:00 [...] ADM Date DC Date Status Disposition Source [address] [place] [address] [place] [facility] [place] [facility] FAMRES Tm Blue) OUTPATIENT [id number] Cough/c ongesti on GOODEMOTE, ZAIRE L 09/26 Released w/o Limitations [address] [place] [address] Bam [employer] [facility] [place] [facility] FAMRES Tm Blue) [address] [place] [address] [employer] [facility] [place] [facility] [employer] Tm Blue) OUTPATIENT [id number] f/u bp meds WENDIE FOERMAN 12/03 Released w/o Limitations [address] [place] [address] [employer] [facility] [place] [facility] [place] [facility] Tm Blue) [address] [place] [address] [employer] [facility] [place] [facility] [employer] Tm Blue) OUTPATIENT [id number] Welts on buttock area JOSE TERRELL 12/11 Released w/o Limitations [address] [place] [address] [employer] [facility] [place] [facility] [facility] Tm Blue) [address] [place] [address] [employer] [facility] [place] [facility] FAMRES Tm Blue) OUTPATIENT [id number] TOBIAS Baeza 12/12 Released w/o Limitations [address] [place] [address] [employer] [facility] [place] [facility] [place] [facility] Tm Blue) [address] [place] [address] [employer] [facility] [place] [facility] FAMRES Tm Blue) OUTPATIENT [id number] SARAH Alejandra 12/13 Released w/o Limitations [address] [place] [address] [employer] [facility] [place] [facility] FAMRES Tm Blue) [address] [place] [address] [employer] [place]Sco tt [facility] FAMRES Tm Blue) OUTPATIENT [id number] BANG MOON 12/14 Released w/o Limitations [address] [place] [address] [employer] ([facility]S cott [facility] FAMRES Tm Blue) [address] [place] [address] [employer] ([facility]Sco tt [facility] FAMRES Tm Blue) OUTPATIENT [id number] WALLACE Whitehead 12/17 Released w/o Limitations [address] [place] [address] [employer] ([facility]S cott [facility] FAMRES Tm Blue) [address] [place] [address] [employer] ([facility]Sco tt [facility] FAMRES Tm Blue) OUTPATIENT [id number] LINCOLN Dubon 12/19 Released w/o Limitations [address] [place] [address] [employer] ([facility]S cott [facility] FAMRES Tm Blue) [address] [place] [address] [employer] ([facility]Sco tt [facility] FAMRES Tm Blue) OUTPATIENT [id number] JOSLYN Segal 12/20 Released w/o Limitations [address] [place] [address] [employer] ([facility]S cott [facility] FAMRES Tm Blue) [address] [place] [address] Bam [employer] ([facility]Sco tt [facility] FAMRES Tm Blue) OUTPATIENT [id number] pt wants b/p cked out she had increas e in meds GALILEO STAUFFER 01/15 Released w/o Limitations [address] [place] [address] Bam [employer] ([facility] FAMRES Tm Blue) [address] [place] [address] Bam [employer] ([facility] fabiano Practice Non-GME FHI2) TELE CONSULT [id number] Rx renewal LIBERTAD CORBIN 02/[address] [place] [address] Bam [employer]KE[employer] ([facility]F amily Practic e Non-GME FHI2) [address] [place] [address] [employer] ([facility] fabiano Practice Non-GME FHI2) OUTPATIENT [id number] STOMACH CRAMPS PLUS 2WEEKS MIKE PALMA 03/21 Released w/o Limitations [address] [place] [address] Bam [employer] ([facility]F amily Practic e Non-GME FHI2) [address] [place] [address] Bam [facility])([facility] Practice Non-GME FHI2) TELE CONSULT [id number] Rx Renewed Rabepra zole 20MG Complet shaheen Zion CORBIN LIBERTAD L 05/[address] [place] [address])(F amily Practic e Non-GME FHI2) [address] [place] [address])([facility] fabiano Practice Non-GME FHI2) OUTPATIENT [id number] evaluat ion for carpal tunnel MIKE PALMA 05/27 Released w/o Limitations [address] [place] [address])(F amily Practic e Non-GME FHI2) [address] [place] [address])([employer]) OUTPATIENT [id number] Menorrh agia DENISE VALENTINE 07/03 Released w/o Limitations [address] [place] [address])(G ynecolo gy) [address] [place] [address])([facility] Practice Non-GME FHI2) TELE CONSULT [id number] 1227-me d refill- LIBERTAD Calvo L 07/[address] [place] [address])(F amily Practic e Non-GME FHI2) [address] [place] [address])([employer]) OUTPATIENT [id number] annual pap DENISE VALENTINE 08/07 Released w/o Limitations [address] [place] [address])(G ynecolo gy) [address] [place] [address])([facility] Practice Non-GME FHI2) TELE CONSULT [id number] 1020-me d refill- not assignJOSE Anne 08/[address] [place] [address])(F amily Practic e Non-GME FHI2) [address] [place] [address])([facility] F[facility]) OUTPATIENT [id number] HTN MAYELIN Gates L 08/20 Released w/o Limitations [address] [place], [place] [address]B [facility] [place]F amily Practic e Non-GME FHI2) [address] [place] [address])(Sco tt [facility] Fam Res Tm Green) OUTPATIENT [id number] stomach issues CRUZITO MALCOLM 09/26 Released w/o Limitations [address] [place] [address] Bam [place] ([facility]S cott [facility] Fam Res Tm Green) [address] [place] [address] Bam [place] ([facility]Sco tt [facility] Fam Res Tm Green) OUTPATIENT [id number] F/U Stomach problem s YUN CERON 11/28 Released w/o Limitations [address] [place] [address] Bam [place] ([facility]S cott [facility] Fam Res Tm Green) [address] [place] [address] Bam [place] ([facility]Sco tt [facility] Fam Res Tm Green) TELE CONSULT [id number] Refill LARRY MAJANO 12/[address] [place] [address] Bam [place] ([facility]S cott [facility] Fam Res Tm Green) [address] [place] [address] Bam [place] ([facility])([employer]) OUTPATIENT [id number] abdomin al pain PIETER SILVERIO 12/18 Released w/o Limitations [address] [place] [address] Bam [place] ([facility]G astroen terolog y Resourc e Sharing ) [address] [place] [address] [place]am [place] ([facility]Sco tt [facility] Fam Res Tm Green) TELE CONSULT [id number] Refill LARRY MAJANO 12/[address] [place] [address] [place]S [place] [facility] Fam Res [place]) [address] [place] [address] [place]Sco tt [facility] Fam Res [place]m [place]) TELE CONSULT [id number] Refills CROW GONZALEZ 03/[address] [place] [address] [place]S [place] [facility] [place] Fam [place]) [address] [place] [address] [place]Sco tt [facility] Fam Res [place]) OUTPATIENT [id number] sinus CRUZITO MALCOLM 04/08 Released w/o Limitations [address] [place] [address] [place]S [place] [facility] Fam Res [place]) [address] [place] [address] [place]Sco tt [facility] FAMRES Tm Blue) OUTPATIENT [id number] post deploy, needs new med refill WALLACE GONZALEZ 05/22 Released w/o Limitations [address] [place] [address] [place]S cott [facility] FAM[facility] Tm Blue) [address] [place] [address] [place]Sco tt [facility] Fam Res [place] [place]) OUTPATIENT [id number] R/O SINUS INFECTI ON FEDERICO GOETZ 07/25 Released w/o Limitations [address] [place] [address] [place]S [facility] Fam Res [place] [place]) [address] [place] [address] [place] ([facility]Sco tt [facility] Fam Res [place] [place]) OUTPATIENT [id number] fol blood pressur e FEDERICO GOETZ 09/22 Released w/o Limitations [address] [place] [address] [place] ([facility]S cott [facility] Fam Res [place] [place]) [address] [place] [address] [place] ([facility]Fam fabiano Practice Procedure s) OUTPATIENT [id number] TRAPEZO ID MUSCLE STRAIN- Initial OMT CRUZITO MALCOLM 10/16 Released w/o Limitations [address] [place] [address] [place]F amily Practic e Procedu res) [address] [place] [address] [place] ([facility]Sco tt [facility] Fam Res [place]m [place]) TELE CONSULT [id number] pt questio n TOBIAS STOVALL 11/[address] [place] [address] [place]S cott [facility] Fam Res [employer] [place]) [address] [place] [address] [place] ([facility]Fam fabiano Practice Procedure s) OUTPATIENT [id number] NONALLO PATHIC LESIONS UPPER EXTREMI TIES TOBIAS STOVALL 11/20 Released w/o Limitations [address] [place] [address] [place] ([facility]F amily Practic e Procedu res) [address] [place] [address] [place] ([facility]Sco tt [facility] Fam Res [employer] [place]) TELE CONSULT [id number] med refill FEDERICO GOETZ 11/[address] [place] [address] [place] ([facility]S cott [facility] Fam Res [employer]) [address] [place] [address] [employer] ([facility]Sco tt [facility] Fam Res [place] [place]) OUTPATIENT [id number] well woman exam LARRY MAJANO 12/17 Released w/o Limitations [address] [place] [address] [employer] ([facility]S cott [facility] Fam Res [employer]) [address] [place] [address] [employer] ([facility]Sco tt [facility] Fam Res [employer] [place]) TELE CONSULT [id number] pap results LINCOLN FORD 01/[address] [place] [address] [place]S cott OF Fam [employer] [place]) [address] [place] [address] [place]Sco tt [facility] Fam Res [employer] [place]) TELE CONSULT [id number] BRANDEN Brush 01/[address] [place] [address] [place]S cott OF Fam Res [employer] [place]) [address] [place] [address] [place]Fam fabiano Practice Procedure s) OUTPATIENT [id number] Acup f/u TOBIAS STOVALL 01/28 Released w/o Limitations [address] [place] [address] [place]F amily Practic e Procedu res) [address] [place] [address] [place]Sco tt [facility] Fam Res [place] [place]) OUTPATIENT [id number] fol labs lipid etc MIKE VALENCIA 02/16 Released w/o Limitations [address] [place] [address] [place]S [facility] Fam Res [place] [place]) [address] [place] [address] [place]Fam fabiano Practice Procedure s) OUTPATIENT [id number] Acup f/u-lef t shoulde r TOBIAS Boyer 02/18 Released w/o Limitations [address] [place] [address] [place]F amily Practic e Procedu res) [address] [place] [address] [place]Sco tt [facility] Fam Res [place] [place]) TELE CONSULT [id number] MIKE Bro 06/[address] [place] [address] [place]S cott [facility] Fam Res [place] [place]) [address] [place] [address] [place]Sco tt [facility] Fam Res [place] [place]) OUTPATIENT [id number] Eval for Sinus Problem MIKE VALENCIA 06/15 Released w/o Limitations [address] [place] [address] [place]S [facility] Fam Res [place] [place]) [address] [place] [address] [place]Sco tt [facility] Fam Res [employer] [place]) TELE CONSULT [id number] [facility] MIKE Marquez 07/[address] [place] [address] [place]S cott [facility] Fam Res [place]) [address] [place] [address] [place]Sco tt [facility] Fam Res [place] [place]) OUTPATIENT [id number] [address] [place] [address] FOR [employer] AND [employer] SARAH SALAZAR 08/23 Released w/o Limitations [address] [place] [address] [place] ([facility]S cott OF Fam Res [employer] [place]) [address] [place] [address] [place]Sco tt [facility] Fam Res [place]) OUTPATIENT [id number] [phone] Annual physica l w/labwo rk SARAH SALAZAR 09/27 Released w/o Limitations [address] [place] [address] [place] ([facility]S cott OF Fam Res [employer] [place]) [address] [place] [address] [place]Sco tt [facility] Fam Res [place] [place]) OUTPATIENT [id number] [phone] fever 99.4, diarrhe a, vomitin g, stomach /back cramps TIMOTHY BEJARANO 11/04 Released w/o Limitations [address] [place] [address] [place] ([facility]S cott [facility] [place] [place] Fam Res [place] [place]) [address] [place] [address] [place]Sco tt [facility] Fam Res [place] [place]) TELE CONSULT [id number] Med Refill MIKE VALENCIA 11/[address] [place] [address] [place] ([facility]S cott [facility] Fam Res [place] [place]) [address] [place] [address] [place]Sco tt [facility] Fam Res [place] [place]) OUTPATIENT [id number] [phone] WOMENS ODALYS S W/SRAVANI JEWELL 01/10 Released w/o Limitations [address] [place] [address] [place] ([facility]S cott [facility] Fam Res [place] [place]) [address] [place] [address] [place]Sco tt [facility] Fam Res [place] [place]) OUTPATIENT [id number] [phone] SINUS INFECTI ON EDY VARGAS Consuelo 02/17 Released w/o Limitations [address] [place] [address] [place] ([facility]S cott [facility] Fam Res [place] [place]) [address] [place] [address] [place]Sco tt [facility] Fam Res [place] [place]) TELE CONSULT [id number] Medicat ion refill - PCM RAYMOND Topete 05/[address] [place] [address] [place]S cott [facility] [place] Fam Res [place]) [address] [place] [address] [place] [facility] [facility] Fam Res [place]) OUTPATIENT [id number] [phone] follow up carpal tunnel blood work RAYMOND FLORES 06/06 Released w/o Limitations [address] [place] [address] [place] ([facility]S cott [facility] Fam Res [place] [place]) [address] [place] [address] [place] ([facility]Sco tt [facility] FAMRES Tm Blue) TELE CONSULT [id number] med refill RAYMOND FLORES 08/[address] [place] [address] [place] ([facility]S cott [facility] FAMRES Tm Blue) [address] [place] [address] [place] [facility] [place] [place]Sco tt [facility] Fam Res [place] [place]) OUTPATIENT [id number] jaw pain/pe rsonal issue TIMOTHY BEJARANO 09/27 Released w/o Limitations [address] [place] [address] [place] ([facility]S cott [facility] Fam Res [place] [place]) [address] [place] [address] [place] ([facility]Sco tt [facility] Fam Res [employer]m [place]) TELE CONSULT [id number] TIMOTHY Perez 10/[address] [place] [address] [place]S cott [facility] Fam Res [place]) [address] [place] [address] [place] [facility] [facility] Fam Res [place] [place]) TELE CONSULT [id number] TIMOTHY Perez 10/[address] [place] [address] [place] ([facility]S cott [facility] Fam Res [place] [place]) [address] [place] [address] [place] ([facility]Sco tt [facility] Fam Res [place]m [place]) TELE CONSULT [id number] Lab results SARAH SALAZAR 11/[address] [place] [address] [place] ([facility]S cott [facility] Fam Res [place] [place]) [address] [place] [address] [employer] [facility] [facility] Fam Res [place]) OUTPATIENT [id number] follow up on labs [phone] SRAVANI DOWNEY 11/15 Released w/o Limitations [address] [place] [address] [employer] ([facility]S cott [facility] Fam Res [place] [place]) [address] [place] [address] [employer] [facility] [facility] FAMRES Tm Blue) TELE CONSULT [id number] medicat ion concern RAYMOND FLORES 11/[address] [place] [address] [place] ([facility]S cott [facility] FAMRES Tm Blue) [address] [place] [address] [place] [facility] [facility] FAMRES Tm Blue) TELE CONSULT [id number] labs results SRAVANI DOWNEY Saniya 12/[address] [place] [address] [place] [facility] OF FAMRES [place]m Blue) [address] [place] [address] [place] [facility] [place] [facility] FAMRES Tm Blue) TELE CONSULT [id number] med refill RAYMOND FLORES 01/[address] [place] [address] [place] [facility] OF FAMRES Tm Blue) [address] [place] [address] [place] [facility] [place] [facility] Fam Res [place]m [place]) OUTPATIENT [id number] MAURO MCFARLAND 03/06 Released w/o Limitations [address] [place] [address] [place] [facility] Fam Res [place] [place]) [address] [place] [address] [place] [facility] [facility] Fam Res [place]m [place]) TELE CONSULT [id number] referra RAYMOND Singer 04/[address] [place] [address] [place] [facility] Fam Res [place]) [address] [place] [address] [place] [facility]S[facility] [place] [facility] FAMRES Tm Blue) TELE CONSULT [id number] Medicat ion refill - PCM CAR Padilla 06/[address] [place] [address] [place] [facility] [facility] [place] [facility] [place]m Blue) [address] [place] [address] [place] [facility] [facility] Fam Res [place]) OUTPATIENT [id number] PROBLEM S WITH CYCLE [phone] RAYMOND FLORES 06/19 Released w/o Limitations [address] [place] [address] [place] [facility] Fam Res [place]) [address] [place] [address] [place] [facility] [place] [facility] Fam Res [place]m [place]) TELE CONSULT [id number] med refill RAYMOND FLORES 07/[address] [place] [address] [place] [facility] Fam Res [place] [place]) [address] [place] [address] [employer] [facility] [facility] FAMRES Tm Blue) TELE CONSULT [id number] US results RAYMOND FLORES 07/[address] [place] [address] [place] [facility] OF FAMRES Tm Blue) [facility] [place] ([facility]Sco tt [facility] Fam Res [place]m [place]) TELE CONSULT [id number] referal inquiry ROBBY LIGHT 07/25 [facility] [place]S cott OF Fam Res [employer]m [employer] [place]Sco tt [facility] Fam Res [place]m [place]) TELE CONSULT [id number] medicat ion update RAYMOND FLORES 07/27 [facility] [place] ([facility]S cott OF Fam Res [employer]m [place]) [facility] [place]Sco tt [facility] Fam Res [place]m [place]) TELE CONSULT [id number] med refill RAYMOND FLORES 08/08 [facility] [place] ([facility]S cott [facility] Fam Res [place]m [place]) [facility] [place] [facility] [place] [place]Sco [place] [facility] Fam Res [place]m [place]) OUTPATIENT [id number] per provide r..emb RAYMOND FLORES 08/22 Released w/o Limitations [facility] [place]S cott OF Fam Res [employer]m [employer] [place] [facility] [facility] Fam Res [place]m [place]) TELE CONSULT [id number] med change RAYMOND FLORES 08/24 [facility] [place]S cott OF Fam Res [employer] [place]) [facility] [place] [facility] [facility] Fam Res [place]) TELE CONSULT [id number] med refill RAYMOND FLORES 09/18 [facility] [place]S cott OF Fam Res [employer]m [place]) [facility] [place] [facility] [facility] Fam Res [place]m [place]) TELE CONSULT [id number] med refRAYMOND Henry 10[facility]24 [facility] [place] [facility] [place] [place] Fam Res [place] [place]) [facility] [place] [facility] [place] [facility] Fam Res [place]m [place]) OUTPATIENT [id number] f/u blood pressur e [phone] RAYMOND FLORES 11/24 Released w/o Limitations [facility] [place]S cott OF Fam Res [employer]m [employer] [place] ([facility]Sco tt [facility] Fam Res [place]m [place]) TELE CONSULT [id number] Flu T-Con - RAYMOND Crump 12/19 [facility] [place] ([facility]S cott OF Fam Res [employer]m [place]) [facility] [place] [place] ([facility]Sco tt OF Fam Res Tm Green) TELE CONSULT [id number] f/u labs / michelle cad/tnp RAYMOND FLORES 01/[address] [place] [address] [place] ([facility]S cott OF Fam Res [employer]m [employer] [place] [facility] FAM[facility] Tm Blue) OUTPATIENT [id number] lab results (walk in) RAYMOND FLORES 01/26 Released w/o Limitations [address] [place] [address] [place] ([facility]S cott OF FAMRES Tm Blue[facility] [place] [place] [facility] Fam Res [place]m [place]) TELE CONSULT [id number] referra RAYMOND Singer 03/[address] [place] [address] [place] ([facility]S cott OF Fam Res [employer]m [employer] [place] [place]Sco [place] [facility] Fam Res [place]m [place]) TELE CONSULT [id number] med RAYMOND Pepe 03/15 [facility] ([facility]S cott OF Fam Res Tm [employer] ([facility]Sco tt [facility] FAMRES Tm Blue) TELE CONSULT [id number] med RAYMOND Pepe 04/[address] [place] [address] Group [place] [facility] [place] [place] OF FAMRES Tm Blue[facility] [place] [place]Sco [place] [facility] Fam Res [place]m [place]) TELE CONSULT [id number] T con for F/U appt Dr Flores phone [phone] or [phone] ROBBY LIGHT 05/16 Referred for Appointment [facility] [place] [place] ([facility]S cott OF Fam Res [place]m [place]) [address] [place] [address] [employer] [facility] [place]Sco [place] [facility] Fam Res [place]) OUTPATIENT [id number] F/U ultra sound [phone] RAYMOND FLORES 07/04 Released w/o Limitations [address] [place] [address] [place]S cott [facility] Fam Res [place]) [address] [place] [address] [place] [facility] [place] [place]Sco [place] [facility] Fam Res [place]) TELE CONSULT [id number] med refill CORONA DAMIAN Antunez 07/[address] [place] [address] [place]S cott [facility] Fam Res [place]) [address] [place] [address] [place] [facility] [place]Emre e Managemen t) OUTPATIENT [id number] [facility]-Hosp ital Admissi on Notific ation WEEKS, EZEQUIEL 07/19 Released w/o Limitations [address] [place] [address] [place]C ase Managem ent) [address] [place] [address] [place] [place]Sco [place] [facility] [place] [facility] Tm Blue[place] TELE CONSULT [id number] med refill - PCM: DAMIAN Roca 07/[address] [place] [address] [place] [place] [address] [place] [address] [place] [place]Layer Up ecology) OUTPATIENT [id number] DENISE VALENTINE 08/03 Released w/o Limitations [address] [place] [address] [place] [place]G ynecolo gy[place] [address] [place] [address] [place] [place]Sco [place] [facility] [place] [facility] Tm Blue[place] TELE CONSULT [id number] med refills RAYMOND FLORES 08/[address] [place] [address] [place] [place] [address] [place] [address] [place] [place]Layer Up ecology) TELE CONSULT [id number] results DENISE VALENTINE 08/[address] [place] [address] [place] [place]G ynecolo gy) [address] [place] [address] [place] [place]Sco tt [facility] [place] Fam Res Tm Green) TELE CONSULT [id number] Questio ns on diet/Ko nold/tl t RAYMOND FLORES 09/[address] [place] [address] [place] [place]S cott [facility] [place] Fam Res Tm Green) [address] [place] [address] [place] [place]Layer Up ecology) OUTPATIENT [id number] [facility]- [phone] , @ 0915. DENISE VALENTINE 09/13 Released w/o Limitations [address] [place] [address] [place] [facility] [place] [address] [place] [address] [place] [facility] [facility] [place] [place] [place])(Sco tt [facility] Fam Res Tm Green) TELE CONSULT [id number] Update referra varun Urena Michelle - [id number] [id number] [facility] RAYMOND FLORES 09/[address] [place] [address] Bam B [facility] [place] [facility] Fam Res Tm Green) [address] [place] [address] Bam [facility] [place]Layer Up ecology) TELE CONSULT [id number] results DENISE VALENTINE 09/[address] [place] [address] Bam [facility] [place]G ynecolo gy) [address] [place] [address] Bam [facility] [place]Sco [place] [facility] Fam Res Tm Green) TELE CONSULT [id number] F/U resched pat Flores cad kimt ISAIAH ROWE 10/[address] [place] [address] Bam [facility])(S cott [facility] Fam Res Tm Green) [address] [place] [address] Bam B [facility] [place]Layer Up ecology) OUTPATIENT [id number] Well woman exam DENISE VALENTINE 10/02 Released w/o Limitations [address] [place] [address] Bam [facility] [place]G ynecolo gy) [address] [place] [address] [place] [facility] [place]Sco [place] [facility] Fam Res Tm Green) OUTPATIENT [id number] f/u carpal tunnel and eval for profile RAYMOND FLORES 10/12 Released w/o Limitations [address] [place] [address] Bam [facility] [place] [facility] Fam Res Tm Green) [address] [place] [address] Bam [facility] [place]Layer Up ecology) TELE CONSULT [id number] results DENISE VALENTINE 10/[address] [place] [address] Bam [facility] [place]G ynecolo gy) [address] [place] [address] [employer] [facility] [place]Sco [place] [facility] Fam Res Tm Green) TELE CONSULT [id number] U.C. f/u - Chloe - [phone] [address] [place] [address] DAMIAN CORONA 12/[address] [place] [address] [employer] [facility] [place] [facility] Fam Res Tm Green) [address] [place] [address] [employer] ([facility]Sco tt [facility] FAMRES Tm Blue) TELE CONSULT [id number] Celestine Joshua e DAMIAN Camacho 12/[address] [place] [address] Bam [facility] [place] [facility] FAMRES Tm Blue) [address] [place] [address] Bam [facility] [place]Sco tt [facility] Fam Res Tm Green) TELE CONSULT [id number] rx refill 3 [facility] - CAD [facility] ISAIAH ROWE 01/[address] [place] [address] Bam [facility] ([facility])(S cott [facility] Fam Res Tm Green) [address] [place] [address] Bam [facility] [place]Ob/ Layer Up) TELE CONSULT [id number] when to DENISE Aaron 01/[address] [place] [address] Bam [facility] ([facility])(O b/Layer Up) [address] [place] [address] Bam [facility] [place]Layer Up ecology) TELE CONSULT [id number] Discuss u/s results FREDDY ASIF 02/[address] [place] [address] Bam [facility] [place]G ynecolo gy[facility] [address] [place] [address] Bam [facility] [place] [place] [place] [facility] OUTPATIENT [id number] smoking cessati on BETTIE MOISE S 03/04 Released w/o Limitations [address] [place] [address] Bam [facility] [place]) [address] [place] [address] [place] [facility] [place]Sco tt [facility] FAMRES Tm Blue) TELE CONSULT [id number] FYI: labs re-orde DAMIAN Engle 03/[address] [place] [address] Bam [facility] [place]S [facility] FAMRES Tm Blue) [address] [place] [address] [place]am [facility] [place] [place] [place] [facility]) OUTPATIENT [id number] Smoking Cessati on BETTIE MOISE S 03/27 Released w/o Limitations [address] [place] [address] Bam [facility] [place]) [address] [place] [address] [employer] [facility] [place]Sco tt [facility] Fam Res Tm Green) OUTPATIENT [id number] f/u blood work... [id number] DAMIAN CORONA 04/05 Released w/o Limitations [address] [place] [address] Bam [facility] [place] Fam Res Tm Green) [address] [place] [address] [place] ([facility])(Sco tt [facility] Fam Res Tm Green) TELE CONSULT [id number] Meds refills /Corona/ fxs DAMAIN CORONA 04/[address] [place] [address] Group [place] ([facility])(S [facility] Fam Res Tm Green) [address] [place] [address] [place] [facility] [place] [place] [place] [facility]) OUTPATIENT [id number] Smoking Cessati on BETTIE MOISE S 04/25 Released w/o Limitations [address] [place] [address] [place] ([facility])([facility]) [address] [place] [address] [place])([facility] [place] [place] [facility]) OUTPATIENT [id number] Smoking cessati on BETTIE MOISE S 05/23 Released w/o Limitations [address] [place] [address] [place] ([facility])([facility]) [address] [place] [address] [place]am [place] [facility] [place]Sco tt [facility] Fam Res Tm Green) TELE CONSULT [id number] med renewal /Chloe/ [phone] 9/mnm DAMIAN CORONA 05/[address] [place] [address] [place] ([facility]S [facility] Fam Res Tm Green) [address] [place] [address] Bam [place] [facility] [place]Layer Up ecology) TELE CONSULT [id number] Needs ultraso und order reorder YOSHI Gonzalez Varun 06/[address] [place] [address] Group [place]am [place] ([facility])(G ynecolo gy) [address] [place] [address] [place] ([facility])(Sco tt [facility] Fam Res Tm Green) OUTPATIENT [id number] sinus infecti on [id number] DAMIAN CORONA 06/14 Released w/o Limitations [address] [place] [address] Group [place]am [place] ([facility]S [facility] Fam Res Tm Green) [address] [place] [address] [place] ([facility])([facility] [place] [place] [facility]) OUTPATIENT [id number] Smoking Cessati on BETTIE MOISE S 06/17 Released w/o Limitations [address] [place] [address] Group [place]am [place] ([facility])([facility]) [address] [place] [address] [place] ([facility])(Sco tt [facility] Fam Res Tm Green) TELE CONSULT [id number] Notes Entered by: DEREJE RAY 16 Jul 2011 1428 ------- ------- ------- - DAMIAN CORONA 07/[address] [place] [address] Bam [facility])(S cott [facility] Fam Res Tm Green) [address] [place] [address] Bam [facility])(Layer Up ecology) TELE CONSULT [id number] Notes Entered by: FREDDY LOCKWOOD 30 Jul 2011 1746 ------- ------- ------- ------- -- Discuss u/s results YOSHI KEENE 07/[address] [place] [address] Bam [facility])(Claudia gustafson gy) [address] [place] [address] [place] [facility] [place]Sco tt [facility] Fam Res Tm Green) TELE CONSULT [id number] Notes Entered by: NIGEL MENDOZA 22 Aug 2011 0820 ------- ------- ------- ------- -- Med elizabeth /chloe/ [phone] 9 till 1630/mn DAMIAN Gomez 08/[address] [place] [address] Bam [facility]S [facility] Fam Res Tm Green) [address] [place] [address] [place] [facility] [place]Sco tt [facility] Fam Res Tm Green) OUTPATIENT [id number] face swollen [id number] AMADOU PEDERSON 09/02 Released w/o Limitations [address] [place] [address] [place] [facility] [place]S cott [facility] [place] Fam Res Tm Green) [address] [place] [address] Bam [facility])(Sco tt [facility] Fam Res Tm Green) TELE CONSULT [id number] Notes Entered by: ZANE CRAWFORD 06 Sep 2011 0719 ------- ------- ------- ------- -- Blood pressur e Issue-G ibbs/22 [id number]/ AMADOU Burgess 09/[address] [place] [address] Bam [facility] [place] cott [facility] Fam Res Tm Green) [address] [place] [address] Bam B [facility] [place]All ergy Resource Sharing) OUTPATIENT [id number] ALLERGI C REACTIO RAYMOND LEON 09/09 Released w/o Limitations [address] [place] [address] [place] ([facility])(A llergy Resour e Sharing ) [address] [place] [address] [place] ([facility])(Sco tt [facility] Fam Res Tm Green) TELE CONSULT [id number] Notes Entered by: DEREJE RAY 13 Sep 2011 1308 ------- ------- ------- ------- -- Blood pressur e - Corona - [phone] - CROW Goode 09/12 Referred for Appointment [address] [place] [address] [place] [facility] [place]S cott [facility] Fam Res Tm Green) [address] [place] [address] [place] [facility] [place]Sco tt [facility] Fam Res Tm Green) TELE CONSULT [id number] Notes Entered by: LACY DUTTA 01 Oct 2011 0900 ------- ------- ------- ------- -- BERLIN TOMLINSON 09/[address] [place] [address] [place] [facility] [place]S [facility] Fam Res Tm Green) [address] [place] [address] [place] [facility] [place]All ergy) TELE CONSULT [id number] Notes Entered by: Saniya MORTON 02 Oct 2011 1126 ------- ------- ------- ------- -- Lab results RAYMOND MORTON 10/[address] [place] [address] [place] ([facility])(A llergy) [address] [place] [address] Bam [facility])(Sco tt [facility] Fam Res Tm Green) OUTPATIENT [id number] f/u for blood pressur e meds [id number] DAMIAN CORONA 10/16 Released w/o Limitations [address] [place] [address] [place] [facility] [place]S cott [facility] [place] Fam Res Tm Green) [address] [place] [address] [place] [facility] [place]Sco tt [facility] [place] Fam Res Tm Green) TELE CONSULT [id number] Notes Entered by: PREMA ARELLANO 07 Nov 2011 0803 ------- ------- ------- ------- -- Med refill - Chloe - [phone] /[place] [address] [phone] - [facility] DAMIAN CORONA 11/[address] [place] [address] Bam [facility])(S cott OF Fam Res Tm Green) [address] [place] [address])(Sco tt [facility] Fam Res Tm Green) TELE CONSULT [id number] Notes Entered by: LACY DUTTA 12 Nov 2011 1003 ------- ------- ------- ------- -- Med refill CROW Benjamin 11/11 Referred for Appointment [address] [place] [address] Bam [facility])(S cott [facility] [place] [place] Fam Res Tm Green) [address] [place] [address])(Sco tt [facility] Fam Res Tm Green) TELE CONSULT [id number] Notes Entered by: ZANE CRAWFORD 26 Nov 2011 1036 ------- ------- ------- ------- -- Medicat ion issue-Claudia cobianbs/ DAMIAN Cabrera 11/[address] [place] [address] Bam [facility])(S cott [facility] Fam Res Tm Green) [address] [place] [address])(Sco tt [facility] FAMRES Tm Blue) TELE CONSULT [id number] Notes Entered by: Consuelo DOTSON 02 Dec 2011 0803 ------- ------- ------- ------- -- Med refill Chloe/consuelo ad/cls [id number] DAMIAN CORONA 12/[address] [place] [address] Bam [facility])(S cott [facility] FAMRES Tm Blue) [address] [place] [address] Bam [facility])(Sco tt [facility] Fam Res Tm Green) TELE CONSULT [id number] Med Refill- Chloe/ /ANDERSON Dash 12/[address] [place] [address])(S cott [facility] Fam Res Tm Green) [address] [place] [address])(Sco tt [facility] Fam Res Tm Green) OUTPATIENT [id number] stuffy/ runny nose, headach e, cough 505.003 0 IRINA WHITNEY 01/07 Released w/o Limitations [address] [place] [address] [place] ([facility])(S cott [facility] [place] Fam Res Tm Green) [address] [place] [address] [place] ([facility])(Sco tt [facility] Res Tm Green) TELE CONSULT [id number] Notes Entered by: Hortensia DOTSON 04 Feb 2012 08 ------- ------- ------- ------- -- Med refill HCTZ 25mg daily metform in 500mg twice daily Norvasc 5 mg daily DAMIAN CORONA 02/[address] [place] [address] [place] [facility] [place] cott [facility] [place] [place] Fam Res Tm Green) [address] [place] [address] [place] ([facility])(Sco tt [facility] Res Tm Green) OUTPATIENT [id number] Pain and lumps in breast area [phone] NENA NDIAYE 02/13 Released w/o Limitations [address] [place] [address] [place] [facility] [place]S cott [facility] [place] Fam Res Tm Green) [address] [place] [address] [place] [facility] [place]Phy sical Therapy) OUTPATIENT [id number] YECENIA Leach 02/27 Released w/o Limitations [address] [place] [address] [place] [facility] [place]P hysical Therapy ) [address] [place] [address] [place] [facility] [place]Layer Up ecology) OUTPATIENT [id number] Well Woman Exam W#[phone] SATISH SCHNEIDER 03/10 Released w/o Limitations [address] [place] [address] [place] ([facility])(G ynecolo gy) [address] [place] [address] [place] ([facility])(Sco tt [facility] Fam Res Tm Green) OUTPATIENT [id number] F/U Cholest susan, Labs and Med Review W#[phone] ERIN PAUL 03/17 Released w/o Limitations [address] [place] [address] Bam [facility] [place]S cott [facility] [place] Fam Res Tm Green) [address] [place] [address] [place] [facility] [place]Sco tt [facility] Res Tm Green) TELE CONSULT [id number] Notes Entered by: PREMA ARELLANO 05 May [id number] ------- ------- ------- ------- -- Med refill - Chloe - [phone] ANA YEBOAH 05/[address] [place] [address] [place] [facility] [place] [facility] [place] Fam Res Tm Green) [address] [place] [address] [place] [facility] [place]Sco tt [facility] Fam Res Tm Green) OUTPATIENT [id number] f/u LUTHER CEBALLOS Abigail 08/06 Released w/o Limitations [address] [place] [address] [place] [facility] [place]S cott [facility] [place] Fam Res Tm Green) [address] [place] [address] [place] [facility] [place]Sco tt [facility] Fam Res Tm Green) TELE CONSULT [id number] Notes Entered by: Consuelo DOTSON 10 Nov 2012 0712 ------- ------- ------- ------- -- Need 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 referra l/Chloe /[phone] til 4:30 ANA YEBOAH 11/[address] [place] [address] [place] [facility] [place]S cott [facility] [place] Fam Res Tm Green) [address] [place] [address] [place] [facility] [place]co tt [facility] [place] [place] Fam Res Tm Green) OUTPATIENT [id number] issues w/ menses [phone] IRINA WHITNEY 11/12 Released w/o Limitations [address] [place] [address] [place] [facility] [place]S cott [facility] Fam Res Tm Green) [address] [place] [address] [place] [facility] [place]Sco tt [facility] [place] [place] Fam Res Tm Green) TELE CONSULT [id number] Notes Entered by: NIGEL MENDOZA 23 Nov 2012 1000 ------- ------- ------- ------- -- Ref renewal -appt Corona [phone] till 1530 ANA YEBOAH 11/[address] [place] [address] [place] [facility] [place] cott [facility] [place] Fam Res Tm Green) [address] [place] [address] [place] [facility] [place]Sco tt [facility] [place] Fam Res Tm Green) TELE CONSULT [id number] Notes Entered by: Hortensia DOTSON 27 Nov 2012 0921 ------- ------- ------- ------- -- Med refill SENSINTAFF ANDERSON DUFFY 11/[address] [place] [address] [place] [facility] [place] [facility] [place] Fam Res Tm Green) [address] [place] [address] [place] [facility] [place]Sco tt [facility] [place] Fam Res Tm Green) TELE CONSULT [id number] Notes Entered by: PREMA ARELLANO 16 Dec 2012 1155 ------- ------- ------- ------- -- Lab request - Corona - [id number] ES GUZMAN 12/[address] [place] [address] [place] [facility] [place] [facility] [place] Fam Res Tm Green) [address] [place] [address] [place] [facility] [place]Sco tt [facility] [place] Fam Res Tm Green) TELE CONSULT [id number] Notes Entered by: MARGIE LANZA RET 25 Dec 2012 1421 ------- ------- ------- ------- -- US results IRINA WHITNEY 12/[address] [place] [address] [place] [facility] [place]S [place] [facility] [place] Fam Res Tm Green) [address] [place] [address] [place] [facility] [place]Sco tt [facility] FAMRES Tm Blue) TELE CONSULT [id number] Notes Entered by: CARLEE CEBALLOS 15 Jan 2013 1745 ------- ------- ------- ------- -- Lab review LUTHER CEBALLOS 01/[address] [place] [address] [place] [facility] [place] [facility] [place] [place] FAMRES Tm Blue) [address] [place] [address] [facility] [facility] [place]Sco tt [facility] [place] Fam Res Tm Green) OUTPATIENT [id number] f/u for labwork [phone] LUTHER CEBALLOS 01/22 Released w/o Limitations [address] [place] [address] Bam [facility] [place]S cott [facility] [place] Fam Res Tm Green) [address] [place] [address] Bam [facility] [place]Layer Up ecology) OUTPATIENT [id number] well woman exam [phone] PALLAVI PEDERSON 03/05 Released w/o Limitations [address] [place] [address] Bam [facility] [place]audia gonzalez) [address] [place] [address] [place] [facility] [place]Sco tt [facility] Fam Res Tm Green) TELE CONSULT [id number] Notes Entered by: LACY DUTTA 17 May 2013 1341 ------- ------- ------- ------- -- Med refill Corona ANA YEBOAH 05/[address] [place] [address] [facility]S cott [facility] [place] [facility] Fam Res Tm Green) [address] [place] [address] Bam Ramo [facility] [place]Layer Up ecology) TELE CONSULT [id number] Notes Entered by: LACY DUTTA 17 May 2013 1345 ------- ------- ------- ------- -- Med renewal 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 [id number] MELLISSA JOYCE 05/[address] [place] [address] [place] [facility] [place] ynecolo gy) [address] [place] [address] [place] [facility] [place] [facility] [place] FAMRES Tm Blue) TELE CONSULT [id number] Notes Entered by: CARLEE CEBALLOS 26 May 2013 1824 ------- ------- ------- ------- -- LUTHER Thompson 05/[address] [place] [address] Bam [facility]S cott [facility] [place] [facility] Tm Blue) [address] [place] [address] [place] [facility] [place] [facility] [place] [facility] [place] Tm Red[place] TELE CONSULT [id number] Notes Entered by: ALEXANDER ROMERO 18 Aug 2013 0840 ------- ------- ------- ------- -- Med refill/ chloe/Thony [id number] DAMIAN CORONA 08/[address] [place] [address] Bam [facility] [facility] [place] Tm Red) [address] [place] [address] [place] [facility] [place] [facility] [place] [facility] [place] Tm Red[place] TELE CONSULT [id number] Notes Entered by: ALEXANDER ROMERO 02 Sep 2013 0851 ------- ------- ------- ------- -- Sx/mens trual cycle concern /corona/ * OBINNAANAHYA G 09/[address] [place] [address] Bam [facility])([facility] Fam Res Tm Red) [address] [place] [address] Bam [facility])([facility] Fam Res Tm Red) OUTPATIENT [id number] irregul ar/heav y menses WHITNEYIRINA HEREDIA Hortensia 09/03 Released w/o Limitations [address] [place] [address] Bam [facility])([facility] Fam Res Tm Red) [address] [place] [address] Bam [facility])([facility] Fam Res Tm Red) TELE CONSULT [id number] Notes Entered by: Consuelo DOTSON 04 Oct 2013 1559 ------- ------- ------- ------- -- Med refill/ Chloe/ 18 [phone] SENSINTAFF ANDERSON DUFFY 10/[address] [place] [address] [facility]am [facility])([facility] Fam Res Tm Red) [address] [place] [address] Bam [facility])([facility] Fam Res Tm Red) TELE CONSULT [id number] Notes Entered by: FATMATA PALMER 17 Dec 2013 1046 ------- ------- ------- ------- -- Med refill - zyrtec d 12hr ASIM PALMER 12/[address] [place] [address] [facility]am [facility])([facility] Fam Res Tm Red) [address] [place] [address] Bam [facility])([facility] Fam Res Tm Red) TELE CONSULT [id number] Notes Entered by: ARMIN BYRNE 08 Feb 2014 1140 ------- ------- ------- ------- -- RX Refill/ Corona/5 [phone] DAMIAN CORONA 02/[address] [place] [address] [facility]am [facility])([facility] Fam Res Tm Red) [address] [place] [address])([facility] Fam Res Tm Red) TELE CONSULT [id number] Notes Entered by: NIGEL MENDOZA 16 Feb 2014 0903 ------- ------- ------- ------- -- Med renewal /Chloe/ DAMIAN CORONA 02/[address] [place] [address] Bam B ([facility]S cott [facility]am Res Tm Red) [address] [place] [address] [facility]Sco tt [facility] Fam Res Tm Red) OUTPATIENT [id number] f/u for labs [id number] DAMIAN CORONA 03/02 Released w/o Limitations [address] [place] [address] [employer] ([facility]S cott [facility] Fam Res Tm Red[facility] [address] [place] [address] [facility]Sco tt [facility] FAMRES Tm Blue) TELE CONSULT [id number] Notes Entered by: LARRY MELVIN 08 Mar 2014 0846 ------- ------- ------- ------- -- Network Results - SURGERY - 09/27/13 DAMIAN CORONA 03/[address] [place] [address] [facility]am B [facility]S cott [facility] FAMRES Tm Blue) [address] [place], [place] [address]B [facility]) OUTPATIENT [id number] well woman exam JOSE MARSHALL 03/24 Released w/o Limitations [address] [place] [address] [facility]am B ([facility])(G ynecolo gy) [address] [place] [address] [facility]am B [facility]co tt [facility] Fam Res Tm Red) TELE CONSULT [id number] Notes Entered by: Hortensia DOTSON 31 Mar 2014 0722 ------- ------- ------- ------- -- Med refill Chloe DAMIAN CORONA 03/[address] [place] [address] [employer] [facility] [facility] Fam Res Tm Red) [address] [place] [address] [employer] [facility]Sco tt [facility] Fam Res Tm Red) TELE CONSULT [id number] Notes Entered by: MARIUSZ KEYS 26 May 2014 0751 ------- ------- ------- ------- -- Medicat ion refill/ Chloe/6 [phone] DAMIAN CORONA 05/[address] [place] [address] Group [employer]am B [facility] Fam Res Tm Red) [address] [place] [address] [facility]am [facility])([facility] Fam Res Tm Red) TELE CONSULT [id number] Notes Entered by: Zahira AGUIRRE 26 May 2014 1204 ------- ------- ------- ------- -- Med renewal DAMIAN Richardson 05/[address] [place] [address] Bam [facility])([facility] Fam Res Tm Red) [address] [place] [address] [facility]am [facility])([facility] Fam Res Tm Red) TELE CONSULT [id number] Notes Entered by: Zahira AGUIRRE 20 Jun 2014 1154 ------- ------- ------- ------- -- Med renewal DAMIAN CORONA 06/[address] [place] [address] [facility] Fam Res Tm Red) [address] [place] [address] [facility])([facility] Fam Res Tm Red) TELE CONSULT [id number] Notes Entered by: DEREJE RAY 22 Jun 2014 0903 ------- ------- ------- ------- -- Sx: Sore throat, cough, congest ion - Chloe - ANA YEBOAH 06/[address] [place] [address] [employer] [facility] Fam Res Tm Red) [address] [place] [address] [employer] [facility] Fam Res Tm Gold) OUTPATIENT [id number] sore throat/ stuffy head/co ugh/con gestion /headac BRADEN Thomas 06/22 Released w/o Limitations [address] [place] [address] [employer] [facility] Fam Res Tm Gold) [address] [place] [address] [employer] [facility] Fam Res Tm Red) TELE CONSULT [id number] Notes Entered by: ALEXANDER ROMERO 10 Aug 2014 1209 ------- ------- ------- ------- -- Med refill/ chloe6 [phone] DAMIAN CORONA 08/10 [facility] Medical Group [employer] [facility]S cott [facility] Fam Res Tm Red) [address] [place] [address] [facility]am LINDAB [facility]Sco tt [facility] Fam Res Tm Red) OUTPATIENT [id number] f/u on labs - [phone] DAMIAN CORONA 09/13 Released w/o Limitations [address] [place] [address] [employer] ([facility]S cott [facility] Fam Res Tm Red) [address] [place] [address] [facility]am LINDAB [facility]Sco tt [facility] Fam Res Tm Red) TELE CONSULT [id number] Notes Entered by: MARIUSZ KEYS 21 Sep 2014 1023 ------- ------- ------- ------- -- Ultraso und referra l update/ Chloe/ [phone] DAMIAN CORONA 09/[address] [place] [address] Group [employer]am LINDAB ([facility]S cott [facility] Fam Res Tm Red) [address] [place] [address] Group [facility] [place]Sco tt [facility] Fam Res Tm Green) TELE CONSULT [id number] Notes Entered by: RICHY SANCHEZ 21 Sep 2014 1554 ------- ------- ------- ------- -- Network results Optomet ry 5 DAMIAN CORONA 09/[address] [place] [address] Group [employer]am [place] ([facility])(S cott [facility] Fam Res Tm Green) [address] [place] [address] Group [employer]am [place] ([facility])(Sco tt [facility] Fam Res Tm Red) OUTPATIENT [id number] pain in both wrists DAMIAN CORONA 11/11 Released w/o Limitations [address] [place] [address] [employer] ([facility]S cott [facility] Fam Res Tm Red) [address] [place] [address] [employer] ([facility]Sco tt [facility] Fam Res Tm Red) TELE CONSULT [id number] Notes Entered by: Zahira AGUIRRE 02 Jan 2015 0805 ------- ------- ------- ------- -- Medicat ion renewal DAMIAN CORONA 01/[address] [place] [address] Bam [facility])(S cott [facility] Fam Res Tm Red) [address] [place] [address] Bam [facility])(Sco tt [facility] Fam Res Tm Red) TELE CONSULT [id number] Notes Entered by: Zahira AGUIRRE 20 Jan 2015 1546 ------- ------- ------- ------- -- Medicat ion Renewal DAMIAN CORONA 01/[address] [place] [address] Bam [facility])([facility] Fam Res Tm Red) [address] [place] [address] Bam [facility])(Sco tt [facility] FAMRES Tm Blue) TELE CONSULT [id number] Notes Entered by: Varun CORONA 15 Feb 2015 1006 ------- ------- ------- ------- -- C DAMIAN Astorga 02/[address] [place] [address] Bam [facility])(S [facility] FAMRES Tm Blue) [address] [place] [address] Bam [facility])(Sco tt [facility] Fam Res Tm Red) OUTPATIENT [id number] Abdomin al pain x 2 weeks [id number] DAMIAN CORONA 03/07 Released w/o Limitations [address] [place] [address] Bam [facility])(S [facility] Fam Res Tm Red) [address] [place] [address] Bam [facility])(Sco tt [facility] FAMRES Tm Blue) TELE CONSULT [id number] Notes Entered by: CLARICE GUTIERREZ 07 Mar 2015 0940 ------- ------- ------- ------- -- Medicat ion Renewal DAMIAN CORONA 03/[address] [place] [address] Bam [facility])([facility] FAMRES Tm Blue) [address] [place] [address] Bam [facility])(Sco tt [facility] Fam Res Tm Red) TELE CONSULT [id number] Notes Entered by: IVELISSE KINSEY 13 Mar 2015 1013 ------- ------- ------- ------- -- Lab Request /Chloe/ [phone] ANA YEBOAH 03/[address] [place] [address] [facility] B [facility] Fam Res Tm Red) [address] [place] [address] [facility]am B [facility]Sco tt [facility] Fam Res Tm Red) TELE CONSULT [id number] Notes Entered by: Consuelo DOTSON 30 Mar 2015 0935 ------- ------- ------- ------- -- Med renewal /Chloe/ [phone] RUBY MARSHALL 03/[address] [place] [address] Bam [facility] Fam Res Tm Red) [address] [place] [address] [facility]Sco tt [facility] FAMRES Tm Blue) TELE CONSULT [id number] Notes Entered by: Varun CORONA 04 Apr 2015 1158 ------- ------- ------- ------- -- gi DAMIAN CORONA 04/[address] [place] [address] [facility] FAMRES Tm Blue) [address] [place] [address] [facility] ecology) OUTPATIENT [id number] Annual WWE [id number] JOSE VALENZUELA 04/07 Released w/o Limitations [address] [place] [address] [employer] [facility]G ynecolo gy) [address] [place] [address] [facility] B [facility]Min [facility] Procedure Clinic) OUTPATIENT [id number] 3RD FLOOR SAFB PRER OP SCREENI NG PRIOR TO COLONOS COPY YESY GREEN 04/11 Released w/o Limitations [address] [place] [address] [employer] [facility]M inor Procedu re Clinic) [address] [place] [address] [employer] [facility]Sco tt [facility] Fam Res Tm Red) TELE CONSULT [id number] Notes Entered by: CLARICE GUTIERREZ 09 May 2015 0747 ------- ------- ------- ------- -- Medicat ion refills CORONADMAIAN 05/[address] [place] [address] Bam [place] [facility] cott [facility] Fam Res Tm Red) [address] [place] [address] [facility]am Ramo [facility]Sco tt [facility] Fam Res Tm Green) TELE CONSULT [id number] Notes Entered by: JEANIE BERNARD 28 Jun 2015 1544 ------- ------- ------- ------- -- Medicat ion renewal ANA YEBOAH 06/[address] [place] [address] [facility])(S cott [facility] Fam Res Tm Green) [address] [place] [address] Bam [facility])(Sco tt [facility] Fam Res Tm Green) TELE CONSULT [id number] Notes Entered by: JEANIE BERNRAD 04 Jul 2015 0934 ------- ------- ------- ------- -- Medicat ion renewal DAMIAN CORONA 07/[address] [place] [address] [facility])(S cott [facility] Fam Res Tm Green) [address] [place] [address] [facility]am [facility])(Sco tt [facility] Fam Res Tm Red) TELE CONSULT [id number] Notes Entered by: Consuelo DOTSON 14 Jul 2015 1328 ------- ------- ------- ------- -- Med renewal /Chloe/ [phone] ANA EYBOAH 07/[address] [place] [address] [place] [facility]S cott [facility] Fam Res Tm Red) [address] [place] [address] [facility]Sco tt [facility] Fam Res Tm Green) TELE CONSULT [id number] Notes Entered by: JEANIE BERNARD 03 Aug 2015 1622 ------- ------- ------- ------- -- Medicat ion renewal ANA YEBOAH 08/[address] [place] [address] [facility]am [facility] cott [facility] Fam Res Tm Green) [address] [place] [address] [facility]am [facility]Sco tt [facility] Fam Res Tm Red) TELE CONSULT [id number] Notes Entered by: Consuelo DOTSON 25 Aug 2015 0933 ------- ------- ------- ------- -- Sx left foot pain/Gi bbs/[phone] OBINNAANA BLEDSOE Claudia 08/[address] [place] [address] Bam LIND[facility]S cott [facility] Fam Res Tm Red) [address] [place] [address] [facility]am [facility] ([facility]Sco tt [facility] Fam Res Tm Red) OUTPATIENT [id number] left foot pain x5 days [phone] DAMIAN CORONA 08/24 Released w/o Limitations [address] [place] [address] Bam [place] ([facility]S cott [facility] Fam Res Tm Red) [address] [place] [address] Bam [place] ([facility])(Sco tt [facility] Fam Res Tm Green) TELE CONSULT [id number] Notes Entered by: JEANIE BERNARD 31 Aug 2015 0722 ------- ------- ------- ------- -- Medicat ion renewal DAMIAN CORONA 08/[address] [place] [address] [facility]am [facility] ([facility]S cott [facility] Fam Res Tm Green) [address] [place] [address] Bam [place] ([facility])(Sco tt [facility] Fam Res Tm Green) TELE CONSULT [id number] Notes Entered by: RICHY SANCHEZ 13 Sep 2015 1527 ------- ------- ------- ------- -- Network Results - Optomet ry 6 DH DAMIAN CORONA 09/[address] [place] [address] Bam [facility] ([facility]S cott [facility] Fam Res Tm Green) [address] [place] [address] [facility]am [facility] ([facility])(Sco tt [facility] FAMRES Tm Blue) TELE CONSULT [id number] Notes Entered by: Varun CORONA 19 Sep 2015 0744 ------- ------- ------- ------- -- Ankle pain DAMIAN CORONA 09/[address] [place] [address] [place] ([facility])(S cott [facility] FAMRES Tm Blue) [address] [place] [address] [facility]am [facility]Sco tt [facility] FAMRES Tm Blue) TELE CONSULT [id number] Notes Entered by: Varun CORONA 08 Oct 2015 1310 ------- ------- ------- ------- -- Phys therapy DAMIAN CORONA 10/[address] [place] [address] Bam Ramo [facility]S cott [facility] FAMRES Tm Blue) [address] [place] [address])(Med ication Refill Clinic) TELE CONSULT [id number] Notes Entered by: Zahira ROJAS 16 Oct 2015 0744 ------- ------- ------- ------- -- Med renewal , 2 pills left / Chloe / LA ARANGO 10/[address] [place] [address])(M edicati on Refill Clinic) [address] [place] [address])(Sco tt [facility] Fam Res Tm Green) TELE CONSULT [id number] Notes Entered by: RICHY SANCHEZ 17 Nov 2015 1340 ------- ------- ------- ------- -- Network results Physica l Therapy 6 DH DAMIAN CORONA 11/[address] [place] [address] Bam LINDARamo [facility]S cott [facility] Fam Res Tm Green) [address] [place] [address] Bam [facility])(Sco tt [facility] Fam Res Tm Red) OUTPATIENT [id number] f/u for labs [id number] HUA ZENG 12/06 Released w/o Limitations [address] [place] [address] Bam [facility])(S cott [facility] Fam Res Tm Red) [address] [place] [address] Bam [facility])(Sco tt [facility] Fam Res Tm Red) TELE CONSULT [id number] Notes Entered by: SHARON VALENZUELA 14 Dec 2015 0751 ------- ------- ------- ------- -- Meds Not at Pharmac y - Appt 07 December / Status of Referra araseli /Chloe/ [phone] - sgj HUA ZENG Osman 12/13 [facility] Medical Group [employer] [facility] Fam Res Tm Red) [address] [place] [address] [employer] [facility]Sco tt [facility] Fam Res Tm Red) TELE CONSULT [id number] Notes Entered by: CARLEE CHAVEZ 18 Jan 2016 0746 ------- ------- ------- ------- -- [facility]- Med Refill EM GARCIA 01/[address] [place] [address] [facility]am B [facility] Fam Res Tm Red) [address] [place] [address] [employer] [facility]Cao [facility] Fam Res Tm Red) TELE CONSULT [id number] Notes Entered by: YADIEL BAE 30 Jan 2016 1443 ------- ------- ------- ------- -- Network Results -PODIAT RY 01/26/16 EM BUENO 01/[address] [place] [address] [facility]am B [facility] Fam Res Tm Red) [address] [place] [address] [employer] [facility]Sco [facility] Fam Res Tm Red) TELE CONSULT [id number] Notes Entered by: RODDY RUSSO 06 Mar 2016 1130 ------- ------- ------- ------- -- Med refill request ANA Paris 03/[address] [place] [address] Bam [facility])([facility] Fam Res Tm Red) [address] [place] [address] [employer] [facility]Sco tt [facility] Fam Res Tm Red) TELE CONSULT [id number] Notes Entered by: RODDY RUSSO 21 Mar 2016 1423 ------- ------- ------- ------- -- Med refill EM GARCIA 03/[address] [place] [address] [employer] [facility] Fam Res Tm Red) [address] [place] [address] [employer] [facility]Sco tt [facility] Fam Res Tm Green) TELE CONSULT [id number] Notes Entered by: JEANIE BERNARD 03 Apr 2016 0838 ------- ------- ------- ------- -- Medicat ion renewal ANA YEBOAH 04/[address] [place] [address])(S [facility] Fam Res Tm Green) [address] [place] [address])([employer] ecology) OUTPATIENT [id number] annual wwe REBA LEON 04/11 Released w/o Limitations [address] [place] [address])(G ynecolo gy) [address] [place] [address])(Sco tt [facility] Fam Res Tm Red) TELE CONSULT [id number] Notes Entered by: RODDY RUSSO 30 Apr 2016 1306 ------- ------- ------- ------- -- Med refill EM GARCIA 04/[address] [place] [address])([facility] Fam Res Tm Red) [address] [place] [address])(Sco tt [facility] Fam Res Tm Red) OUTPATIENT [id number] Sinus Headach e x 2 days [phone] ASIM PALMER 05/08 Released w/o Limitations [address] [place] [address])([facility] Fam Res Tm Red) [address] [place] [address])(Med ication Refill Clinic) TELE CONSULT [id number] Notes Entered by: DEREJE RAY 17 May 2016 1452 ------- ------- ------- ------- -- Rx renewal - Pricilla - - [facility] GARRICK SILVA 05/[address] [place] [address])(Tulio campos on Refill Clinic) [address] [place] [address])(Sco tt [facility] Fam Res Tm Red) TELE CONSULT [id number] Notes Entered by: Ramo HAIDER 13 Jun 2016 1406 ------- ------- ------- ------- -- RX renewal (Pricilla) BALTA REGGIE G 06/13 Other Not Elsewhere Classified [address] [place] [address] Bam [facility])(S [facility] Fam Res Tm Red) [address] [place] [address] Bam [facility])(Cao [facility] Fam Res Tm Red) TELE CONSULT [id number] Notes Entered by: DOMINICK YOON 19 Jun 2016 0813 ------- ------- ------- ------- -- Medicat ion refill for GlycoLa x EM GARCIA 06/[address] [place] [address] Bam [facility])([facility] Fam Res Tm Red) [address] [place] [address] Bam [facility])(Cao [facility] Fam Res Tm Red) TELE CONSULT [id number] Notes Entered by: DOMINICK YOON 01 Jul 2016 1558 ------- ------- ------- ------- -- Medicat ion refill EM GARCIA 07/[address] [place] [address] Bam [facility])([facility] Fam Res Tm Red) [address] [place] [address] Bam [facility])([facility] t) TELE CONSULT [id number] Notes Entered by: REBECA AYERS 03 Jul 2016 1328 ------- ------- ------- ------- -- PCM MAYELIN Lee 07/[address] [place] [address] Bam [facility])(S eddie Disease Managem ent) [address] [place] [address] Bam [facility])([employer] ecology) TELE CONSULT [id number] Notes Entered by: SKYLAR FAJARDO 04 Jul 2016 1253 ------- ------- ------- ------- -- result REBA LEON 07/[address] [place] [address] Bam [facility])(Claudia gustafson gy) [address] [place] [address] [place] ([facility]Sco tt [facility] Fam Res Tm Red) OUTPATIENT [id number] f/u: DM/lab review/ med refill [phone] EM GARCIA 07/12 Released w/o Limitations [address] [place] [address] Group [facility] [place] ([facility]S cott [facility] Fam Res Tm Red) [address] [place] [address] Group [facility]am [place] [facility]Sco tt [facility] Fam Res Tm Red) TELE CONSULT [id number] Notes Entered by: Lakhwinder GARCIA 22 Jul 2016 1109 ------- ------- ------- ------- -- XRAY results ANA YEBOAH 07/[address] [place] [address] Group [facility]am [place] [facility] [place] Fam Res Tm Red) [address] [place] [address] Group Bam [facility])(Sco tt [facility] FAMRES Tm Blue) TELE CONSULT [id number] Notes Entered by: Coco MERLOS 07 Aug 2016 1412 ------- ------- ------- ------- -- Network Results MEDICAL GENETIC S 08/06/19 17 DB EM GARCIA 08/[address] [place] [address] Group [facility]am [facility]S [facility] FAMRES Tm Blue) [address] [place] [address] Group [facility]am [facility])(Sco tt [facility] Fam Res Tm Green) TELE CONSULT [id number] Notes Entered by: JEANIE BERNARD 13 Aug 2016 0955 ------- ------- ------- ------- -- BRADEN Reyna 08/13 [facility] Group [facility] [place] [facility] [place] Fam Res Tm Green) [facility] Bam [facility] [place]co [place] [facility] [place]am Res Tm Red) OUTPATIENT [id number] f/u shoulde r x-rays / EM GARCIA 08/16 Released w/o Limitations [address] [place] [address] Group [facility]am [place] [facility] [place]S cott [facility]am Res Tm Red) [facility] LINDAB [facility] [place]Sco tt [facility] Fam Res Tm Red) TELE CONSULT [id number] Notes Entered by: RODDY RUSSO 29 Aug 2016 1058 ------- ------- ------- ------- -- Lab results ANA YEBOAH 08/[address] [place] [address])(S [facility] Fam Res Tm Red) [address] [place] [address])(Sco [place] [facility] [place]am Res Tm Red) TELE CONSULT [id number] Notes Entered by: RODDY RUSSO 29 Aug 2016 1113 ------- ------- ------- ------- -- Medicat ion refill YESY GREEN 08/[address] [place] [address])([facility] Fam Res Tm Red) [address] [place] [address])(Sco tt [facility] FAMRES Tm Blue) TELE CONSULT [id number] Notes Entered by: Coco MERLOS 02 Sep 2016 0959 ------- ------- ------- ------- -- Network Results - Optomet ry 08/28/16 DB EM GARCIA 09/[address] [place] [address])([facility] FAMRES Tm Blue) [address] [place] [address])(Sco tt [facility] FAMRES Tm Blue) TELE CONSULT [id number] Notes Entered by: MIKE ALATORRE 02 Sep 2016 1421 ------- ------- ------- ------- -- Network results Physica l Therapy 017 RUBY GRANT 09/[address] [place] [address])([facility] FAMRES Tm Blue) [address] [place] [address])(Sco tt [facility] Fam Res Tm Green) TELE CONSULT [id number] Notes Entered by: JEANIE BERNARD 04 Sep 2016 1414 ------- ------- ------- ------- -- Med Renewal PRICILLA, EM D 09/[address] [place] [address] [place] [facility] [place] [facility] Fam Res Tm Green) [address] [place] [address] Bam [facility])(Sco tt [facility] Fam Res Tm Red) TELE CONSULT [id number] Notes Entered by: RODDY RUSSO 10 Sep 2016 1242 ------- ------- ------- ------- -- Med ANA Steel 09/[address] [place] [address] [place]am [place] [facility] [place]S cott [facility] Fam Res Tm Red) [address] [place] [address] [facility]am [facility] [place]Sco tt [facility] Fam Res Tm Red) OUTPATIENT [id number] right foot EM GARCIA 09/26 Released w/o Limitations [address] [place] [address] [place]am [place] [facility] [place]S cott [facility] Fam Res Tm Red) [address] [place] [address] Bam [facility])(Sco tt [facility] Fam Res Tm Green) TELE CONSULT [id number] Notes Entered by: JEANIE BERNARD 02 Oct 2016 0847 ------- ------- ------- ------- -- PT EM Lewis 10/[address] [place] [address] Bam [facility])(S cott [facility] Fam Res Tm Green) [address] [place] [address] Bam [facility])(Sco tt [facility] FAMRES Tm Blue) TELE CONSULT [id number] Notes Entered by: MIKE ALATORRE 08 Oct 2016 1244 ------- ------- ------- ------- -- Network results Physica l Therapy 017 EM GALLARDO 10/[address] [place] [address] Bam [facility])(S [facility] FAMRES Tm Blue) [address] [place] [address] Bam [facility] [place]Sco [place] [facility] Fam Res Tm Red) OUTPATIENT [id number] EKG prior surgery [facility] ed on 27 November [id number] ASIM PALMER 10/16 Released w/o Limitations [address] [place] [address] Bam [facility])(S [facility] Fam Res Tm Red) [address] [place] [address])(Sco tt [facility] FAMRES Tm Blue) TELE CONSULT [id number] Notes Entered by: Lakhwinder GARCIA 21 Oct 2016 1317 ------- ------- ------- ------- -- Results ANA YEBOAH 10/[address] [place] [address])([facility] FAMRES Tm Blue) [address] [place] [address])([facility] Fam Res Tm Red) TELE CONSULT [id number] Notes Entered by: MARIO OWUSU 22 Oct 2016 1208 ------- ------- ------- ------- -- Rad results /Pricilla/ /c ANA Hanson 10/[address] [place] [address])([facility] Fam Res Tm Red) [address] [place] [address])([facility] FAMRES Tm Blue) TELE CONSULT [id number] Notes Entered by: MARK COLUNGA 22 Nov 2016 1323 ------- ------- ------- ------- -- Network Results - Pierre gonzalez 7 JEM HAGER 11/[address] [place] [address])([facility] FAMRES Tm Blue) [address] [place] [address])([employer]) OUTPATIENT [id number] post antonio romeo g RAYMOND WANG 12/11 Released w/o Limitations [address] [place] [address])(G sj gy) [address] [place] [address])([employer]) TELE CONSULT [id number] Notes Entered by: CALIN RICHARDSON LT 20 Dec 2016 1202 ------- ------- ------- ------- -- Pap result ANNETTA SANTANA 12/[address] [place] [address])(G ynecolo gy) [address] [place] [address] Bam [facility])([employer]) TELE CONSULT [id number] Notes Entered by: KEARA WANG 27 Dec 2016 1549 ------- ------- ------- ------- -- Test results RAYMOND WANG 12/[address] [place] [address] Bam [facility])(G ynecolo gy) [address] [place] [address] Bam [facility])(Sco tt [facility] Fam Res Tm Green) TELE CONSULT [id number] Notes Entered by: SHAN SANDHU 31 Dec 2016 0740 ------- ------- ------- ------- -- ANA López 12/[address] [place] [address])(S cott [facility] Fam Res Tm Green) [address] [place] [address])(Sco tt [facility] Fam Res Tm Green) TELE CONSULT [id number] Notes Entered by: ASHLEY BISHOP 08 Jan 2017 0758 ------- ------- ------- ------- -- Rx renewal EM GARCIA 01/[address] [place] [address])(S cott [facility] Fam Res Tm Green) [address] [place] [address])(Sco tt [facility] Fam Res Tm Green) TELE CONSULT [id number] Notes Entered by: IVELISSE KINSEY 08 Jan 2017 0926 ------- ------- ------- ------- -- Danica Jara (appt Jan)/Kortney romero/[phone] DONITA WINN 01/[address] [place] [address] Bam [facility])(S cott [facility] Fam Res Tm Green) [address] [place] [address])(Sco tt [facility] Fam Res Tm Green) TELE CONSULT [id number] Notes Entered by: SIMONE ALONSO 21 Jan 2017 0844 ------- ------- ------- ------- -- ANA Boyle 01/[address] [place] [address] Bam Ramo [facility] [place] [place]S cott [facility] Fam Res Tm Green) [address] [place] [address] Bam [facility])(Sco tt OF Fam Res Tm Green) OUTPATIENT [id number] f/u: DM/lab review/ med refill EM GARCIA 01/24 Released w/o Limitations [address] [place] [address] Bam [facility] [place]S cott [facility] Fam Res Tm Green) [address] [place] [address] [facility] [place]Sco tt [facility] Fam Res Tm Green) TELE CONSULT [id number] Notes Entered by: SHAN SANDHU 28 Jan 2017 0937 ------- ------- ------- ------- -- ANA López 01/[address] [place] [address] Bam [facility])(S cott [facility] Fam Res Tm Green) [address] [place] [address] Bam [facility])(Sco tt [facility] Fam Res Tm Green) TELE CONSULT [id number] Notes Entered by: JOSE LEYVA RD, RA 25 Feb 2017 0846 ------- ------- ------- ------- -- Renny- Med refGARRICK Aguilar 02/[address] [place] [address] Bam B [facility] [place] [facility] Fam Res Tm Green) [address] [place] [address] [facility] [place]Sco tt [facility] Fam Res Tm Green) OUTPATIENT [id number] right eye redness / ABAD RAMIREZ 02/28 Released w/o Limitations [address] [place] [address] Bam [facility] [place]S cott [facility] Fam Res Tm Green) [address] [place] [address] [facility] [place]Sco tt [facility] Fam Res Tm Green) TELE CONSULT [id number] Notes Entered by: ASHLEY BISHOP 12 Mar 2017 0741 ------- ------- ------- ------- -- Referra EM Luna 03/[address] [place] [address] Bam [facility])(S cott OF Fam Res Tm Green) [address] [place] [address])(Sco tt OF Fam Res Tm Green) TELE CONSULT [id number] Notes Entered by: ASHLEY BISHOP 26 Mar 2017 1125 ------- ------- ------- ------- -- Referra l ANA Monahan 03/[address] [place] [address] Bam [facility])(S cott OF Fam Res Tm Green) [address] [place] [address] Bam [facility])(Sco tt OF Fam Res Tm Green) TELE CONSULT [id number] Notes Entered by: ASHLEY BIHSOP 01 Apr 2017 0737 ------- ------- ------- ------- -- Rx refANA Choudhary 04/[address] [place] [address] Bam [facility])(S cott OF Fam Res Tm Green) [address] [place] [address] Bam [facility])(Sco tt OF Fam Res Tm Green) OUTPATIENT [id number] f/u per Dr Garcia: EM Augustine 04/01 Released w/o Limitations [address] [place] [address] Bam [facility])(S cott OF Fam Res Tm Green) [address] [place] [address] Bam [facility])(Sco tt OF FAMRES Tm Blue) TELE CONSULT [id number] Notes Entered by: RODDY RUSSO 26 May 2017 1643 ------- ------- ------- ------- -- Med refANA Choudhary 05/[address] [place] [address] Bam [facility])(S cott OF FAMRES Tm Blue) [address] [place], [place] [address]B [facility] [place]Sco tt OF Fam Res Tm Green) TELE CONSULT [id number] Notes Entered by: SHAN SANDHU 10 Jun 2017 1621 ------- ------- ------- ------- -- REGGIE Galaviz 06/10 Other Not Elsewhere Classified [facility] Group [facility]am [facility])(S cott [facility] Fam Res Tm Green) [address] [place] [address] Bam [facility])(Sco tt [facility] Res Tm Green) TELE CONSULT [id number] Notes Entered by: SHAN SANDHU 22 Jul 2017 1640 ------- ------- ------- ------- -- ANA López 07/[address] [place] [address] Group Bam [facility])([facility] Res Tm Green) [address] [place] [address] Bam [facility])(Sco tt [facility] Res Tm Green) TELE CONSULT [id number] Notes Entered by: DEAN SAEZ D 05 Aug 2017 0839 ------- ------- ------- ------- -- Rx Renewal /Pricilla/ CRISTHIAN RODRIGUEZ 08/05 Referred for Appointment [address] [place] [address] Group Bam [facility])([facility] Res Tm Green) [address] [place] [address] Bam [facility])(Med ication Refill Clinic) TELE CONSULT [id number] Notes Entered by: IVELISSE KINSEY 26 Aug 2017 0942 ------- ------- ------- ------- -- Med renewal /Pricilla/ EM GARCIA 08/[address] [place] [address] Bam [facility])([facility]) [address] [place] [address] Bam [facility])(Sco tt [facility] Blue) TELE CONSULT [id number] Notes Entered by: ASHLEY SARAVIA 26 Aug 2017 1345 ------- ------- ------- ------- -- Network Results - Dermato logy 08/19/17 EM GARCIA 08/[address] [place] [address] Group Bam [facility] [place]S cott [facility] FAMRES Tm Blue) [address] [place] [address] Group Bam [facility] ([facility]Sco tt [facility] Fam Res Tm Green) OUTPATIENT [id number] f/u DM [phone] EM GARCIA 09/15 Released w/o Limitations [address] [place] [address] Group [facility]am [facility] [place] [place]S cott [facility] Fam Res Tm Green) [address] [place] [address] [facility] [place]Sco tt [facility] Fam Res Tm Green) OUTPATIENT [id number] EKG for surgery , will bring order ZULEMA ZAMBRANO 11/04 Released w/o Limitations [address] [place] [address] Group Bam [facility] ([facility]S [facility] Fam Res Tm Green) [address] [place] [address] [facility]am [facility] [place]) OUTPATIENT [id number] Notes Entered by: ALICE MCCLENDON 08 Nov 2017 0834 ------- ------- ------- ------- -- PT RODDY LIVE 11/08 Released w/o Limitations [address] [place] [address] Group Bam [facility] [place]O ldclini c) [address] [place] [address] [facility] [place]Sco tt [facility] Fam Res Tm Green) TELE CONSULT [id number] Notes Entered by: SHARON VALENZUELA 16 Dec 2017 0903 ------- ------- ------- ------- -- Med Renewal / Pricilla / - ANA Leyva 12/16 Referred for Appointment [address] [place] [address] Group [facility]am [facility] [place] [place]S cott [facility] Fam Res Tm Green) [address] [place] [address] [facility] [place]Sco tt [facility] Fam Res Tm Green) TELE CONSULT [id number] Notes Entered by: IVELISSE KINSEY 05 Jan 2018 0951 ------- ------- ------- ------- -- Med Renewal /Pricilla/ MELINDA MORENO 01/[address] [place] [address] Bam [place] [facility]S cott [facility] Fam Res Tm Green) [address] [place] [address] [facility]am [place] [facility] [place] OUTPATIENT [id number] PHAQ review MINDY SHIN 01/10 Released w/o Limitations [address] [place] [address] Bam [place] ([facility]O ldclini c[place] [address] [place] [address] Bam [place] [facility] [place]Sco tt [facility] Fam Res Tm Green) TELE CONSULT [id number] Notes Entered by: SHARON VALENZUELA 23 Jan 2018 0905 ------- ------- ------- ------- -- Med Renewal / Pricilla / - sgCROW Barry 01/[address] [place] [address] Bam [place] [facility] [place] cott [facility] Fam Res Tm Green) [address] [place] [address] [facility]Sco tt [facility] Fam Res Tm Green) TELE CONSULT [id number] Notes Entered by: MARIO OWUSU 10 Feb 2018 1013 ------- ------- ------- ------- -- Med Renewal /Pricilla/ /c KATHLEEN Garber 02/[address] [place] [address] [facility]am [place] [facility] [place] [facility] Fam Res Tm Green) [address] [place] [address] [place] [facility] [place]Sco tt [facility] Fam Res Tm Green) OUTPATIENT [id number] A1C f/u / MELECIO HARP 03/10 Released w/o Limitations [address] [place] [address] [facility]am [place] [facility] [place]S cott [facility] Fam Res Tm Green) [address] [place] [address] [facility] [facility] [place]Sco tt [facility] Fam Res Tm Green) OUTPATIENT [id number] 6 cough, nasal drainag e, sore throat GERTRUDIS MICHELLE 04/24 Released w/o Limitations [address] [place] [address] [facility]am [place] [facility] [place]S cott [facility] Fam Res Tm Green) [address] [place] [address] [place] [place] [facility] [place]Sco tt [facility] Fam Res Tm Green) TELE CONSULT [id number] Notes Entered by: SHARON VALENZUELA 29 Apr 2018 0946 ------- ------- ------- ------- -- Med Renewal / Pricilla / - sgj ANA YEBOAH 04/29 Referred for Appointment [address] [place] [address] [facility]am [place] [facility]S cott [facility] Fam Res Tm Green) [address] [place] [address] Bam [facility])(Sco tt [facility] Res Tm Green) TELE CONSULT [id number] Notes Entered by: SHARON VALENZUELA 18 May 2018 0920 ------- ------- ------- ------- -- Referra l [facility] / Pricilla / - sgj ANA YEBOAH 05/18 Referred for Appointment [address] [place] [address] [facility]am [facility])(S [facility] Fam Res Tm Green) [address] [place] [address] [facility] [facility] [place]co tt [facility] Fam Res Tm Green) OUTPATIENT [id number] 1 R Upper Eyelid and corner red, flaky, swollen ,itchy ABAD RAMIREZ 05/20 Released w/o Limitations [address] [place] [address] Bam [place] [facility]S cott [facility] Fam Res Tm Green) [address] [place] [address] Bam [facility] [place]Sco tt [facility] Res Tm Green) TELE CONSULT [id number] Notes Entered by: PREMA ARELLANO 04 Aug 2018 0905 ------- ------- ------- ------- -- Med Refill - Pricilla - [phone] KATHLEEN MARRERO 08/[address] [place] [address] Bam [facility])(S cott [facility] Fam Res Tm Green) [address] [place] [address] Bam B [facility]) OUTPATIENT [id number] DENISE VALENTINE 09/11 Released w/o Limitations [address] [place] [address] Bam [facility])(Claudia gonzalez) [address] [place] [address])(Sco tt [facility] Fam Res Tm Green) TELE CONSULT [id number] Notes Entered by: MARIO OWUSU 14 Sep 2018 1233 ------- ------- ------- ------- -- Med Renewal s/Pricilla // clm ANA YEBOAH 09/14 Referred for Appointment [address] [place] [address])(S cott [facility] Fam Res Tm Green) [address] [place] [address])(Sco tt [facility] Res Tm Green) TELE CONSULT [id number] Notes Entered by: SHARON VALENZUELA 07 Dec 2018 0902 ------- ------- ------- ------- -- Med Renewal / Pricilla / - [facility] RICARDO MCKEON 12/[address] [place] [address])(S cott [facility] Fam Res Tm Green) [address] [place] [address])(Sco tt [facility] Res Green) OUTPATIENT [id number] 3 HTN f/u/ref ill on meds EM GARCIA 12/28 Released w/o Limitations [address] [place] [address])(S cott [facility] Fam Res Tm Green) [address] [place] [address])(Sco tt [facility] Res Green) TELE CONSULT [id number] Notes Entered by: SHARON VALENZUELA 31 Dec 2018 1114 ------- ------- ------- ------- -- Questio ns on Med Dose Increas e / Possibl y Written Wrong /Pricilla/ [phone] ANA Balderrama 12/31 Referred for Appointment [address] [place] [address])(S cott [facility] Fam Res Tm Green) [address] [place] [address])(Sco tt [facility] Res Green) TELE CONSULT [id number] Notes Entered by: NIGEL MENDOZA 04 Jan 2019 1023 ------- ------- ------- ------- -- Med elizabeth /pricilla/ ANA Prceiado 01/04 Medication Refill Forwarded [address] [place] [address])(S [facility] Fam Res Tm Green) [address] [place] [address])([facility]) OUTPATIENT [id number] Notes Entered by: SHAHANA PRASAD II 09 Jan 2019 0841 ------- ------- ------- ------- -- PROVIDE MINDY COHEN 01/09 Released w/o Limitations [address] [place] [address])([facility]) [address] [place] [address])(Sco tt [facility] Res Tm Green) TELE CONSULT [id number] Notes Entered by: SHARON VALENZUELA 13 Jan 2019 1348 ------- ------- ------- ------- -- Referra varun Wesley / Pricilla / - sgj ANA YEBOAH 01/13 Immediate Referral [address] [place] [address])(S [facility] Fam Res Tm Green) [address] [place] [address])(Sco tt [facility] Fam Res Tm Green) TELE CONSULT [id number] Notes Entered by: HEATHER GAITAN 16 Feb 2019 0929 ------- ------- ------- ------- -- Colonos copy Resched pat/ Pricilla/ - RICARDO Wise 02/[address] [place] [address])(S [facility] Res Tm Green) [address] [place] [address])(Sco tt [facility] Fam Res Tm Green) TELE CONSULT [id number] Notes Entered by: BELINDA CUEVAS 08 Mar 2019 1037 ------- ------- ------- ------- -- med refill/ pricilla/6 [phone] eld ANA YEBOAH 03/[address] [place] [address] Bam [place] [facility]S cott OF Fam Res Tm Green) [address] [place] [address] Bam [facility])(Sco tt OF Fam Res Tm Green) TELE CONSULT [id number] Notes Entered by: YADIEL BAE 26 Mar 2019 1214 ------- ------- ------- ------- -- Network Results OPTOMET RY 03/09/19 SDEM CARDOZA 03/[address] [place] [address] Bam [facility])(S cott [facility] Fam Res Tm Green) [address] [place] [address] Bam [facility])(Sco tt [facility] Fam Res Tm Green) OUTPATIENT [id number] f/u: EM VELAZQUEZ 03/30 Released w/o Limitations [address] [place] [address] Bam [facility]S cott [facility] Fam Res [place]) [address] [place] [address] [facility]Sco tt [facility] Fam Res Tm Green) TELE CONSULT [id number] Notes Entered by: SHARON VALENZUELA 06 Apr 2019 1022 ------- ------- ------- ------- -- Med Renewal / Pricilla / - sgj ANA YEBOAH 04/06 Medication Refill Forwarded [address] [place] [address] [facility]am [facility])(S cott OF Fam Res Tm Green) [address] [place] [address] Bam [facility]co tt [facility] Fam Res Tm Green) TELE CONSULT [id number] Notes Entered by: MICA WALDRON 12 Apr 2019 0901 ------- ------- ------- ------- -- Medicat ion refill /Pricilla/ EM GARCIA 04/[address] [place] [address] Bam [facility] [facility] Fam Res [place]m [place]) [address] [place], [place] [address]B [facility]Sco tt [facility] Res Tm [place]) TELE CONSULT [id number] 1 Notes Entered by: DESMOND PADGETT 15 Apr 2019 0859 ------- ------- ------- ------- -- Network results Physica l Therapy 019 EM COE 04/[address] [place] [address] Bam Ramo [facility]S cott [facility] Res Tm [place]) [address] [place] [address] Bam [facility])(Sco tt [facility] Res Tm [place]) TELE CONSULT [id number] 9 Notes Entered by: ELLY IVERSON 16 Apr 2019 1418 ------- ------- ------- ------- -- Colonos copy results HELGA IVERSON 04/[address] [place] [address] [place] [facility]S [facility] Res Green) [address] [place] [address] Bam [facility])( Primary Care [facility]) TELE CONSULT [id number] 9 Notes Entered by: TORIN RUANO 14 Jun 2019 1154 ------- ------- ------- ------- -- Update JONATHAN RUANO 06/14 Other Not Elsewhere Classified [address] [place] [address] Bam LINDARamo [facility]07 04 [facility]) [address] [place] [address] Bam [facility])(Sco tt [facility] Res Green) OUTPATIENT [id number] 1 R- arm rash, pt refused acute appt, request ed Friday appt,61 [phone] GERTRUDIS MICHELLE 06/18 Released w/o Limitations [address] [place] [address] [place] [facility]S cott [facility] Res Tm [place]) [address] [place] [address] Bam [facility])(126 [facility]) OUTPATIENT [id number] 4 FITNESS REVIEW HELGA ROBLES 06/19 Released with Work/Duty Limitations [address] [place] [address] Bam LINDARamo [facility]07 04 [facility]) [address] [place] [address] Bam [facility])(Sco tt [facility] Fam Res Tm Green) TELE CONSULT [id number] Notes Entered by: ST MICHELLE ALBERTS 25 Jun 2019 0823 ------- ------- ------- ------- -- Network results Physica l Therapy (DISCHA RGE) 020 EM MONTEZ 06/[address] [place] [address] Bam Ramo [facility]S cott [place] Fam Res Tm Green) [address] [place] [address] [facility]am Ramo [facility]Sco tt [facility] Fam Res Tm Green) TELE CONSULT [id number] Notes Entered by: MICA WALDRON 12 Jul 2019 0906 ------- ------- ------- ------- -- Medicat ion Refill /Pricilla/ ANA YEBOAH 07/12 Medication Refill Forwarded [address] [place] [address] Bam [facility])(S cott [facility] Fam Res Tm Green) [address] [place] [address] Bam [facility])(Sco tt [facility] Fam Res Tm Green) TELE CONSULT [id number] 1 Notes Entered by: BELINDA CUEVAS 17 Aug 2019 0850 ------- ------- ------- ------- -- special ist f/u appt/kortney romero/[phone] ANA Newman 08/16 Referred for Appointment [address] [place] [address] Bam [place] [facility] cott [facility] Fam Res Tm [place]) [address] [place] [address] [facility]am Ramo [facility]Sco tt [facility] Fam Res Tm Green) TELE CONSULT [id number] Notes Entered by: Lakhwinder GARCIA 26 Aug 2019 1109 ------- ------- ------- ------- -- Medicat ions EM GARCIA 08/[address] [place] [address] Bam [place] [facility]S [place] [facility] Fam Res [place]m [place]) [address] [place] [address] [place] [facility]Sco tt [facility] Fam Res Tm Green) TELE CONSULT [id number] Notes Entered by: MARGIE PATTEN RET 30 Aug 2019 0928 ------- ------- ------- ------- -- RX Renewal /Pricilla/ [phone]*p EM Chua 08/[address] [place] [address] Bam [facility])(S cott [facility] Fam Res Tm Green) [address] [place] [address] Bam [facility])(Sco tt [facility] Fam Res Tm Green) TELE CONSULT [id number] Notes Entered by: MICA WALDRON 02 Sep 2019 1436 ------- ------- ------- ------- -- Phone call Request / Pricilla/ [phone] ANA YEBOAH 09/01 Released to Self Care [address] [place] [address] Bam [facility])(S cott [facility] Fam Res [place]m [place]) [address] [place] [address] Bam [facility])(Sco tt [facility] Fam Res Tm Green) TELE CONSULT [id number] 5 Notes Entered by: BELINDA CUEVAS 30 Nov 2019 0920 ------- ------- ------- ------- -- med refills /pricilla/ [phone] ANA Newman 11/29 Referred for Appointment [address] [place] [address] Bam Ramo [facility] [facility] Fam Res [place]m [place]) [address] [place] [address] Bam [facility])(Sco tt [facility] FAMRES Tm Blue) OUTPATIENT [id number] Garcia: f/u DM/med refill NYASIA GOLDSTEIN 12/02 Released w/o Limitations [address] [place] [address] Bam LINDARamo [facility] [facility] FAMRES Tm Blue) [address] [place] [address] [facility]am Ramo [facility]Sco tt [facility] Fam Res Tm Green) OUTPATIENT [id number] 1 body rash,[phone] in person SIRIA MARIA 01/05 Released w/o Limitations [address] [place] [address] Bam Ramo [facility]S [facility] Fam Res Tm Green) [address] [place] [address] Bam [place] [facility]126 [facility]) TELE CONSULT [id number] 5 Notes Entered by: RODDY LIVE 08 Jan 2020 1529 ------- ------- ------- ------- -- PHAQ Review RODDY LIVE 01/[address] [place] [address] [facility])(07 04 [facility]) [address] [place] [address] [facility]am [facility])([facility]) TELE CONSULT [id number] 7 Notes Entered by: RODDY LIVE 09 Jan 2020 0711 ------- ------- ------- ------- -- PHAQ Review RODDY LIVE 01/[address] [place] [address] Bam [facility])(07 04[facility]) [address] [place] [address] [facility])(Sco tt [facility]) TELE CONSULT [id number] 9 Notes Entered by: BELINDA CUEVAS 27 Jan 2020 0927 ------- ------- ------- ------- -- SX-rash on arm and inner thighs (sympto ms still persist )/schel by/[phone] ANA Beltre 01/26 Referred for Appointment [address] [place] [address] [place]am [place] [facility] Res Tm [place]) [address] [place] [address] [place]am [place] [facility]Sco tt [facility] Res Green) OUTPATIENT [id number] IN PERSON: theresa arm and inner thighs not better FRANCINE VENCES 01/26 Released w/o Limitations [address] [place] [address] Bam CHEPE [facility]S [facility] Res Tm [place]) [address] [place] [address] Bam CHEPE [facility]Sco tt [facility] Res Green) TELE CONSULT [id number] 0 Notes Entered by: MICA WALDRON 04 Feb 2020 1218 ------- ------- ------- ------- -- SX/ Body Rash/ Schelby / FRANCINE VENCES Dionte 02/03 Referred for Appointment [address] [place] [address] Group [facility]am [place] [facility]S [facility] Res Tm [place]) [address] [place] [address] [facility])(Sco tt [facility]) TELE CONSULT [id number] 2 Notes Entered by: HEATHER GAITAN 15 Feb 2020 1031 ------- ------- ------- ------- -- Med Renewal Request / Schejuan / - REGGIE Crowley 02/14 Medication Refill Forwarded [address] [place] [address] [facility]am [facility])(S [facility] Res Tm [place]) [address] [place] [address] Bam [facility])(Sco tt [facility]) TELE CONSULT [id number] Notes Entered by: SHARON VALENZUELA 18 Feb 2020 0814 ------- ------- ------- ------- -- Med Not Ordered - T-Con of Feb / Izzy / - SALINA Spencer 02/17 Medication Refill Forwarded [address] [place] [address] [facility]am [facility])(S [facility] Res Tm [place]) [address] [place] [address] Bam [facility])(126 th [facility] Care [facility]) OUTPATIENT [id number] Follow up MINDY SHIN 02/17 Released w/o Limitations [address] [place] [address] [facility]am [facility])(1 26th [facility]) [address] [place] [address] [facility]am [facility])(126 th [facility]) TELE CONSULT [id number] 2 Notes Entered by: TORIN RUANO 09 Mar 2020 1850 ------- ------- ------- ------- -- JONATHAN HURD 03/09 Other Not Elsewhere Classified [address] [place] [address] Bam [facility])(1 26th [facility]) [address] [place] [address] [facility]am [facility])(Sco tt [facility] Fam Res Tm Green) TELE CONSULT [id number] 7 Notes Entered by: MEY CORREIA 15 Mar 2020 1530 ------- ------- ------- ------- -- Rx Renewal /Schelb y/ ANA YEBOAH 03/15 Released to Self Care [address] [place] [address])([facility] Fam Res Tm Green) [address] [place] [address] Bam [facility])(Sco tt [facility] Res Tm Green) TELE CONSULT [id number] 7 Notes Entered by: HEATHER GAITAN 24 Mar 2020 1218 ------- ------- ------- ------- -- STAT 154 0-Optom etry Referra l Renewal Req/ Izzy / - SALINA Vu 03/24 Released to Self Care [address] [place] [address])([facility] Fam Res Tm Green) [address] [place] [address] Bam [facility])(Cao tt [facility] Res Tm Green) TELE CONSULT [id number] 1 Notes Entered by: BELINDA CUEVAS 12 May 2020 1119 ------- ------- ------- ------- -- referra l request /chelsea y/[phone] REGGIE Acveedo 05/12 Other Not Elsewhere Classified [address] [place] [address] Group Bam [facility])(S [facility] Fam Res Tm Green) [address] [place] [address] Bam [facility])([employer]) OUTPATIENT [id number] XIOMY JARA 05/17 Released w/o Limitations [address] [place] [address])(Claudia gustafson gy) [address] [place] [address] Bam B [facility]Sco tt [facility] Fam Res Tm Green) TELE CONSULT [id number] 7 Notes Entered by: NUSRAT QIU 18 May 2020 1316 ------- ------- ------- ------- -- Pt due for DM follow up EMERY ALFREDALISSA 05/18 Referred for Appointment [address] [place] [address])(S [facility] Res Tm Green) [address] [place] [address])(Sco tt [facility]) TELE CONSULT [id number] 6 Notes Entered by: MICA WALDRON 19 May 2020 0855 ------- ------- ------- ------- -- SX Multi/ Fever/ Phone call Request / Izzy / [phone] ELIAZAR DWYER 05/19 Other Not Elsewhere Classified [address] [place] [address])(S [facility] Res Tm Green) [address] [place] [address])(Carrion demic Virus) OUTPATIENT [id number] 9 COVID testing , has sNYASIA Chen 05/22 Released w/o Limitations [address] [place] [address])(P andemic Virus) [address] [place] [address])(Sco tt [facility]) OUTPATIENT [id number] 1 Virtual Appt - medicat ions / lab results - [id number] SIRIA MARIA 05/22 Released w/o Limitations [address] [place] [address])([facility] Res Tm [place]) [address] [place] [address])(Carrion demic Virus) TELE CONSULT [id number] Notes Entered by: ETHAN ROSADO 25 May 2020 1714 ------- ------- ------- ------- -- COVID Test Results JONATHAN GUTIERREZ 05/25 Released to Self Care [address] [place] [address])(P andemic Virus) [address] [place] [address])(Sco tt [facility]) OUTPATIENT [id number] 7 Virtual -3 + med renewal s-618.5 [phone] FRANCINE VENCES 06/28 Released w/o Limitations [address] [place] [address])(S cott [facility] Fam Res Tm Green) [address] [place] [address] Bam [place] [facility]Sco tt [facility] Fam Res Tm [place]) TELE CONSULT [id number] 2 Notes Entered by: MICA WALDRON 03 Aug 2020 0734 ------- ------- ------- ------- -- RX Refill/ Izzy / ANA YEBOAH 08/03 Referred for Appointment [address] [place] [address] Bam [place] [facility]S cott [facility] Fam Res [place]m [place]) [address] [place] [address] [place] [facility]Sco tt [facility] Fam Res Tm Green) OUTPATIENT [id number] 9 IN PERSON: f/u HTN, lab reviwe, med refill [phone] NUSRAT QIU 08/04 Released w/o Limitations [address] [place] [address] Bam [place] [facility] Fam Res Tm Green) [address] [place] [address] [facility]am [place] [facility]126 th [facility]) OUTPATIENT [id number] Notes Entered by: Hortensia BARRERA 21 Aug 2020 1025 ------- ------- ------- ------- -- potenti justine julien ent LINCOLN BARRERA 08/21 Released w/o Limitations [address] [place] [address] [place]1 26th [facility]) [address] [place] [address] [place]am [place] [facility]Sco tt [facility] FAMRES Tm Blue) TELE CONSULT [id number] 1 Notes Entered by: NUSRAT QIU 22 Aug 2020 0734 ------- ------- ------- ------- -- Imaging results NUSRAT QIU 08/[address] [place] [address] Bam LINDARamo [facility] [facility] FAMRES Tm Blue) [address] [place] [address] [place] [facility]Sco tt [facility] Fam Res Tm Green) TELE CONSULT [id number] 5 Notes Entered by: IVELISSE KINSEY 28 Aug 2020 1235 ------- ------- ------- ------- -- Rad Beth Discrep aruna/Anthony chandra/6 [phone] NUSRAT QIU 08/[address] [place] [address] [facility]am [facility])(S cott [facility] Snipshot Res Tm Green) [address] [place] [address])(Sco tt [facility]) TELE CONSULT [id number] 6 Notes Entered by: NUSRAT QIU 18 Sep 2020 1113 ------- ------- ------- ------- -- MRI Follow up NUSRAT QIU 09/[address] [place] [address] Bam [facility])(S [facility] Res Tm Green) [address] [place] [address])(Sco tt [facility]) TELE CONSULT [id number] 7 Notes Entered by: BELINDA CUEVAS 02 Oct 2020 1325 ------- ------- ------- ------- -- med refill/ izzy /[phone] ALISSA Montana 10/02 Medication Refill Forwarded [address] [place] [address])([facility] Green) [address] [place] [address])(126 [facility]) OUTPATIENT [id number] 9 Notes Entered by: Hortensia BARRERA 02 Oct 2020 1331 ------- ------- ------- ------- -- LINCOLN Johnson 10/02 Released w/o Limitations [address] [place] [address])(1 th [facility]) [address] [place] [address])(126 th [facility]) OUTPATIENT [id number] 7 Notes Entered by: Hortensia BARRERA 04 Oct 2020 1005 ------- ------- ------- ------- -- left LINCOLN VALDES 10/04 Released w/o Limitations [address] [place] [address] [place]am [place] ([facility]1 26th [facility]) [address] [place] [address] [place] [facility]Sco tt [facility] Fam Res Tm Green) TELE CONSULT [id number] 7 Notes Entered by: Gilbert MOORE 30 Oct 2020 142 ------- ------- ------- ------- -- Network results Optomet ry 021, 021 HELGA KILLIAN 10/[address] [place] [address] [facility] [facility]S cott [place] Fam Res Tm [place]) [address] [place] [address] [place] [facility]Sco tt [facility] Fam Res Tm Green) TELE CONSULT [id number] 7 Notes Entered by: MARGIE PATTEN RET 13 Nov 2020 0903 ------- ------- ------- ------- -- RX Elizabeth /Chelsea y/ *ELIAZAR Morris 11/13 Referred for Appointment [address] [place] [address] Bam [place] [facility]S cott [facility] Fam Res Tm Green) [address] [place] [address] Bam [facility])(Sco tt [facility] Fam Res Tm Green) TELE CONSULT [id number] Notes Entered by: Gilbert MOORE 05 Dec 2020 0852 ------- ------- ------- ------- -- Network results Physica l Therapy HELGA STROUD 12/[address] [place] [address] Bma [place] [facility] [facility] Fam Res Tm [place]) [address] [place] [address] Bam [facility] [place]Sco tt [facility] Fam Res Tm Green) OUTPATIENT [id number] F2F - F/U Medicat ion NUSRAT QIU 12/15 Released w/o Limitations [address] [place] [address] Bam [facility]S cott [facility] Fam Res Tm [place]) [address] [place] [address] Bam [facility]Sco tt [facility] FAMRES Tm Blue) TELE CONSULT [id number] 5 Notes Entered by: NUSRAT QIU 18 Dec 2020 1000 ------- ------- ------- ------- -- Need to obtain colonos copy results from NUSRAT Joseph 12/[address] [place] [address] Bam [place] [facility]S cott OF FAMRES Tm Blue) [address] [place] [address] [place] [facility]Sco tt [facility] Fam Res Tm Green) TELE CONSULT [id number] Notes Entered by: DEREJE RAY 29 Jan 2021 0904 ------- ------- ------- ------- -- Rx renewal - Izzy - - [facility] ANA YEBOAH 01/29 Medication Refill Forwarded [address] [place] [address] [place] [facility]S cott OF Fam Res Tm Green) [address] [place] [address] [place]am [place] [facility]Sco tt [facility] Fam Res Tm Green) TELE CONSULT [id number] Notes Entered by: MARGIE PATTEN RET 20 Mar 2021 1524 ------- ------- ------- ------- -- Appt 4 Nov Optomet ry Danica bourne/618. [phone] 8*prc ANA YEBOAH 03/20 Immediate Referral [address] [place] [address] [place] [facility]S cott [facility] Fam Res Tm [place]) [address] [place] [address] [place] [facility]Sco tt [facility] FAMRES Tm Blue) TELE CONSULT [id number] Notes Entered by: SALINA NÚÑEZ 29 Mar 2021 1423 ------- ------- ------- ------- -- Lab orders / SALINA Mckeon 03/29 Released to Self Care [address] [place] [address] [place] [facility] [facility] FAMRES Tm Blue) [address] [place] [address] [place] [facility]Sco tt [facility] FAMRES Tm Blue) TELE CONSULT [id number] Notes Entered by: NUSRAT QIU 02 Apr 2021 0906 ------- ------- ------- ------- -- lab follow up NUSRAT QIU 04/[address] [place] [address] [place] [facility] [facility] Tm Blue) [address] [place] [address] [place] [facility]Sco tt [facility] Fam Res Tm Green) OUTPATIENT [id number] F2F - F/U indiges tion - medicat ion not working NUSRAT QIU 04/02 Released w/o Limitations [address] [place] [address] [place] [facility]S cott [facility] Fam Res Tm [place]) [address] [place] [address] [place] [facility]Sco tt [facility] Res Tm Green) TELE CONSULT [id number] Notes Entered by: NUSRAT QIU 06 Apr 2021 1347 ------- ------- ------- ------- -- radiolo gy follow up NUSRAT QIU 04/[address] [place] [address] [place] [facility] [facility] Fam Res Tm [place]) [address] [place] [address] [place] [facility]co tt [facility] Fam Res Tm Green) TELE CONSULT [id number] Notes Entered by: DESMOND PADGETT 07 Jun 2021 1224 ------- ------- ------- ------- -- Network results Optomet ry [id number] [phone] HELGA DUMONT 06/[address] [place] [address] [place] [facility] [place] [facility] [place] Fam Res Tm Green) [address] [place] [address] [place] [facility] [place]Layer Up ecology[place] OUTPATIENT [id number] Annual exam XIOMY JARA 07/17 Released w/o Limitations [address] [place] [address] [place] [place]G ynecolo gy) [address] [place] [address] [place]Sco tt [facility] [place] FAMRES Tm Blue) TELE CONSULT [id number] Notes Entered by: HEATHER GAITAN 16 Aug 2021 1310 ------- ------- ------- ------- -- Med Renewal Request / Izzy / [phone] [id number] NUSRAT QIU 08/[address] [place] [address] [place] [facility] [place] [facility] [place] Tm Blue[place] [address] [place] [address] [place] [facility] [place] [facility] [place] Fam Res Tm Green) OUTPATIENT [id number] F2F Rash On Abdomen , Bilater al Arms, [phone] ASHKAN COPELAND 10/02 Released w/o Limitations [address] [place] [address] [place] [facility] [place] [facility] [place] [address] [place] [address] [place] [facility] [place] [facility] [place] Fam Res Tm Green) OUTPATIENT [id number] HC - F/U Skin Issues GONSALO AGUILAR 11/22 Released w/o Limitations [address] [place] [address] [place] [facility] [place] [facility] [place] [address] [place] [address] [place] [facility] [place] [facility] [place] Fam Res Tm Green) TELE CONSULT [id number] Notes Entered by: Tulio DOWNS 21 Dec 2021 1438 ------- ------- ------- ------- -- A1C Lab Order Lipid Panel/S dejan/ ANA YEBOAH 12/21 Released to Self Care [address] [place] [address] [place] [facility] [place] [facility] [place]am Res [place]m [place]) [address] [place] [address] [place] [facility] [place] [facility] [place] FAMRES Tm Blue) TELE CONSULT [id number] Notes Entered by: NUSRAT QIU 02 Jan 2022 0833 ------- ------- ------- ------- -- Labs ordered , please schedul e pt for annual well MARVIN JAEGER 01/02 Other Not Elsewhere Classified [address] [place] [address] [place] [facility] [place] [facility] [place] [facility]m Blue) [address] [place] [address] [place] [facility] [place] [facility] [place] Fam Res Tm Green) TELE CONSULT [id number] Notes Entered by: HEATHER GAITAN 14 Jan 2022 1212 ------- ------- ------- ------- -- Med Bridge Request / Izzy / NUSRAT QUI 01/[address] [place] [address] [place] [facility] [place] [facility] [place]am Res [place]m [place]) [address] [place] [address] [place]KEONB [facility] [place] [facility] [place] FAMRES Tm Blue) OUTPATIENT [id number] Annual Well/La b review RAFAT RODRIGUEZ 03/12 Released w/o Limitations [address] [place] [address] [place] [facility] [place] [facility] [place] [address] [place] [address] [place] [facility] [place] [facility] [place] FAMRES Tm Blue) OUTPATIENT [id number] Notes Entered by: Julian GREENE 12 Apr 2022 1313 ------- ------- ------- ------- -- WALK IN/ STAPLE REMOVAL RAYMOND RODRIGUEZ 04/12 Released w/o Limitations [address] [place] [address] B[place] MCKEONB ([facility] [place] [facility] [place] [facility] [place]m Blue) [address] [place] [address] [place] [facility] [place] [facility] [place] Fam Res Tm Green) TELE CONSULT [id number] Notes Entered by: FELICITA THAO 08 May 2022 1506 ------- ------- ------- ------- -- Referra l Elizabeth Jara /Chelsea winchester/ ANA YEBOAH 05/08 Released to Self Care [address] [place] [address] [place] LINDAB [facility] [place] [facility] [place]am Res [place]m Green) [address] [place] [address] [place] [facility] [place] [facility] [place] Fam Res Tm Green) TELE CONSULT [id number] Notes Entered by: Gilbert MOORE 11 Jun 2022 1353 ------- ------- ------- ------- -- Network results Dermato logy 022 GONSALO CASTRO 06/11 Released to Self Care [address] [place] [address] [place] Ramo [facility] [place] [facility] [place]am [place]) [address] [place] [address] [place] [facility] [place]Sco [place] [facility] [place] Fam Res Tm Green) OUTPATIENT [id number] F2F - indiges tion [phone] JASPER LAWS 07/23 Released w/o Limitations [address] [place] [address] [place] B [facility] [place] [facility] [place] Fam Res Tm Green) [address] [place] [address] B[place] B [facility] [place] [facility] [place] Fam Res Tm Green) OUTPATIENT [id number] F2F - Possibl e [facility] - FABIANA CRUZ 08/30 Released w/o Limitations [address] [place] [address] B[place] LINDAB [facility] [place] cott [facility] Fam Res Tm Green) [address] [place] [address] [place] [facility] [place] [facility] [place] FAMRES Tm Blue) TELE CONSULT [id number] Notes Entered by: NUSRAT QIU 10 Sep 2022 1145 ------- ------- ------- ------- -- mammogr am follow up NUSRAT QIU 09/[address] [place] [address] B[place] LINDARamo [facility] [place] [facility] [place] FAMRES Tm Blue) [address] [place] [address] B[place] LINDAB [facility] [place] [facility] [place] Fam Res Tm Green) TELE CONSULT [id number] Notes Entered by: TOBIAS FUNES 17 Sep 2022 1251 ------- ------- ------- ------- -- Network results Gastroe nterolo gy 023 HLW JASPER LAWS 09/17 Released to Self Care [address] [place] [address] B[place] MCKEONB [facility] [place] [facility] Fam Res Tm Green) [address] [place] [address] [place] [place]Sco tt [facility] Res Tm Green) TELE CONSULT [id number] Notes Entered by: YADIEL LOBO 17 Oct 2022 1008 ------- ------- ------- ------- -- Medicat ion Inquiry / Izzy / ANA YEBOAH 10/17 Released to Self Care [address] [place] [address] [place]S cott [facility] Res Tm Green) 0055A-375 th MEDGRP-Sc wilma Outpatient [id number] DARREL N 06/24 Discharge Disposition: Home or Self Care 5A-3 75th MEDGRP- Bam 6130C-Af- C-375Th Medgrp-Sc wilma Between Visit [id number] 07/02 Discharge Disposition: Home or Self Care 6130C-A f-C-375 Th Medgrp- Bam 6130C-Af- C-375Th Medgrp-Sc wilma Between Visit [id number] Disorde r of the skin and subcuta neous tissue, unspeci fied 07/09 Discharge Disposition: Home or Self Care 6130C-A f-C-375 Th Medgrp- Bam 0055A-375 th MEDGRP-Sc wilma Outpatient [id number] DARREL N 12/01 Discharge Disposition: Home or Self Care 5A-3 75th MEDGRP- Bam 6130C-Af- C-375Th Medgrp-Sc wilma Between Visit [id number] 12/14 Discharge Disposition: Home or Self Care 6130C-A f-C-375 Th Medgrp- Bam Procedures Combined list of: 1) Procedures from Department of Veterans Affairs facilities going back up to thelast 18 months, not all VA non-surgical procedures are included; 2) All procedures from the Department of Defense facilities. Procedure Procedure Type Code Date Aleyda Ortiz Sourconsuelo e Med Management By Pharmacist Initial 15 Min Estab Patient Med Management By Pharmacist Initial 15 Min Estab Patient [id number] BETTIE MOISE [facility] Medication Management By Pharmacist Each Additional 15 Min Medication Management By Pharmacist Each Additional 15 Min [id number] SUMA BETTIE S [facility] Med Management By Pharmacist Initial 15 Min Estab Patient Med Management By Pharmacist Initial 15 Min Estab Patient [id number] SUMABETTIE S [facility] Non-Physician Phone Call To Patient/Provider Brief (5-10min) Non-Physician Phone Call To Patient/Provider Brief (5-10min) [id number] [id number] DAMIAN CORONA [facility] Medication Management By Pharmacist Each Additional 15 Min Medication Management By Pharmacist Each Additional 15 Min [id number] SUMA [facility] Med Management By Pharmacist Initial 15 Min Estab Patient Med Management By Pharmacist Initial 15 Min Estab Patient [id number] SUMA BETTIE S [facility] Non-Physician Phone Call To Patient/Provider Brief (5-10min) Non-Physician Phone Call To Patient/Provider Brief (5-10min) [id number] 011 MIKE MEDEL [facility] Smoking ce ation cla es, non-physician provider, per se ion 011 SUMA [facility] Medication Management By Pharmacist Each Additional 15 Min Medication Management By Pharmacist Each Additional 15 Min [id number] SUMA [facility] Med Management By Pharmacist Initial 15 Min New Patient Med Management By Pharmacist Initial 15 Min New Patient [id number] SUMABETTIE S [facility] Non-Physician Phone Call To Patient/Provider Brief (5-10min) Non-Physician Phone Call To Patient/Provider Brief (5-10min) [id number] 011 DAMIAN CORONA [facility] Non-Physician Phone Call To Patient/Provider Brief (5-10min) Non-Physician Phone Call To Patient/Provider Brief (5-10min) [id number] 011 DAMIAN CORONA [facility] Intervention And Counseling On Ce ation Of Tobacco Use Intervention And Counseling On Cessation Of Tobacco Use 4000F 011 RAYMOND FLORES [facility] Non-Physician Phone Call To Patient/Provider Brief (5-10min) Non-Physician Phone Call To Patient/Provider Brief (5-10min) [id number] 011 ISAIAH ROWE [facility] Non-Physician Phone Call To Patient/Provider Brief (5-10min) Non-Physician Phone Call To Patient/Provider Brief (5-10min) [id number] 011 ROBBY LIGHT [facility] Endometrial Biopsy By Suction Endometrial Biopsy By Suction [id number] DENISE VALENTINE [facility] Screening papanicolaou smear; obtaining, preparing and conveyance of cervical or vaginal smear to laboratory 011 DENISE VLAENTINE Urine HCG, Test Urine HCG, Test [id number] 011 DENISE VALENTINE [facility] Intervention And Counseling On Ce ation Of Tobacco Use Intervention And Counseling On Cessation Of Tobacco Use 4000F 011 RAYMOND FLORES [facility] Non-Physician Phone Call To Patient/Provider Brief (5-10min) Non-Physician Phone Call To Patient/Provider Brief (5-10min) [id number] [id number] ROBBY LIGHT [facility] Non-Physician Phone Call To Patient/Provider Brief (5-10min) Non-Physician Phone Call To Patient/Provider Brief (5-10min) [id number] 010 LIGHTROBBY BRISCOE [facility] Non-Physician Phone Call To Patient/Provider Brief (5-10min) Non-Physician Phone Call To Patient/Provider Brief (5-10min) [id number] 010 RAYMOND FLORES [facility] Non-Physician Phone Call To Patient/Provider Brief (5-10min) Non-Physician Phone Call To Patient/Provider Brief (5-10min) [id number] 010 ROBBY LIGHT [facility] Non-Physician Phone Call To Patient/Provider Brief (5-10min) Non-Physician Phone Call To Patient/Provider Brief (5-10min) [id number] 009 ROBBY LIGHT [facility] Cervical Pap Smear Cervical Pap Smear 50925 09/08 008 SRAVANI DOWNEY [facility] Acupunct One Or More [place] W/ Stimulation Initial 15 Min Acupunct One Or More [place] W/ Stimulation Initial 15 Min [id number] TOBIAS STOVALL piezo x 2 to area DoD Acupunct One Or More [place] W/O Stimulation Initial 15 Min Acupunct One Or More [place] W/O Stimulation Initial 15 Min 85732 007 TOBIAS STOVALL 4 w/ e-stim for yumiko chain at [address] Emmanuel Acupunct One Or More [place] W/ Stimulation Initial 15 Min Acupunct One Or More [place] W/ Stimulation Initial 15 Min 10231 007 TOBIAS STOVALL Acupunct One Or More [place] W/O Stimulation Initial 15 Min Acupunct One Or More [place] W/O Stimulation Initial 15 Min 65815 007 TOBIAS STOVALL Osteopathic Manip Treatment (OMT) 1-2 Body Regions Involved Osteopathic Manip Treatment (OMT) 1-2 Body Regions Involved 15528 007 TOBIAS STOVALL Screening papanicolaou smear; obtaining, preparing and conveyance of cervical or vaginal smear to laboratory 007 LARRY MAJANO Acupunct One Or More [place] W/ Stimulation Initial 15 Min Acupunct One Or More [place] W/ Stimulation Initial 15 Min 61643 007 TOBIAS STOVALL Acupunct One Or More [place] W/O Stimulation Initial 15 Min Acupunct One Or More [place] W/O Stimulation Initial 15 Min 45873 007 TOBIAS STOVALL Osteopathic Manip Treatment (OMT) 1-2 Body Regions Involved Osteopathic Manip Treatment (OMT) 1-2 Body Regions Involved 54073 007 TOBIAS STOVALL Osteopathic Manip Treatment (OMT) 1-2 Body Regions Involved Osteopathic Manip Treatment (OMT) 1-2 Body Regions Involved 83409 007 FEDERICO GOETZ Intervention And Counseling On Ce ation Of Tobacco Use Intervention And Counseling On Cessation Of Tobacco Use 4000F 006 CRUZITO MALCOLM Screening papanicolaou smear; obtaining, preparing and conveyance of cervical or vaginal smear to laboratory 006 DENISE VALENTINE Splint, prefabricated, wrist or ankle 005 MIKE PALMA Simple Closure Of Wound Dehiscence With Packing Simple Closure Of Wound Dehiscence With Packing 24936 005 WALLACE GONZALEZ Incision And Drainage Of Skin Absce Incision And Drainage Of Skin Abscess 79475 005 TOBIAS STOVALL Incision And Drainage Of Skin Absce Incision And Drainage Of Skin Abscess 76960 005 JOSE TERRELL [facility] Disease management program, follow-up/harjinder e ment 018 MELECIO HARP [facility] Disease management program, follow-up/harjinder e ment 018 MAYELIN AYERS [facility] Non-Physician Phone Call To Patient/Provider Brief (5-10min) Non-Physician Phone Call To Patient/Provider Brief (5-10min) [id number] [id number] MELINDA MORENO [facility] Non-Physician Phone Call To Patient/Provider Brief (5-10min) Non-Physician Phone Call To Patient/Provider Brief (5-10min) [id number] 018 NAA YEBOAH [facility] Electrocardiogram Electrocardiogram 51608 11/05 018 ZULEMA LALISON [facility] Disease management program, follow-up/harjinder e ment 018 EM GARCIA [facility] Non-Physician Phone Call To Patient/Provider Brief (5-10min) Non-Physician Phone Call To Patient/Provider Brief (5-10min) [id number] 018 ANA YEBOAH [facility] Internet Med Svc Qual Nonphys Healthcare Prof Estab Patient Internet Med Svc Qual Nonphys Healthcare Prof Estab Patient [id number] CRISTHIAN RODRIGUEZ [facility] Non-Physician Phone Call To Patient/Provider Brief (5-10min) Non-Physician Phone Call To Patient/Provider Brief (5-10min) [id number] 017 ANA YEBOAH [facility] Non-Physician Phone Call To Patient/Provider Brief (5-10min) Non-Physician Phone Call To Patient/Provider Brief (5-10min) [id number] 017 ANA YEBOAH [facility] Non-Physician Phone Call To Patient/Provider Brief (5-10min) Non-Physician Phone Call To Patient/Provider Brief (5-10min) [id number] 017 ANA YEBOAH [facility] Non-Physician Phone Call To Patient/Provider Brief (5-10min) Non-Physician Phone Call To Patient/Provider Brief (5-10min) [id number] [phone] EM GARCIA Disease management program, follow-up/harjinder e ment 017 EM GARCIA Non-Physician Phone Call To Patient/Provider Brief (5-10min) Non-Physician Phone Call To Patient/Provider Brief (5-10min) [id number] 017 ANA YEBOAH Non-Physician Phone Call To Patient/Provider Brief (5-10min) Non-Physician Phone Call To Patient/Provider Brief (5-10min) [id number] 017 DONITA WINN [facility] Non-Physician Phone Call To Patient/Provider Brief (5-10min) Non-Physician Phone Call To Patient/Provider Brief (5-10min) [id number] 017 ANA YEBOAH Non-Physician Phone Call To Patient/Provider Brief (5-10min) Non-Physician Phone Call To Patient/Provider Brief (5-10min) [id number] 017 ANA YEBOAH Screening papanicolaou smear; obtaining, preparing and conveyance of cervical or vaginal smear to laboratory 017 RAYMOND WANG [facility] Non-Physician Phone Call To Patient/Provider Brief (5-10min) Non-Physician Phone Call To Patient/Provider Brief (5-10min) [id number] 017 ANA YEBOAH Disease management program, follow-up/harjinder e ment 017 EM GARCIA Non-Physician Phone Call To Patient/Provider Brief (5-10min) Non-Physician Phone Call To Patient/Provider Brief (5-10min) [id number] 017 ANA YEBOAH Non-Physician Phone Call To Patient/Provider Brief (5-10min) Non-Physician Phone Call To Patient/Provider Brief (5-10min) [id number] [phone] ANA YEBOAH Disease management program, follow-up/harjinder e ment 017 EM GARCIA Telephone calls by a registered nurse to a disease management program member for monitoring purposes; per month 017 MAYELIN AYERS [facility] Non-Physician Phone Call To Patient/Provider Brief (5-10min) Non-Physician Phone Call To Patient/Provider Brief (5-10min) [id number] 017 MAYELIN AYERS [facility] Non-Physician Phone Call To Patient/Provider Brief (5-10min) Non-Physician Phone Call To Patient/Provider Brief (5-10min) [id number] 017 ANA YEBOAH [facility] Non-Physician Phone Call To Patient/Provider Brief (5-10min) Non-Physician Phone Call To Patient/Provider Brief (5-10min) [id number] 017 ANA YEBOAH [facility] Internet Med Svc Qual Nonphys Healthcare Prof Estab Patient Internet Med Svc Qual Nonphys Healthcare Prof Estab Patient [phone] REGGIE GIFFORD [facility] Non-Physician Phone Call To Patient/Provider Brief (5-10min) Non-Physician Phone Call To Patient/Provider Brief (5-10min) [id number] 016 ANA YEBOAH [facility] Non-Physician Phone Call To Patient/Provider Brief (5-10min) Non-Physician Phone Call To Patient/Provider Brief (5-10min) [id number] 016 ANA YEBOAH [facility] Non-Physician Phone Call To Patient/Provider Brief (5-10min) Non-Physician Phone Call To Patient/Provider Brief (5-10min) [id number] [phone] ANA YEBOAH [facility] Non-Physician Phone Call To Patient/Provider Brief (5-10min) Non-Physician Phone Call To Patient/Provider Brief (5-10min) [id number] 016 ANA YEBOAH [facility] Disease management program, follow-up/harjinder e ment 016 HUA ZENG [facility] Non-Physician Phone Call To Patient/Provider Brief (5-10min) Non-Physician Phone Call To Patient/Provider Brief (5-10min) [id number] 016 RUBY MARSHALL [facility] Disease management program, follow-up/harjinder e ment 016 DAMIAN CORONA [facility] Non-Physician Phone Call To Patient/Provider Brief (5-10min) Non-Physician Phone Call To Patient/Provider Brief (5-10min) [id number] 016 ANA YEBOAH [facility] Disease management program, follow-up/harjinder e ment 016 MAYELIN AYERS [facility] Non-Physician Phone Call To Patient/Provider Brief (5-10min) Non-Physician Phone Call To Patient/Provider Brief (5-10min) [id number] 016 ANA YEBOAH Non-Physician Phone Call To Patient/Provider Brief (5-10min) Non-Physician Phone Call To Patient/Provider Brief (5-10min) [id number] [id number] ANA YEBOAH Non-Physician Phone Call To Patient/Provider Brief (5-10min) Non-Physician Phone Call To Patient/Provider Brief (5-10min) [id number] 016 ANA YEBOAH Non-Physician Phone Call To Patient/Provider Brief (5-10min) Non-Physician Phone Call To Patient/Provider Brief (5-10min) [id number] [id number] DAMIAN CORONA [facility] Non-Physician Phone Call To Patient/Provider Brief (5-10min) Non-Physician Phone Call To Patient/Provider Brief (5-10min) [id number] [phone] DAMIAN CORONA [facility] Non-Physician Phone Call To Patient/Provider Brief (5-10min) Non-Physician Phone Call To Patient/Provider Brief (5-10min) [id number] 015 ANA YEBOAH Non-Physician Phone Call To Patient/Provider Brief (5-10min) Non-Physician Phone Call To Patient/Provider Brief (5-10min) [id number] 015 ANA YEBOAH [facility] Non-Physician Phone Call To Patient/Provider Brief (5-10min) Non-Physician Phone Call To Patient/Provider Brief (5-10min) [id number] [phone] DAMIAN CORONA [facility] Disease management program, follow-up/harjinder e ment 015 DAMIAN CORONA [facility] Non-Physician Phone Call To Patient/Provider Brief (5-10min) Non-Physician Phone Call To Patient/Provider Brief (5-10min) [id number] [id number] ANA YEBOAH Non-Physician Phone Call To Patient/Provider Brief (5-10min) Non-Physician Phone Call To Patient/Provider Brief (5-10min) [id number] 015 ANA YEBOAH [facility] Disease management program, follow-up/harjinder e ment 015 CORONADAMIAN [facility] Non-Physician Phone Call To Patient/Provider Brief (5-10min) Non-Physician Phone Call To Patient/Provider Brief (5-10min) [id number] [phone] DAMIAN CORONA [facility] Disease management program, follow-up/harjinder e ment 015 DAMIAN CORONA [facility] Non-Physician Phone Call To Patient/Provider Brief (5-10min) Non-Physician Phone Call To Patient/Provider Brief (5-10min) [id number] [phone] DAMIAN CORONA [facility] Non-Physician Phone Call To Patient/Provider Brief (5-10min) Non-Physician Phone Call To Patient/Provider Brief (5-10min) [id number] 015 ANA YEBOAH Non-Physician Phone Call To Patient/Provider Brief (5-10min) Non-Physician Phone Call To Patient/Provider Brief (5-10min) [id number] 015 ANA YEBOAH Non-Physician Phone Call To Patient/Provider Brief (5-10min) Non-Physician Phone Call To Patient/Provider Brief (5-10min) [phone] DAMIAN CORONA [facility] Non-Physician Phone Call To Patient/Provider Brief (5-10min) Non-Physician Phone Call To Patient/Provider Brief (5-10min) [id number] 014 ANA YEBOAH [facility] Cervical or vaginal cancer screening; pelvic and clinical breast examination 014 JOSE MARSHALL [facility] Non-Physician Phone Call To Patient/Provider Brief (5-10min) Non-Physician Phone Call To Patient/Provider Brief (5-10min) [id number] [phone] ANA YEBOAH Non-Physician Phone Call To Patient/Provider Brief (5-10min) Non-Physician Phone Call To Patient/Provider Brief (5-10min) [id number] 014 ANA YEBOAH Non-Physician Phone Call To Patient/Provider Brief (5-10min) Non-Physician Phone Call To Patient/Provider Brief (5-10min) [id number] [phone] ANA YEBOAH [facility] Non-Physician Phone Call To Patient/Provider Brief (5-10min) Non-Physician Phone Call To Patient/Provider Brief (5-10min) [id number] 014 ANA YEBOAH [facility] Non-Physician Phone Call To Patient/Provider Brief (5-10min) Non-Physician Phone Call To Patient/Provider Brief (5-10min) [id number] 014 ANA YEBOAH [facility] Cervical or vaginal cancer screening; pelvic and clinical breast examination 013 PALLAVI PEDERSON [facility] Non-Physician Phone Call To Patient/Provider Brief (5-10min) Non-Physician Phone Call To Patient/Provider Brief (5-10min) [id number] ANA YEBOAH [facility] Non-Physician Phone Call To Patient/Provider Brief (5-10min) Non-Physician Phone Call To Patient/Provider Brief (5-10min) [id number] ANA YEBOAH [facility] Non-Physician Phone Call To Patient/Provider Brief (5-10min) Non-Physician Phone Call To Patient/Provider Brief (5-10min) [id number] DAMIAN CORONA [facility] Screening papanicolaou smear; obtaining, preparing and conveyance of cervical or vaginal smear to laboratory 012 SATISH SCHNEIDER [facility] Physical Therapy Gait Training Physical Therapy Gait Training [id number] YECENIA LOPEZ Cane, includes canes of all materials, adjustable or fixed, with tip 012 YECENIA LOPEZ Non-Physician Phone Call To Patient/Provider Brief (5-10min) Non-Physician Phone Call To Patient/Provider Brief (5-10min) [id number] DAMIAN CORONA [facility] Non-Physician Phone Call To Patient/Provider Brief (5-10min) Non-Physician Phone Call To Patient/Provider Brief (5-10min) [id number] DAMIAN CORONA [facility] Non-Physician Phone Call To Patient/Provider Brief (5-10min) Non-Physician Phone Call To Patient/Provider Brief (5-10min) [id number] CHLOE DAMIAN Antunez [facility] Non-Physician Phone Call To Patient/Provider Brief (5-10min) Non-Physician Phone Call To Patient/Provider Brief (5-10min) [id number] CHLOE DAMIAN Tulio [facility] Medication Management By Pharmacist Each Additional 15 Min Medication Management By Pharmacist Each Additional 15 Min [id number] BETTIE MOISE [facility] Med Management By Pharmacist Initial 15 Min Estab Patient Med Management By Pharmacist Initial 15 Min Estab Patient [id number] BETTIE MOISE [facility] Non-Physician Phone Call To Patient/Provider Brief (5-10min) Non-Physician Phone Call To Patient/Provider Brief (5-10min) [id number] [phone] FREDDY ASIF [facility] Non-Physician Phone Call To Patient/Provider Brief (5-10min) Non-Physician Phone Call To Patient/Provider Brief (5-10min) [id number] CORONADAMIAN [facility] Medication Management By Pharmacist Each Additional 15 Min Medication Management By Pharmacist Each Additional 15 Min [id number] [id number] BETTIE MOISE [facility] Non-Physician Phone Call To Patient/Provider Brief (5-10min) Non-Physician Phone Call To Patient/Provider Brief (5-10min) [id number] ANA YEBOAH [facility] Screening papanicolaou smear; obtaining, preparing and conveyance of cervical or vaginal smear to laboratory XIOMY JARA [facility] [place] [facility]; not otherwise specified (NOS) SIRIA MARIA [facility] Endometrial sampling (biopsy) with or without endocervical sampling (biopsy), without cervical dilation, any method (separate procedure) Endometrial sampling (biopsy) with or without endocervical sampling (biopsy), without cervical dilation, any method (separate procedure) [id number] Incision and drainage of absce (eg, carbuncle, suppurative hidradenitis, cutaneous or subcutaneous absce , cyst, furuncle, or paronychia); simple or single Incision and drainage of abscess (eg, carbuncle, suppurative hidradenitis, cutaneous or subcutaneous abscess, cyst, furuncle, or paronychia); simple or single [id number] Med[facility]-S cott Other Other (qualifier value) [id number] right ankle surgery [id number] 5th MEDGRP-S cott Social History Combined list of available smoking, tobacco, and other social history from Department of Defense and Veterans Affairs facilities. Social History Type Response Date Comment [facility] e Sex Representation Female (finding) 04/09/2021 Unknown Organization This section is an empty social history section. [facility] Tobacco Cigarette use: Never-cigarette user. Other Tobacco use: Never-other tobacco user (not cigarettes). Ambulatory Pharmacy Sexual Orientation Ambula tory Pharmacy Gender identity Ambulator y Pharmacy Assessment and Plan Combined list of future care activities from Department of Defense and Veterans Affairs facilities (e.g., assessment and plan notes, appointments, orders, and referrals). Additional future care activities may be listed in the Plan of Care section. Result Assessment and Plan Date Source Assessment and Plan Extracted from:Title : [facility] [place]- Shave Biopsy Author: SALINA CORRIGAN MD Date: 06/24/24 Skin lesion [age]y/o F with 1x2mm nonmelanotic slightly raised circumscribed skin l esion. See procedure note for further detail Plan: - Sent for Path - will call with results if remarkable. suspect dermatofibroma - f/u prn Ordered: AP Surgical Pathology Orders: Hemoglobin A1c Capt Nura (), [facility], Soakers Supervisor PGY-2 [employer] [facility] [place], [place] Addendum by POLLO NEVAREZ MD on June 24, 2024 16:06:52 MAIL CLERK This encounter was directly supervised. I was present during naranjo components of the procedure. I have reviewed the note and concur with the findings, assessment, and plan. Follow up as listed. All labs/imaging/consults to be followed by the ordering provider. //SIGNED// Lt Chad BERMEO, FAVIAN, , SFS Adjunct Preceptor, [place] [facility] [phone] Extracted from:Title: [facility] [place]- well adult/ R ankle Author: SALINA CORRIGAN [...] since referral Ordered: Referral Request 2.0 - [facility] Orders: fluticasone nasal(Flonase Allergy Relief 50 mcg/inh nasal spray), 2 spray(s), Nostril-Both, Daily, # 3 EA, 3 total refill(s), Maintenance, 2 spray(s) Nostril-Both Daily, Pharmacy: [facility] [Not filled] hydroCHLOROthiazide(hydroCHLOROt hiazide 25 mg oral tablet), 1 tab(s), Oral, Daily, for blood pressure, # 90 tab(s), 3 total refill(s), Maintenance, 1 tab(s) Oral Daily,Instr:for blood pressure, Pharmacy: [facility] [Federal Rx: #90 last filled 05/28/24] atorvastatin(Lipitor 80 mg oral tablet), 1 tab(s), Oral, Daily, for cholesterol, # 90 tab(s), 3 total refill(s), Maintenance, 1 tab(s) Oral Daily,Instr:for cholesterol, Pharmacy: [facility] [Not filled] losartan(losartan 50 mg oral tablet), 1 tab(s), Oral, Daily, for blood pressure, # 90 tab(s), 3 total refill(s), Maintenance, 1 tab(s) Oral Daily,Instr:for blood pressure, Pharmacy: [facility] [Federal Rx: #90 last filled 05/28/24] metFORMIN(metFORMIN 1000 mg oral tablet), 1 tab(s), Oral, BID, for diabetes, # 180 tab(s), 3 total refill(s), Maintenance, 1 tab(s) Oral BID,Instr:for diabetes, Pharmacy: [facility] [Federal Rx: #180 last filled 05/28/24] Refer to Ortho MEAGHAN Vargas. Capt Nura (), [facility], Soakers Supervisor PGY-[address] [place] [address] Family Medicine Residency [facility] [place], [place] Addendum by BRENNAN VILLALOBOS MD on May 31, 2024 13:26:53 MAIL CLERK I was present and available in the family medicine clinic to discuss the patient's care during the time of the appointment. I agree with the resident's assessment and plan as documented. Brennan Villalobos MD, Faculty, [facility], [facility], Attending Physician Extracted from:Title: FM - Hamstring tendinopathy Author: RAYMOND PAT, Date: 01/16/24 1. S train of hamstring [...] 01/10/2025, 1 tab(s) Oral Daily,x90 days, Pharmacy: [facility] [Not filled] citalopram(citalopram 20 mg oral tablet), 1.5 tab(s), Oral, Daily, Total of 30mg once daily., # 135 tab(s), 3 total refill(s), Maintenance, 1.5 tab(s) Oral Daily,Instr:Total of 30mg once daily., Pharmacy: [facility] [Not filled] pantoprazole(pantoprazole 20 mg oral delayed release tablet), 1 tab(s), Oral, Daily, # 90 tab(s), 3 total refill(s), Maintenance, 1 tab(s) Oral Daily,x90 days, Pharmacy: [facility] [Not filled] propranolol(propranolol 80 mg oral tablet), 1 tab(s), Oral, BID, X 90 days, # 180 tab(s), 3 total refill(s), Acute, 1 tab(s) Oral BID,x90 days, Pharmacy: [facility] [Not filled] Capt Hao Arevalo), [place], Soakers Supervisor, PGY-2 [employer], [facility] [employer] Addendum by SKIP NOLASCO MD on [...] by the ordering provider. DO Bear Dudley, [place], Family Medicine Physician Extracted from:Title: Office Clinic [...] recommended in 2 years Ordered: AP Cytology 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 HPV High Risk (16/18/Other) 2. F amily [...] her desk more during the work day. Pre Assembly Wirer also advised patient on interpersonal communications professor and/or home exercise program options. 4. Hepatic steatosis - Continue plan as per relevant documentation, patient verbalized understanding and endorses s he is pursuing Weight Watchers I spoke with patient over phone during this virtual appointment and spent 21 minutes reviewing chart and placing orders for this encounter. Capt Lincoln Hernández MD Resident, PGY-2 [facility] Family and Community Medicine Program [place], [place] Addendum by MERT BECERRA MD on September 15, 2023 11:25:23 CDT On the date of this encounter, I was immediately available to assist the resident in the care of this patient and have reviewed and agree with the residents findings and plan of care. Lt Col Mert Becerra MD Family Medicine Physician [facility] YANNI Martinez Extracted from:Title: FM-virt DEXA [...] refill(s), Maintenance, 100 mcg Nostril-Both Daily, Pharmacy: [facility] [Not filled] Note: Discontinued aspirin d ue to GI bleed risk as patient e ndorsing taking aspirin a s primary prevention without h istory of stroke or PA. Patient verbalized understanding and amenable to plan. I examined patient in-person / spoke with patient over phone and spent 30 minutes reviewing chart and placing orders for this encounter. Capt Lincoln Hernández MD Resident, PGY-2 [facility], [facility] Family and Community Medicine Program YANNI Martinez [...] regimen Return precautions provided Randall Durand DO Soakers Supervisor PGY-3 [place] Addendum by HOME PARR MD on July 31, 2023 10:39:07 MAIL CLERK I certify that I was immediately available to review and discuss this patient. T he resident discussed the diagnosis and treatment plan for this patient with me [id number]. I agree with these written findings and plan. Capt Home Parr DO, CAM Sports/Family Medicine Faculty Physician [address] [place] [address], HCOS/SG O F [facility]on [facility] [place], [place] Extracted from:Title: Fam Med - HTN/LE Swelling [...] 90 tab(s), 2 total refill(s), Maintenance, Pharmacy: [facility] [Federal Rx: #30 last filled 06/24/23] fluticasone nasal(Flonase 50 mcg/inh nasal spray), 100 mcg, Nostril-Both, Daily, # 16 g, 5 total refill(s), Maintenance, Pharmacy: [facility] [Federal Rx: #16 last filled 06/24/23] losartan(losartan 50 mg oral tablet), 1 tab(s), Oral, Daily, for blood pressure, # 90 tab(s), 3 total refill(s), Maintenance, 1 tab(s) Oral Daily,Instr:for blood pressure, Pharmacy: [facility] [Not filled] Referral Request 2.0 Referral Request 2.0 Ashkan Copeland MD PGY-3 Family Medicine [employer] Addendum by NUSRAT QIU MD on July 18, 2023 14:57:46 MAIL CLERK I certify that I was present for case discussion in the Family Medicine preceptor room at the time of this encounter. I have reviewed the note and agree with the findings, assessment, and plan except as I have documented below. Follow up as listed. All labs/imaging/consults to be followed by the ordering provider. Nusrat Qiu MD, [facility], [facility], Staff Physician Extracted from:Title: FM-virt med refill [...] Maintenance, 1 tab(s) Oral Daily,Instr:for cholesterol, Pharmacy: [facility] [Not filled] Lipid Panel 3. D iabetes mellitus Due for yearly labs - ordered Metformin refilled Ordered: metFORMIN(metFORMIN 1000 mg oral tablet), 1 tab(s), Oral, BID, for diabetes, # 180 tab(s), 3 total refill(s), Maintenance, 1 tab(s) Oral BID,Instr:for diabetes, Pharmacy: [facility] [Not filled] Hemoglobin A1c 4. S easonal allergic rhinitis Flonase refilled Ordered: fluticasone nasal(Flonase 50 mcg/inh nasal spray), 100 mcg, Nostril-Both, Daily, # 16 g, 5 total refill(s), Maintenance, 100 mcg Nostril-Both Daily, Pharmacy: [facility] [Not filled] 5. A nkle fracture Improving On aspirin for clot risk reduction per ortho (no Hx stroke or PA) Pt endorses ortho appt 28 May 2023 Recommend in-person visit when ankle boot off at upcoming orthopedist appt Consider DEXA scan discussion i f presents for annual physical Ordered: aspirin(aspirin 81 mg oral delayed release tablet), 1 tab(s), Oral, Daily, # 30 tab(s), 2 total refill(s), Maintenance, 1 tab(s) Oral Daily, Pharmacy: [facility] [Not filled] Orders: hydroCHLOROthiazide(hydroCHLOROt hiazide 25 mg oral tablet), 1 tab(s), Oral, Daily, for blood pressure, # 90 tab(s), 3 total refill(s), Maintenance, 1 tab(s) Oral Daily,Instr:for blood pressure, Pharmacy: [facility] [Not filled] CAPT LINCOLN HERNÁNDEZ MD [facility], [facility], PGY-2 Addendum by BRENNAN VILLALOBOS MD on May 29, 2023 07:22:08 MAIL CLERK I was present and available in the family medicine clinic to discuss the patient's care during the time of the appointment. I agree with the resident's assessment and plan as documented. Brennan Villalobos MD, Faculty, [facility], [facility], Attending Physician Extracted from:Title: FM R ankle fracture Author: SONNY VEGA MD Date: 03/25/23 1. C losed fracture of right ankle Encouraged RICE Sending to orthopedics. Will send note encouraging teleworking. Continue ibuprofen and hydrocodone for pain. Follow up after orthopedics. Orders: Referral Request 2.0 Sonny Vega MD Soakers Supervisor, PGY-3 [place] Addendum by JASE RIVERA MD on March 25, 2023 11:08:37 CDT .att Extracted from:Title: FamMed - Annual, Med Refill, Skin Lesion (L Foot) Author: SETH BARTON DO Date: 02/26/23 1. E ncounter for general adult medical examination without abnormal findings Preventative Medicine / HCM visit with no emergent [...] Maintenance, 1 tab(s) Oral Daily,x90 days, Pharmacy: [facility] [Not filled] aspirin(aspirin 81 mg oral delayed release tablet), 1 tab(s), Oral, Daily, X 90 days, # 90 tab(s), 3 total refill(s), Acute, 1 tab(s) Oral Daily,x90 days, Pharmacy: [facility] [Not filled] atorvastatin(atorvastatin 40 mg oral tablet), 1 tab(s), Oral, Daily, X 90 days, # 90 tab(s), 3 total refill(s), Acute, 1 tab(s) Oral Daily,x90 days, Pharmacy: [facility] [Not filled] cetirizine(cetirizine 10 mg oral tablet), 1 tab(s), Oral, Daily, X 90 days, # 90 tab(s), 3 total refill(s), Acute, 02/21/2024, 1 tab(s) Oral Daily,x90 days, Pharmacy: [facility] [Not filled] citalopram(citalopram 20 mg oral tablet), 1 tab(s), Oral, Daily, # 90 tab(s), 3 total refill(s), Maintenance, 1 tab(s) Oral Daily,x90 days, Pharmacy: [facility] [Not filled] fluticasone nasal(fluticasone 50 mcg/inh nasal spray), 50 mcg, Nostril-Both, Daily, # 16 g, 3 total refill(s), Maintenance, 50 mcg Nostril-Both Daily,x90 days, Pharmacy: [facility] [Not filled] hydroCHLOROthiazide(hydroCHLOROt hiazide 25 mg oral tablet), 1 tab(s), Oral, Daily, X 90 days, # 90 tab(s), 3 total refill(s), Acute, 1 tab(s) Oral Daily,x90 days, Pharmacy: [facility] [Not filled] metFORMIN(metFORMIN 1000 mg oral tablet), 1 tab(s), Oral, BID, for diabetes, # 180 tab(s), 3 total refill(s), Maintenance, Bridge medication pt due for DM follow up in March 2023, 1 tab(s) Oral BID,Instr:for diabetes, Pharmacy: [facility] [Not filled] pantoprazole(pantoprazole 20 mg oral delayed release tablet), 1 tab(s), Oral, Daily, # 90 tab(s), 3 total refill(s), Maintenance, 1 tab(s) Oral Daily,x90 days, Pharmacy: [facility] [Not filled] propranolol(propranolol 80 mg oral tablet), 1 tab(s), Oral, BID, X 90 days, # 180 tab(s), 3 total refill(s), Acute, 1 tab(s) Oral BID,x90 days, Pharmacy: [facility] [Not filled] SETH BARTON DO Soakers Supervisor, PGY-3 [place] Addendum by JOSÉ MANUEL [...] followed by the ordering provider. Capt Francis, [facility], Staff Physician 01/11/2025 [id number] [facility] Assessment and Plan Extracted from:Title : [facility] [place]- Shave Biopsy Author: SALINA CORRIGAN MD Date: 06/24/24 Skin lesion [age]y/o F with 1x2mm nonmelanotic slightly raised circumscribed skin l esion. See procedure note for further detail Plan: - Sent for Path - will call with results if remarkable. suspect dermatofibroma - f/u prn Ordered: AP Surgical Pathology Orders: Hemoglobin A1c Capt Nura (), [facility], Soakers Supervisor PGY-2 [facility] Family [facility] [place], [place] Addendum by POLLO NEVAREZ MD on June 24, 2024 16:06:52 MAIL CLERK This encounter was directly supervised. I was present during naranjo components of the procedure. I have reviewed the note and concur with the findings, assessment, and plan. Follow up as listed. All labs/imaging/consults to be followed by the ordering provider. //SIGNED// POLLO NEVAREZ Lt Col, [place], , SFS Adjunct Preceptor, [place] F[facility] [phone] Extracted from:Title: [facility] [place]- well adult/ R ankle Author: SALINA CORRIGAN [...] since referral Ordered: Referral Request 2.0 - [facility] Orders: fluticasone nasal(Flonase Allergy Relief 50 mcg/inh nasal spray), 2 spray(s), Nostril-Both, Daily, # 3 EA, 3 total refill(s), Maintenance, 2 spray(s) Nostril-Both Daily, Pharmacy: [facility] [Not filled] hydroCHLOROthiazide(hydroCHLOROt hiazide 25 mg oral tablet), 1 tab(s), Oral, Daily, for blood pressure, # 90 tab(s), 3 total refill(s), Maintenance, 1 tab(s) Oral Daily,Instr:for blood pressure, Pharmacy: [facility] [Federal Rx: #90 last filled 05/28/24] atorvastatin(Lipitor 80 mg oral tablet), 1 tab(s), Oral, Daily, for cholesterol, # 90 tab(s), 3 total refill(s), Maintenance, 1 tab(s) Oral Daily,Instr:for cholesterol, Pharmacy: [facility] [Not filled] losartan(losartan 50 mg oral tablet), 1 tab(s), Oral, Daily, for blood pressure, # 90 tab(s), 3 total refill(s), Maintenance, 1 tab(s) Oral Daily,Instr:for blood pressure, Pharmacy: [facility] [Federal Rx: #90 last filled 05/28/24] metFORMIN(metFORMIN 1000 mg oral tablet), 1 tab(s), Oral, BID, for diabetes, # 180 tab(s), 3 total refill(s), Maintenance, 1 tab(s) Oral BID,Instr:for diabetes, Pharmacy: [facility] [Federal Rx: #180 last filled 05/28/24] Refer to Kirby Vargas. Capt Nura (), [facility], Soakers Supervisor PGY-[address] [place] [address] Family Medicine Residency Clinic [place], [place] Addendum by BRENNAN VILLALOBOS MD on May 31, 2024 13:26:53 MAIL CLERK I was present and available in the family medicine clinic to discuss the patient's care during the time of the appointment. I agree with the resident's assessment and plan as documented. Brennan Villalobos MD, Faculty, [facility], Attending Physician Extracted from:Title: FM - Hamstring tendinopathy Author: RAYMOND PAT DO Date: 01/16/24 1. S train of hamstring tendon Physical exam consistent with tendinopathy of the proximal right hamstring at the ischial tuberosity - Refer for physical therapy. Ordered: Referral Request 2.0 - [facility] 2. A nxiety Patient going through divorce [...] 01/10/2025, 1 tab(s) Oral Daily,x90 days, Pharmacy: [facility] [Not filled] citalopram(citalopram 20 mg oral tablet), 1.5 tab(s), Oral, Daily, Total of 30mg once daily., # 135 tab(s), 3 total refill(s), Maintenance, 1.5 tab(s) Oral Daily,Instr:Total of 30mg once daily., Pharmacy: [facility] [Not filled] pantoprazole(pantoprazole 20 mg oral delayed release tablet), 1 tab(s), Oral, Daily, # 90 tab(s), 3 total refill(s), Maintenance, 1 tab(s) Oral Daily,x90 days, Pharmacy: [facility] [Not filled] propranolol(propranolol 80 mg oral tablet), 1 tab(s), Oral, BID, X 90 days, # 180 tab(s), 3 total refill(s), Acute, 1 tab(s) Oral BID,x90 days, Pharmacy: [facility] [Not filled] Capt Irina (), FAVIAN, Soakers Supervisor, PGY-2 [facility], [facility] Addendum by SKIP NOLASCO MD on [...] by the ordering provider. DO Bear Dudley, [facility], Family Medicine Physician Extracted from:Title: Office Clinic Note Author: NICHOL TIMMONS MD Date: 12/16/23 1. G ynecologic examination normal -cervical cancer screening: performed today; pt. w/ h/o cryotherapy in , denies abnormal pap smears since that time -mammogram up to date: 10/2023, BIRADS 1 -colonoscopy up to date: 09/2023, recommendation for 10 year follow up -DEXA scan: 08/2023 w/ osteopenia; discussed Ca and Vit D supplementation and weight bearing exercise; followed by PCM, f/u scan recommended in 2 years Ordered: AP Cytology 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 HPV High Risk (16/18/Other) 2. F amily [...] her desk more during the work day. Pre Assembly Wirer also advised patient on interpersonal communications professor and/or home exercise program options. 4. Hepatic steatosis - Continue plan as per relevant documentation, patient verbalized understanding and endorses s he is pursuing Weight Watchers I spoke with patient over phone during this virtual appointment and spent 21 minutes reviewing chart and placing orders for this encounter. Capt Lincoln Hernández MD Resident, PGY-2 [facility], [facility] Family and Community Medicine Program [place] Addendum by MERT BECERRA MD on September 15, 2023 11:25:23 CDT On the date of this encounter, I was immediately available to assist the resident in the care of this patient and have reviewed and agree with the residents findings and plan of care. Lt Col Mert Becerra MD Family Medicine Physician [facility] Medicine Clinic YANNI Martinez Extracted from:Title: [...] refill(s), Maintenance, 100 mcg Nostril-Both Daily, Pharmacy: [facility] [Not filled] Note: Discontinued aspirin d ue to GI bleed risk as patient e ndorsing taking aspirin a s primary prevention without h istory of stroke or PA. Patient verbalized understanding and amenable to plan. I examined patient in-person / spoke with patient over phone and spent 30 minutes reviewing chart and placing orders for this encounter. Capt Lincoln Hernández MD Resident, PGY-2 [address] [facility], [facility] Family and [facility] Medicine Program [place] Addendum by TOBIAS FINE MD on September [...] regimen Return precautions provided Randall Durand DO Soakers Supervisor PGY-3 [place] Addendum by HOME PARR MD on July 31, 2023 10:39:07 MAIL CLERK I certify that I was immediately available to review and discuss this patient. T he resident discussed the diagnosis and treatment plan for this patient with me [id number]. I agree with these written findings and plan. Capt Home Parr DO, [facility] Sports/Family Medicine Faculty Physician [address] [place] [address], HCOS/SGGF O F [facility]on [facility] [place] Extracted from:Title: Fam Med - HTN/LE Swelling [...] 90 tab(s), 2 total refill(s), Maintenance, Pharmacy: [facility] [Federal Rx: #30 last filled 06/24/23] fluticasone nasal(Flonase 50 mcg/inh nasal spray), 100 mcg, Nostril-Both, Daily, # 16 g, 5 total refill(s), Maintenance, Pharmacy: [facility] [Federal Rx: #16 last filled 06/24/23] losartan(losartan 50 mg oral tablet), 1 tab(s), Oral, Daily, for blood pressure, # 90 tab(s), 3 total refill(s), Maintenance, 1 tab(s) Oral Daily,Instr:for blood pressure, Pharmacy: [facility] [Not filled] Referral Request 2.0 Referral Request 2.0 Ashkan Copeland MD PGY-3 [facility] [employer] Addendum by NUSRAT QIU MD on July 18, 2023 14:57:46 MAIL CLERK I certify that I was present for case discussion in the Family Medicine preceptor room at the time of this encounter. I have reviewed the note and agree with the findings, assessment, and plan except as I have documented below. Follow up as listed. All labs/imaging/consults to be followed by the ordering provider. Nusrat Qiu MD, [facility], [facility], Staff Physician Extracted from:Title: FM-virt med refill [...] Maintenance, 1 tab(s) Oral Daily,Instr:for cholesterol, Pharmacy: [facility] [Not filled] Lipid Panel 3. D iabetes mellitus Due for yearly labs - ordered Metformin refilled Ordered: metFORMIN(metFORMIN 1000 mg oral tablet), 1 tab(s), Oral, BID, for diabetes, # 180 tab(s), 3 total refill(s), Maintenance, 1 tab(s) Oral BID,Instr:for diabetes, Pharmacy: [facility] [Not filled] Hemoglobin A1c 4. S easonal allergic rhinitis Flonase refilled Ordered: fluticasone nasal(Flonase 50 mcg/inh nasal spray), 100 mcg, Nostril-Both, Daily, # 16 g, 5 total refill(s), Maintenance, 100 mcg Nostril-Both Daily, Pharmacy: [facility] [Not filled] 5. A nkle fracture Improving On aspirin for clot risk reduction per ortho (no Hx stroke or PA) Pt endorses ortho appt 28 May 2023 Recommend in-person visit when ankle boot off at upcoming orthopedist appt Consider DEXA scan discussion i f presents for annual physical Ordered: aspirin(aspirin 81 mg oral delayed release tablet), 1 tab(s), Oral, Daily, # 30 tab(s), 2 total refill(s), Maintenance, 1 tab(s) Oral Daily, Pharmacy: [facility] [Not filled] Orders: hydroCHLOROthiazide(hydroCHLOROt hiazide 25 mg oral tablet), 1 tab(s), Oral, Daily, for blood pressure, # 90 tab(s), 3 total refill(s), Maintenance, 1 tab(s) Oral Daily,Instr:for blood pressure, Pharmacy: [facility] [Not filled] CAPT LINCOLN HERNÁNDEZ MD [facility], [address], PGY-2 Addendum by BRENNAN VILLALOBOS MD on May 29, 2023 07:22:08 MAIL CLERK I was present and available in the family medicine clinic to discuss the patient's care during the time of the appointment. I agree with the resident's assessment and plan as documented. Brennan Villalobos MD, Faculty, [facility], [facility], Attending Physician Extracted from:Title: FM R ankle fracture Author: SONNY VEGA MD Date: 03/25/23 1. C losed fracture of right ankle Encouraged RICE Sending to orthopedics. Will send note encouraging teleworking. Continue ibuprofen and hydrocodone for pain. Follow up after orthopedics. Orders: Referral Request 2.0 Sonny Vega MD [employer] Supervisor, PGY-3 [place] Addendum by JASE RIVERA MD on March 25, 2023 11:08:37 CDT .att Extracted from:Title: [facility] - Annual, Med Refill, Skin Lesion (L Foot) Author: SETH BARTON DO Date: 02/26/23 1. E ncounter for general adult medical examination without abnormal findings Preventative Medicine / [facility] visit with no emergent concerns. [...] Maintenance, 1 tab(s) Oral Daily,x90 days, Pharmacy: [facility] [Not filled] aspirin(aspirin 81 mg oral delayed release tablet), 1 tab(s), Oral, Daily, X 90 days, # 90 tab(s), 3 total refill(s), Acute, 1 tab(s) Oral Daily,x90 days, Pharmacy: [facility] [Not filled] atorvastatin(atorvastatin 40 mg oral tablet), 1 tab(s), Oral, Daily, X 90 days, # 90 tab(s), 3 total refill(s), Acute, 1 tab(s) Oral Daily,x90 days, Pharmacy: [facility] [Not filled] cetirizine(cetirizine 10 mg oral tablet), 1 tab(s), Oral, Daily, X 90 days, # 90 tab(s), 3 total refill(s), Acute, 02/21/2024, 1 tab(s) Oral Daily,x90 days, Pharmacy: [facility] [Not filled] citalopram(citalopram 20 mg oral tablet), 1 tab(s), Oral, Daily, # 90 tab(s), 3 total refill(s), Maintenance, 1 tab(s) Oral Daily,x90 days, Pharmacy: [facility] [Not filled] fluticasone nasal(fluticasone 50 mcg/inh nasal spray), 50 mcg, Nostril-Both, Daily, # 16 g, 3 total refill(s), Maintenance, 50 mcg Nostril-Both Daily,x90 days, Pharmacy: [facility] [Not filled] hydroCHLOROthiazide(hydroCHLOROt hiazide 25 mg oral tablet), 1 tab(s), Oral, Daily, X 90 days, # 90 tab(s), 3 total refill(s), Acute, 1 tab(s) Oral Daily,x90 days, Pharmacy: [facility] [Not filled] metFORMIN(metFORMIN 1000 mg oral tablet), 1 tab(s), Oral, BID, for diabetes, # 180 tab(s), 3 total refill(s), Maintenance, [place] medication pt due for DM follow up in March 2023, 1 tab(s) Oral BID,Instr:for diabetes, Pharmacy: [facility] [Not filled] pantoprazole(pantoprazole 20 mg oral delayed release tablet), 1 tab(s), Oral, Daily, # 90 tab(s), 3 total refill(s), Maintenance, 1 tab(s) Oral Daily,x90 days, Pharmacy: [facility] [Not filled] propranolol(propranolol 80 mg oral tablet), 1 tab(s), Oral, BID, X 90 days, # 180 tab(s), 3 total refill(s), Acute, 1 tab(s) Oral BID,x90 days, Pharmacy: [facility] [Not filled] SETH BARTON DO [employer] Supervisor, PGY-3 [employer] Addendum by JOSÉ MANUEL [...] followed by the ordering provider. Capt Francis, [facility], Staff Physician 01/11/2025 [id number] Functional Status Combined list of recent functional and cognitive assessments recorded at [employer] [facility] Functional [place] Measurement (FIM) Scale: 1 = Total Assistance (Subject = 0% +), 2 = Maximal Assistance (Subject = 25% +), 3 = Moderate Assistance (Subject = 50% +), 4 = Minimal Assistance (Subject = 75% +), 5 = Supervision, 6 = Modified [place] (Device), 7 = Complete [place] (Timely, Safely). Assessment Date/Time Source Assessment Type Assessment Skill Assessment Score Assessment Details No data available for this section
[2025-01-11] MEDS: HYDROcodone/acetaminophen (*CRX) 5-325 MG TABLET 1 TAB PO (04:19)
[2025-01-11] MEDS: KETOROLAC 30 MG/ML VIAL (*BKC) 15 MG IM (04:19)
[2025-01-11] MEDS: LIDOCAINE 5% PATCH 1 PATCH TRANSDERM (04:19)
== END 2025-01-11 04:30 | disposition home or self-care (01) ==
PROVIDERS: Emergency Provider Student in an Organized Health Care Education/Training Program
DX: M54.9 Dorsalgia, unspecified (principal); M16.12 Unilateral primary osteoarthritis, left hip; I10 Essential (primary) hypertension; E78.5 Hyperlipidemia, unspecified; E11.9 Type 2 diabetes mellitus without complications; Z79.84 Long term (current) use of oral hypoglycemic drugs; Z79.899 Other long term (current) drug therapy; W18.39XA Other fall on same level, initial encounter
CPT/HCPCS: 70450; 71046; 71100; 73502; 96372; 99284; A9270; J1885